=== PATIENT | female | born 1955 | race Caucasian/White ===

== ENCOUNTER 2016-05-06 11:29 | Emergency (ER) | payer OTHER ==
[~2016-05-06] VITALS: Ht 162.6 cm; Wt 65.8 kg
[~2016-05-06 11:29] MED LIST: ACET325T96 PO; FURO-85 PO; NASASPR; OFLO0.3D4 OTR; PRT40 PO; SALI0.658 NAE
[2016-05-06 11:32] VITALS: TEMP 36.5; Ht 162.6 cm; Wt 65.8 kg
[2016-05-06] MEDS ORDERED: DICL75TA2 PO (12:00)
[2016-05-06 12:08] VITALS: BP 125/79; PULSE 81; O2SAT 97
--- NOTE | 2016-05-06 15:09 | EMERGENCY ROOM VISIT NOTE ---
History First contact with patient: 11:45 Chief Complaint: FACIAL PAIN/INJURY Stated Complaint: RIGHT JAW History of Present Illness The patient is a 61 year old female who presents to the Emergency Room with complaints of right-sided facial pain for the past 12 hours. The patient states that she was chewing gum last evening when she felt discomfort in her upper right jaw. The patient remove the gum, and went to bed. When she awoke this morning she still had persistent pain. She did take 2 Tylenol with minimal improvement of symptoms. The patient has not had facial or dental pain. No fever or chills. Her symptoms worsened when she opens and closes her jaw. Review of Systems More than 10 systems were reviewed and otherwise negative with the exception of history of present illness. Past Medical/Surgical History Medical Problems: (1) Atrial fibrillation (2) COPD (chronic obstructive pulmonary disease) (3) Pacemaker (4) RBBB (5) Rheumatic heart disease Surgical Problems: (1) H/O aortic valve replacement (2) History of mitral valve replacement (3) S/P AAA repair (4) S/P tonsillectomy and adenoidectomy Family History FH: CAD (coronary artery disease) FATHER FH: breast cancer MOTHER Social History Smoking Status: Never Smoker Current/Historical Medications Scheduled Diclofenac Sodium (Voltaren), 75 MG PO BID Diphenhydramine Hcl (Allergy Relief), 25 MG PO DAILY Furosemide (Lasix), 20 MG PO DAILY Ofloxacin (Otic) (Floxin Otic), 5 DROPS OTR BID Pantoprazole (Pantoprazole Sodium), 40 MG PO QAM Saline ([place] Nasal Drops), 2 DROPS DAI TID Warfarin Sod (Jantoven), 4 MG PO [id number] Warfarin Sod (Jantoven), 6 MG PO WK Scheduled PRN Acetaminophen Tab (Tylenol), 650 MG PO Q4H PRN for Pain Nasal Moisturizer Combination ([place] Ultra Saline Nasal), 2 SPRAY NA TID PRN for nasal dryness Allergies Coded Allergies: Adhesives (Verified Allergy, Unknown, UNKOWN., 05/06/16) ALL ALLERGY INFO PROVIDED BY THE OFFICE OF DR. STEVEN YI Gabapentin (Verified Allergy, Unknown, UNK, 05/06/16) Latex1 -Allergic Contact Dermititis (Verified Allergy, Unknown, unk, ) Sertraline (Verified Allergy, Unknown, UNK., 05/06/16) Sulfa Antibiotics (Verified Allergy, Unknown, unk, 05/06/16) Tramadol (Verified Allergy, Unknown, UNK, 05/06/16) Physical Exam Vital Signs Date Time Temp Pulse Resp B/P Pulse Ox O2 Delivery O2 Flow Rate FiO2 05/06/16 12:08 81 125/79 97 05/06/16 11:32 36.5 80 18 115/80 97 Room Air Pain Rating (0-10): 8.0 Physical Exam VITALS: Vitals are noted on the nurse's note and reviewed by myself. Vital signs stable. GENERAL: Well-developed, well-nourished, white female, who is in no acute distress and resting comfortably. Patient is cooperative with the examination. HEAD: Normocephalic atraumatic. EARS: External ear normal. External auditory canals clear, tympanic membranes pearly meza without erythema or effusion bilaterally. EYES: Pupils equal round and reactive to light and accommodation. Conjunctivae without injection, sclerae without icterus. Extraocular movements intact. NOSE: Patent, turbinates without inflammation or discharge. MOUTH: Mucous membranes moist. Tonsils are not enlarged. Pharynx without erythema, blood, or exudate. Uvula midline. Airway patent. Tenderness is appreciated over the right TMJ. Tenderness is reportedly worse with opening and closing the jaw. No trismus. No Ludwigs. NECK: Supple without nuchal rigidity. No lymphadenopathy. No thyromegaly. Cervical spine is nontender. HEART: Regular rate and rhythm without murmurs gallops or rubs. LUNGS: Clear to auscultation bilaterally without wheezes, rales or rhonchi. No retractions or accessory muscle use. Medical Decision & Procedures ED Course Physical exam and history were performed. Nursing notes and EMR were reviewed. Patient appears to have pain directly over her right TMJ. This appears to be exacerbated after chewing gum about 12 hours ago. The discomfort is worsened with opening and closing the jaw. The patient has never had symptoms like this in the past. She certainly is without signs of dental infection or abscess. There is no facial cellulitis. She will be given a short course of Voltaren to assist with pain and inflammation. I recommended a soft food and liquid diet for the next several days. The patient may wish to consider a dental splint or follow up with her PCP/dentist if symptoms persist. She was otherwise invited back to the ER with any new, worsening, or concerning symptoms. The chart was completed utilizing [employer] Speech Voice Recognition Software. Grammatical errors, random word insertions, pronoun errors, and incomplete sentences are an occasional consequence of this system due to software limitations, ambient noise, and hardware issues. Any formal questions or concerns about the content, text, or information contained within the body of this dictation should be directly addressed to the provider for clarification. . Medical Decision Differential diagnosis includes, but is not limited to: TMJ pain, ental infection, sinusitis, cellulitis, and others Impression Primary Impression: Temporomandibular joint (TMJ) pain Departure Information Dispostion Home / Self-Care Condition GOOD Prescriptions Diclofenac Sodium (VOLTAREN) 75 Mg Tab 75 MG PO BID for 7 Days, #14 TAB Prov: Haja Casas PA-C 05/06/16 Forms HOME CARE DOCUMENTATION FORM, IMPORTANT VISIT INFORMATION Patient Instructions My [facility] Additional Instructions You were seen and evaluated today on an emergency basis only. This is not a substitute for, or an effort to provide, complete comprehensive medical care. It is not possible to recognize and treat all injuries or illnesses in a single emergency department visit. For this reason it is recommended that you followup with your primary care physician next week with any ongoing or persistent symptoms. Take diclofenac 75 mg twice daily with food for the next week. We recommend a soft food and liquid diet for the next several days until her symptoms improve. You are welcome to return to the emergency department anytime with new, worsening, or concerning symptoms.
[2016-10-02] MEDS ORDERED: WARF2TAB8 PO ×2 (11:28→17:55)
[2016-10-02] MEDS ORDERED: DIPH25TA2 PO (11:30)
[2016-11-05] MEDS ORDERED: PRT40 PO (16:41)
[2016-11-05] MEDS ORDERED: WARF2TAB8 PO (16:41)
[2016-11-05] MEDS ORDERED: NTRSLP4 SL (16:41)
[2016-11-05] MEDS ORDERED: ASPEC81 PO (16:41)
[2016-11-05] MEDS ORDERED: LVNIS80 SQ (16:41)
== END 2016-05-06 12:09 | disposition home or self-care (01) ==
LOC: C.EDB 11:33 → C.EDD 12:09
DX: M26.621 Arthralgia of right temporomandibular joint (principal); I48.91 Unspecified atrial fibrillation; J44.9 Chronic obstructive pulmonary disease, unspecified; Z95.0 Presence of cardiac pacemaker; I45.10 Unspecified right bundle-branch block; I09.9 Rheumatic heart disease, unspecified; Z95.2 Presence of prosthetic heart valve; Z82.49 Family history of ischemic heart disease and other diseases of the circulatory system; Z80.3 Family history of malignant neoplasm of breast; Z79.899 Other long term (current) drug therapy; Z79.01 Long term (current) use of anticoagulants

== ENCOUNTER 2016-10-02 14:31 | Emergency (ER) | payer OTHER ==
[~2016-10-02] VITALS: Ht 162.6 cm; Wt 63.1 kg
[~2016-10-02 14:31] MED LIST changes: +DIPH25TA2 PO; -SALI0.658 NAE; +WARF2TAB8 PO
[2016-10-02 14:35] VITALS: TEMP 36.8; Ht 162.6 cm; Wt 63.1 kg
[2016-10-02] MEDS ORDERED: POTA1TAB PO (15:28)
[2016-10-02] MEDS ORDERED: ACET500T57 PO (15:28)
[2016-10-02] MEDS ORDERED: SIME1CHW17 PO (15:28)
[2016-10-02] MEDS ORDERED: ONDANSETRON 4MG OD TAB PO STA (15:55)
[2016-10-02] MEDS ORDERED: ACETAMINOPHEN 500 MG TAB PO STA (15:55)
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
[2016-10-02 17:46] VITALS: BP 138/97; PULSE 80; O2SAT 98
[2016-10-02] MEDS ORDERED: WARF2TAB8 PO (17:55)
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
[2016-11-05] MEDS ORDERED: WARF2TAB8 PO (16:41)
[2016-11-05] MEDS ORDERED: LVNIS80 SQ (16:41)
[2016-11-05] MEDS ORDERED: PRT40 PO (16:41)
[2016-11-05] MEDS ORDERED: ASPEC81 PO (16:41)
[2016-11-05] MEDS ORDERED: NTRSLP4 SL (16:41)
== END 2016-10-02 17:40 | disposition home or self-care (01) ==
LOC: C.EDB 14:32 → C.EDD 17:40
DX: S09.90XA Unspecified injury of head, initial encounter (principal); M54.2 Cervicalgia; V89.2XXA Person injured in unspecified motor-vehicle accident, traffic, initial encounter; I51.9 Heart disease, unspecified

== ENCOUNTER → 2016-10-06 | Outpatient (CLI) | payer OTHER ==
[~2016-10-06] MED LIST changes: -ACET325T96 PO; +ACET500T57 PO; +ASPEC81 PO; +CLR10 PO; -FURO-85 PO; +LVNIS80 SQ; -NASASPR; +NTRSLP4 SL; -OFLO0.3D4 OTR; +POTA1TAB PO; +SIME1CHW17 PO; +WARF4TAB8 PO
[2016-10-06 17:56] LABS: BASO % 0.2 %; BASO ABS # 0.01 K/uL (0-0.2); COMPLETE YES; EOS % 2.8 %; HEMATOCRIT 42.2 % (37-47); IG% 0.3 %; LYMPH % 19.2 %; LYMPH ABS # 1.23 K/uL (1.2-3.4); MEAN CELL VOLUME 93.6 fL (80-100); MEAN CORPUSCULAR HEMOGLOBIN 31.7 pg (25-34); MEAN CORPUSCULAR HGB CONC 33.9 g/dl (32-36); MEAN PLATELET VOLUME 10.7 fL (7.4-10.4); MONO % 9.2 %; NEUT % 68.3 %; PLATELET COUNT 195 K/uL (130-400); RED BLOOD COUNT 4.51 M/uL (4.2-5.4); WHITE BLOOD COUNT 6.42 K/uL (4.8-10.8)
[2016-10-06 18:14] LABS: ALT/SGPT 17 U/L (12-78); AST/SGOT 30 U/L (15-37); BLOOD UREA NITROGEN 13 mg/dl (7-18); BUN/CREATININE RATIO 14.8 (10-20); CALCIUM 8.9 mg/dl (8.5-10.1); CARBON DIOXIDE 27 mmol/L (21-32); CHLORIDE 107 mmol/L (98-107); CHOLESTEROL 195 mg/dl (0-200); CREATININE 0.86 mg/dl (0.60-1.20); GLUCOSE 86 mg/dl (70-99); POTASSIUM 3.8 mmol/L (3.5-5.1); SODIUM 140 mmol/L (136-145); TRIGLYCERIDES 120 mg/dl (0-150); VERY LOW DENSITY LIPOPROT CALC 24 mg/dl
[2016-10-06 18:17] LABS: INR 1.9 (0.9-1.1); PROTHROMBIN TIME (PATIENT) 20.9 SECONDS (9.0-12.0)
[2016-10-06 18:24] LABS: ALB/GLOB RATIO 1.1 (0.9-2); ALKALINE PHOSPHATASE 76 U/L (45-117); CHOLESTEROL/HDL RATIO 3.9; HDL CHOLESTEROL 50 mg/dl; LDL CHOLESTEROL CALCULATED 121 mg/dl
== END | disposition home or self-care (01) ==
LOC: C.LABPBG 12:27
PROVIDERS: ATTEND Family Medicine
DX: I48.91 Unspecified atrial fibrillation (principal); Z95.2 Presence of prosthetic heart valve

== ENCOUNTER → 2016-10-07 | Outpatient (CLI) | payer OTHER ==
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
== END | disposition home or self-care (01) ==
LOC: C.RAD 15:13
PROVIDERS: ATTEND Physician Assistant
DX: R07.81 Pleurodynia (principal); R91.8 Other nonspecific abnormal finding of lung field; V89.2XXA Person injured in unspecified motor-vehicle accident, traffic, initial encounter

== ENCOUNTER → 2016-10-17 | Outpatient (CLI) | payer OTHER ==
[~2016-10-17] MED LIST changes: +OPTIRAY 320 IV PRN
--- NOTE | 2016-10-17 14:54 | DIAGNOSTIC IMAGING REPORT ---
CT OF THE CHEST WITH IV CONTRAST CLINICAL HISTORY: R91.1 Lung nodule, [id number] COMPARISON STUDY: Chest x-ray dated 10/07/2016 TECHNIQUE: Following the IV administration of 94 mL of Optiray-320, CT of the thorax was performed from the thoracic inlet to the lung bases. Images are reviewed in the axial, sagittal, and coronal planes. IV contrast was administered without complication. A dose lowering technique was utilized adhering to the principles of ALARA. CT DOSE: 156.52 mGycm FINDINGS: Thyroid: Imaged portions of the thyroid gland are normal in appearance. Thoracic aorta: There is dilatation of the ascending thoracic aorta which measures 37 mm in diameter Pulmonary vasculature: The pulmonary trunk is normal in caliber. There are no central filling defects identified to suggest pulmonary embolus. Note that this examination was not protocoled for the evaluation of pulmonary emboli. HEART: There is an aortic and mitral valve replacement. There is left atrial enlargement. There is a left subclavian pacemaker present. Lungs and pleural spaces: There is severe pulmonary emphysema. There is no focal pulmonary consolidation. There are no suspicious pulmonary masses. The right apical opacity described on the recent chest x-ray, likely represented a summation. There is a 2 mm right upper lobe pulmonary nodule. This is of doubtful significance. There is also a 4 mm right middle lobe pulmonary nodule as visualized in image #[id number] there is a 2 mm calcified left lower lobe granuloma. Mediastinum: There are borderline enlarged right paratracheal and prevascular lymph nodes Tamera: Hilar lymph nodes are the upper limits of normal in size Axilla: There is no evidence of pathologic axillary lymphadenopathy. There is a 12 mm lobulated left breast nodule versus area of glandular summation Upper abdomen: There is equivocal mild splenomegaly Skeletal structures: There are no lytic or blastic osseous lesions. IMPRESSION: 1. CT scanning fails to confirm the presence of a 17 mm right apical pulmonary mass 2. Severe pulmonary emphysema 3. 12 mm left breast nodule versus glandular summation 4. 4 mm solid right middle lobe pulmonary nodule. A 12 month follow-up is optional. Please refer to below summary of Fleischner criteria recommendations for follow-up of incidental CT nodules (Vlad Nunez, Guidelines for management of small pulmonary nodules detected on CT scans: A statement from the Fleischner Society, Radiology 237: [phone].) SOLID NODULES Solitary nodule size: <6 mm * low risk patients: no follow-up needed * high risk patients: optional CT at 12 months Solitary nodule size: 6-8 mm * low risk patients: follow-up at 6-12 months, then consider further follow-up at 18-24 months * high risk patients: initial follow-up CT at 6-12 months and then at 18-24 months if no change Solitary nodule size: >8 mm * either low or high risk patients - consider follow-up CT at 3 months, and/or CT-PET, and/or biopsy Multiple nodules size: <6 mm * low risk patients: no routine follow-up * high risk patients: optional CT at 12 months Multiple nodules size: 6-8 mm * low risk patients: follow-up at 3-6 months, then consider further follow-up at 18-24 months * high risk patients: follow-up at 3-6 months, then at 18-24 months if no change Multiple nodules size: >8 mm * low risk patients: follow-up at 3-6 months, then consider further follow-up at 18-24 months * high risk patients: follow-up at 3-6 months, then at 18-24 months if no change Note: newly detected indeterminate nodule in persons 35 years of age or older. * low risk patients: minimal or absent history of smoking and/or other known risk factors * high risk patients: history of smoking or of other known risk factors (e.g. first degree relative with lung cancer, or exposure to asbestos, radon, uranium) * if a nodule up to 8 mm is partly solid or is ground glass further follow-up is required after 24 months to exclude possible slow growing adenocarcinoma ([place]ICA) SUBSOLID NODULES Solitary pure ground-glass nodule * nodule size <6 mm - no CT follow-up required * nodule size >=6 mm - follow-up CT at 6-12 months, then every 2 years until 5 years Solitary part-solid nodule * nodule size <6 mm - no CT follow-up required * nodule size >=6 mm - follow-up CT at 3-6 months. If unchanged, and solid component remains <6 mm, then annual follow-up for 5 years Multiple subsolid nodules * nodule size <6 mm - follow-up CT at 3-6 months, consider further follow-up at 2 and 4 years if stable * nodule size >=6 mm - follow-up CT at 3-6 months, subsequent management based on the most suspicious nodule(s) Electronically signed by: Ever Nunez M.D. 10/17/2016 2:53 PM Dictated Date/Time: 10/17/2016 2:42 PM
== END | disposition home or self-care (01) ==
LOC: C.CTS 13:26
PROVIDERS: ATTEND Physician Assistant
DX: R91.1 Solitary pulmonary nodule (principal); J43.9 Emphysema, unspecified

== ENCOUNTER 2016-11-03 21:36 | Observation (INO) | payer OTHER ==
[~2016-11-03] VITALS: Ht 162.6 cm; Wt 64.1 kg
[~2016-11-03 21:36] MED LIST changes: -ASPEC81 PO; -CLR10 PO; -LVNIS80 SQ; -NTRSLP4 SL; -OPTIRAY 320 IV PRN; -PRT40 PO; -WARF4TAB8 PO
[2016-11-03 21:59] LABS: BASO % 0.1 %; BASO ABS # 0.01 K/uL (0-0.2); COMPLETE YES; EOS % 2.4 %; HEMATOCRIT 37.8 % (37-47); IG% 0.3 %; LYMPH % 13.2 %; LYMPH ABS # 1.01 K/uL (1.2-3.4); MEAN CELL VOLUME 91.7 fL (80-100); MEAN CORPUSCULAR HEMOGLOBIN 31.6 pg (25-34); MEAN CORPUSCULAR HGB CONC 34.4 g/dl (32-36); MEAN PLATELET VOLUME 10.2 fL (7.4-10.4); MONO % 8.8 %; NEUT % 75.2 %; PLATELET COUNT 150 K/uL (130-400); RED BLOOD COUNT 4.12 M/uL (4.2-5.4); WHITE BLOOD COUNT 7.64 K/uL (4.8-10.8)
[2016-11-03 22:06] LABS: INR 1.3 (0.9-1.1); PARTIAL THROMBOPLASTIN RATIO 1.1; PROTHROMBIN TIME (PATIENT) 13.7 SECONDS (9.0-12.0)
--- NOTE | 2016-11-03 22:14 | DIAGNOSTIC IMAGING REPORT ---
CHEST ONE VIEW PORTABLE CLINICAL HISTORY: Atypical chest pain COMPARISON STUDY: 10/07/2016 FINDINGS: The cardiac and mediastinal contours remain stable. The patient is status post a midline sternotomy and bivalvular replacement.[ There is no acute parenchymal consolidation. There are no pleural effusions. There is radiographic evidence of emphysema with mild chronic interstitial thickening. IMPRESSION: AP portable study. No acute findings. Electronically signed by: Ever Nunez M.D. 11/03/2016 10:12 PM Dictated Date/Time: 11/03/2016 10:11 PM
[2016-11-03 22:15] LABS: ALT/SGPT 18 U/L (12-78); BLOOD UREA NITROGEN 20 mg/dl (7-18); CALCIUM 8.4 mg/dl (8.5-10.1); CARBON DIOXIDE 23 mmol/L (21-32); CHLORIDE 110 mmol/L (98-107); CREATININE 0.96 mg/dl (0.60-1.20); GLUCOSE 120 mg/dl (70-99); POTASSIUM 3.6 mmol/L (3.5-5.1); SODIUM 142 mmol/L (136-145)
[2016-11-03 22:19] LABS: ALKALINE PHOSPHATASE 86 U/L (45-117); AST/SGOT 47 U/L (15-37); PHOSPHORUS 3.6 mg/dl (2.5-4.9)
--- NOTE | 2016-11-03 22:44 | EMERGENCY ROOM VISIT NOTE ---
History Report prepared by Luiza: Yung Huerta Under the Supervision of: Dr. Ahsan Vargas M.D. First contact with patient: 21:40 Chief Complaint: CHEST PAIN Stated Complaint: CHEST PAIN Nursing Triage Summary: pt arrived als from home reported chest pain starting at [id number] in the center of chest moved to the under the left brest. pt has a cardiac hx, pacer in place , [employer] [facility] pt c.o sob states she has emphazema, denies radiating of pain pain 07/19 History of Present Illness The patient is a 61 year old white female with a past medical history of hyperlipidemia, tricuspid angioplasty, and mitral valve replacement who presents to the ED by EMS with a cc of an episode of centralized chest pain occurring two hours ago. Pain began suddenly. Not exerting herself when her symptoms began. Describes her pain as feeling "like a gas bubble", or like "pressure". Walking worsened her pain. Pain resolved en route after aspirin and nitroglycerin. Does not believe she actually ingested the aspirin. Positive SOB and dizziness. Patient has a pacemaker in place. No recent prolonged travel. No history of blood clots. Patient is on Coumadin. Negative leg swelling, cough, fevers, chills. Source of History: patient Onset: Two hours ago Position: chest (centralized) Timing: other (episode) Modifying Factors (Worsening): other (walking) Modifying Factors (Relieving): other (Nitroglycerin) Associated Symptoms: + SOB, No fevers, No chills, No cough Note: Positive: dizziness. Negative: leg swelling. Review of Systems See HPI for pertinent positives and negatives. A total of ten systems were reviewed and were otherwise negative. Past Medical & Surgical Medical Problems: (1) Atrial fibrillation (2) COPD (chronic obstructive pulmonary disease) (3) Pacemaker (4) RBBB (5) Rheumatic heart disease Surgical Problems: (1) H/O aortic valve replacement (2) History of mitral valve replacement (3) S/P AAA repair (4) S/P tonsillectomy and adenoidectomy Family History FH: CAD (coronary artery disease) FATHER FH: breast cancer MOTHER Social History Smoking Status: Former Smoker Current/Historical Medications Scheduled Warfarin Sod (Jantoven), 4 MG PO DAILY Allergies Coded Allergies: Adhesives (Verified Allergy, Unknown, UNKOWN., 11/03/16) ALL ALLERGY INFO PROVIDED BY THE OFFICE OF DR. STEVEN YI Gabapentin (Verified Allergy, Unknown, UNK, 11/03/16) Latex1 -Allergic Contact Dermititis (Verified Allergy, Unknown, unk, ) Sertraline (Verified Allergy, Unknown, UNK., 11/03/16) Sulfa Antibiotics (Verified Allergy, Unknown, unk, 11/03/16) Tramadol (Verified Allergy, Unknown, UNK, 11/03/16) Physical Exam Vital Signs Date Time Temp Pulse Resp B/P (MAP) Pulse Ox O2 Delivery O2 Flow Rate FiO2 11/04/16 00:24 80 21 122/80 99 11/04/16 00:01 80 21 122/80 99 Nasal Cannula 2.0 11/03/16 23:31 80 19 132/86 98 Nasal Cannula 2.0 11/03/16 23:01 80 20 124/83 99 Nasal Cannula 2.0 11/03/16 22:42 115/77 11/03/16 22:36 80 18 98 11/03/16 22:06 81 19 98 11/03/16 21:58 89 Room Air 11/03/16 21:58 93 Nasal Cannula 2.0 11/03/16 21:43 80 11/03/16 21:40 93 Room Air 11/03/16 21:37 36.4 81 18 121/76 93 Room Air Physical Exam GENERAL: Awake, alert, well-appearing, NAD HENT: Normocephalic, atraumatic. EYES: Normal conjunctiva. Sclera non-icteric. NECK: Supple. No nuchal rigidity. FROM. RESPIRATORY: Bibasilar crackles noted to auscultation. CARDIAC: RRR, no MRG ABDOMEN: Soft, NTND, BS+ MSK: No chest wall TTP, no LE edema NEURO: GCS 15, CN 2-12 intact, moves all 4s on command SKIN: No rash or jaundice noted. Medical Decision & Procedures ER Provider Diagnostic Interpretation: X-ray: Per my interpretation, radiologist review. CHEST ONE VIEW PORTABLE FINDINGS: The cardiac and mediastinal contours remain stable. The patient is status post a midline sternotomy and bivalvular replacement.[ There is no acute parenchymal consolidation. There are no pleural effusions. There is radiographic evidence of emphysema with mild chronic interstitial thickening. IMPRESSION: AP portable study. No acute findings. Electronically signed by: Ever Nunez M.D. Laboratory Results 11/03/16 21:47 Red Blood Count 4.12, Mean Corpuscular Volume 91.7, Mean Corpuscular Hemoglobin 31.6, Mean Corpuscular Hemoglobin Concent 34.4, Mean Platelet Volume 10.2, Neutrophils (%) (Auto) 75.2, Lymphocytes (%) (Auto) 13.2, Monocytes (%) (Auto) 8.8, Eosinophils (%) (Auto) 2.4, Basophils (%) (Auto) 0.1, Neutrophils # (Auto) 5.75, Lymphocytes # (Auto) 1.01, Monocytes # (Auto) 0.67, Eosinophils # (Auto) 0.18, Basophils # (Auto) 0.01 11/03/16 21:47 Test 11/03/16 21:47 11/04/16 01:00 White Blood Count 7.64 K/uL (4.8-10.8) Red Blood Count 4.12 M/uL (4.2-5.4) Hemoglobin 13.0 g/dL (12.0-16.0) Hematocrit 37.8 % (37-47) Mean Corpuscular Volume 91.7 fL (80-100) Mean Corpuscular Hemoglobin 31.6 pg (25-34) Mean Corpuscular Hemoglobin Concent 34.4 g/dl (32-36) Platelet Count 150 K/uL (130-400) Mean Platelet Volume 10.2 fL (7.4-10.4) Neutrophils (%) (Auto) 75.2 % Lymphocytes (%) (Auto) 13.2 % Monocytes (%) (Auto) 8.8 % Eosinophils (%) (Auto) 2.4 % Basophils (%) (Auto) 0.1 % Neutrophils # (Auto) 5.75 K/uL (1.4-6.5) Lymphocytes # (Auto) 1.01 K/uL (1.2-3.4) Monocytes # (Auto) 0.67 K/uL (0.11-0.59) Eosinophils # (Auto) 0.18 K/uL (0-0.5) Basophils # (Auto) 0.01 K/uL (0-0.2) RDW Standard Deviation 47.2 fL (36.4-46.3) RDW Coefficient of Variation 14.0 % (11.5-14.5) Immature Granulocyte % (Auto) 0.3 % Immature Granulocyte # (Auto) 0.02 K/uL (0.00-0.02) Prothrombin Time 13.7 SECONDS (9.0-12.0) Prothromb Time International Ratio 1.3 (0.9-1.1) Activated Partial Thromboplast Time 28.5 SECONDS (21.0-31.0) Partial Thromboplastin Ratio 1.1 Anion Gap 9.0 mmol/L (3-11) Est Creatinine Clear Calc Drug Dose 52.5 ml/min Estimated GFR () 73.5 Estimated GFR (Non- 63.4 BUN/Creatinine Ratio 21.0 (10-20) Calcium Level 8.4 mg/dl (8.5-10.1) Phosphorus Level 3.6 mg/dl (2.5-4.9) Magnesium Level 2.0 mg/dl (1.8-2.4) Total Bilirubin 0.8 mg/dl (0.2-1) Direct Bilirubin 0.3 mg/dl (0-0.2) Aspartate Amino Transf (AST/SGOT) 47 U/L (15-37) Alanine Aminotransferase (ALT/SGPT) 18 U/L (12-78) Alkaline Phosphatase 86 U/L (45-117) Total Protein 6.5 gm/dl (6.4-8.2) Albumin 3.4 gm/dl (3.4-5.0) Lipase 154 U/L (73-393) Laboratory results reviewed by me Medications Administered Medications (Trade) Dose Ordered Sig/Aidee Route Start Time Stop Time Status Last Admin Dose Admin Aspirin (Aspirin Chew) 324 mg NOW STAT PO 11/03/16 22:53 11/03/16 22:54 DC 11/03/16 23:01 324 MG Ondansetron HCl (Zofran Inj) 4 mg Q6H PRN IV 11/03/16 23:15 12/03/16 23:14 11/04/16 00:20 4 MG Warfarin Sodium (Coumadin Tab) 5 mg NOW STAT PO 11/04/16 00:02 11/04/16 00:03 DC 11/04/16 00:20 5 MG ECG Indication: chest pain Rate (beats per minute): 81 Rhythm: other (ventricularly paced) Findings: LBBB, T-wave inversion (inferior, V5 and V6. ), no acute ischemic change, other (Wide QRS. No Sgarbossa criteria. ) Comparison ECG Date: January 16, 2016 Change: no significant change ED Course 2151: The patient was evaluated in room B11B. A complete history and physical exam was performed. 2239: Upon reexamination, the patient was resting comfortably. I discussed the test results and treatment plan with her. The patient will be evaluated for further management. Medical Decision The patient is a 61 year old white female with a past medical history of hyperlipidemia, tricuspid angioplasty, and mitral valve replacement who presents to the ED by EMS with a cc of an episode of centralized chest pain occurring two hours ago. Differential diagnosis: Etiologies such as cardiac ischemia, aortic dissection, pulmonary embolism, pneumonia, pneumothorax, musculoskeletal, infections, pericarditis, myocarditis , esophageal rupture, gastrointestinal, as well as others were entertained. I initially took the phone call by EMS in the and evaluated the patient. Patient's story was concerning as it was left-sided, with diaphoresis, nausea. Patient did complain of some exertional chest pain. Patient was complaining mild shortness of breath. Patient prior history of DVT or PE. Patient had a previous history of a tricuspid annuloplasty and a pacemaker that was placed. Patient also has history of hypertension and hyperlipidemia. Patient has no prior history of [place]. Patient does smoke. Patient was given nitroglycerin in route and she stated that her pain had improved greatly. Decision was given aspirin but believes she had vomited it up. Per review of her EKG she did have a left bundle branch block but no acute concerning sgarbossa criteria met. Patient had a negative troponin and chest x-ray. Patient's other laboratory was fairly unremarkable. Given the history of the chest pain I spoke with the medicine service who agreed patient would benefit from his recent observation. Per serial EKGs and cardiac enzymes. Patient admitted to the medicine service. Medication Reconcilliation Current Medication List: was personally reviewed by me Blood Pressure Screening Patient's blood pressure: Normal blood pressure Blood pressure disposition: Did not require urgent referral Consults Time Called: [phone] Consulting Physician: Dr. Jarrod ZHOU Returned Call: [phone] Discussed the patient's case. The patient will be evaluated for further treatment and disposition. Impression Primary Impression: Atypical chest pain Additional Impression: Encounter for smoking cessation counseling Scribe Attestation The scribe's documentation has been prepared under my direction and personally reviewed by me in its entirety. I confirm that the note above accurately reflects all work, treatment, procedures, and medical decision making performed by me. Departure Information Dispostion Being Evaluated By Hospitalist Referrals Shellie Bush DO (PCP) Patient Instructions [facility] Problem Qualifiers
[2016-11-03] MEDS ORDERED: ASPIRIN 324 MG CHEW PO STA (22:53)
[2016-11-03] MEDS ORDERED: POLYETHYLENE (MIRALAX) 17 GM PACK PO PRN (23:15)
[2016-11-03] MEDS ORDERED: ALUMINUM/MAGNESIUM/SIMETH (MAALOX MAX) 30 ML UDC PO PRN (23:15)
[2016-11-03] MEDS ORDERED: ACETAMINOPHEN 325 MG TAB PO PRN (23:15)
[2016-11-03] MEDS ORDERED: MoRPHine SULFATE 2 MG/ML CARP IV PRN (23:15)
[2016-11-03] MEDS ORDERED: ONDANSETRON INJ 2 MG/ML 2 ML VIAL IV PRN (23:15)
[2016-11-03] MEDS ORDERED: MAGNESIUM HYDROXIDE SUSP 30 ML UDC PO PRN (23:15)
[2016-11-03] MEDS ORDERED: NITROGLYCERIN 0.4 MG SL PER TAB CHARGE SL PRN (23:15)
[2016-11-03] MEDS ORDERED: ZOLPIDEM TARTRATE 5 MG TAB PO PRN (23:15)
--- NOTE | 2016-11-03 23:52 | History and Physical ---
History & Physical Date & Time of Service: Nov 03, 2016 at 23:29 Chief Complaint: Chest Pain Primary Care Physician: Shellie Bush DO History of Present Illness Source: patient 61 y/o F Hx COPD, mechanical mitral and aortic valve owing to rheumatic heart disease. Pt developed central CP lasting 1-2 hours. Accompanied by SOB - nonradiating, denies N/V, diaphoresis. Has not had previous chest pain episodes. Past Medical/Surgical History Medical Problems: (1) Atrial fibrillation Status: Chronic (2) COPD (chronic obstructive pulmonary disease) Status: Chronic (3) Pacemaker Status: Chronic (4) RBBB Status: Chronic (5) Rheumatic heart disease Status: Chronic Surgical Problems: (1) H/O aortic valve replacement - mechanical valve Permanent Comment: 1992 (2) History of mitral valve replacement (mechanical valve) in addition to tricuspid valve repair Permanent Comment: 05/2014; mechanical Status: Chronic (3) S/P AAA repair Status: Chronic (4) S/P tonsillectomy and adenoidectomy Status: Chronic Family History FH: CAD (coronary artery disease) FATHER FH: breast cancer MOTHER Social History Smoking Status: Former Smoker Immunizations History of Tetanus Vaccine?: Yes Tetanus Immunization Date: Jul 22, 2012 History of Pneumococcal: Yes Pneumococcal Date: Apr 23, 2014 Allergies Coded Allergies: Adhesives (Verified Allergy, Unknown, UNKOWN., 11/03/16) ALL ALLERGY INFO PROVIDED BY THE OFFICE OF DR. STEVEN YI Gabapentin (Verified Allergy, Unknown, UNK, 11/03/16) Latex1 -Allergic Contact Dermititis (Verified Allergy, Unknown, unk, ) Sertraline (Verified Allergy, Unknown, UNK., 11/03/16) Sulfa Antibiotics (Verified Allergy, Unknown, unk, 11/03/16) Tramadol (Verified Allergy, Unknown, UNK, 11/03/16) Home Medications Scheduled Warfarin Sod (Jantoven), 4 MG PO DAILY Review of Systems Constitutional: No fever, No chills, No sweats Eyes: No worsening of vision ENT: No hearing loss Respiratory: + shortness of breath, No cough, No sputum, No wheezing Cardiovascular: + chest pain, No orthopnea, No PND Abdomen: No pain, No nausea, No vomiting Musculoskeletal: No joint pain Genitourinary - Female: No dysuria Neurologic: No memory loss, No paralysis, No weakness Psychiatric: No depression symptoms Endocrine: No fatigue Hematologic / Lymphatic: No abnormal bleeding/bruising Integumentary: No rash Allergic / Immunologic: No environmental allergies Physical Exam Vital Signs Date Time Temp Pulse Resp B/P (MAP) Pulse Ox O2 Delivery O2 Flow Rate FiO2 11/03/16 22:42 115/77 11/03/16 22:36 80 18 98 11/03/16 22:06 81 19 98 11/03/16 21:58 89 Room Air 11/03/16 21:58 93 Nasal Cannula 2.0 11/03/16 21:43 80 11/03/16 21:40 93 Room Air 11/03/16 21:37 36.4 81 18 121/76 93 Room Air General Appearance: WD/WN, no apparent distress Head: normocephalic Eyes: normal inspection ENT: normal ENT inspection, pharynx normal Neck: supple, no JVD Respiratory/Chest: lungs clear Cardiovascular: regular rate, rhythm, no edema, no JVD, + pertinent finding ( Audible click ) Abdomen/GI: normal bowel sounds, non tender, soft Back: normal inspection, no CVA tenderness, no muscle spasm, normal range of motion Extremities/Musculoskelatal: normal inspection, no calf tenderness, normal capillary refill, no pedal edema, normal range of motion 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, no motor/sensory deficits, alert, normal mood/affect, normal reflexes, oriented x 3 Skin: normal color, warm/dry, no rash Lymphatic: no adenopathy Diagnostics Laboratory Results Results Past 24 Hours Test 11/03/16 21:47 Range/Units White Blood Count 7.64 4.8-10.8 K/uL Red Blood Count 4.12 4.2-5.4 M/uL Hemoglobin 13.0 12.0-16.0 g/dL Hematocrit 37.8 37-47 % Mean Corpuscular Volume 91.7 80-100 fL Mean Corpuscular Hemoglobin 31.6 25-34 pg Mean Corpuscular Hemoglobin Concent 34.4 32-36 g/dl Platelet Count 150 130-400 K/uL Mean Platelet Volume 10.2 7.4-10.4 fL Neutrophils (%) (Auto) 75.2 % Lymphocytes (%) (Auto) 13.2 % Monocytes (%) (Auto) 8.8 % Eosinophils (%) (Auto) 2.4 % Basophils (%) (Auto) 0.1 % Neutrophils # (Auto) 5.75 1.4-6.5 K/uL Lymphocytes # (Auto) 1.01 1.2-3.4 K/uL Monocytes # (Auto) 0.67 0.11-0.59 K/uL Eosinophils # (Auto) 0.18 0-0.5 K/uL Basophils # (Auto) 0.01 0-0.2 K/uL RDW Standard Deviation 47.2 36.4-46.3 fL RDW Coefficient of Variation 14.0 11.5-14.5 % Immature Granulocyte % (Auto) 0.3 % Immature Granulocyte # (Auto) 0.02 0.00-0.02 K/uL Prothrombin Time 13.7 9.0-12.0 SECONDS Prothromb Time International Ratio 1.3 0.9-1.1 Activated Partial Thromboplast Time 28.5 21.0-31.0 SECONDS Partial Thromboplastin Ratio 1.1 Sodium Level 142 136-145 mmol/L Potassium Level 3.6 3.5-5.1 mmol/L Chloride Level 110 98-107 mmol/L Carbon Dioxide Level 23 21-32 mmol/L Anion Gap 9.0 3-11 mmol/L Blood Urea Nitrogen 20 7-18 mg/dl Creatinine 0.96 0.60-1.20 mg/dl Est Creatinine Clear Calc Drug Dose 52.5 ml/min Estimated GFR () 73.5 Estimated GFR (Non- 63.4 BUN/Creatinine Ratio 21.0 10-20 Random Glucose 120 70-99 mg/dl Calcium Level 8.4 8.5-10.1 mg/dl Phosphorus Level 3.6 2.5-4.9 mg/dl Magnesium Level 2.0 1.8-2.4 mg/dl Total Bilirubin 0.8 0.2-1 mg/dl Direct Bilirubin 0.3 0-0.2 mg/dl Aspartate Amino Transf (AST/SGOT) 47 15-37 U/L Alanine Aminotransferase (ALT/SGPT) 18 12-78 U/L Alkaline Phosphatase 86 45-117 U/L Troponin I < 0.015 0-0.045 ng/ml Total Protein 6.5 6.4-8.2 gm/dl Albumin 3.4 3.4-5.0 gm/dl Lipase 154 73-393 U/L EKG Ventricular pacing - does not meet Sgarbossa's criteria Impression Assessment and Plan 61 y/o F Hx COPD, mechanical mitral and aortic valve owing to rheumatic heart disease. Pt developed central CP lasting 1-2 hours. Accompanied by SOB - nonradiating, denies N/V, diaphoresis. Has not had previous chest pain episodes. 1) CP - Pt will be monitored on telemetry with serial enzymes - ASA provided - she is normally on Coumadin although her INR is subtherapeutic. Location and duration of pain may be more consistent with upper GI etiology so that we will also provide an antacid. 2) Mechanical heart valves - Pts INR is 1.3 - she will likely need an adjustment in her Coumadin - we have provided 2 doses of SQ Lovenox and increased her AM dose. 3) COPD - does not require treatment at present Full code - full dose Lovenox Total time for this admit including review f labs, meds, imaging - discussion with pt and ER attending - 33 min Level of Care Telemetry Resuscitation Status FULL RESUSCITATION VTE Prophylaxis VTE Risk Assessment Done? Y/N: Yes Risk Level: Moderate Given or contraindicated: Enoxaparin (Lovenox)SQ
[2016-11-04] MEDS ORDERED: WARFARIN SOD 5 MG TAB PO STA (00:02)
[2016-11-04] MEDS ORDERED: IV FLUIDS COMPLETED PRN (00:45)
[2016-11-04 01:14] VITALS: BP 130/86; PULSE 80; TEMP 36.5; O2SAT 96; Ht 162.6 cm; Wt 64.1 kg
[2016-11-04] MEDS: ENOXAPARIN 60 MG/0.6 ML SYR SQ SCH ×2 (02:26→14:18)
[2016-11-04 04:05] VITALS: O2SAT 96
[2016-11-04 04:15] VITALS: BP 97/65; PULSE 80; TEMP 36.6; O2SAT 97
[2016-11-04 07:12] LABS: INR 1.2 (0.9-1.1); PROTHROMBIN TIME (PATIENT) 13.1 SECONDS (9.0-12.0)
[2016-11-04 07:58] VITALS: BP 98/66; PULSE 84; TEMP 36.6; O2SAT 96
[2016-11-04] MEDS: ASPIRIN 81 MG ECTAB PO SCH (08:09)
[2016-11-04 11:36] VITALS: BP 93/64; PULSE 75; TEMP 36.5; O2SAT 92
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
[2016-11-04] MEDS ORDERED: WARFARIN SOD 4 MG TAB PO SCH (16:00)
--- NOTE | 2016-11-04 17:30 | ECHOCARDIOGRAM REPORT ---
*NOTICE TO RECEIVING REPUBLICAN AGENCY This information is strictly Confidential and protected under [place] law. [place] law prohibits you from making any further disclosure of this information unless further disclosure is expressly permitted by the written consent of the person to whom it pertains or is authorized by law. A general authorization for the release of medical or other information is not sufficient for this purpose. Hospital accepts no responsibility if the information is made available to any other person, INCLUDING THE PATIENT. Interpretation Summary * Name: HOLLIE EASON Study Date: 11/04/2016 03:43 PM BP: 93/64 mmHg * Patient Location: [facility]\S\N284\S\1 HR: 75 * : 1955 (M/d/yyyy) Gender: Female Height: 64 in * Age: 61 yrs Ethnicity: CA Weight: 148 lb * Ordering Physician: Wil Neal * Referring Physician: Self, Referred * Performed By: Kizzy Willson RDCS * * Reason For Study: CHEST PAIN * BSA: 1.7 m2 * -- Conclusions -- * There is borderline concentric left ventricular hypertrophy. * Left ventricular systolic function is mild to moderately reduced. * There are regional wall motion abnormalities as specified. * The right ventricular systolic function is mildly reduced. * The left atrium is severely dilated. * There is a bi-leaflet (St. Reji) aortic mechanical prosthesis. * There is a mechanical mitral valve. Procedure Details * A complete two-dimensional transthoracic echocardiogram was performed (2D, M-mode, Doppler and color flow Doppler). Left Ventricle * The left ventricle is normal in size. * There is borderline concentric left ventricular hypertrophy. * Ejection Fraction = 35-40%. * Left ventricular systolic function is mild to moderately reduced. * There are regional wall motion abnormalities as specified. * Basal inferior wall is severely hypokinetic with moderately hypokinetic inferior apex. Septum is akinetic Right Ventricle * The right ventricle is normal size. * There is a pacemaker lead in the right ventricle. * The right ventricular systolic function is mildly reduced. Atria * The left atrium is severely dilated. * Right atrial size is normal. Mitral Valve * There is a mechanical mitral valve. * Normal prosthetic mitral valve gradients. Tricuspid Valve * The tricuspid valve is not well visualized, but is grossly normal. * Significant tricuspid regurgitation is absent. Aortic Valve * There is a bi-leaflet (St. Reji) aortic mechanical prosthesis. * The gradient is normal for this prosthetic aortic valve. Great Vessels * The aortic root is normal size. Pericardium/Pleural * There is no pericardial effusion. MMode 2D Measurements and Calculations IVSd 1.1 cm IVSs 1.2 cm LVIDd 4.7 cm LVIDs 4.0 cm LVPWd 1.4 cm LVPWs 1.7 cm IVS/LVPW 0.82 FS 15.6 % EDV(Teich) 102.4 ml ESV(Teich) 68.6 ml EF(Teich) 33.0 % EDV(cubed) 103.9 ml ESV(cubed) 62.4 ml EF(cubed) 39.9 % % IVS thick 7.2 % % LVPW thick 21.0 % LV mass(C)d 223.8 grams LV mass(C)dI 130.0 grams/m\S\2 LV mass(C)s 213.4 grams LV mass(C)sI 124.0 grams/m\S\2 SV(Teich) 33.8 ml SI(Teich) 19.6 ml/m\S\2 SV(cubed) 41.5 ml SI(cubed) 24.1 ml/m\S\2 Ao root diam 3.7 cm Ao root area 10.6 cm\S\2 LVAd ap4 26.7 cm\S\2 LVLd ap4 6.3 cm EDV(MOD-sp4) 92.7 ml EDV(sp4-el) 95.9 ml LVAs ap4 20.2 cm\S\2 LVLs ap4 6.1 cm ESV(MOD-sp4) 55.0 ml ESV(sp4-el) 57.2 ml EF(MOD-sp4) 40.7 % EF(sp4-el) 40.4 % LVAd ap2 27.1 cm\S\2 LVLd ap2 7.1 cm EDV(MOD-sp2) 82.0 ml EDV(sp2-el) 87.0 ml LVAs ap2 20.9 cm\S\2 LVLs ap2 6.6 cm ESV(MOD-sp2) 55.6 ml ESV(sp2-el) 55.8 ml EF(MOD-sp2) 32.2 % EF(sp2-el) 35.9 % LVLd %diff 11.4 % EDV(MOD-bp) 94.3 ml LVLs %diff 8.9 % ESV(MOD-bp) 57.0 ml EF(MOD-bp) 39.5 % SV(MOD-sp4) 37.8 ml SI(MOD-sp4) 21.9 ml/m\S\2 SV(MOD-sp2) 26.4 ml SI(MOD-sp2) 15.3 ml/m\S\2 SV(MOD-bp) 37.2 ml SI(MOD-bp) 21.6 ml/m\S\2 SV(sp4-el) 38.7 ml SI(sp4-el) 22.5 ml/m\S\2 SV(sp2-el) 31.2 ml SI(sp2-el) 18.1 ml/m\S\2 Doppler Measurements and Calculations MV E max hanh 152.4 cm/sec MV dec time 0.17 sec Ao V2 max 209.0 cm/sec Ao max PG 17.5 mmHg Ao max PG (full) 14.1 mmHg LV V1 max PG 3.4 mmHg LV V1 max 91.8 cm/sec
[2016-11-04] MEDS: WARFARIN SOD 6 MG TAB PO SCH (18:01)
[2016-11-04 19:48] VITALS: BP 94/63; PULSE 82; TEMP 36.9; O2SAT 97
[2016-11-05] VITALS (7 sets, daily range): BP systolic 87–128; BP diastolic 58–77; PULSE 54–81; TEMP 36.4–37; O2SAT 93–98
--- NOTE | 2016-11-05 00:44 | Hospitalist Progress Note ---
Hospitalist Progress Note Date of Service Nov 04, 2016. Subjective Pt evaluation today including: conversation w/ patient, conversation w/ outbound sales consultant ([employer]) Pt denies any further CP since admission. Trop neg x 3. Discussed case with [employer]. Pt seen in later afternoon and ECHO not reported until late evening which showed poor LV systolic function of unclear chronicity. Pt kept overnight for further observation and management of possibly new CHF. She denies SOB, no other concerns. She had a cardiac cath prior to her AVR in 2014 and reports it was normal All Other Systems: Reviewed and Negative Objective Vital Signs Date Time Temp Pulse Resp B/P (MAP) Pulse Ox O2 Delivery O2 Flow Rate FiO2 11/05/16 00:25 36.9 81 16 111/74 (86) 94 11/04/16 20:05 Room Air 11/04/16 19:48 36.9 82 20 94/63 (73) 97 Room Air 11/04/16 16:10 Room Air 11/04/16 12:15 Room Air 11/04/16 11:36 36.5 75 16 93/64 (74) 92 2.0 11/04/16 08:10 Room Air 11/04/16 07:58 36.6 84 18 98/66 (77) 96 2.0 11/04/16 04:15 36.6 80 16 97/65 (76) 97 Room Air 11/04/16 04:05 96 Room Air 2.0 11/04/16 01:14 36.5 80 18 130/86 96 Room Air Physical Exam General Appearance: WD/WN, no apparent distress Eyes: normal inspection ENT: hearing grossly normal Neck: supple, trachea midline Respiratory/Chest: lungs clear, normal breath sounds, no respiratory distress, no accessory muscle use Cardiovascular: regular rate, rhythm, no edema, no gallop, no murmur, + pertinent finding (click of S1 and S2) Abdomen: normal bowel sounds, non tender, soft, no organomegaly, no pulsatile mass Extremities: non-tender, normal inspection, no pedal edema, no calf tenderness Neurologic/Psychiatric: alert, normal mood/affect, oriented x 3 Skin: normal color, warm/dry, no rash Laboratory Results Last 24 Hours Test 11/04/16 01:34 11/04/16 06:51 11/04/16 06:52 Troponin I < 0.015 ng/ml < 0.015 ng/ml Prothrombin Time 13.1 SECONDS Prothromb Time International Ratio 1.2 Hepatitis C Antibody Screen NEG Assessment and Plan 61 y/o F Hx COPD, mechanical mitral and aortic valve owing to rheumatic heart disease, 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 Pt developed central CP lasting 1 hour while at rest, with associated N/V/diaphoresis/SOB, nonradiating,. Has not had previous chest pain episodes. Cardiac cath normal in 2014 preop for AVR/MVR as per pt. Relieved with NTG in ambulance on way to hospital 1) CP, Pacer, Chronic A-fib, prison anticoagulation, Systolic CHF of unknown chronicity - serial troponins all negative x 3 despite persistent pain x 30-60 min points away from ACS. ECHO with EF 35-40% and +WMAs of unknown chronicity. - ASA provided - she is normally on Coumadin although her INR is subtherapeutic-see below -Location and duration of pain more consistent with upper GI etiology so that we will also provide an antacid. -Appreciate Cardiology consultation -will need to request old Cardiology records for review -needs ACEI, beta jude, no diuretic at this time -pacer interrogated and adjusted by Cardiology 2) Mechanical heart valves both aortic and mitral valve - Pts INR is 1.3-->1.2 -increased Coumadin dosing -bridge with full dose Lovenox until INR between 2.5-3.5 3) COPD - severe on chest CT from 2 weeks ago, states she has pending referral to Pulm for initial consultation -no inhalers now but consider nebs if has wheezing Full code - full dose Lovenox, coumadin for DVT proph Dispo- to home likely tomorrow
[2016-11-05] MEDS: ENOXAPARIN 80 MG/0.8 ML SYR SQ SCH ×2 (00:56→14:36)
[2016-11-05] MEDS ORDERED: ENOXAPARIN 1 MG/KG SQ SCH (02:00)
[2016-11-05 06:29] LABS: INR 1.6 (0.9-1.1)
[2016-11-05 06:46] LABS: BUN/CREATININE RATIO 16.7 (10-20); CALCIUM 8.7 mg/dl (8.5-10.1); CREATININE 0.84 mg/dl (0.60-1.20); MAGNESIUM 2.3 mg/dl (1.8-2.4); POTASSIUM 4.1 mmol/L (3.5-5.1)
[2016-11-05] MEDS: ASPIRIN 81 MG ECTAB PO SCH (08:43)
[2016-11-05] MEDS ORDERED: PANTOprazole SOD 40 MG TAB PO SCH (09:00)
--- NOTE | 2016-11-05 09:57 | CARDIOLOGY PROGRESS NOTE ---
DATE: 11/05/2016 SUBJECTIVE: Ms. Garg is resting comfortably in bed without complaints of chest pain, dyspnea, or palpitations. Results of her echocardiogram discussed in detail. OBJECTIVE: VITAL SIGNS: Blood pressure is 90/60 with an irregular pulse of 60. Respiratory rate is 18 and the patient is afebrile at 37.0 degrees Celsius. Saturation is 98% on room air. NECK: Supple with full carotid upstrokes. No obvious bruits. Jugular venous pressure is flat at 90 degrees. There is no thyromegaly. CARDIOVASCULAR: Reveals an irregular rhythm with crisp mechanical valve sounds. No obvious murmurs. No S3. LUNGS: Clear without rales, rhonchi, or wheezes. CHEST: Reveals a well-healed midline scar. A palpable pacemaker in the left subclavicular region. ABDOMEN: Soft without bruits. EXTREMITIES: Reveal intact radial artery pulses bilaterally. There is no edema. LABORATORY DATA: Electrolytes note a sodium of 142, potassium 4.1, chloride 110, bicarbonate 25, BUN 14, creatinine 0.8, and glucose 78. Three troponin I levels are undetectable at less than 0.015. INR is 1.6. Echocardiogram notes moderate left ventricular dysfunction with an ejection fraction of 35%-40% with an inferior wall motion abnormality. Both the mitral and aortic prostheses have normal gradients. IMPRESSION AND PLAN: 1. Chest pain syndrome -- troponin I levels are undetectable suggesting this was not coronary in origin. 2. Moderate left ventricular dysfunction -- ejection fraction of 35%-40%. We will attempt to obtain most recent echocardiogram performed through the [facility] system. 3. Status post mechanical aortic valve -- 1992. 4. Status post mechanical mitral valve -- 2014. 5. Tricuspid annuloplasty ring -- 2014. 6. Permanent atrial fibrillation -- may have had an atrioventricular node ablation. 7. St. Reji's pacemaker -- 2015. The patient's interrogation yesterday by Dr. Neal was normal. Changed to VVI pacing. 8. Status post endovascular repair of abdominal aortic aneurysm line. 9. Chronic renal insufficiency. 10. Gastroesophageal reflux disease.
[2016-11-05] MEDS: WARFARIN SOD 6 MG TAB PO SCH (15:44)
[2016-11-05] MEDS ORDERED: NTRSLP4 SL (16:41)
[2016-11-05] MEDS ORDERED: WARF2TAB8 PO (16:41)
[2016-11-05] MEDS ORDERED: LVNIS80 SQ (16:41)
[2016-11-05] MEDS ORDERED: PRT40 PO (16:41)
[2016-11-05] MEDS ORDERED: ASPEC81 PO (16:41)
--- NOTE | 2016-11-05 16:49 | Discharge Instructions ---
Discharge Instructions Date of Service Nov 05, 2016. Admission Reason for Admission: Atypical Chest Pain Discharge Discharge Diagnosis / Problem: Chest pain, Congestive heart failure Discharge Goals Goal(s): Improve disease control, Diagnostic testing, Therapeutic intervention Activity Recommendations Activity Limitations: resume your previous activity Exercise/Sports Limitations: as tolerated Shower/Bathe: no limitations Driving or Machine Use: no limitations . Instructions / Follow-Up Instructions / Follow-Up Yo were admitted for chest pain which was found to not be from your heart. This could have been related to a gastrointestinal issue and you were started on Protonix for acid reflux. However, an Echocardiogram of your heart showed congestive heart failure which is a change from last year. You will need to be closely followed by Dr. Oakley and he will see you in about 2 weeks-his office will call you to set up the appointment. Your INR was 1.6 on the day of discharge. You need to take LOVENOX injections twice a day until your INR is back to within the goal range of 2.5-3.5. Please continue taking coumadin 6mg daily and have your INR checked on Thursday11/07/16. Your PCP can tell you when to stop using the Lovenox shots and how to adjust your coumadin. Call your Primary Care doctor if any of the following symptoms or problems start or get worse: * Shortness of breath or difficulty breathing * Wake up at night short of breath * Chest pain * Cough * Swelling of your hands, feet, or legs * More fatigued or tired with your normal activity * Palpitations - sudden fast heart beats WEIGHT * Weigh yourself every morning after using the bathroom. * Use the same scale. * Wear the same amount of clothing. * Write your weight down on a chart. * Call your Primary Care doctor if you gain more than 2-3 pounds in 1-2 days. MEDICATIONS * Use this discharge instruction sheet for medication instructions. * Take your medications at the time your doctor ordered. * Do not skip a dose of your medicines. * If you miss a dose of medicine, take it as soon as possible, but DO NOT DOUBLE A DOSE. * Read your medicine information when you get home. * Know all of the side effects of your medicine. If in doubt, ask your pharmacist * Call your Primary Care doctor's office if you have any side effects. * Be sure all of your doctors know what medicine and herbs you take (including cold, flu, and herbal medicine). Take the following with you to your follow-up doctor appointments: * Weight Chart * Medication List * List of questions Do not drink excessive alcohol, beer or wine. Current Hospital Diet Patient's current hospital diet: AHA Diet (Heart Healthy) Discharge Diet Recommended Diet: AHA Diet (Heart Healthy) Procedures Procedures Performed: Echocardiogram Pending Studies Studies pending at discharge: no Laboratory Results Lipid Panel Test 10/06/16 12:33 Range/Units Triglycerides Level 120 0-150 mg/dl Cholesterol Level 195 0-200 mg/dl HDL Cholesterol 50 mg/dl Cholesterol/HDL Ratio 3.9 LDL Cholesterol, Calculated 121 mg/dl Medical Emergencies . Who to Call and When: Call 911 or go to the Emergency Room if: * If at any time you feel your situation is an emergency * You have tightness or pain in your chest that does not go away with rest or Nitroglycerin * You are very short of breath even with rest . Non-Emergent Contact Non-Emergency issues call your: Primary Care Provider, Video Tape Transferrer Call Non-Emergent contact if: your pain is not controlled, your pain is worsening, your pain is unusual for you, your pain is concerning you, you have any medication questions . . "Provider Documentation" section prepared by Fay Chavira. . VTE Core Measure Inpt VTE Proph given/why not?: Enoxaparin (Lovenox)SQ, Warfarin (Coumadin)
--- NOTE | 2016-11-14 00:07 | Discharge Summary ---
Discharge Summary Date of Service Nov 05, 2016. Discharge Summary Admission Date: Nov 03, 2016 at 23:24 Discharge Date: Nov 05, 2016 Discharge Disposition: Home Principal Diagnosis: Atypical chest pain, New onset systolic CHF Problems/Secondary Diagnoses: COPD Mechanical mitral and aortic valve replacements secondary to rheumatic heart disease half-way anticoagulation Pacemaker in situ Chronic Atrial fibrillation Abnormal ECHO with wall motion abnormalities Immunizations: History of Tetanus Vaccine?: Yes Tetanus Immunization Date: Jul 22, 2012 History of Pneumococcal: Yes Pneumococcal Date: Apr 23, 2014 Procedures: Echocardiogram: * There is borderline concentric left ventricular hypertrophy. * Left ventricular systolic function is mild to moderately reduced at 35-40% * There are regional wall motion abnormalities as specified. * The right ventricular systolic function is mildly reduced. * The left atrium is severely dilated. * There is a bi-leaflet ([employer]) aortic mechanical prosthesis. * There is a mechanical mitral valve. CHEST ONE VIEW PORTABLE CLINICAL HISTORY: Atypical chest pain COMPARISON STUDY: 10/07/2016 FINDINGS: The cardiac and mediastinal contours remain stable. The patient is status post a midline sternotomy and bivalvular replacement.[ There is no acute parenchymal consolidation. There are no pleural effusions. There is radiographic evidence of emphysema with mild chronic interstitial thickening. IMPRESSION: AP portable study. No acute findings. Consultations: Cardiology Medication Reconciliation New Medications: Aspirin (Aspirin EC Low Dose) 81 Mg Ectab 81 MG PO QAM for 30 Days Enoxaparin (Lovenox) 80 Mg/0.8 Ml Inj 70 MG SQ Q12H for 3 Days, #6 SYR 1 Refill continue taking this until INR back in range as per your doctor's instructions Nitroglycerin (Nitrostat) 0.4 Mg/1 Tab Subl 0.4 MG SL UD PRN for Chest Pain, #15 TAB 1 tab q5 min x 3 doses and call 911 Pantoprazole (Pantoprazole Sodium) 40 Mg Tab 40 MG PO QAM for 30 Days, #30 TAB Changed Medications: Warfarin Sod (Jantoven) 2 Mg Tab 6 MG PO DAILY for 30 Days (Changed from: 4 MG) and have INR checked on 11/07/16. 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 Physician Referral - Within 1-2 Weeks with Shellie Bush, DO Discharge Exam Pt feeling fine. No CP, no worsening SOB, has chronic BYRNE. No cough. Had a run of asymptomatic VT 18 beats on tele. Discussed with Cardiology and no changes made. EF reduced on ECHO compared to normal EF one year ago. Unclear etiology. Discussed case with Cardiology and feel chest pain is non cardiac. No evidence of acute CHF. BYRNE from combo of COPD and possibly from CHF. Physical Exam General Appearance: WD/WN, no apparent distress Eyes: normal inspection ENT: hearing grossly normal Neck: supple, trachea midline Respiratory/Chest: lungs clear, normal breath sounds, no respiratory distress, no accessory muscle use Cardiovascular: regular rate, rhythm, no edema, no gallop, no murmur, + pertinent finding (click of S1 and S2) Abdomen: normal bowel sounds, non tender, soft, no organomegaly, no pulsatile mass Extremities: non-tender, normal inspection, no pedal edema, no calf tenderness Neurologic/Psychiatric: alert, normal mood/affect, oriented x 3 Skin: normal color, warm/dry, no rash Review of Systems: Constitutional: No problem reported Eyes: No problem reported ENT: No problem reported Respiratory: + dyspnea on exertion Cardiovascular: No problem reported Abdomen: No problem reported Musculoskeletal: No problem reported Genitourinary - Female: No problem reported Neurologic: No problem reported Psychiatric: No problem reported Hematologic / Lymphatic: No problem reported Integumentary: No problem reported Hospital Course 61 y/o F Hx COPD, mechanical mitral and aortic valve owing to rheumatic heart disease, terminal gauger anticoagulation. Pt developed central CP lasting 1 hour while at rest, with associated N/V/diaphoresis/SOB, nonradiating,. Has not had previous chest pain episodes. Cardiac cath normal in 2014 preop for AVR/MVR as per pt. Relieved with NTG in ambulance on way to hospital 1) CP, Pacer, Chronic A-fib, terminal gauger anticoagulation, Systolic CHF of unknown chronicity - serial troponins all negative x 3 despite persistent pain x 30-60 min points away from ACS. ECHO with EF 35-40% and +WMAs of unknown chronicity. - ASA provided - she is normally on Coumadin although her INR is subtherapeutic-see below -Location and duration of pain more consistent with upper GI etiology so that we will also provide an antacid. -Appreciate Cardiology consultation -will need to request old Cardiology records for review-old ECHO reviewed by Cardiology and had normal EF from 1 year ago -needs ACEI, beta jude, no diuretic at this time---> was on meds previously but she doesn't recall the names, says they were stopped as she moved to the area and were never renewed -pacer interrogated and adjusted by Cardiology -ECHO with new WMA and new systolic CHF--> no meds added this admission due to low BPs, not acutely decompensated--> Cardio to plan further eval for CHF as outpt and possibly add meds on then--> stable for discharge 2) Mechanical heart valves both aortic and mitral valve - Pts INR is 1.3-->1.2-- > 1.6 on day of discharge -increased Coumadin dosing -bridge with full dose Lovenox until INR between 2.5-3.5 and f/u as outpt with INR in 1 day 3) COPD - severe on chest CT from 2 weeks ago, states she has pending referral to Pulm for initial consultation -no inhalers now but consider nebs if has wheezing Total Time Spent: Greater than 30 minutes This includes examination of the patient, discharge planning, medication reconciliation, and communication with other providers. Discharge Instructions Please refer to the electronic Patient Visit Report (Discharge Instructions) for additional information. Follow-Up PCP in 1-2 weeks Cardiology in 1-2 weeks Additional Copies To Kris Oakley M.D.; Shellie Bush,
== END 2016-11-05 17:14 | disposition home or self-care (01) ==
LOC: EDBD 21:36 → C.EDB 21:37 → C.MED 23:24 → ENRESERV 23:44 → CANRESERV 23:44 → ENRESERV 11-04 00:08
PROVIDERS: ADMIT Internal Medicine; ATTEND Family Medicine
DX: R07.89 Other chest pain (principal); I48.2 Chronic atrial fibrillation; K21.9 Gastro-esophageal reflux disease without esophagitis; N18.9 Chronic kidney disease, unspecified; J44.9 Chronic obstructive pulmonary disease, unspecified; I09.9 Rheumatic heart disease, unspecified; Z95.2 Presence of prosthetic heart valve; Z95.0 Presence of cardiac pacemaker; Z79.01 Long term (current) use of anticoagulants; Z87.891 Personal history of nicotine dependence; Z82.49 Family history of ischemic heart disease and other diseases of the circulatory system; Z80.3 Family history of malignant neoplasm of breast

== ENCOUNTER 2016-11-21 17:27 | Inpatient (IN) | payer OTHER ==
[~2016-11-21] VITALS: Ht 162.6 cm; Wt 61.8 kg
[~2016-11-21 17:27] MED LIST changes: -CLR10 PO; -WARF4TAB8 PO
[2016-11-21] MEDS ORDERED: ONDANSETRON INJ 2 MG/ML 2 ML VIAL IV STA ×2 (17:40→18:52)
[2016-11-21] MEDS ORDERED: NITROGLYCERIN 0.4 MG SL PER TAB CHARGE SL PRN ×2 (17:45→22:30)
[2016-11-21 17:56] LABS: HEMATOCRIT 41.5 % (37-47); MEAN CELL VOLUME 91.2 fL (80-100); MEAN CORPUSCULAR HEMOGLOBIN 31.9 pg (25-34); MEAN CORPUSCULAR HGB CONC 34.9 g/dl (32-36); MEAN PLATELET VOLUME 9.8 fL (7.4-10.4); PLATELET COUNT 176 K/uL (130-400); RED BLOOD COUNT 4.55 M/uL (4.2-5.4); WHITE BLOOD COUNT 9.17 K/uL (4.8-10.8)
--- NOTE | 2016-11-21 17:56 | EMERGENCY ROOM VISIT NOTE ---
History Report prepared by Luiza: Joy Wright Under the Supervision of: Dr. Daniel Lau M.D. 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 She describes her pain as feeling "crushing" in nature and rates it as a 10/10 in severity. She also became diaphoretic. She denies the pain radiating into her shoulders or jaw, but notes it does radiate into her back. She states she has experienced similar pain in the past. She admits to a history of atrial fibrillation, rheumatic heart disease, CHF, COPD, and has undergone previous heart surgeries and has a pacemaker in place. The patient is nauseous and vomiting on exam. She denies any recent difficulty breathing or exertional chest pain/dyspnea. 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 A total of 10 systems reviewed and were otherwise negative. Past Medical & Surgical Medical Problems: (1) Atrial fibrillation (2) COPD (chronic obstructive pulmonary disease) (3) Pacemaker (4) RBBB (5) Rheumatic heart disease (6) Systolic CHF Surgical Problems: (1) H/O aortic valve replacement (2) History of mitral valve replacement (3) S/P AAA repair (4) S/P tonsillectomy and adenoidectomy Family History FH: CAD (coronary artery disease) FATHER FH: breast cancer MOTHER Social History Smoking Status: Never Smoker Alcohol Use: occasionally Drug Use: none Marital Status: Housing Status: lives alone Occupation Status: retired Current/Historical Medications Scheduled Aspirin (Aspirin EC Low Dose), 81 MG PO QAM Loratadine (Claritin), 10 MG PO DAILY Pantoprazole (Pantoprazole Sodium), 40 MG PO QAM Warfarin Sod (Jantoven), 2 MG PO 2XWK Warfarin Sod (Jantoven), 4 MG PO 5XWK Scheduled PRN Nitroglycerin (Nitrostat), 0.4 MG SL UD PRN for Chest Pain Allergies Coded Allergies: Adhesives (Verified Allergy, Unknown, UNKOWN., 11/21/16) ALL ALLERGY INFO PROVIDED BY THE OFFICE OF DR. STEVEN YI Gabapentin (Verified Allergy, Unknown, UNK, 11/21/16) Latex1 -Allergic Contact Dermititis (Verified Allergy, Unknown, unk, 11/21) Sertraline (Verified Allergy, Unknown, UNK., 11/21/16) Sulfa Antibiotics (Verified Allergy, Unknown, unk, 11/21/16) Tramadol (Verified Allergy, Unknown, UNK, 11/21/16) Physical Exam Vital Signs Date Time Temp Pulse Resp B/P (MAP) Pulse Ox O2 Delivery O2 Flow Rate FiO2 11/21/16 21:59 96 11/21/16 21:56 81 20 145/79 94 Room Air 11/21/16 20:31 80 20 151/71 98 Nasal Cannula 2.0 11/21/16 18:53 83 20 134/81 100 Nasal Cannula 2.0 11/21/16 17:58 83 18 118/74 98 Room Air 11/21/16 17:56 90 11/21/16 17:52 88 20 152/76 11/21/16 17:31 36.4 84 18 142/80 97 Room Air Physical Exam GENERAL: Patient is vomiting, in mild distress secondary to pain and vomiting. HEENT: No acute trauma, normocephalic atraumatic, mucous membranes moist, no nasal congestion, no scleral icterus. NECK: No stridor, no adenopathy, no meningismus, trachea is midline. LUNGS: Clear to auscultation bilaterally, no wheeze, no rhonchi, breath sounds equal. HEART: Metallic clicks heard, subtle systolic murmur, irregular rhythm, normal rate ABDOMEN: Tender in the epigastrium and RUQ. EXTREMITIES: No cyanosis or edema, full range of motion of all the joints without pain or difficulty, no signs for acute trauma. NEUROLOGIC: Oriented x 3, no acute motor or sensory deficits, no focal weakness. SKIN: No rash, no jaundice, no diaphoresis. Medical Decision & Procedures ER Provider Diagnostic Interpretation: Radiology results as stated below per my review and radiologist interpretation: ULTRASOUND RIGHT UPPER QUADRANT ABDOMEN CLINICAL HISTORY: Generalized abdominal pain. Vomiting. COMPARISON STUDY: Abdominal CT dated 01/15/2016. TECHNIQUE: Real-time, grayscale, and color flow sonography of the right upper quadrant of the abdomen was performed. Images are reviewed in the transverse and longitudinal planes. FINDINGS: Liver: The liver is normal in size and heterogeneous in echotexture. There is no intrahepatic biliary ductal dilatation. The main portal vein is patent. Gallbladder: The gallbladder is distended. Shadowing gallstones are identified. There is no gallbladder wall thickening or pericholecystic fluid. A sonographic Fuentes's sign is equivocal as the patient received analgesia. Small foci of adenomyomatosis are suggested in the gallbladder wall. The common bile duct measures up to 0.8 cm in diameter. Pancreas: Visualized portions of the pancreatic head and body are normal in appearance. The splenic vein is patent. Right kidney: Survey images of the right kidney demonstrate cortical atrophy. There is no hydronephrosis. Ascites: None. IMPRESSION: 1. The gallbladder is distended and there are shadowing calcified gallstones. Findings are equivocal for acute cholecystitis which is not excluded. If there is strong clinical concern for acute cholecystitis consider nuclear hepatobiliary scan for further assessment. 2. There is nonspecific distention of the common bile duct which measures up to 8 mm. No intrahepatic ductal dilatation is seen. Electronically signed by: Daniel Patel M.D. 11/21/2016 8:30 PM SINGLE VIEW CHEST CLINICAL HISTORY: Atypical chest pain. FINDINGS: An AP, portable, upright chest radiograph is compared to study dated 11/03/2016. Correlation is made with chest CT dated 10/17/2016. The examination is degraded by portable technique and patient rotation. A 2-lead cardiac pacemaker is unchanged in position and partially obscures the left upper chest. The patient is status post midline sternotomy and cardiac valve surgery. The heart is enlarged and there is atherosclerotic calcification of the thoracic aorta. The pulmonary vasculature is noncongested. Advanced emphysema and chronic interstitial thickening are unchanged. No airspace consolidation, large pleural effusion, or pneumothorax is seen. The skeletal structures are osteopenic. The bony thorax is grossly intact. A stent graft is partially visualized in the abdominal aorta. IMPRESSION: 1. Cardiomegaly and cardiac pacemaker. There is no radiographic evidence of congestive failure. 2. Advanced emphysema. 3. No airspace consolidation or large pleural effusion is identified. Electronically signed by: Daniel Patel M.D. 11/21/2016 6:14 PM Laboratory Results 11/21/16 17:48 11/21/16 17:48 Test 11/21/16 17:48 11/21/16 18:04 Red Blood Count 4.55 M/uL (4.2-5.4) Mean Corpuscular Volume 91.2 fL (80-100) Mean Corpuscular Hemoglobin 31.9 pg (25-34) Mean Corpuscular Hemoglobin Concent 34.9 g/dl (32-36) RDW Standard Deviation 47.7 fL (36.4-46.3) RDW Coefficient of Variation 14.3 % (11.5-14.5) Mean Platelet Volume 9.8 fL (7.4-10.4) Prothrombin Time 23.0 SECONDS (9.0-12.0) Prothromb Time International Ratio 2.1 (0.9-1.1) Activated Partial Thromboplast Time 48.3 SECONDS (21.0-31.0) Partial Thromboplastin Ratio 1.9 Anion Gap 8.0 mmol/L (3-11) Est Creatinine Clear Calc Drug Dose 42.0 ml/min Estimated GFR () 56.1 Estimated GFR (Non- 48.4 BUN/Creatinine Ratio 14.1 (10-20) Calcium Level 9.1 mg/dl (8.5-10.1) Total Bilirubin 1.7 mg/dl (0.2-1) Aspartate Amino Transf (AST/SGOT) 74 U/L (15-37) Alanine Aminotransferase (ALT/SGPT) 30 U/L (12-78) Alkaline Phosphatase 122 U/L (45-117) Total Creatine Kinase 102 U/L (26-192) Creatine Kinase MB 1.0 ng/ml (0.5-3.6) Creatine Kinase MB Ratio 1.0 (0-3.0) Total Protein 7.4 gm/dl (6.4-8.2) Albumin 3.9 gm/dl (3.4-5.0) Globulin 3.5 gm/dl (2.5-4.0) Albumin/Globulin Ratio 1.1 (0.9-2) Lipase 184 U/L (73-393) Bedside Troponin I < 0.030 ng/ml (0-0.045) Laboratory results reviewed by me. Medications Administered Medications (Trade) Dose Ordered Sig/Aidee Route Start Time Stop Time Status Last Admin Dose Admin Ondansetron HCl (Zofran Inj) 4 mg NOW STAT IV 11/21/16 17:40 11/21/16 17:44 DC 11/21/16 17:40 4 MG Nitroglycerin (Nitrostat Tab) 0.4 mg Q5M PRN SL 11/21/16 17:45 12/21/16 17:44 11/21/16 17:52 0.4 MG Morphine Sulfate (MoRPHine SULFATE INJ) 4 mg Q15M PRN IV 11/21/16 18:00 12/05/16 17:59 11/21/16 18:44 4 MG Diphenhydramine HCl (Benadryl Inj) 25 mg NOW STAT IV 11/21/16 18:43 11/21/16 18:44 DC 11/21/16 18:47 25 MG Promethazine HCl 6.25 mg/Sodium Chloride 50.25 ml @ 204 mls/hr NOW STAT IV 11/21/16 18:52 11/21/16 19:06 DC 11/21/16 19:09 204 MLS/HR Ondansetron HCl (Zofran Inj) 4 mg NOW STAT IV 11/21/16 18:52 11/21/16 18:54 DC 11/21/16 19:03 4 MG Piperacillin Sod/ Tazobactam Sod (Zosyn Iv) 4.5 gm NOW STAT IV 11/21/16 20:57 11/21/16 20:58 DC 11/21/16 21:25 4.5 GM ECG Indication: chest pain Rate (beats per minute): 84 Rhythm: atrial fibrillation (with ventricular pacemaker) Findings: RBBB, no acute ischemic change Comparison ECG Date: Compared to previous, things are similar but she has [place] beats present today ED Course 1737: The patient was evaluated in room C6. A complete history and physical exam was performed. 1740: Zofran 4 mg IV. 1745: Nitroglycerin 0.4 mg SL. 1800: Morphine Sulfate 4 mg IV. 1832: I reevaluated the patient. She is feeling somewhat better after medication. 1843: Benadryl 25 mg IV. 1852: Zofran 4 mg IV, Promethazine HCl 6.25 mg/NSS 50.25 ml @ 204 mls/hr IV. 2051: I reevaluated the patient. I updated her on her results so far. I discussed my recommendation she remain in the hospital for further evaluation and management and she verbalized complete understanding and agreement. 2048: I discussed the patients case with ART Al General Surgery. He recommends the patient be evaluated by the hospital medicine team to make sure she does not have a stone in her common duct. He also recommends antibiotics. 2056: Zosyn 4.5 gm IV. 2101: I discussed the patients case with Dr. Garay, [facility] Hospitalist. The patient will be further evaluated. Medical Decision The differential diagnoses considered include FL, aortic dissection, PE, pneumothorax, pneumonia, reflux, pancreatitis, esophagitis and musculoskeletal pain. There is no leukocytosis or concerning anemia. No significant electrolyte abnormality or kidney failure. There were some liver enzyme elevations. No evidence for pancreatitis. INR was elevated consistent with her Coumadin use. Chest film does not show mediastinal widening, pneumonia or pneumothorax. EKG shows A. fib with pacer spikes. No evidence for acute ischemia, the EKG was similar to previous EKGs. Cardiac enzyme testing times one is not consistent with acute cardiac injury. Gallbladder ultrasound does show evidence for possible early acute cholecystitis. Gallstones were seen. The patient received sublingual nitroglycerin with no relief of symptoms. She received IV Zofran for nausea. She eventually received IV morphine for pain control. IV Phenergan for additional nausea control. Patient became itchy from the morphine and received IV Benadryl. She is now feeling improved. The patient appears to have early acute cholecystitis. Her gallbladder is the issue, this does not appear to be a cardiac problem. The patient was reassured. I did speak with the on-call surgeon. A medical hospital stay was felt warranted. The patient did receive IV Zosyn for antibiotic coverage. I spoke to case management. The on-call hospitalist was consulted. Medication Reconcilliation Current Medication List: was personally reviewed by me Blood Pressure Screening Patient's blood pressure: Elevated blood pressure Blood pressure disposition: Elevated BP felt to be situational Consults Time Called: 2044 Consulting Physician: ART Al General Surgery Returned Call: 2048 I discussed the patients case with ART Al General Surgery. He recommends the patient be evaluated by the hospital medicine team to make sure she does not have a stone in her common duct. He also recommends antibiotics. Additional Consults: Time Called: 2099 Consulted Physician: Dr. Garay [facility] Hospitalist Returned Call: 2101 Additional Comments: I discussed the patients case with Dr. Garay [facility] Hospitalist. The patient will be further evaluated. Impression Primary Impression: Acute cholecystitis Additional Impression: Substernal precordial chest pain Scribe Attestation The scribe's documentation has been prepared under my direction and personally reviewed by me in its entirety. I confirm that the note above accurately reflects all work, treatment, procedures, and medical decision making performed by me. Departure Information Dispostion Being Evaluated By Hospitalist Referrals No Doctor, Assigned (PCP) Patient Instructions My [facility] Problem Qualifiers
[2016-11-21] MEDS: MoRPHine SULFATE 4 MG/ML 1 ML CARP\\VIAL IV PRN ×2 (18:12→18:44)
[2016-11-21 18:13] LABS: INR 2.1 (0.9-1.1); PARTIAL THROMBOPLASTIN RATIO 1.9
[2016-11-21 18:14] LABS: BUN/CREATININE RATIO 14.1 (10-20); CALCIUM 9.1 mg/dl (8.5-10.1); CREATININE 1.2 mg/dl (0.60-1.20)
--- NOTE | 2016-11-21 18:15 | DIAGNOSTIC IMAGING REPORT ---
SINGLE VIEW CHEST CLINICAL HISTORY: Atypical chest pain. FINDINGS: An AP, portable, upright chest radiograph is compared to study dated 11/03/2016. Correlation is made with chest CT dated 10/17/2016. The examination is degraded by portable technique and patient rotation. A 2-lead cardiac pacemaker is unchanged in position and partially obscures the left upper chest. The patient is status post midline sternotomy and cardiac valve surgery. The heart is enlarged and there is atherosclerotic calcification of the thoracic aorta. The pulmonary vasculature is noncongested. Advanced emphysema and chronic interstitial thickening are unchanged. No airspace consolidation, large pleural effusion, or pneumothorax is seen. The skeletal structures are osteopenic. The bony thorax is grossly intact. A stent graft is partially visualized in the abdominal aorta. IMPRESSION: 1. Cardiomegaly and cardiac pacemaker. There is no radiographic evidence of congestive failure. 2. Advanced emphysema. 3. No airspace consolidation or large pleural effusion is identified. Electronically signed by: Daniel Patel M.D. 11/21/2016 6:14 PM Dictated Date/Time: 11/21/2016 6:12 PM
[2016-11-21 18:19] LABS: ALB/GLOB RATIO 1.1 (0.9-2)
[2016-11-21] MEDS ORDERED: CLR10 PO (18:20)
[2016-11-21] MEDS ORDERED: WARF4TAB8 PO (18:20)
[2016-11-21] MEDS ORDERED: WARF2TAB8 PO (18:20)
[2016-11-21] MEDS ORDERED: DiphenhydrAMINE HCL 50 MG/ML VIAL IV STA (18:43)
[2016-11-21] MEDS ORDERED: PROMETHAZINE HCL INJ 6.25 MG in SODIUM CHLORIDE 0.9% 50ML 50 ML IV STA (18:52)
--- NOTE | 2016-11-21 20:32 | DIAGNOSTIC IMAGING REPORT ---
ULTRASOUND RIGHT UPPER QUADRANT ABDOMEN CLINICAL HISTORY: Generalized abdominal pain. Vomiting. COMPARISON STUDY: Abdominal CT dated 01/15/2016. TECHNIQUE: Real-time, grayscale, and color flow sonography of the right upper quadrant of the abdomen was performed. Images are reviewed in the transverse and longitudinal planes. FINDINGS: Liver: The liver is normal in size and heterogeneous in echotexture. There is no intrahepatic biliary ductal dilatation. The main portal vein is patent. Gallbladder: The gallbladder is distended. Shadowing gallstones are identified. There is no gallbladder wall thickening or pericholecystic fluid. A sonographic Fuentes's sign is equivocal as the patient received analgesia. Small foci of adenomyomatosis are suggested in the gallbladder wall. The common bile duct measures up to 0.8 cm in diameter. Pancreas: Visualized portions of the pancreatic head and body are normal in appearance. The splenic vein is patent. Right kidney: Survey images of the right kidney demonstrate cortical atrophy. There is no hydronephrosis. Ascites: None. IMPRESSION: 1. The gallbladder is distended and there are shadowing calcified gallstones. Findings are equivocal for acute cholecystitis which is not excluded. If there is strong clinical concern for acute cholecystitis consider nuclear hepatobiliary scan for further assessment. 2. There is nonspecific distention of the common bile duct which measures up to 8 mm. No intrahepatic ductal dilatation is seen. Electronically signed by: Daniel Patel M.D. 11/21/2016 8:30 PM Dictated Date/Time: 11/21/2016 8:27 PM
[2016-11-21] MEDS ORDERED: PIPERACILLIN/TAZOBACTAM 4.5 GM/100ML D5W IV STA (20:57)
[2016-11-21] MEDS ORDERED: ALUMINUM/MAGNESIUM/SIMETH (MAALOX MAX) 30 ML UDC PO PRN (22:30)
[2016-11-21] MEDS ORDERED: ONDANSETRON INJ 2 MG/ML 2 ML VIAL IV PRN (22:30)
[2016-11-21] MEDS ORDERED: MAGNESIUM HYDROXIDE SUSP 30 ML UDC PO PRN (22:30)
--- NOTE | 2016-11-21 22:51 | History and Physical ---
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 The pain was associated with diaphoresis and radiated to her mid back. never had pain like this before. Also had nausea/vomiting. Upon arrival to ED, her pain was controlled. EKG was revealing of AFib, ventricularly paced. Troponin was negative. USG found to question early cholecystitis. The patient currently has mid sternal chest pain. Nausea/vomiting controlled. Past Medical/Surgical History Medical Problems: (1) Atrial fibrillation Status: Chronic (2) COPD (chronic obstructive pulmonary disease) Status: Chronic (3) Pacemaker Status: Chronic (4) RBBB Status: Chronic (5) Rheumatic heart disease Status: Chronic Surgical Problems: (1) H/O aortic valve replacement Permanent Comment: 1992; mechanical Status: Chronic (2) History of mitral valve replacement Permanent Comment: 05/2015; mechanical Status: Chronic (3) S/P AAA repair Status: Chronic (4) S/P tonsillectomy and adenoidectomy Status: Chronic Family History FH: CAD (coronary artery disease) FATHER FH: breast cancer MOTHER Social History Smoking Status: Former Smoker Alcohol Use: none Drug Use: none Marital Status: Housing status: lives alone Occupational Status: retired Immunizations History of Tetanus Vaccine?: Yes Tetanus Immunization Date: Jul 22, 2012 History of Pneumococcal: Yes Pneumococcal Date: Apr 23, 2014 Allergies Coded Allergies: Adhesives (Verified Allergy, Unknown, UNKOWN., 11/21/16) ALL ALLERGY INFO PROVIDED BY THE OFFICE OF DR. STEVEN YI Gabapentin (Verified Allergy, Unknown, UNK, 11/21/16) Latex1 -Allergic Contact Dermititis (Verified Allergy, Unknown, unk, 11/21) Sertraline (Verified Allergy, Unknown, UNK., 11/21/16) Sulfa Antibiotics (Verified Allergy, Unknown, unk, 11/21/16) Tramadol (Verified Allergy, Unknown, UNK, 11/21/16) Home Medications Scheduled Aspirin (Aspirin EC Low Dose), 81 MG PO QAM Loratadine (Claritin), 10 MG PO DAILY Pantoprazole (Pantoprazole Sodium), 40 MG PO QAM Warfarin Sod (Jantoven), 2 MG PO 2XWK Warfarin Sod (Jantoven), 4 MG PO 5XWK Scheduled PRN Nitroglycerin (Nitrostat), 0.4 MG SL UD PRN for Chest Pain Review of Systems Constitutional: + chills, + sweats Respiratory: No cough, No sputum, No wheezing, No shortness of breath, No dyspnea on exertion, No dyspnea at rest Cardiovascular: + chest pain, No edema, No claudication Abdomen: + pain, + nausea, + vomiting, No diarrhea, No constipation Musculoskeletal: No joint pain, No muscle pain Genitourinary - Female: No dysuria, No urinary frequency, No urinary urgency Hematologic / Lymphatic: + abnormal bleeding/bruising Physical Exam Vital Signs Date Time Temp Pulse Resp B/P (MAP) Pulse Ox O2 Delivery O2 Flow Rate FiO2 11/21/16 21:59 96 11/21/16 21:56 81 20 145/79 94 Room Air 11/21/16 20:31 80 20 151/71 98 Nasal Cannula 2.0 11/21/16 18:53 83 20 134/81 100 Nasal Cannula 2.0 11/21/16 17:58 83 18 118/74 98 Room Air 11/21/16 17:56 90 11/21/16 17:52 88 20 152/76 11/21/16 17:31 36.4 84 18 142/80 97 Room Air General Appearance: no apparent distress Eyes: PERRL, EOMI ENT: hearing grossly normal Respiratory/Chest: lungs clear, normal breath sounds, no respiratory distress, no accessory muscle use Cardiovascular: no edema, + systolic murmur, + irregularly irregular, + pertinent finding (mechanical valve sounds) Abdomen/GI: normal bowel sounds, soft, + tenderness (RUQ/epigastric ) Extremities/Musculoskelatal: no pedal edema, + pertinent finding (large bruise with lump noted on posterior thigh) 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, no motor/sensory deficits, alert, normal mood/affect Diagnostics Laboratory Results Results Past 24 Hours Test 11/21/16 17:48 11/21/16 18:04 Range/Units White Blood Count 9.17 4.8-10.8 K/uL Red Blood Count 4.55 4.2-5.4 M/uL Hemoglobin 14.5 12.0-16.0 g/dL Hematocrit 41.5 37-47 % Mean Corpuscular Volume 91.2 80-100 fL Mean Corpuscular Hemoglobin 31.9 25-34 pg Mean Corpuscular Hemoglobin Concent 34.9 32-36 g/dl RDW Standard Deviation 47.7 36.4-46.3 fL RDW Coefficient of Variation 14.3 11.5-14.5 % Platelet Count 176 130-400 K/uL Mean Platelet Volume 9.8 7.4-10.4 fL Prothrombin Time 23.0 9.0-12.0 SECONDS Prothromb Time International Ratio 2.1 0.9-1.1 Activated Partial Thromboplast Time 48.3 21.0-31.0 SECONDS Partial Thromboplastin Ratio 1.9 Sodium Level 140 136-145 mmol/L Potassium Level 4.0 3.5-5.1 mmol/L Chloride Level 109 98-107 mmol/L Carbon Dioxide Level 23 21-32 mmol/L Anion Gap 8.0 3-11 mmol/L Blood Urea Nitrogen 17 7-18 mg/dl Creatinine 1.20 0.60-1.20 mg/dl Est Creatinine Clear Calc Drug Dose 42.0 ml/min Estimated GFR () 56.1 Estimated GFR (Non- 48.4 BUN/Creatinine Ratio 14.1 10-20 Random Glucose 123 70-99 mg/dl Calcium Level 9.1 8.5-10.1 mg/dl Total Bilirubin 1.7 0.2-1 mg/dl Aspartate Amino Transf (AST/SGOT) 74 15-37 U/L Alanine Aminotransferase (ALT/SGPT) 30 12-78 U/L Alkaline Phosphatase 122 45-117 U/L Total Creatine Kinase 102 26-192 U/L Creatine Kinase MB 1.0 0.5-3.6 ng/ml Creatine Kinase MB Ratio 1.0 0-3.0 Total Protein 7.4 6.4-8.2 gm/dl Albumin 3.9 3.4-5.0 gm/dl Globulin 3.5 2.5-4.0 gm/dl Albumin/Globulin Ratio 1.1 0.9-2 Lipase 184 73-393 U/L Bedside Troponin I < 0.030 0-0.045 ng/ml Impression Assessment and Plan This is a 61 y/o F who presents with chest pain, nausea/vomiting initially concerning for ACS, however, other etiologies currently being considered include acute johnny, obstruction of CBD etc. Chest pain rule out: Initial troponin neg trend troponin EKG without st changes Hold on Echo for now. ?Acute johnny (early) Afebrile, no WBC count USG concerning for early johnny + CBD dilation Zosyn Fluids- NSS NPO Pain control with morphine 2 mg q4h consider HIDA? Surgery consult GI consult- Discussed over phone with Dr. Alejandro about potential need for ERCP while on Coumadin- will be assessed by GI in the AM RHD s/p atrial and mitral replacements + Afib continue Coumadin until further eval by GI inr not therapeutic at 2.1 given mech. valves H/o of AAA repair Emphysema Not on any inhalers. albuterol PRN ?PFTS? Pulmonary nodule: 4 mm- f/u in 12 months. Code: DNR Resident Physician Supervision Note: I was present with Dr. Britton during the history and exam. I discussed the case with the resident and agree with the findings and plan as documented in the note. Any exceptions or clarifications are listed here: 61 y/o F Mitral and Aortic valve replacement, AF, pacer, COPD - presenting with R and central CP and upper abdominal pain, N/V - Initial workup including RUQ US and LFTs may be consistent with acute cholecystitis and less likely cardiac- related OE AAO x 3 S1,2 R CTAB + upper quadrant tenderness No CCE P: May have early cholecystitis - will consult GI as biliary duct is additionally dilated and labs are consistent with possible early obstruction. Considering her Hx we will r/o ACS with serial troponins She reports both mitral and aortic mechanical valves - if this is the case her INR should be considered subtherapeutic and Coumadin should be increased Documented By: Gurpreet Garay VTE Prophylaxis VTE Risk Assessment Done? Y/N: Yes Risk Level: Moderate Given or contraindicated: Warfarin (Coumadin)
[2016-11-21] MEDS ORDERED: ALBUTEROL 0.5% NEB SOLN 2.5 MG/0.5 ML VIAL INH PRN (23:00)
[2016-11-21] MEDS: SODIUM CHLORIDE 0.9% 1000ML 1,000 ML IV SCH (23:19)
[2016-11-21 23:24] VITALS: BP 124/77; PULSE 80; TEMP 36.6; O2SAT 93; Ht 162.6 cm; Wt 61.8 kg
[2016-11-21] MEDS: MoRPHine SULFATE 2 MG/ML CARP IV PRN (23:25)
--- NOTE | 2016-11-21 23:29 | Medical Consult ---
Consultation Date of Consultation: Nov 21, 2016. Attending Physician: Reason for Consultation: cholecystitis History of Present Illness pt adm through ER with chest, upper abd pain- u/s shows gb wall thickening, CBD 0.8 cm h/o afib, on coumadin, INR 2.1 Past Medical/Surgical History Medical Problems: (1) Acute cholecystitis Status: Acute (2) Anterior chest wall pain Status: Acute (3) Atypical chest pain Status: Acute (4) Closed head injury Status: Acute (5) Contusion of foot Status: Acute (6) Influenza A Status: Acute (7) Substernal precordial chest pain Status: Acute (8) Temporomandibular joint (TMJ) pain Status: Acute Family History FH: CAD (coronary artery disease) FATHER FH: breast cancer MOTHER Social History Smoking Status: Former Smoker Alcohol Use: none Drug Use: none Marital Status: Housing Status: lives alone Occupation Status: retired Allergies Coded Allergies: Adhesives (Verified Allergy, Unknown, UNKOWN., 11/21/16) ALL ALLERGY INFO PROVIDED BY THE OFFICE OF DR. STEVEN YI Gabapentin (Verified Allergy, Unknown, UNK, 11/21/16) Latex1 -Allergic Contact Dermititis (Verified Allergy, Unknown, unk, 11/21) Sertraline (Verified Allergy, Unknown, UNK., 11/21/16) Sulfa Antibiotics (Verified Allergy, Unknown, unk, 11/21/16) Tramadol (Verified Allergy, Unknown, UNK, 11/21/16) Current Inpatient Medications Current Inpatient Medications Medications (Trade) Dose Ordered Sig/Aidee Route Start Time Stop Time Status Last Admin Dose Admin Sodium Chloride 1,000 ml @ 80 mls/hr [id number] IV 11/21/16 22:18 12/21/16 22:17 11/21/16 23:19 80 MLS/HR Acetaminophen (Tylenol Tab) 650 mg Q4H PRN PO 11/21/16 22:30 12/21/16 22:29 Al Hydrox/Mg Hydrox/Simethicone (Maalox Max Susp) 15 ml Q4H PRN PO 11/21/16 22:30 12/21/16 22:29 Magnesium Hydroxide (Milk Of Magnesia Susp) 30 ml Q12H PRN PO 11/21/16 22:30 12/21/16 22:29 Ondansetron HCl (Zofran Inj) 4 mg Q6H PRN IV 11/21/16 22:30 12/21/16 22:29 Aspirin (Ecotrin Tab) 81 mg QAM PO 11/22/16 09:00 12/22/16 08:59 Loratadine (Claritin Tab) 10 mg DAILY PO 11/22/16 09:00 12/22/16 08:59 UNV Nitroglycerin (Nitrostat Tab) 0.4 mg UD PRN SL 11/21/16 22:30 12/21/16 22:29 Pantoprazole Sodium (Protonix Tab) 40 mg QAM PO 11/22/16 09:00 12/22/16 08:59 Warfarin Sodium (Coumadin Tab) 2 mg SuSa@1600 PO 11/22/16 16:00 12/22/16 15:59 Warfarin Sodium (Coumadin Tab) 4 mg MoTuWeThFr@1600 PO 11/24/16 16:00 12/24/16 15:59 Piperacillin Sod/ Tazobactam Sod 3.375 gm/Dextrose 115 ml @ 200 mls/hr Q6 IV 11/22/16 00:00 12/02/16 00:00 UNV Morphine Sulfate (MoRPHine SULFATE INJ) 2 mg Q4 PRN IV 11/21/16 22:30 12/05/16 22:29 Albuterol Sulfate (Ventolin 0.5% 2.5MG/0.5ML Neb) 2.5 mg Q6R PRN INH 11/21/16 23:00 12/21/16 22:59 Review of Systems Constitutional: No fever, No chills Respiratory: No cough, No shortness of breath Cardiovascular: + chest pain Abdomen: + pain, + nausea Genitourinary - Female: No dysuria Endocrine: + fatigue Integumentary: No rash Physical Exam Date Time Temp Pulse Resp B/P (MAP) Pulse Ox O2 Delivery O2 Flow Rate FiO2 11/21/16 22:49 82 20 121/76 94 Room Air 11/21/16 21:59 96 11/21/16 21:56 81 20 145/79 94 Room Air 11/21/16 20:31 80 20 151/71 98 Nasal Cannula 2.0 11/21/16 18:53 83 20 134/81 100 Nasal Cannula 2.0 11/21/16 17:58 83 18 118/74 98 Room Air 11/21/16 17:56 90 11/21/16 17:52 88 20 152/76 11/21/16 17:31 36.4 84 18 142/80 97 Room Air General Appearance: no apparent distress Head: atraumatic Eyes: sclerae normal Neck: supple Respiratory/Chest: no respiratory distress Cardiovascular: + irregularly irregular Abdomen/GI: soft, + pertinent finding (mild upper abd tenderness) Neurologic/Psych: alert Skin: no rash Laboratory Results Last 24 Hours Test 11/21/16 17:48 11/21/16 18:04 White Blood Count 9.17 K/uL Red Blood Count 4.55 M/uL Hemoglobin 14.5 g/dL Hematocrit 41.5 % Mean Corpuscular Volume 91.2 fL Mean Corpuscular Hemoglobin 31.9 pg Mean Corpuscular Hemoglobin Concent 34.9 g/dl RDW Standard Deviation 47.7 fL RDW Coefficient of Variation 14.3 % Platelet Count 176 K/uL Mean Platelet Volume 9.8 fL Prothrombin Time 23.0 SECONDS Prothromb Time International Ratio 2.1 Activated Partial Thromboplast Time 48.3 SECONDS Partial Thromboplastin Ratio 1.9 Sodium Level 140 mmol/L Potassium Level 4.0 mmol/L Chloride Level 109 mmol/L Carbon Dioxide Level 23 mmol/L Anion Gap 8.0 mmol/L Blood Urea Nitrogen 17 mg/dl Creatinine 1.20 mg/dl Est Creatinine Clear Calc Drug Dose 42.0 ml/min Estimated GFR () 56.1 Estimated GFR (Non- 48.4 BUN/Creatinine Ratio 14.1 Random Glucose 123 mg/dl Calcium Level 9.1 mg/dl Total Bilirubin 1.7 mg/dl Aspartate Amino Transf (AST/SGOT) 74 U/L Alanine Aminotransferase (ALT/SGPT) 30 U/L Alkaline Phosphatase 122 U/L Total Creatine Kinase 102 U/L Creatine Kinase MB 1.0 ng/ml Creatine Kinase MB Ratio 1.0 Total Protein 7.4 gm/dl Albumin 3.9 gm/dl Globulin 3.5 gm/dl Albumin/Globulin Ratio 1.1 Lipase 184 U/L Bedside Troponin I < 0.030 ng/ml Assessment & Plan 11/21/16- suspect acute cholecystitis- recheck lab in am- GI asked to see hold coumadin- possible Hida scan. probable lap johnny/cholangiogram 1-2 days.
[2016-11-22] VITALS (7 sets, daily range): BP systolic 89–164; BP diastolic 49–78; PULSE 77–104; TEMP 36.6–37.1; O2SAT 91–96
[2016-11-22] MEDS ORDERED: PIPERACILL/TAZOBAC CONSULT ACTIVE PRN (01:30)
[2016-11-22] MEDS: PIPERACILL/TAZOBAC IV 3.375 GM in DEXTROSE 5% 100ML 100 ML IV SCH ×3 (03:03→17:22)
--- NOTE | 2016-11-22 06:31 | Surgery Progress Note ---
Surgery Progress Note Date of Service Nov 22, 2016. Subjective much less pain awake, alert Objective Vital Signs: Date Time Temp Pulse Resp B/P (MAP) Pulse Ox O2 Delivery O2 Flow Rate FiO2 11/22/16 04:00 Room Air 11/22/16 03:29 36.7 81 19 93/60 (71) 93 Room Air 11/21/16 23:59 Room Air 11/21/16 23:24 36.6 80 20 124/77 93 Room Air 11/21/16 22:49 82 20 121/76 94 Room Air 11/21/16 21:59 96 11/21/16 21:56 81 20 145/79 94 Room Air 11/21/16 20:31 80 20 151/71 98 Nasal Cannula 2.0 11/21/16 18:53 83 20 134/81 100 Nasal Cannula 2.0 11/21/16 17:58 83 18 118/74 98 Room Air 11/21/16 17:56 90 11/21/16 17:52 88 20 152/76 11/21/16 17:31 36.4 84 18 142/80 97 Room Air General Appearance: no apparent distress Respiratory/Chest: no respiratory distress Abdomen: soft Laboratory Results: Results Past 24 Hours Test 11/21/16 17:48 11/21/16 18:04 11/22/16 00:25 Range/Units White Blood Count 9.17 4.8-10.8 K/uL Red Blood Count 4.55 4.2-5.4 M/uL Hemoglobin 14.5 12.0-16.0 g/dL Hematocrit 41.5 37-47 % Mean Corpuscular Volume 91.2 80-100 fL Mean Corpuscular Hemoglobin 31.9 25-34 pg Mean Corpuscular Hemoglobin Concent 34.9 32-36 g/dl RDW Standard Deviation 47.7 36.4-46.3 fL RDW Coefficient of Variation 14.3 11.5-14.5 % Platelet Count 176 130-400 K/uL Mean Platelet Volume 9.8 7.4-10.4 fL Prothrombin Time 23.0 9.0-12.0 SECONDS Prothromb Time International Ratio 2.1 0.9-1.1 Activated Partial Thromboplast Time 48.3 21.0-31.0 SECONDS Partial Thromboplastin Ratio 1.9 Sodium Level 140 136-145 mmol/L Potassium Level 4.0 3.5-5.1 mmol/L Chloride Level 109 98-107 mmol/L Carbon Dioxide Level 23 21-32 mmol/L Anion Gap 8.0 3-11 mmol/L Blood Urea Nitrogen 17 7-18 mg/dl Creatinine 1.20 0.60-1.20 mg/dl Est Creatinine Clear Calc Drug Dose 42.0 ml/min Estimated GFR () 56.1 Estimated GFR (Non- 48.4 BUN/Creatinine Ratio 14.1 10-20 Random Glucose 123 70-99 mg/dl Calcium Level 9.1 8.5-10.1 mg/dl Total Bilirubin 1.7 0.2-1 mg/dl Aspartate Amino Transf (AST/SGOT) 74 15-37 U/L Alanine Aminotransferase (ALT/SGPT) 30 12-78 U/L Alkaline Phosphatase 122 45-117 U/L Total Creatine Kinase 102 26-192 U/L Creatine Kinase MB 1.0 0.5-3.6 ng/ml Creatine Kinase MB Ratio 1.0 0-3.0 Total Protein 7.4 6.4-8.2 gm/dl Albumin 3.9 3.4-5.0 gm/dl Globulin 3.5 2.5-4.0 gm/dl Albumin/Globulin Ratio 1.1 0.9-2 Lipase 184 73-393 U/L Bedside Troponin I < 0.030 0-0.045 ng/ml Troponin I < 0.015 0-0.045 ng/ml Assessment & Plan 11/22/16- suspect biliary colic, mild acute cholecystitis- hida ordered probable lap johnny today or tomorrow- check PT/INR- Dr Alejandro to see- ? lap johnny w/ cholangiogram tomorrow ? try to avoid vit K I am cancelling Hida scan- I do not think it will change my decision to proceed with cholecystectomy- I feel it needs to be done this admission
[2016-11-22 07:10] LABS: BASO % 0.2 %; BASO ABS # 0.01 K/uL (0-0.2); COMPLETE YES; EOS % 2.8 %; HEMATOCRIT 36.5 % (37-47); IG% 0.2 %; LYMPH % 17.7 %; LYMPH ABS # 0.89 K/uL (1.2-3.4); MEAN CELL VOLUME 91.7 fL (80-100); MEAN CORPUSCULAR HEMOGLOBIN 31.7 pg (25-34); MEAN CORPUSCULAR HGB CONC 34.5 g/dl (32-36); MONO % 9.2 %; NEUT % 69.9 %; PLATELET COUNT 142 K/uL (130-400); RED BLOOD COUNT 3.98 M/uL (4.2-5.4); WHITE BLOOD COUNT 5.02 K/uL (4.8-10.8)
[2016-11-22 07:17] LABS: INR 1.8 (0.9-1.1); PROTHROMBIN TIME (PATIENT) 19.4 SECONDS (9.0-12.0)
[2016-11-22] MEDS: PANTOprazole SOD 40 MG TAB PO SCH (07:35)
[2016-11-22] MEDS: ASPIRIN 81 MG ECTAB PO SCH (07:35)
[2016-11-22 07:45] LABS: ALT/SGPT 102 U/L (12-78); BLOOD UREA NITROGEN 13 mg/dl (7-18); BUN/CREATININE RATIO 12.2 (10-20); CALCIUM 8.5 mg/dl (8.5-10.1); CARBON DIOXIDE 26 mmol/L (21-32); CHLORIDE 109 mmol/L (98-107); GLUCOSE 85 mg/dl (70-99); POTASSIUM 3.8 mmol/L (3.5-5.1); SODIUM 140 mmol/L (136-145)
[2016-11-22 07:52] LABS: ALB/GLOB RATIO 1.1 (0.9-2); ALKALINE PHOSPHATASE 124 U/L (45-117); AST/SGOT 181 U/L (15-37)
[2016-11-22] MEDS: LORATADINE 10 MG TAB PO SCH (08:17)
--- NOTE | 2016-11-22 08:36 | Family Medicine Progress Note ---
Progress Note Date of Service Nov 22, 2016. 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 By the time she went to walk out to her car after the appointment, she did not feel like she could drive her car because she was in so much pain, so patient's friend drove her to the ED. Pt specifically describes the pain as epigastric and substernal (lower ribs) bilaterally, as well as pain in the back at mid-back level. The pain was constant, exacerbated by deep breathing. Also has h/o intermittent post pradial pain associated with meals intermittently for several weeks. In ED: Troponins times 3 normal, EKG with no ST changes. She had n/v after getting pain meds. Most recent echo performed 11/04 did show EF 35-40% as well as WMA. On discharge from that admission, pt was to see cardiology outpatient, however because of trip to attend father's this last week, was unable to make an appointment. Abnl echo not yet able to be addressed. Acute cholecystitis colicky pain and evidence of gallstones c/w inflammation of the gall bladder Zosyn IV IVF -- changed to D5 + 1/2 NSS 75 ml/hr Morphine 2mg q4 PRN Elevated LFTs Appreciate GI recs: elev LFTs can be from cholecystitis and from stones in CBD. Cannot do MRCP because of mechanical valve and pacemaker. Pros and cons of ERCP before surgery versus surgery with IOC and then determine need for ERCP discussed with DR Kee. Dr Kee at this point planning lap johnny with IOC tomorrow. Discussed with patient and son/daughter in law ERCP proc and risks in case that needs done at some point. Risks discussed include but not limited to medication reaction, bleeding, perforation, aspiration, infection, and pancreatitis (which can occurr in up to 10% of patient and can be severe and life threatening). Repeat labs in am. Abnormal ECHO on last admission concerning for pre-op assessment Decision made by hospitalist team to consult cardiology in the event that pt may not be stable for operation from cardiovascular point of view - Cardio will see 11/23/16. Lap choly will follow. h/o Rheumatic heart disease/ s/p aortic and mitral valve repair - mechanical Normally on coumadin 2mg x2, 4mg x5. Also nitrostat SL, ASA 81 came in sub-therapeutic at 2.1, now 1.9. Started on heparin drip DC coumadin h/o AAA repair ASA 81 COPD does not appear to use inhalers Albuterol ordered PRN Recommend follow up PFT's on outpatient. Incidentaloma pulmonary nodule 4mm seen on imaging recommend f/u CXR in 1 year for comparison VTE: heparin drip CODE: DNR. Confirmed with patient today. Dispo: Tele, pre-op. Resident Tracking Resident Involvement: Resident Care Provided Care Provided: [facility] Medicine Reviewed: Pt Seen/Exam by Me History Resident Physician Supervision Note: I was present with Dr. Lisa during the history and exam. I discussed the case with the resident and agree with the findings and plan as documented in the note. Any exceptions or clarifications are listed here: Patient still having some right upper quadrant pain which is relieved with morphine. She did have some pain that radiated up into the left jaw with her most recent right upper quadrant pain which was also relieved morphine. Since her hospitalization 2-3 weeks ago, she has not yet seen cardiology or her PCP for her new onset systolic CHF with wall motion abnormalities on echocardiogram. Other than her right upper quadrant pain, however she has been symptom free from a cardiac standpoint. Her INR remains subtherapeutic and she is started on a heparin drip for bridging today. Vitals and telemetry reviewed-paste at times, some conduction changes, seems to be underlying atrial fibrillation. No acute distress, alert awake oriented 3 Regular rate and rhythm, clinic on S1 and S2, no murmur Lungs clear to auscultation with some diminished breath sounds throughout, no wheezes or crackles Abdomen positive bowel sounds, soft, very minimal tenderness in the right upper quadrant without guarding or rebound Extremities no edema, 2 posterior cells pedis pulses bilaterally Skin no rashes 61-year-old female with history of COPD, chronic new-onset systolic CHF of unknown etiology with new wall motion abnormalities on recent echo, aortic and mitral valve mechanical replacements, pacemaker placement, paroxysmal atrial fibrillation, history of AAA repair, pulmonary nodule, here with acute calculus cholecystitis. LFTs are trending upward, afebrile, no signs of sepsis. -Continue Zosyn -Planning for laparoscopic cholecystectomy with IOP and GI is aware given CBD dilatation in case of obstructing stone -Awaiting cardiac preoperative evaluation giving complex cardiac history With all of her complex cardiac history and new diagnosis of systolic biventricular CHF and mechanical valves with new wall motion abnormalities, probably needs some sort of ischemic evaluation prior to surgery. We'll discuss with cardiology after they evaluate her tomorrow, perhaps will need a cardiac catheterization. -Continue to hold Coumadin and bridge with heparin drip to be held prior to surgery -Continue telemetry monitoring -Is not yet on any medications for her CHF and is not in acute decompensation COPD-stable this time, has chronic dyspnea -We will ensure bronchodilators are ordered when necessary Documented By: Fay Chavira
[2016-11-22] MEDS: SODIUM CHLORIDE 0.9% 1000ML 1,000 ML IV SCH (12:12)
--- NOTE | 2016-11-22 12:16 | Gastrointestinal Consultation ---
Gastrointestinal Consultation Date of Consultation: Nov 22, 2016 Attending Physician: Dr Shellie Bush Consulting Physician: DR Zurdo Alejandro Reason for Consultation: Acute cholecystiis History of Present Illness Patient is a 61 year old female with chief complain of chest pain. HPI Son Severo and daughter in law with patient for history and discussion. Pt with some attack of chest pain 10/2016 and also some epigastric pain with eating. She came into ER with 11/18 with associated diaphoresis. Troponins times 3 normal. She had n/v after getting pain meds in ER. Has hx of GERD and uses Tums for that. No dysphagia, no significant wt loss, no change in bowels, no bloody nor black stools, no hx of liver disease. States she had colonoscopy distant. She is on ASA and coumadin and has mechanical AV and mitral valve and pacemaker. WBC is normal. LFTS on admit elevated with TB 1.7 and worsening TB 1.9 and other LFTS today. lipase normal. INR 2.1 on admit now 1.8. CXR COPD, RUQ u/s distended GB, stones, equivocal mishra sign, CBD 8 mm. Past Medical/Surgical History Medical Problems: (1) Acute cholecystitis Status: Acute (2) Anterior chest wall pain Status: Acute (3) Atypical chest pain Status: Acute (4) Closed head injury Status: Acute (5) Contusion of foot Status: Acute (6) Influenza A Status: Acute (7) Substernal precordial chest pain Status: Acute (8) Temporomandibular joint (TMJ) pain Status: Acute Family History FH: CAD (coronary artery disease) FATHER FH: breast cancer MOTHER Social History Smoking Status: Former Smoker Alcohol Use: occasionally Drug Use: none Marital Status: Housing Status: lives alone Occupation Status: retired Allergies Coded Allergies: Adhesives (Verified Allergy, Unknown, UNKOWN., 11/21/16) ALL ALLERGY INFO PROVIDED BY THE OFFICE OF DR. STEVEN YI Gabapentin (Verified Allergy, Unknown, UNK, 11/21/16) Latex1 -Allergic Contact Dermititis (Verified Allergy, Unknown, unk, 11/21) Sertraline (Verified Allergy, Unknown, UNK., 11/21/16) Sulfa Antibiotics (Verified Allergy, Unknown, unk, 11/21/16) Tramadol (Verified Allergy, Unknown, UNK, 11/21/16) Current Medications Home Meds and Scripts Medications Dose Route/Sig Max Daily Dose Days Date Category Dose Instructions Claritin (Loratadine) 10 Mg Tab 10 Mg PO DAILY 11/21/16 Reported Jantoven (Warfarin Sodium) 4 Mg Tab 4 Mg PO 5XWK 11/21/16 Reported TAKE 4MG EVERYDAY EXCEPT THURSDAY AND THURSDAY Jantoven (Warfarin Sodium) 2 Mg Tab 2 Mg PO 2XWK 11/21/16 Reported TAKE 2MG EVERY THURSDAY AND THURSDAY Pantoprazole Sodium (Pantoprazole) 40 Mg Tab 40 Mg PO QAM 30 11/05/16 Rx Aspirin EC Low Dose (Aspirin) 81 Mg Ectab 81 Mg PO QAM 30 11/05/16 Rx Nitrostat (Nitroglycerin) 0.4 Mg/1 Tab Subl 0.4 Mg SL UD PRN 11/05/16 Rx 1 tab q5 min x 3 doses and call 911 Review of Systems 10 ROS negative except as in HPI. Physical Exam Date Time Temp Pulse Resp B/P (MAP) Pulse Ox O2 Delivery O2 Flow Rate FiO2 11/22/16 11:49 37.0 79 18 89/57 (68) 96 Room Air 11/22/16 08:06 36.6 79 16 91/60 (70) 93 11/22/16 08:00 Room Air 11/22/16 04:00 Room Air 11/22/16 03:29 36.7 81 19 93/60 (71) 93 Room Air 11/21/16 23:59 Room Air 11/21/16 23:24 36.6 80 20 124/77 93 Room Air 11/21/16 22:49 82 20 121/76 94 Room Air 11/21/16 21:59 96 11/21/16 21:56 81 20 145/79 94 Room Air 11/21/16 20:31 80 20 151/71 98 Nasal Cannula 2.0 11/21/16 18:53 83 20 134/81 100 Nasal Cannula 2.0 11/21/16 17:58 83 18 118/74 98 Room Air 11/21/16 17:56 90 11/21/16 17:52 88 20 152/76 11/21/16 17:31 36.4 84 18 142/80 97 Room Air General Appearance: WD/WN, no apparent distress Eyes: normal inspection, PERRL ENT: hearing grossly normal, pharynx normal Neck: supple, no adenopathy Respiratory/Chest: lungs clear, no respiratory distress Cardiovascular: regular rate, rhythm, no edema Abdomen: normal bowel sounds, non tender, soft, no organomegaly Extremities: normal range of motion 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/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, normal mood/affect, oriented x 3 Skin: normal color, no jaundice Laboratory Results Last 24 Hours Test 11/21/16 17:48 11/21/16 18:04 11/22/16 00:25 11/22/16 06:41 White Blood Count 9.17 K/uL 5.02 K/uL Red Blood Count 4.55 M/uL 3.98 M/uL Hemoglobin 14.5 g/dL 12.6 g/dL Hematocrit 41.5 % 36.5 % Mean Corpuscular Volume 91.2 fL 91.7 fL Mean Corpuscular Hemoglobin 31.9 pg 31.7 pg Mean Corpuscular Hemoglobin Concent 34.9 g/dl 34.5 g/dl RDW Standard Deviation 47.7 fL 48.2 fL RDW Coefficient of Variation 14.3 % 14.1 % Platelet Count 176 K/uL 142 K/uL Mean Platelet Volume 9.8 fL 10.0 fL Prothrombin Time 23.0 SECONDS 19.4 SECONDS Prothromb Time International Ratio 2.1 1.8 Activated Partial Thromboplast Time 48.3 SECONDS Partial Thromboplastin Ratio 1.9 Sodium Level 140 mmol/L 140 mmol/L Potassium Level 4.0 mmol/L 3.8 mmol/L Chloride Level 109 mmol/L 109 mmol/L Carbon Dioxide Level 23 mmol/L 26 mmol/L Anion Gap 8.0 mmol/L 6.0 mmol/L Blood Urea Nitrogen 17 mg/dl 13 mg/dl Creatinine 1.20 mg/dl 1.10 mg/dl Est Creatinine Clear Calc Drug Dose 42.0 ml/min 45.8 ml/min Estimated GFR () 56.1 62.3 Estimated GFR (Non- 48.4 53.8 BUN/Creatinine Ratio 14.1 12.2 Random Glucose 123 mg/dl 85 mg/dl Calcium Level 9.1 mg/dl 8.5 mg/dl Total Bilirubin 1.7 mg/dl 1.9 mg/dl Aspartate Amino Transf (AST/SGOT) 74 U/L 181 U/L Alanine Aminotransferase (ALT/SGPT) 30 U/L 102 U/L Alkaline Phosphatase 122 U/L 124 U/L Total Creatine Kinase 102 U/L Creatine Kinase MB 1.0 ng/ml Creatine Kinase MB Ratio 1.0 Total Protein 7.4 gm/dl 6.2 gm/dl Albumin 3.9 gm/dl 3.2 gm/dl Globulin 3.5 gm/dl 3.0 gm/dl Albumin/Globulin Ratio 1.1 1.1 Lipase 184 U/L Bedside Troponin I < 0.030 ng/ml Troponin I < 0.015 ng/ml < 0.015 ng/ml Neutrophils (%) (Auto) 69.9 % Lymphocytes (%) (Auto) 17.7 % Monocytes (%) (Auto) 9.2 % Eosinophils (%) (Auto) 2.8 % Basophils (%) (Auto) 0.2 % Neutrophils # (Auto) 3.51 K/uL Lymphocytes # (Auto) 0.89 K/uL Monocytes # (Auto) 0.46 K/uL Eosinophils # (Auto) 0.14 K/uL Basophils # (Auto) 0.01 K/uL Immature Granulocyte % (Auto) 0.2 % Immature Granulocyte # (Auto) 0.01 K/uL Impression A/P chest pain--improved today per patient--secondary to gallstones Gallstones--with distension of GB and pain probably has an element of cholecystitis and so agree with abx and plan for cholecystectomy elevated LFTS---this can be from cholecystitis and from stones in CBD. Cannot do MRCP because of mechanical valve and pacemaker. Pros and cons of ERCP before surgery versus surgery with IOC and then determine need for ERCP discussed with DR Kee. Dr Kee at this point planning lap johnny with IOC tomorrow. Discussed with patient and son/daughter in law ERCP proc and risks in case that needs done at some point. Risks discussed include but not limited to medication reaction, bleeding, perforation, aspiration, infection, and pancreatitis (which can occurr in up to 10% of patient and can be severe and life threatening). Repeat labs in am. anticoagulation for valves--hold coumadin for surgery or if needs ERCP at some point, bridging anticoagulation per hospitalist but recommend short acting agent like heparin drip.
[2016-11-22] MEDS ORDERED: WARFARIN SOD 2 MG TAB PO SCH (16:00)
[2016-11-22] MEDS: MoRPHine SULFATE 2 MG/ML CARP IV PRN (16:15)
[2016-11-22 16:49] LABS: HEMATOCRIT 35.9 % (37-47); MEAN CELL VOLUME 92.8 fL (80-100); MEAN CORPUSCULAR HEMOGLOBIN 30.2 pg (25-34); MEAN PLATELET VOLUME 9.8 fL (7.4-10.4); PLATELET COUNT 133 K/uL (130-400); RED BLOOD COUNT 3.87 M/uL (4.2-5.4)
[2016-11-22 16:57] LABS: INR 1.9 (0.9-1.1); PARTIAL THROMBOPLASTIN RATIO 1.7; PROTHROMBIN TIME (PATIENT) 20.6 SECONDS (9.0-12.0)
[2016-11-22] MEDS ORDERED: HEPARIN IV BOLUS 5,000 UNIT in SYRINGE 0 ML IV ONE (17:15)
[2016-11-22 17:17] LABS: MEAN CORPUSCULAR HGB CONC 32.6 g/dl (32-36)
[2016-11-22] MEDS: HEPARIN 25,000 UNIT/500ML D5W 500 ML IV PRN (17:27)
[2016-11-22] MEDS: D5W AND 1/2NSS 1,000 ML IV SCH (18:14)
[2016-11-23] VITALS (7 sets, daily range): BP systolic 93–118; BP diastolic 44–64; PULSE 75–80; TEMP 36.7–37.1; O2SAT 92–95
[2016-11-23 00:25] LABS: PARTIAL THROMBOPLASTIN RATIO > 11.0
[2016-11-23 01:55] LABS: PARTIAL THROMBOPLASTIN RATIO 5.6
[2016-11-23] MEDS: PIPERACILL/TAZOBAC IV 3.375 GM in DEXTROSE 5% 100ML 100 ML IV SCH ×3 (02:04→17:55)
[2016-11-23 02:55] LABS: PARTIAL THROMBOPLASTIN RATIO 2.8
[2016-11-23] MEDS: HEPARIN 25,000 UNIT/500ML D5W 500 ML IV PRN ×2 (03:03→10:03)
[2016-11-23 05:04] LABS: COMPLETE YES; EOS % 3.5 %; HEMATOCRIT 34.3 % (37-47); IG% 0.3 %; LYMPH % 24.3 %; MEAN CELL VOLUME 92.5 fL (80-100); MEAN CORPUSCULAR HEMOGLOBIN 31.3 pg (25-34); MEAN CORPUSCULAR HGB CONC 33.8 g/dl (32-36); MEAN PLATELET VOLUME 9.7 fL (7.4-10.4); MONO % 9.7 %; NEUT % 62.2 %; PLATELET COUNT 119 K/uL (130-400); RED BLOOD COUNT 3.71 M/uL (4.2-5.4)
[2016-11-23 05:22] LABS: BUN/CREATININE RATIO 7.9 (10-20); CALCIUM 8.1 mg/dl (8.5-10.1); CREATININE 1.1 mg/dl (0.60-1.20); POTASSIUM 3.7 mmol/L (3.5-5.1)
[2016-11-23 05:23] LABS: INR 1.8 (0.9-1.1); PROTHROMBIN TIME (PATIENT) 20.1 SECONDS (9.0-12.0)
--- NOTE | 2016-11-23 07:00 | Surgery Progress Note ---
Surgery Progress Note Date of Service Nov 23, 2016. Subjective no acute chgs- now on IV Heparin Objective Vital Signs: Date Time Temp Pulse Resp B/P (MAP) Pulse Ox O2 Delivery O2 Flow Rate FiO2 11/23/16 04:00 95 Room Air 11/23/16 03:10 37.1 80 19 93/58 (70) 95 Room Air 11/23/16 00:01 95 Room Air 11/22/16 23:09 36.8 77 19 96/62 (73) 95 Room Air 11/22/16 20:00 Room Air 11/22/16 19:42 36.8 80 18 90/49 (63) 91 Room Air 11/22/16 16:00 Room Air 11/22/16 15:23 37.1 79 16 92/58 (69) 93 Room Air 11/22/16 12:00 Room Air 11/22/16 11:49 37.0 79 18 89/57 (68) 96 Room Air 11/22/16 08:06 36.6 79 16 91/60 (70) 93 11/22/16 08:00 Room Air Laboratory Results: Results Past 24 Hours Test 11/22/16 12:46 11/22/16 16:36 11/22/16 23:16 11/23/16 01:16 Range/Units Troponin I < 0.015 0-0.045 ng/ml White Blood Count 4.20 4.8-10.8 K/uL Red Blood Count 3.87 4.2-5.4 M/uL Hemoglobin 11.7 12.0-16.0 g/dL Hematocrit 35.9 37-47 % Mean Corpuscular Volume 92.8 80-100 fL Mean Corpuscular Hemoglobin 30.2 25-34 pg Mean Corpuscular Hemoglobin Concent 32.6 32-36 g/dl RDW Standard Deviation 48.2 36.4-46.3 fL RDW Coefficient of Variation 14.3 11.5-14.5 % Platelet Count 133 130-400 K/uL Mean Platelet Volume 9.8 7.4-10.4 fL Prothrombin Time 20.6 9.0-12.0 SECONDS Prothromb Time International Ratio 1.9 0.9-1.1 Activated Partial Thromboplast Time 43.2 > 300.0 145.9 21.0-31.0 SECONDS Partial Thromboplastin Ratio 1.7 > 11.0 5.6 Test 11/23/16 02:11 11/23/16 04:51 Range/Units Activated Partial Thromboplast Time 72.0 77.0 21.0-31.0 SECONDS Partial Thromboplastin Ratio 2.8 3.0 White Blood Count 3.70 4.8-10.8 K/uL Red Blood Count 3.71 4.2-5.4 M/uL Hemoglobin 11.6 12.0-16.0 g/dL Hematocrit 34.3 37-47 % Mean Corpuscular Volume 92.5 80-100 fL Mean Corpuscular Hemoglobin 31.3 25-34 pg Mean Corpuscular Hemoglobin Concent 33.8 32-36 g/dl Platelet Count 119 130-400 K/uL Mean Platelet Volume 9.7 7.4-10.4 fL Neutrophils (%) (Auto) 62.2 % Lymphocytes (%) (Auto) 24.3 % Monocytes (%) (Auto) 9.7 % Eosinophils (%) (Auto) 3.5 % Basophils (%) (Auto) 0.0 % Neutrophils # (Auto) 2.30 1.4-6.5 K/uL Lymphocytes # (Auto) 0.90 1.2-3.4 K/uL Monocytes # (Auto) 0.36 0.11-0.59 K/uL Eosinophils # (Auto) 0.13 0-0.5 K/uL Basophils # (Auto) 0.00 0-0.2 K/uL RDW Standard Deviation 48.7 36.4-46.3 fL RDW Coefficient of Variation 14.3 11.5-14.5 % Immature Granulocyte % (Auto) 0.3 % Immature Granulocyte # (Auto) 0.01 0.00-0.02 K/uL Prothrombin Time 20.1 9.0-12.0 SECONDS Prothromb Time International Ratio 1.8 0.9-1.1 Sodium Level 143 136-145 mmol/L Potassium Level 3.7 3.5-5.1 mmol/L Chloride Level 110 98-107 mmol/L Carbon Dioxide Level 26 21-32 mmol/L Anion Gap 7.0 3-11 mmol/L Blood Urea Nitrogen 9 7-18 mg/dl Creatinine 1.10 0.60-1.20 mg/dl Est Creatinine Clear Calc Drug Dose 45.8 ml/min Estimated GFR () 62.3 Estimated GFR (Non- 53.8 BUN/Creatinine Ratio 7.9 10-20 Random Glucose 103 70-99 mg/dl Calcium Level 8.1 8.5-10.1 mg/dl Total Bilirubin 1.1 0.2-1 mg/dl Aspartate Amino Transf (AST/SGOT) 78 15-37 U/L Alanine Aminotransferase (ALT/SGPT) 78 12-78 U/L Alkaline Phosphatase 113 45-117 U/L Total Protein 5.7 6.4-8.2 gm/dl Albumin 2.9 3.4-5.0 gm/dl Globulin 2.8 2.5-4.0 gm/dl Albumin/Globulin Ratio 1.0 0.9-2 Lipase 178 73-393 U/L Assessment & Plan 11/23/16- surgery on hold- cardiology consulted, now on IV Heparin- will need to stop at 2 hrs prior to surgery. 11/22/16- suspect biliary colic, mild acute cholecystitis- hida ordered probable lap johnny today or tomorrow- check PT/INR- Dr Alejandro to see- ? lap johnny w/ cholangiogram tomorrow ? try to avoid vit K I am cancelling Hida scan- I do not think it will change my decision to proceed with cholecystectomy- I feel it needs to be done this admission 11/22/16- suspect biliary colic, mild acute cholecystitis- hida ordered probable lap johnny today or tomorrow- check PT/INR- Dr Alejandro to see- ? lap johnny w/ cholangiogram tomorrow ? try to avoid vit K I am cancelling Hida scan- I do not think it will change my decision to proceed with cholecystectomy- I feel it needs to be done this admission
[2016-11-23] MEDS: LORATADINE 10 MG TAB PO SCH (08:21)
[2016-11-23] MEDS: ASPIRIN 81 MG ECTAB PO SCH (08:21)
[2016-11-23] MEDS: PANTOprazole SOD 40 MG TAB PO SCH (08:21)
[2016-11-23] MEDS: D5W AND 1/2NSS 1,000 ML IV SCH ×2 (08:21→21:48)
[2016-11-23 09:22] LABS: PARTIAL THROMBOPLASTIN RATIO 3.1
--- NOTE | 2016-11-23 12:02 | CARDIOLOGY CONSULTATION ---
DATE OF CONSULTATION: 11/23/2016 REQUESTING PHYSICIAN: Dr. Chavira. MANAGER OFFICE: Erick Rollins DO, [facility] Cardiology for Dr. Kris Oakley, who is the patient's primary ventilating expert. REASON FOR CONSULTATION: Preoperative evaluation of acute cholecystitis. Dear Dr. Chavira, Thank you for requesting cardiology consultation on Jovanna with regards to her complex cardiac history and need for cholecystectomy with acute cholecystitis. She was admitted 2 weeks ago with chest discomfort and associated diaphoresis, which radiated from the lower chest and upper epigastric area bilaterally around to her back. There was no radiation to her shoulder blades or down her arms. She notes she had eaten fried fish and macaroni and cheese just prior to this episode and in retrospect 2 weeks ago, she also thinks that she had rather fatty meal prior to that episode. Two weeks ago, troponins were negative for an acute coronary syndrome and she was subsequently discharged home. At this time in the Emergency Room, an ultrasound was found to be consistent with early cholecystitis. She also had LFT abnormalities and a dilated common bile duct. She saw Dr. Oakley 2 weeks ago as a new patient. Unfortunately, she was supposed to see him in the office and she had to go to a fly to a and had to miss her appointment. I did obtain her [facility] records and she saw Dr. Hardy and Arleen Head last in January 2016. She currently denies any chest pain or chest pressure. She denies any lightheadedness, dizziness, PND, or orthopnea. She sleeps on 1-2 pillows chronically with the head of the bed slightly elevated. She can walk in her house. She can walk in a grocery store and push the cart. The mailbox is just on her porch. An outside of carrying the groceries in and walking in the grocery store, she really does not do a lot of activity. She describes that her functional capacity is relatively stable over the last 6 months or so. She denies any lower extremity edema or symptoms of claudication. She does bruise easily on anticoagulation and has a very large bruise on her right thigh, but she is not completely sure of how it occurred. She denies any dark stools or black stools. Her appetite has been stable. Her weight has been stable. When I discussed with her whether she has had heart failure, she denied it, but if looking at the [facility] records, she appears to have had heart failure in the past related to fluid retention. The rest of review of systems otherwise negative. PAST MEDICAL HISTORY: 1. 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 2. Status post mechanical aortic valve replacement on 04/03/1992 in [place], [place]. 3. Status post mechanical mitral valve replacement in May 2014 secondary to mitral regurgitation, mitral stenosis and pulmonary hypertension. 4. 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 pacemaker on 05/30/2014. 5. Chronic systolic heart failure. 6. Echocardiogram in January 2016 with an EF in the range of 55%-60% with abnormal septal wall motion, normal RV size and function and type 3 diastolic dysfunction. 7. Status post tricuspid valve repair at the time of her mitral valve surgery in May 2014. 8. Chronic atrial fibrillation. 9. Abdominal aortic aneurysm status post repair. 10. History of a right bundle branch block with a left anterior fascicular block. 11. Peripheral arterial disease. 12. COPD, which is described as severe. ALLERGIES: LATEX, SULFA, TAPE AND TRAMADOL. OUTPATIENT MEDICATIONS: Reviewed in detail as well as her inpatient medications. FAMILY HISTORY: Father had coronary artery disease. Mother had breast cancer. SOCIAL HISTORY: She is a former smoker. She is . She lives alone. She is retired. PHYSICAL EXAMINATION: GENERAL: She is awake, alert, and oriented x3. She is in no acute distress. She looks older than her stated age. VITAL SIGNS: Her heart rate 78, blood pressure 93/56, and sats 92% on room air. HEENNT: Her carotid upstrokes were mildly reduced. There were no carotid bruits. Her sclerae is anicteric. Her hearing is normal. Her jugular venous pressure appears mildly elevated. LUNGS: Globally decreased breath sounds. No rales, rhonchi or wheezing. HEART: Regular rate and rhythm (paced). There is a crisp click of both her mitral and aortic prostheses. There were no appreciable systolic or diastolic murmurs. ABDOMEN: Soft, nontender, and nondistended. Positive bowel sounds. EXTREMITIES: No clubbing, cyanosis or edema. PSYCHIATRIC: Affect appeared appropriate. NEUROLOGIC: She is awake, alert and oriented x3. Diagnostic studies discussed above. In addition, I personally reviewed her echocardiogram from 2 weeks ago. I do believe, her EF is more likely in the range of 45%. There is a septal wall motion abnormality consistent with her prior open heart surgery and I do agree that the basilar mid inferior wall does appear hypokinetic, especially when compared to the anterior wall. She does have type 3 diastolic dysfunction as well. LABORATORY DATA: Hemoglobin 11.6 and platelet count of 119. Sodium 143, BUN 9, and creatinine 1.1. Her AST and ALT upon admission were 181 and 102. Her troponins are negative. Her alkaline phosphatase was elevated. Her lipase was normal. Chest x-ray, cardiomegaly, pacemaker, advanced emphysema. No pleural effusions or airspace consolidation. IMPRESSION: 1. Preoperative evaluation prior to planned cholecystectomy. 2. Complex past cardiac history including, a. Mechanical aortic valve in March 1992 secondary to rheumatic heart disease. b. Mechanical mitral valve and tricuspid valve repair in May 2014. 3. Status post pacemaker for bradycardia. 4. Chronic atrial fibrillation. 5. Chronic anticoagulation with a goal INR of 2.5-3.5 with 81 mg of aspirin for her double mechanical valves. 6. Echocardiogram in January 2016. Compared with her echocardiogram 2 weeks ago with a slight reduction in her ejection fraction and hypokinesis of the basal to mid inferior wall compared to the anterior wall. 7. Advanced emphysema. As discussed with the primary service as well as the opinion of interventional cardiology, we were both in agreement that she needs to have the surgery. Although, the inferior wall is slightly hypokinetic and even in light of wall motion abnormality, there is nothing to suggest she has had a heart attack in either 2 weeks ago with her troponins being negative then or now as her troponins are also negative. I would recommend trying to obtain her catheterization report from [place] from 2014 before her mitral valve surgery. Even without that information, I believe she can proceed with surgery. Her risk of cardiac complications is at least 5% and may be higher and includes heart failure, dying from cardiac causes, arrhythmias and heart attack. Even if she does have coronary artery disease, it would be single vessel disease based on the RCA territory and the inferolateral wall moves just fine. There is no room to add beta blockers given her relatively low blood pressure. I think she can proceed with the above stated risk. I would be judicious with her IV fluids in order to avoid volume overload, especially in light of her severely dilated left atrium and type [address] Oakley will return tomorrow to continue her care. Thank you for allowing us to participate in her care. TYLOR
--- NOTE | 2016-11-23 15:01 | Gastroenterology Progress Note ---
Progress Note Date of Service: Nov 23, 2016 Subjective Pt evaluation today including: conversation w/ patient, physical exam, chart review, lab review, review of studies, review of inpatient medication list CC f/u abd pain HPI Pt denies CP and abd pain. She is tolerating clear liquid diet. Review of Systems Respiratory: No shortness of breath Cardiac: No chest pain Medications Current Inpatient Medications Medications (Trade) Dose Ordered Sig/Aidee Route Start Time Stop Time Status Last Admin Dose Admin Acetaminophen (Tylenol Tab) 650 mg Q4H PRN PO 11/21/16 22:30 12/21/16 22:29 Al Hydrox/Mg Hydrox/Simethicone (Maalox Max Susp) 15 ml Q4H PRN PO 11/21/16 22:30 12/21/16 22:29 11/23/16 12:08 15 ML Magnesium Hydroxide (Milk Of Magnesia Susp) 30 ml Q12H PRN PO 11/21/16 22:30 12/21/16 22:29 Ondansetron HCl (Zofran Inj) 4 mg Q6H PRN IV 11/21/16 22:30 12/21/16 22:29 Aspirin (Ecotrin Tab) 81 mg QAM PO 11/22/16 09:00 12/22/16 08:59 11/23/16 08:21 81 MG Loratadine (Claritin Tab) 10 mg DAILY PO 11/22/16 09:00 12/22/16 08:59 11/23/16 08:21 10 MG Nitroglycerin (Nitrostat Tab) 0.4 mg UD PRN SL 11/21/16 22:30 12/21/16 22:29 Pantoprazole Sodium (Protonix Tab) 40 mg QAM PO 11/22/16 09:00 12/22/16 08:59 11/23/16 08:21 40 MG Piperacillin Sod/ Tazobactam Sod 3.375 gm/Dextrose 115 ml @ 28.75 mls/ hr Q8H IV 11/22/16 02:00 12/02/16 01:59 11/23/16 09:59 28.75 MLS/HR Morphine Sulfate (MoRPHine SULFATE INJ) 2 mg Q4 PRN IV 11/21/16 22:30 12/05/16 22:29 11/22/16 16:15 2 MG Albuterol Sulfate (Ventolin 0.5% 2.5MG/0.5ML Neb) 2.5 mg Q6R PRN INH 11/21/16 23:00 12/21/16 22:59 Piperacillin Sod/ Tazobactam Sod (Consult) 1 ea UD PRN N/A 11/22/16 01:30 12/22/16 01:29 Heparin Sodium/ Dextrose 500 ml @ 14 mls/hr Q24H PRN IV 11/22/16 17:00 12/22/16 16:59 11/23/16 10:03 14 MLS/HR Dextrose/Sodium Chloride 1,000 ml @ 75 mls/hr [id number] IV 11/22/16 18:00 12/22/16 17:59 11/23/16 08:21 75 MLS/HR Objective Vital Signs Date Time Temp Pulse Resp B/P (MAP) Pulse Ox O2 Delivery O2 Flow Rate FiO2 11/23/16 12:07 36.9 80 16 108/64 (79) 95 Room Air 11/23/16 12:00 Room Air 11/23/16 08:00 Room Air 11/23/16 07:38 36.7 78 16 93/56 (68) 92 Room Air 11/23/16 04:00 95 Room Air 11/23/16 03:10 37.1 80 19 93/58 (70) 95 Room Air 11/23/16 00:01 95 Room Air 11/22/16 23:09 36.8 77 19 96/62 (73) 95 Room Air 11/22/16 20:00 Room Air 11/22/16 19:42 36.8 80 18 90/49 (63) 91 Room Air 11/22/16 16:00 Room Air 11/22/16 15:23 37.1 79 16 92/58 (69) 93 Room Air Physical Exam General Appearance: WD/WN, no apparent distress Respiratory/Chest: lungs clear, no respiratory distress Cardiovascular: regular rate, rhythm, no edema Abdomen: normal bowel sounds, non tender, soft, no organomegaly Neurologic/Psych: normal mood/affect, oriented x 3 Skin: normal color, no jaundice Laboratory Results Last 24 Hours Test 11/22/16 16:36 11/22/16 23:16 11/23/16 01:16 11/23/16 02:11 White Blood Count 4.20 K/uL Red Blood Count 3.87 M/uL Hemoglobin 11.7 g/dL Hematocrit 35.9 % Mean Corpuscular Volume 92.8 fL Mean Corpuscular Hemoglobin 30.2 pg Mean Corpuscular Hemoglobin Concent 32.6 g/dl RDW Standard Deviation 48.2 fL RDW Coefficient of Variation 14.3 % Platelet Count 133 K/uL Mean Platelet Volume 9.8 fL Prothrombin Time 20.6 SECONDS Prothromb Time International Ratio 1.9 Activated Partial Thromboplast Time 43.2 SECONDS > 300.0 SECONDS 145.9 SECONDS 72.0 SECONDS Partial Thromboplastin Ratio 1.7 > 11.0 5.6 2.8 Test 11/23/16 04:51 11/23/16 08:39 White Blood Count 3.70 K/uL Red Blood Count 3.71 M/uL Hemoglobin 11.6 g/dL Hematocrit 34.3 % Mean Corpuscular Volume 92.5 fL Mean Corpuscular Hemoglobin 31.3 pg Mean Corpuscular Hemoglobin Concent 33.8 g/dl Platelet Count 119 K/uL Mean Platelet Volume 9.7 fL Neutrophils (%) (Auto) 62.2 % Lymphocytes (%) (Auto) 24.3 % Monocytes (%) (Auto) 9.7 % Eosinophils (%) (Auto) 3.5 % Basophils (%) (Auto) 0.0 % Neutrophils # (Auto) 2.30 K/uL Lymphocytes # (Auto) 0.90 K/uL Monocytes # (Auto) 0.36 K/uL Eosinophils # (Auto) 0.13 K/uL Basophils # (Auto) 0.00 K/uL RDW Standard Deviation 48.7 fL RDW Coefficient of Variation 14.3 % Immature Granulocyte % (Auto) 0.3 % Immature Granulocyte # (Auto) 0.01 K/uL Prothrombin Time 20.1 SECONDS Prothromb Time International Ratio 1.8 Activated Partial Thromboplast Time 77.0 SECONDS 81.2 SECONDS Partial Thromboplastin Ratio 3.0 3.1 Sodium Level 143 mmol/L Potassium Level 3.7 mmol/L Chloride Level 110 mmol/L Carbon Dioxide Level 26 mmol/L Anion Gap 7.0 mmol/L Blood Urea Nitrogen 9 mg/dl Creatinine 1.10 mg/dl Est Creatinine Clear Calc Drug Dose 45.8 ml/min Estimated GFR () 62.3 Estimated GFR (Non- 53.8 BUN/Creatinine Ratio 7.9 Random Glucose 103 mg/dl Calcium Level 8.1 mg/dl Total Bilirubin 1.1 mg/dl Aspartate Amino Transf (AST/SGOT) 78 U/L Alanine Aminotransferase (ALT/SGPT) 78 U/L Alkaline Phosphatase 113 U/L Total Protein 5.7 gm/dl Albumin 2.9 gm/dl Globulin 2.8 gm/dl Albumin/Globulin Ratio 1.0 Lipase 178 U/L Assessment and Plan chest pain--resolved-secondary to gallstones Gallstones--with distension of GB and pain probably has an element of cholecystitis and so agree with abx and plan for cholecystectomy elevated LFTS---improved today. Unlikely to need ERCP at this point. Would proceed with lap johnny wiht IOC anticoagulation for valves--hold coumadin for surgery or if needs ERCP at some point, bridging IV heparin is ongoing CBD dilatation--see above discussion for elev LFTs I am going off service tomorrow 11/24/[address] Hess/DR Hart assuming GI care then.
[2016-11-23 16:25] LABS: PARTIAL THROMBOPLASTIN RATIO 2.6
--- NOTE | 2016-11-23 17:39 | Family Medicine Progress Note ---
Progress Note Date of Service Nov 23, 2016. Subjective Pt evaluation today including: conversation w/ patient, physical exam, chart review, lab review, review of studies Pain: denies PO Intake: NPO Voiding: no voiding problems Pt is asleep, reports no events overnight. Absence of pain, hungry - has been NPO since admission. Doesn't sleep well in the environment, but otherwise no complaints. No SOB, no chest pain, no dizziness no changes in vision, no radiating chest pain. Pt states that she has not had a bowel movement yet since admission, however states that she usually has a BM 1x week, if that. Constitutional: No fever, No chills, No sweats Respiratory: No cough, No sputum, No shortness of breath Cardiovascular: No chest pain, No orthopnea, No edema Abdomen: No pain, No nausea, No vomiting Female : No dysuria, No urinary frequency Objective Physical Exam General Appearance: WD/WN, no apparent distress Eyes: normal inspection, EOMI ENT: hearing grossly normal Respiratory/Chest: chest non-tender, lungs clear, normal breath sounds, no respiratory distress, no accessory muscle use Cardiovascular: regular rate, rhythm, no edema, no gallop, no JVD Abdomen: non tender, soft Neurologic/Psychiatric: alert, normal mood/affect, oriented x 3 Assessment and Plan 61F here for substernal pain radiating to her back bilaterally that started 2 hours after lunch, insidiously growing in intensity while she sat in the market president's office lobby. By the time she went to walk out to her car after the appointment, she did not feel like she could drive her car because she was in so much pain, so patient's friend drove her to the ED. Pt specifically describes the pain as epigastric and substernal (lower ribs) bilaterally, as well as pain in the back at mid-back level. The pain was constant, exacerbated by deep breathing. Also has h/o intermittent post pradial pain associated with meals intermittently for several weeks. In ED: Troponins times 3 normal, EKG with no ST changes. She had n/v after getting pain meds. Most recent echo performed 11/04 did show EF 35-40% as well as WMA. On discharge from that admission, pt was to see cardiology outpatient, however because of trip to attend father's this last week, was unable to make an appointment. Abnl echo not yet able to be addressed. Acute cholecystitis On admission, colicky pain and evidence of gallstones c/w inflammation of the gall bladder Zosyn IV IVF -- changed to D5 + 1/2 NSS 75 ml/hr Morphine 2mg q4 PRN No MRCP because of mechanical valve and pacemaker - planning lap johnny with IOC tomorrow now that cardio cleared for pre op. Elevated LFTs Likely 2/2 cholecystitis. Abnormal ECHO on last admission concerning for pre-op assessment Pre-op clearance by Cardio shows pt able to undergo surgery. Appreciate Dr. oRllins's recs, pt EF not as low as previously thought, more like 45%. Ordering cardio records from [facility]. Will need regular follow up with cardiology on discharge. h/o Rheumatic heart disease/ s/p aortic and mitral valve repair - mechanical Normally on coumadin 2mg x2, 4mg x5. Also nitrostat SL, ASA 81 came in sub-therapeutic at 2.1, now 1.9. Started on heparin drip DC coumadin h/o AAA repair ASA 81 COPD does not appear to use inhalers Albuterol ordered PRN Recommend follow up PFT's on outpatient. Incidentaloma pulmonary nodule 4mm seen on imaging recommend f/u CXR in 1 year for comparison VTE: heparin drip CODE: DNR. Confirmed with patient today. Dispo: Tele, pre-op. Continued [facility] stay due to: multiple IV medications needed Discharge planning: home Resident Tracking Resident Involvement: Resident Care Provided Care Provided: Adult Hospital Medicine Reviewed: Pt Seen/Exam by Me History Resident Physician Supervision Note: I interviewed and examined the patient. Discussed with Dr. Lisa and agree with findings and plan as documented in the note. Any exceptions or clarifications are listed here: Pt denies any pain, is ron clear liquid diet for dinner. Discussed case with Cardiology today. Requested right and left heart cath reports from 04/2014 in [facility] and reviewed results--> severe PHTN with pressure 70, clean left heart cath. LFTs trended downward today Vitals reviewed No acute distress, alert awake oriented 3 Regular rate and rhythm, clinic on S1 and S2, no murmur Lungs clear to auscultation with some diminished breath sounds throughout, no wheezes or crackles Abdomen positive bowel sounds, soft, no tenderness Extremities no edema, 2 posterior cells pedis pulses bilaterally Skin no rashes 61-year-old female with history of COPD, chronic ?new-onset systolic CHF of unknown etiology with new wall motion abnormalities on recent echo with EF initially reported as 35-40%, Dr. Rollins's review is 45%, Severe PHTN as per Right heart cath, aortic and mitral valve mechanical replacements, pacemaker placement, paroxysmal atrial fibrillation, history of AAA repair, pulmonary nodule, here with acute calculus cholecystitis. LFTs are trending downward, afebrile, no signs of sepsis. -Continue Zosyn -Planning for laparoscopic cholecystectomy with IOP for tomorrow -Pt is at least at moderate risk/5% risk of perioperative CV complications but is willing to proceed with surgery-appreciate Cardiology consultation -no need for cardiac cath prior to surgery, Cardiology htinks at worst could have single vessel disease RCA -Appreciate Gen Surgery management -Continue to hold Coumadin and bridge with heparin drip to be held 2 hrs prior to surgery and restarted as per Surgery's wishes post-operatively but as soon as possible -Continue telemetry monitoring -Is not yet on any medications for her CHF and is not in acute decompensation-- > consider adding on ACEI, beta jude, if BP permits but may not Also consider supplemental nocturnal O2 for severe Pulm HTN, f/u with Pulmonology as outpt COPD-stable this time, has chronic dyspnea -We will ensure bronchodilators are ordered when necessary -O2 as above Proph-heparin gtt Documented By: Fay Chavira
[2016-11-24] VITALS (10 sets, daily range): BP systolic 102–146; BP diastolic 64–87; PULSE 72–87; TEMP 36.4–36.8; O2SAT 91–98
[2016-11-24] MEDS: ACETAMINOPHEN 325 MG TAB PO PRN (01:25)
[2016-11-24] MEDS: PIPERACILL/TAZOBAC IV 3.375 GM in DEXTROSE 5% 100ML 100 ML IV SCH ×3 (01:34→16:02)
[2016-11-24 04:41] LABS: COMPLETE YES; EOS % 5.5 %; HEMATOCRIT 34.3 % (37-47); LYMPH % 27.9 %; LYMPH ABS # 0.92 K/uL (1.2-3.4); MEAN CELL VOLUME 91.2 fL (80-100); MEAN CORPUSCULAR HEMOGLOBIN 30.6 pg (25-34); MEAN CORPUSCULAR HGB CONC 33.5 g/dl (32-36); MEAN PLATELET VOLUME 10.1 fL (7.4-10.4); MONO % 13.3 %; NEUT % 53.3 %; PLATELET COUNT 121 K/uL (130-400); RED BLOOD COUNT 3.76 M/uL (4.2-5.4)
[2016-11-24 05:01] LABS: BUN/CREATININE RATIO 6.8 (10-20); CALCIUM 8.1 mg/dl (8.5-10.1); CREATININE 0.94 mg/dl (0.60-1.20); POTASSIUM 3.4 mmol/L (3.5-5.1)
[2016-11-24 05:04] LABS: INR 1.5 (0.9-1.1); PARTIAL THROMBOPLASTIN RATIO 2.4; PROTHROMBIN TIME (PATIENT) 16.7 SECONDS (9.0-12.0)
[2016-11-24] MEDS: HEPARIN 25,000 UNIT/500ML D5W 500 ML IV PRN (06:50)
[2016-11-24] MEDS: LORATADINE 10 MG TAB PO SCH (08:14)
[2016-11-24] MEDS: PANTOprazole SOD 40 MG TAB PO SCH (08:14)
[2016-11-24] MEDS ORDERED: POTASSIUM CHLR 10 MEQ / WTR 10 MEQ in PREMIXED WATER 100 ML IV SCH (09:00)
--- NOTE | 2016-11-24 09:25 | CARDIOLOGY PROGRESS NOTE ---
DATE: 11/24/2016 SUBJECTIVE: Mrs. Garg is resting comfortably in bed without complaints of chest pain, dyspnea, or palpitations. OBJECTIVE: VITAL SIGNS: Blood pressure is 120/75 with a regular pulse of 80. Respiratory rate is 18. The patient is afebrile at 36.5 degrees Celsius. Saturation is 95% on room air. HEENT: Negative. NECK: Supple with full carotid upstrokes. There are no carotid bruits. Jugular venous pressure is difficult to assess. LUNGS: Clear without rales, rhonchi, or wheezes. CARDIOVASCULAR: Reveals a regular rhythm with crisp mechanical valve sounds. A 1/6 basal systolic ejection murmur is noted. ABDOMEN: Soft and nontender. Normal bowel sounds. EXTREMITIES: Reveal intact radial artery pulses bilaterally. There is no peripheral edema. LABORATORY DATA: CBC notes a hemoglobin of 11.5, hematocrit 34.3, white count 3.3, and platelet count 121,000. Electrolytes note a sodium of 145, potassium 3.4, chloride 112, bicarbonate 26, BUN 6, creatinine 0.9, and glucose 106. Three troponin I levels are undetectable at less than 0.015. Liver transaminases are improving with an AST of 39 and an ALT of 56. Notes atrial fibrillation with appropriate ventricular pacing. IMPRESSION AND PLAN: 1. Acute cholecystitis - the patient is scheduled for a laparoscopic cholecystectomy later today. She has an acceptable cardiac risk as the patient has an excellent functional status without exertional angina or limiting dyspnea. Tolerating heparin without difficulty. 2. Mild left ventricular dysfunction -- ejection fraction likely 45% with an inferior wall motion abnormality. Systolic function may be slightly reduced when compared with a study done in January 2016; however, we are unable to put these studies side by side. We will further investigate as an outpatient. 3. Mechanical aortic valve replacement - March 1992. 4. Mechanical mitral valve replacement -- May 2014. 5. Tricuspid annuloplasty ring -- May 2014. 6. Permanent atrial fibrillation -- status post AV node ablation and placement of a dual chamber pacemaker in May 2014. This is a [employer] device. 7. Permanent atrial fibrillation. 8. Right bundle branch block. 9. Status post endovascular repair of an abdominal aortic aneurysm - January 2005. 10. Chronic obstructive pulmonary disease. MTDD
[2016-11-24] MEDS ORDERED: POTASSIUM CHLORIDE 10 MEQ TABCR PO SCH ×2 (10:00)
[2016-11-24] MEDS: D5W AND 1/2NSS 1,000 ML IV SCH ×2 (11:10→16:02)
--- NOTE | 2016-11-24 12:09 | Hospitalist Progress Note ---
Hospitalist Progress Note Date of Service Nov 24, 2016. Subjective Pt evaluation today including: conversation w/ patient Voiding: no voiding problems Pt NPO awaiting cholecystectomy today. Denies CP, no abd pain, her SOB with exertion is at baseline, no other concerns. All Other Systems: Reviewed and Negative Objective Vital Signs Date Time Temp Pulse Resp B/P (MAP) Pulse Ox O2 Delivery O2 Flow Rate FiO2 11/24/16 11:15 36.5 80 18 131/80 (97) 96 Room Air 11/24/16 08:00 Room Air 11/24/16 07:38 36.5 80 18 119/76 (90) 95 Room Air 11/24/16 04:05 36.8 79 17 119/76 (90) 95 Room Air 11/24/16 04:00 Room Air 11/24/16 00:17 36.6 77 16 124/81 (95) 95 Room Air 11/24/16 00:00 Room Air 11/23/16 20:00 Room Air 11/23/16 19:45 36.9 80 18 113/44 (67) 93 Room Air 11/23/16 16:00 Room Air 11/23/16 15:47 36.7 75 18 118/53 (74) 95 Room Air 11/23/16 12:07 36.9 80 16 108/64 (79) 95 Room Air 11/23/16 12:00 Room Air Physical Exam General Appearance: WD/WN, no apparent distress Eyes: normal inspection, sclerae normal ENT: hearing grossly normal Neck: trachea midline Respiratory/Chest: no respiratory distress, no accessory muscle use, + decreased breath sounds (throughout, no wheezing) Cardiovascular: regular rate, rhythm, no murmur (but with click on S1 and S2), + pertinent finding (trace pitting edema legs bilat to knees) Abdomen: normal bowel sounds, non tender, soft, no organomegaly Extremities: non-tender, no calf tenderness Neurologic/Psychiatric: alert, normal mood/affect, oriented x 3 Skin: normal color, warm/dry, no rash Laboratory Results Last 24 Hours Test 11/23/16 15:51 11/24/16 04:33 Activated Partial Thromboplast Time 66.5 SECONDS 62.9 SECONDS Partial Thromboplastin Ratio 2.6 2.4 White Blood Count 3.30 K/uL Red Blood Count 3.76 M/uL Hemoglobin 11.5 g/dL Hematocrit 34.3 % Mean Corpuscular Volume 91.2 fL Mean Corpuscular Hemoglobin 30.6 pg Mean Corpuscular Hemoglobin Concent 33.5 g/dl Platelet Count 121 K/uL Mean Platelet Volume 10.1 fL Neutrophils (%) (Auto) 53.3 % Lymphocytes (%) (Auto) 27.9 % Monocytes (%) (Auto) 13.3 % Eosinophils (%) (Auto) 5.5 % Basophils (%) (Auto) 0.0 % Neutrophils # (Auto) 1.76 K/uL Lymphocytes # (Auto) 0.92 K/uL Monocytes # (Auto) 0.44 K/uL Eosinophils # (Auto) 0.18 K/uL Basophils # (Auto) 0.00 K/uL RDW Standard Deviation 46.1 fL RDW Coefficient of Variation 13.8 % Immature Granulocyte % (Auto) 0.0 % Immature Granulocyte # (Auto) 0.00 K/uL Prothrombin Time 16.7 SECONDS Prothromb Time International Ratio 1.5 Sodium Level 145 mmol/L Potassium Level 3.4 mmol/L Chloride Level 112 mmol/L Carbon Dioxide Level 26 mmol/L Anion Gap 7.0 mmol/L Blood Urea Nitrogen 6 mg/dl Creatinine 0.94 mg/dl Est Creatinine Clear Calc Drug Dose 53.6 ml/min Estimated GFR () 75.4 Estimated GFR (Non- 65.0 BUN/Creatinine Ratio 6.8 Random Glucose 106 mg/dl Calcium Level 8.1 mg/dl Total Bilirubin 0.9 mg/dl Aspartate Amino Transf (AST/SGOT) 39 U/L Alanine Aminotransferase (ALT/SGPT) 56 U/L Alkaline Phosphatase 102 U/L Total Protein 5.8 gm/dl Albumin 2.9 gm/dl Globulin 2.9 gm/dl Albumin/Globulin Ratio 1.0 Assessment and Plan Pt is 61-year-old female with history of COPD, chronic ?new-onset systolic CHF of unknown etiology with new wall motion abnormalities on recent echo with EF initially reported as 35-40%, Dr. 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 Acute calculus cholecystitis-stable, awaiting lap johnny with IOC LFTs are trending downward, afebrile, no signs of sepsis. MRCP not done due to mechanical valves -Continue Zosyn - laparoscopic cholecystectomy with IOP today, stop heparin gtt 2 hrs prior -Pt is at least at moderate risk/5% risk of perioperative CV complications but is willing to proceed with surgery-appreciate Cardiology consultation -no need for cardiac cath prior to surgery, Cardiology thinks at worst could have single vessel disease RCA -Appreciate Gen Surgery management -heparin to be restarted as per Surgery's wishes post-operatively but as soon as possible Chronic/new-onset systolic CHF of unknown etiology with new WMAs on recent echo with EF initially reported as 35-40%, Dr. Rollins's review is 45%/Severe PHTN as per Right heart cath 2014/Severe left sided grade 3 diastolic CHF/Rheumatic valvular disease s/p aortic and mitral valve mechanical replacements on chronic coumadin therapy/PPM for sinus node dysfunction/chronic atrial fibrillation/h/o AAA repair: RHC and LHC 2014 with clean coronaries, severe PHTN no signs of acute decompensation -watch for fluid overload perioperatively -Continue telemetry monitoring -Is not yet on any medications for her CHF and is not in acute decompensation-- > consider adding on ACEI, beta jude, if BP permits but may not Also consider supplemental nocturnal O2 for severe Pulm HTN, f/u with Pulmonology as outpt -heparin and coumadin as above -continue ASA 81 but on hold for surgery -continue f/u with Cardio as outpt, may need repeat LHC in future COPD-severe emphysema on chest imaging previously, stable this time, has chronic dyspnea, on no meds at home and has never had PFTs, with Severe PHTN as per RHC 2014 -We will ensure bronchodilators are ordered when necessary -O2 as above -had to reschedule outpt Pulm appt to 12/04 with JACK Best Pulm nodules: 2 mm right upper lobe pulmonary nodule, 4 mm right middle lobe pulmonary nodule with borderline enlarged mediastinal EMRE on CHest CT 10/2016 -needs f/u with Pulm as outpt Breast mass-12 mm lobulated left breast nodule versus area of glandular summation seen on chest CT 10/2016 -needs outpt follow up Proph-heparin gtt Dispo-to home in 2-3 days, will likely need Lovenox bridge
[2016-11-24] MEDS ORDERED: MIDAZOLAM HCL 1 MG/ML 2ML VIAL ONE (12:12)
[2016-11-24] MEDS ORDERED: PROPOFOL IV EMULSION 10 MG/ML 20 ML VIAL IV ONE (12:12)
[2016-11-24] MEDS ORDERED: EpHEDrine SULFATE INJ 50 MG/ML AMP ONE (12:12)
[2016-11-24] MEDS ORDERED: SUCCINYLCHOLINE CHLORIDE 20 MG/ML 10 ML VIAL IV ONE (12:12)
[2016-11-24] MEDS ORDERED: ONDANSETRON INJ 2 MG/ML 2 ML VIAL ONE (12:12)
[2016-11-24] MEDS ORDERED: NEOSTIGMINE METHYLSULFATE 5 MG/5 ML SYR ONE (12:12)
[2016-11-24] MEDS ORDERED: FENTANYL CITRATE INJ 50 MCG/1 ML 2 ML VIAL ONE ×2 (12:12→14:40)
[2016-11-24] MEDS ORDERED: PHENYLEPHRINE HCL INJ 10 MG/ML VIAL ONE (12:12)
[2016-11-24] MEDS ORDERED: DEXAMETHASONE SOD INJ 4 MG/ML VIAL ONE (12:12)
[2016-11-24] MEDS ORDERED: LIDOCAINE HCL 2% 2 ML VIAL (20MG/ML) ONE (12:12)
[2016-11-24] MEDS ORDERED: GLYCOPYRROLATE INJ 0.2 MG/ML VIAL ONE (12:12)
[2016-11-24] MEDS ORDERED: FENTANYL CITRATE INJ 50 MCG/1 ML 2 ML VIAL IV PRN (12:30)
[2016-11-24] MEDS ORDERED: ONDANSETRON INJ 2 MG/ML 2 ML VIAL IV PRN (12:30)
[2016-11-24] MEDS ORDERED: PHENYLEPHRINE 100MCG/ML 5ML SYR IV PRN (12:30)
[2016-11-24] MEDS ORDERED: ATROPINE SULFATE 0.1 MG/ML 5ML SYR IV PRN (12:30)
[2016-11-24] MEDS ORDERED: EpHEDrine SULFATE INJ 50 MG/ML AMP IV PRN (12:30)
[2016-11-24] MEDS ORDERED: PROMETHAZINE HCL INJ 12.5 MG in SODIUM CHLORIDE 0.9% 50ML 50 ML IV PRN (12:30)
[2016-11-24] MEDS ORDERED: HYDROmorphone INJ 1 MG/ML SYR IV PRN ×2 (12:30→14:45)
[2016-11-24] MEDS ORDERED: BUPIVACAINE 0.5 % 5 MG/1 ML MPF 30ML VIAL ONE (12:36)
[2016-11-24] MEDS ORDERED: CONRAY 60% 50 ML VIAL ONE ×2 (12:53→14:07)
--- NOTE | 2016-11-24 13:08 | History & Physical Bridge Note ---
H&P Re-Evaluation Bridge Note: I have examined the patient, reviewed the History & Physical and in the interval since the performance of the History & Physical I have noted the following changes of clinical significance: No changes noted
--- NOTE | 2016-11-24 14:32 | [facility] Operative Report ---
Operative Report Operative Date Nov 24, 2016. Pre-Operative Diagnosis Biliary Colic, Acute Cholecystitis Post-Operative Diagnosis same as pre-operative Procedure(s) Performed Laparoscopic Cholecystectomy With Cholangiogram Surgeon Dr. Rj Kee Reserve Operator Surgeon(s) Hua Roberto PA-C Estimated Blood Loss 5ml Findings distended, edematous gb, sludge in cystic duct cholangiogram- good flow into duodenum- no defect in CBD- CHD not seen secondary to balloon Specimens Specimen A: Gallbladder and Contents Anesthesia gen Complication(s) None Disposition Recovery Room / PACU I attest to the content of the Intraoperative Record and any orders documented therein. Any exceptions are noted below.
--- NOTE | 2016-11-24 14:34 | DIAGNOSTIC IMAGING REPORT ---
INTRAOPERATIVE CHOLANGIOGRAM HISTORY: Post cholecystectomy. FLUOROSCOPY TIME: 13 seconds. 3 intraoperative fluoroscopic spot images.. FINDINGS: Fluoroscopy was provided for an intraoperative cholangiogram status post cholecystectomy. Contrast was injected through the cystic duct remnant. The common bile duct is mildly distended. There are no filling defects seen within the common bile duct to suggest a retained stone. Contrast extends into the small bowel. An aortobiiliac stent graft is identified. IMPRESSION: Fluoroscopy provided for an intraoperative cholangiogram status post cholecystectomy. No filling defects within the common bile duct. Electronically signed by: Santiago Duron M.D. 11/24/2016 2:33 PM Dictated Date/Time: 11/24/2016 2:31 PM
[2016-11-24] MEDS ORDERED: HYDROCODONE/ACETAMOPHEN 5/325MG TAB PO PRN (14:45)
--- NOTE | 2016-11-24 15:17 | Anesthesiology Progress Note ---
Anesthesia Post Op Note Date & Time Nov 24, 2016 at 15:17 Vital Signs Pain Intensity: 0 Vital Signs Past 12 Hours Date Time Temp Pulse Resp B/P (MAP) Pulse Ox O2 Delivery O2 Flow Rate FiO2 11/24/16 15:05 80 16 134/82 94 Oxymask 10 11/24/16 14:55 80 16 153/96 91 Oxymask 10 11/24/16 14:47 36.9 80 16 137/84 96 Oxymask 10 11/24/16 12:00 Room Air 11/24/16 11:15 36.5 80 18 131/80 (97) 96 Room Air 11/24/16 08:00 Room Air 11/24/16 07:38 36.5 80 18 119/76 (90) 95 Room Air 11/24/16 04:05 36.8 79 17 119/76 (90) 95 Room Air 11/24/16 04:00 Room Air Notes Mental Status: alert / awake / arousable, participated in evaluation Pt Amnestic to Procedure: Yes Nausea / Vomiting: adequately controlled Pain: adequately controlled Airway Patency, RR, SpO2: stable & adequate BP & HR: stable & adequate Hydration State: stable & adequate Anesthetic Complications: no major complications apparent
--- NOTE | 2016-11-24 15:21 | OPERATIVE REPORT ---
DATE OF OPERATION: 11/24/2016 NAME OF OPERATION: Laparoscopic cholecystectomy with intraoperative cholangiogram. PREOPERATIVE DIAGNOSIS: Acute cholecystitis. POSTOPERATIVE DIAGNOSIS: Same. STAFF SURGEON: Dr. Kee. ATHLETE MARKETING AGENT: Fernando Roberto PA-C. ANESTHESIA: General. PROCEDURE: The patient was brought in the operating room and placed on the operating table in supine position. Her abdomen was prepped and draped in usual fashion. Orogastric tube and pneumatic stockings were placed. 0.5% plain Marcaine was used to anesthetize the skin above the umbilicus and other incisions. Incision was made above the umbilicus, carrying dissection down to the fascia, placing a Veress needle producing pneumoperitoneum. An 11 mm port was placed at this level. Under visualization, three 5 mm ports were placed, 1 cephalad and 2 laterally. I did have to take down some adhesions to the anterior abdominal wall which were obscuring a very dilated gallbladder. The gallbladder was aspirated of bile. It did appear to be sludge-like. Dissection was carried out at the barbara hepatis, identifying the cystic artery which was clipped and transected. Cystic duct was very long. It was clipped next to the gallbladder and then partially opened. There was actually sludge within the cystic duct. There was also a small stone which was milked into the gallbladder. Cholangiography was performed, but I was unable to put the balloon in the common duct. It was in the cystic duct. Contrast went into the common bile duct and into the duodenum relatively well with no defects. I could not see the common hepatic duct because of the balloon. At this point, the cystic duct was clipped and transected. The gallbladder then dissected away from the liver bed after appropriate hemostasis. The gallbladder was placed in an Endobag and removed through the umbilical site. All ports were removed. The umbilical fascia closed using 0 Vicryl suture. Skin reapproximated using 4-0 nylon suture. Dressings applied and patient transferred to recovery room in stable condition. I attest to the content of the Intraoperative Record and any orders documented therein. Any exception s are noted below.
[2016-11-24] MEDS ORDERED: WARFARIN SOD 4 MG TAB PO SCH (16:00)
[2016-11-24] MEDS ORDERED: NURSING VERBAL MED ORDER ONE (16:30)
--- NOTE | 2016-11-24 20:21 | GASTROENTEROLOGY PROGRESS NOTE ---
DATE: 11/24/2016 This is my first day seeing the patient on our service. The patient underwent laparoscopic cholecystectomy with IOC earlier today and returned back to the room approximately at 3:00 p.m. She did have some nausea and is still somewhat sleepy. There are no reports of vomiting. The operative note draft reports acute cholecystitis. There were adhesions present. The patient had a long cystic duct and sludge in the cystic duct. A small stone was milked backward into the gallbladder. Cholangiography did not reveal any filling defects in the biliary system. This morning laboratory studies had shown a white count of 3.3, hemoglobin 11.5, platelets 121,000. Serum chemistries with a slightly low potassium of 3.4, transaminase near normal with AST down to 39, ALT normal at 56, alkaline phosphatase normal 102, and total bilirubin 0.9. Yesterday, lipase was normal. MEDICATIONS: Reviewed and include narcotics for pain control and subQ heparin. PHYSICAL EXAMINATION: VITAL SIGNS: This afternoon afebrile at 36.5, blood pressure 140/85, 95% on 2 liters, respirations 14, heart rate 72. GENERAL: The patient lethargic but easily arousable; is oriented to person, place and time. HEART: Normal S1, S2. LUNGS: Clear to auscultation. ABDOMEN: Soft, mildly tender in the epigastrium and right upper quadrant, although there is no rebound or guarding. There are diminished bowel sounds. EXTREMITIES: Without edema. RECTAL: Deferred. IMPRESSION AND PLAN: The patient is status post cholecystectomy and intraoperative cholangiogram due to acute cholecystitis. There were stones in the cystic duct advanced back to the gallbladder, but intraoperative cholangiogram was otherwise normal. Liver function tests are nearly resolved to baseline. At this point, we will sign off. If we can be of further assistance, please do not hesitate to contact our service. TYLOR
[2016-11-24] MEDS: HYDROCODONE/ACETAMOPHEN 5/325MG TAB PO PRN (22:51)
[2016-11-25] MEDS: PIPERACILL/TAZOBAC IV 3.375 GM in DEXTROSE 5% 100ML 100 ML IV SCH ×3 (02:46→17:00)
[2016-11-25] MEDS: HYDROCODONE/ACETAMOPHEN 5/325MG TAB PO PRN (02:46)
[2016-11-25] MEDS ORDERED: HEPARIN 25,000 UNIT/500ML D5W 500 ML IV PRN (03:00)
[2016-11-25 03:40] VITALS: BP 109/71; PULSE 80; TEMP 36.5; O2SAT 90
[2016-11-25 05:02] LABS: COMPLETE YES; HEMATOCRIT 33.1 % (37-47); IG% 0.2 %; LYMPH % 8.4 %; LYMPH ABS # 0.51 K/uL (1.2-3.4); MEAN CELL VOLUME 91.4 fL (80-100); MEAN CORPUSCULAR HEMOGLOBIN 30.4 pg (25-34); MEAN CORPUSCULAR HGB CONC 33.2 g/dl (32-36); MONO % 7.6 %; NEUT % 83.8 %; PLATELET COUNT 135 K/uL (130-400); RED BLOOD COUNT 3.62 M/uL (4.2-5.4); WHITE BLOOD COUNT 6.09 K/uL (4.8-10.8)
[2016-11-25 05:09] LABS: PARTIAL THROMBOPLASTIN RATIO 1.5
[2016-11-25 05:52] LABS: ALB/GLOB RATIO 0.9 (0.9-2); BUN/CREATININE RATIO 7.3 (10-20); CALCIUM 8.4 mg/dl (8.5-10.1); CREATININE 1.03 mg/dl (0.60-1.20); PHOSPHORUS 2.6 mg/dl (2.5-4.9); POTASSIUM 4.1 mmol/L (3.5-5.1)
--- NOTE | 2016-11-25 06:06 | Surgery Progress Note ---
Surgery Progress Note Date of Service Nov 25, 2016. Subjective c/o Rt shoulder pain- likely from CO2- used for laparoscopy otherwise doing well Objective Vital Signs: Date Time Temp Pulse Resp B/P (MAP) Pulse Ox O2 Delivery O2 Flow Rate FiO2 11/25/16 04:00 Nasal Cannula 3.0 11/25/16 03:40 36.5 80 18 109/71 (84) 90 Room Air 11/24/16 23:59 Nasal Cannula 3.0 11/24/16 23:57 36.5 80 18 102/64 (77) 92 11/24/16 20:00 Nasal Cannula 3.0 11/24/16 19:32 36.6 87 18 116/76 (89) 91 Nasal Cannula 2.0 11/24/16 17:05 36.5 72 14 140/85 (103) 95 Nasal Cannula 2.0 11/24/16 16:36 36.6 80 16 146/83 (104) 98 Nasal Cannula 2.0 11/24/16 16:06 36.7 80 16 140/85 (103) 98 Nasal Cannula 2.0 11/24/16 16:00 36.4 80 16 137/87 (104) 95 Nasal Cannula 3.0 11/24/16 16:00 Nasal Cannula 3.0 11/24/16 15:25 36.4 80 16 140/75 94 Oxymask 10 11/24/16 15:15 80 16 142/77 98 Nasal Cannula 2 11/24/16 15:05 80 16 134/82 94 Oxymask 10 11/24/16 14:55 80 16 153/96 91 Oxymask 10 11/24/16 14:47 36.9 80 16 137/84 96 Oxymask 10 11/24/16 12:00 Room Air 11/24/16 11:15 36.5 80 18 131/80 (97) 96 Room Air 11/24/16 08:00 Room Air 11/24/16 07:38 36.5 80 18 119/76 (90) 95 Room Air General Appearance: no apparent distress Respiratory/Chest: no respiratory distress Abdomen: soft Incision(s): intact Laboratory Results: Results Past 24 Hours Test 11/25/16 04:50 Range/Units White Blood Count 6.09 4.8-10.8 K/uL Red Blood Count 3.62 4.2-5.4 M/uL Hemoglobin 11.0 12.0-16.0 g/dL Hematocrit 33.1 37-47 % Mean Corpuscular Volume 91.4 80-100 fL Mean Corpuscular Hemoglobin 30.4 25-34 pg Mean Corpuscular Hemoglobin Concent 33.2 32-36 g/dl Platelet Count 135 130-400 K/uL Mean Platelet Volume 10.0 7.4-10.4 fL Neutrophils (%) (Auto) 83.8 % Lymphocytes (%) (Auto) 8.4 % Monocytes (%) (Auto) 7.6 % Eosinophils (%) (Auto) 0.0 % Basophils (%) (Auto) 0.0 % Neutrophils # (Auto) 5.11 1.4-6.5 K/uL Lymphocytes # (Auto) 0.51 1.2-3.4 K/uL Monocytes # (Auto) 0.46 0.11-0.59 K/uL Eosinophils # (Auto) 0.00 0-0.5 K/uL Basophils # (Auto) 0.00 0-0.2 K/uL RDW Standard Deviation 46.2 36.4-46.3 fL RDW Coefficient of Variation 13.7 11.5-14.5 % Immature Granulocyte % (Auto) 0.2 % Immature Granulocyte # (Auto) 0.01 0.00-0.02 K/uL Activated Partial Thromboplast Time 39.4 21.0-31.0 SECONDS Partial Thromboplastin Ratio 1.5 Sodium Level 143 136-145 mmol/L Potassium Level 4.1 3.5-5.1 mmol/L Chloride Level 111 98-107 mmol/L Carbon Dioxide Level 25 21-32 mmol/L Anion Gap 7.0 3-11 mmol/L Blood Urea Nitrogen 8 7-18 mg/dl Creatinine 1.03 0.60-1.20 mg/dl Est Creatinine Clear Calc Drug Dose 48.9 ml/min Estimated GFR () 67.5 Estimated GFR (Non- 58.2 BUN/Creatinine Ratio 7.3 10-20 Random Glucose 173 70-99 mg/dl Calcium Level 8.4 8.5-10.1 mg/dl Phosphorus Level 2.6 2.5-4.9 mg/dl Magnesium Level 2.0 1.8-2.4 mg/dl Total Bilirubin 0.6 0.2-1 mg/dl Direct Bilirubin 0.2 0-0.2 mg/dl Aspartate Amino Transf (AST/SGOT) 49 15-37 U/L Alanine Aminotransferase (ALT/SGPT) 60 12-78 U/L Alkaline Phosphatase 106 45-117 U/L Total Protein 6.2 6.4-8.2 gm/dl Albumin 3.0 3.4-5.0 gm/dl Globulin 3.2 2.5-4.0 gm/dl Albumin/Globulin Ratio 0.9 0.9-2 Assessment & Plan 11/25/16- s/p lap johnny- Rt shoulder pain should resolve in 1-2 days increase Heparin to 600u/hr- No Bolus and start Coumadin d/c when medically stable 11/23/16- surgery on hold- cardiology consulted, now on IV Heparin- will need to stop at 2 hrs prior to surgery. 11/22/16- suspect biliary colic, mild acute cholecystitis- hida ordered probable lap johnny today or tomorrow- check PT/INR- Dr Alejandro to see- ? lap johnny w/ cholangiogram tomorrow ? try to avoid vit K I am cancelling Hida scan- I do not think it will change my decision to proceed with cholecystectomy- I feel it needs to be done this admission 11/23/16- surgery on hold- cardiology consulted, now on IV Heparin- will need to stop at 2 hrs prior to surgery. 11/22/16- suspect biliary colic, mild acute cholecystitis- hida ordered probable lap johnny today or tomorrow- check PT/INR- Dr Alejandro to see- ? lap johnny w/ cholangiogram tomorrow ? try to avoid vit K I am cancelling Hida scan- I do not think it will change my decision to proceed with cholecystectomy- I feel it needs to be done this admission
[2016-11-25] MEDS ORDERED: NURSING VERBAL MED ORDER ONE (06:15)
[2016-11-25 07:32] VITALS: BP 107/66; PULSE 80; TEMP 36.8; O2SAT 94
[2016-11-25] MEDS: LORATADINE 10 MG TAB PO SCH (07:37)
[2016-11-25] MEDS: PANTOprazole SOD 40 MG TAB PO SCH (07:37)
--- NOTE | 2016-11-25 09:50 | Anesthesiology Progress Note ---
Anesthesia Post Op Note Date & Time Nov 25, 2016 at 09:50 Vital Signs Vital Signs Past 12 Hours Date Time Temp Pulse Resp B/P (MAP) Pulse Ox O2 Delivery O2 Flow Rate FiO2 11/25/16 08:00 Room Air 11/25/16 07:32 36.8 80 18 107/66 (80) 94 Room Air 11/25/16 04:00 Nasal Cannula 3.0 11/25/16 03:40 36.5 80 18 109/71 (84) 90 Room Air 11/24/16 23:59 Nasal Cannula 3.0 11/24/16 23:57 36.5 80 18 102/64 (77) 92 Notes Mental Status: alert / awake / arousable, participated in evaluation Pt Amnestic to Procedure: Yes Nausea / Vomiting: adequately controlled Pain: adequately controlled Airway Patency, RR, SpO2: stable & adequate BP & HR: stable & adequate Hydration State: stable & adequate Anesthetic Complications: no major complications apparent
[2016-11-25] MEDS: ACETAMINOPHEN 325 MG TAB PO PRN (10:01)
[2016-11-25 10:46] VITALS: BP 93/59; PULSE 80; TEMP 36.6; O2SAT 94
--- NOTE | 2016-11-25 11:27 | CARDIOLOGY PROGRESS NOTE ---
DATE: 11/25/2016 SUBJECTIVE: Ms. Garg is resting comfortably in bed without complaints of chest pain or dyspnea. She does note some right shoulder discomfort. Postoperative pain is well controlled. OBJECTIVE: VITAL SIGNS: Blood pressure is 100/70 with a regular pulse of 80. Respiratory rate is 18 and the patient is afebrile at 36.6 degrees Celsius. Saturation is 94% on 3 liters nasal cannula. NECK: Supple with full carotid upstrokes. There are no carotid bruits. Jugular venous pressure is flat at 90 degrees. There is no thyromegaly. CARDIOVASCULAR: Reveals a regular rhythm with crisp mechanical valve sounds. A 1/6 basal systolic ejection murmur is noted. LUNGS: Clear without rales, rhonchi, or wheezes. ABDOMEN: Soft with several dressings in place. EXTREMITIES: Reveal intact radial artery pulses bilaterally. There is no peripheral edema. LABORATORY DATA: CBC notes hemoglobin of 11.0, hematocrit 33.1, white count 6.0, and platelet count 135,000. Electrolytes note a sodium of 143, potassium 4.1, chloride 111, bicarbonate 25, BUN 8, creatinine 1.0, and glucose 173. PTT is 39.4. INR yesterday was 1.5. lidar technician notes baseline atrial fibrillation and appropriate ventricular pacing. IMPRESSION AND PLAN: 1. Status post laparoscopic cholecystectomy -- per Dr. Kee. 2. Mild left ventricular dysfunction -- ejection fraction of 45% with an inferior wall motion abnormality. Systolic function may be slightly reduced when compared to a study done in January 2016. We will investigate further with a followup study as an outpatient. 3. Mechanical aortic valve replacement - March 1992. Coumadin has been restarted. She remains on a heparin drip. 4. Mechanical mitral valve replacement -- May 2014. Heparin and Coumadin as above. 5. Tricuspid annuloplasty ring -- May 2014. 6. Permanent atrial fibrillation -- status post AV node ablation and placement of dual chamber pacemaker in May 2014. This is a [employer] device. 7. Permanent atrial fibrillation. 8. Right bundle branch block. 9. Status post endovascular repair of abdominal aortic aneurysm - January 2005. 10. Chronic obstructive pulmonary disease.
--- NOTE | 2016-11-25 12:41 | Hospitalist Progress Note ---
Hospitalist Progress Note Date of Service Nov 25, 2016. Subjective Pt evaluation today including: conversation w/ patient doing great, has some rt shoulder pain, no CP, is ambulating the halls with some of her usual BYRNE states the Lovenox shots were too expensive for her last time after dc so she did not take them All Other Systems: Reviewed and Negative Objective Vital Signs Date Time Temp Pulse Resp B/P (MAP) Pulse Ox O2 Delivery O2 Flow Rate FiO2 11/25/16 12:00 Room Air 11/25/16 10:46 36.6 80 18 93/59 (70) 94 Room Air 11/25/16 08:00 Room Air 11/25/16 07:32 36.8 80 18 107/66 (80) 94 Room Air 11/25/16 04:00 Nasal Cannula 3.0 11/25/16 03:40 36.5 80 18 109/71 (84) 90 Room Air 11/24/16 23:59 Nasal Cannula 3.0 11/24/16 23:57 36.5 80 18 102/64 (77) 92 11/24/16 20:00 Nasal Cannula 3.0 11/24/16 19:32 36.6 87 18 116/76 (89) 91 Nasal Cannula 2.0 11/24/16 17:05 36.5 72 14 140/85 (103) 95 Nasal Cannula 2.0 11/24/16 16:36 36.6 80 16 146/83 (104) 98 Nasal Cannula 2.0 11/24/16 16:06 36.7 80 16 140/85 (103) 98 Nasal Cannula 2.0 11/24/16 16:00 36.4 80 16 137/87 (104) 95 Nasal Cannula 3.0 11/24/16 16:00 Nasal Cannula 3.0 11/24/16 15:25 36.4 80 16 140/75 94 Oxymask 10 11/24/16 15:15 80 16 142/77 98 Nasal Cannula 2 11/24/16 15:05 80 16 134/82 94 Oxymask 10 11/24/16 14:55 80 16 153/96 91 Oxymask 10 11/24/16 14:47 36.9 80 16 137/84 96 Oxymask 10 Physical Exam General Appearance: WD/WN, no apparent distress Eyes: normal inspection, sclerae normal ENT: hearing grossly normal Neck: trachea midline Respiratory/Chest: no respiratory distress, no accessory muscle use, + decreased breath sounds (throughout) Cardiovascular: no edema, no gallop, no murmur, + irregularly irregular (with normal rate, loud S1 and S2 vlicks) Abdomen: normal bowel sounds, soft, + tenderness (mild over incision sites, no guarding) Extremities: non-tender, normal inspection, no pedal edema, no calf tenderness Neurologic/Psychiatric: alert, normal mood/affect, oriented x 3 Skin: normal color, warm/dry, no rash Laboratory Results Last 24 Hours Test 11/25/16 04:50 White Blood Count 6.09 K/uL Red Blood Count 3.62 M/uL Hemoglobin 11.0 g/dL Hematocrit 33.1 % Mean Corpuscular Volume 91.4 fL Mean Corpuscular Hemoglobin 30.4 pg Mean Corpuscular Hemoglobin Concent 33.2 g/dl Platelet Count 135 K/uL Mean Platelet Volume 10.0 fL Neutrophils (%) (Auto) 83.8 % Lymphocytes (%) (Auto) 8.4 % Monocytes (%) (Auto) 7.6 % Eosinophils (%) (Auto) 0.0 % Basophils (%) (Auto) 0.0 % Neutrophils # (Auto) 5.11 K/uL Lymphocytes # (Auto) 0.51 K/uL Monocytes # (Auto) 0.46 K/uL Eosinophils # (Auto) 0.00 K/uL Basophils # (Auto) 0.00 K/uL RDW Standard Deviation 46.2 fL RDW Coefficient of Variation 13.7 % Immature Granulocyte % (Auto) 0.2 % Immature Granulocyte # (Auto) 0.01 K/uL Activated Partial Thromboplast Time 39.4 SECONDS Partial Thromboplastin Ratio 1.5 Sodium Level 143 mmol/L Potassium Level 4.1 mmol/L Chloride Level 111 mmol/L Carbon Dioxide Level 25 mmol/L Anion Gap 7.0 mmol/L Blood Urea Nitrogen 8 mg/dl Creatinine 1.03 mg/dl Est Creatinine Clear Calc Drug Dose 48.9 ml/min Estimated GFR () 67.5 Estimated GFR (Non- 58.2 BUN/Creatinine Ratio 7.3 Random Glucose 173 mg/dl Calcium Level 8.4 mg/dl Phosphorus Level 2.6 mg/dl Magnesium Level 2.0 mg/dl Total Bilirubin 0.6 mg/dl Direct Bilirubin 0.2 mg/dl Aspartate Amino Transf (AST/SGOT) 49 U/L Alanine Aminotransferase (ALT/SGPT) 60 U/L Alkaline Phosphatase 106 U/L Total Protein 6.2 gm/dl Albumin 3.0 gm/dl Globulin 3.2 gm/dl Albumin/Globulin Ratio 0.9 Assessment and Plan Pt is 61-year-old female with history of COPD, chronic ?new-onset systolic CHF of unknown etiology with new wall motion abnormalities on recent echo with EF initially reported as 35-40%, Dr. 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 Acute calculus cholecystitis-stable, POD#1 s/p lap johnny with IOC (clear) LFTs are trending downward, afebrile, no signs of sepsis. MRCP not done due to mechanical valves -Continue Zosyn x 1 more day - bridging with heparin gtt and Surgery restarted coumadin today -no need for cardiac cath prior to surgery, Cardiology thinks at worst could have single vessel disease RCA -Appreciate Gen Surgery management Chronic/new-onset systolic CHF of unknown etiology with new WMAs on recent echo with EF initially reported as 35-40%, Dr. Rollins's review is 45%/Severe PHTN as per Right heart cath 2014/Severe left sided grade 3 diastolic CHF/Rheumatic valvular disease s/p aortic and mitral valve mechanical replacements on chronic coumadin therapy/PPM for sinus node dysfunction/chronic atrial fibrillation/h/o AAA repair: RHC and LHC 2014 with clean coronaries, severe PHTN no signs of acute decompensation Likely single vessel disease as per Cardio-plan for ischemic evaluation as outpt -watch for fluid overload post-op -Continue telemetry monitoring -Is not yet on any medications for her CHF and is not in acute decompensation-- > consider adding on ACEI, beta jude, if BP permits but may not Also consider supplemental nocturnal O2 for severe Pulm HTN, f/u with Pulmonology as outpt -heparin and coumadin as above, will polanco out Lovenox fo rher so she could leave on that tomorrow perhaps -continue ASA 81 but on hold for surgery-restart tomorrow -continue f/u with Cardio as outpt COPD-severe emphysema on chest imaging previously, stable this time, has chronic dyspnea, on no meds at home and has never had PFTs, with Severe PHTN as per [facility] 2014 -We will ensure bronchodilators are ordered when necessary -O2 as above -had to reschedule outpt Pulm appt to 12/04 with JACK Best Pulm nodules: 2 mm right upper lobe pulmonary nodule, 4 mm right middle lobe pulmonary nodule with borderline enlarged mediastinal EMRE on CHest CT 10/2016 -needs f/u with Pulm as outpt Breast mass-12 mm lobulated left breast nodule versus area of glandular summation seen on chest CT 10/2016 -needs outpt follow up Proph-heparin gtt, coumadin Dispo-to home in 1 day if can afford Lovenox bridge, otherwise here for 2-3 days until INR therapeutic
[2016-11-25 15:52] VITALS: BP 101/66; PULSE 80; TEMP 36.5; O2SAT 93
[2016-11-25] MEDS ORDERED: WARFARIN SOD 7.5 MG TAB PO SCH (16:00)
[2016-11-25 19:48] VITALS: BP 121/78; PULSE 77; TEMP 37; O2SAT 93
[2016-11-25 23:21] VITALS: BP 133/79; PULSE 78; TEMP 36.3; O2SAT 91
[2016-11-26] MEDS: PIPERACILL/TAZOBAC IV 3.375 GM in DEXTROSE 5% 100ML 100 ML IV SCH ×2 (01:55→09:29)
[2016-11-26 03:41] VITALS: BP 96/60; PULSE 79; TEMP 37.1; O2SAT 92
[2016-11-26 04:33] LABS: HEMATOCRIT 30.9 % (37-47); MEAN CELL VOLUME 93.6 fL (80-100); MEAN CORPUSCULAR HEMOGLOBIN 31.8 pg (25-34); MEAN PLATELET VOLUME 9.8 fL (7.4-10.4); PLATELET COUNT 119 K/uL (130-400); WHITE BLOOD COUNT 5.21 K/uL (4.8-10.8)
[2016-11-26 04:55] LABS: BUN/CREATININE RATIO 9.2 (10-20); CALCIUM 7.9 mg/dl (8.5-10.1); CREATININE 1.06 mg/dl (0.60-1.20); POTASSIUM 3.8 mmol/L (3.5-5.1)
[2016-11-26 05:11] LABS: PARTIAL THROMBOPLASTIN RATIO 1.9; PROTHROMBIN TIME (PATIENT) 22.2 SECONDS (9.0-12.0)
[2016-11-26] MEDS: LORATADINE 10 MG TAB PO SCH (07:47)
[2016-11-26] MEDS: PANTOprazole SOD 40 MG TAB PO SCH (07:47)
[2016-11-26 07:49] VITALS: BP 114/74; PULSE 80; TEMP 37.4; O2SAT 92
--- NOTE | 2016-11-26 09:13 | Surgery Progress Note ---
Surgery Progress Note Date of Service Nov 26, 2016. Subjective Post OP Day: 2 + feeling well, + ambulating, + pain controlled, No complaints, No bowel movement, No nausea, No vomiting Objective Vital Signs: Date Time Temp Pulse Resp B/P (MAP) Pulse Ox O2 Delivery O2 Flow Rate FiO2 11/26/16 08:00 Room Air 11/26/16 07:49 37.4 80 18 114/74 (87) 92 Room Air 11/26/16 04:00 Room Air 11/26/16 03:41 37.1 79 18 96/60 (72) 92 Room Air 11/25/16 23:59 Room Air 11/25/16 23:21 36.3 78 19 133/79 (97) 91 Room Air 11/25/16 20:00 Room Air 11/25/16 19:48 37.0 77 20 121/78 (92) 93 Room Air 11/25/16 16:00 Room Air 11/25/16 15:52 36.5 80 18 101/66 (78) 93 Room Air 11/25/16 12:00 Room Air 11/25/16 10:46 36.6 80 18 93/59 (70) 94 Room Air General Appearance: WD/WN, no apparent distress Abdomen: normal bowel sounds, non tender, soft Incision(s): clean, dry, intact Laboratory Results: Results Past 24 Hours Test 11/26/16 04:19 Range/Units White Blood Count 5.21 4.8-10.8 K/uL Red Blood Count 3.30 4.2-5.4 M/uL Hemoglobin 10.5 12.0-16.0 g/dL Hematocrit 30.9 37-47 % Mean Corpuscular Volume 93.6 80-100 fL Mean Corpuscular Hemoglobin 31.8 25-34 pg Mean Corpuscular Hemoglobin Concent 34.0 32-36 g/dl RDW Standard Deviation 49.6 36.4-46.3 fL RDW Coefficient of Variation 14.5 11.5-14.5 % Platelet Count 119 130-400 K/uL Mean Platelet Volume 9.8 7.4-10.4 fL Prothrombin Time 22.2 9.0-12.0 SECONDS Prothromb Time International Ratio 2.0 0.9-1.1 Activated Partial Thromboplast Time 49.2 21.0-31.0 SECONDS Partial Thromboplastin Ratio 1.9 Sodium Level 145 136-145 mmol/L Potassium Level 3.8 3.5-5.1 mmol/L Chloride Level 112 98-107 mmol/L Carbon Dioxide Level 27 21-32 mmol/L Anion Gap 6.0 3-11 mmol/L Blood Urea Nitrogen 10 7-18 mg/dl Creatinine 1.06 0.60-1.20 mg/dl Est Creatinine Clear Calc Drug Dose 47.5 ml/min Estimated GFR () 65.2 Estimated GFR (Non- 56.2 BUN/Creatinine Ratio 9.2 10-20 Random Glucose 89 70-99 mg/dl Calcium Level 7.9 8.5-10.1 mg/dl Magnesium Level 2.0 1.8-2.4 mg/dl Total Bilirubin 0.6 0.2-1 mg/dl Direct Bilirubin 0.2 0-0.2 mg/dl Aspartate Amino Transf (AST/SGOT) 27 15-37 U/L Alanine Aminotransferase (ALT/SGPT) 44 12-78 U/L Alkaline Phosphatase 83 45-117 U/L Total Protein 5.6 6.4-8.2 gm/dl Albumin 2.8 3.4-5.0 gm/dl Assessment & Plan 11/26/2016 s/p Laparoscopic Cholecystectomy Right shoulder pain has resolved. Patient doing well Coumadin management per hospital team. Ok to D/C when medically stable. Patient instructed to follow-up with general surgery after discharge. 11/25/16- s/p lap johnny- Rt shoulder pain should resolve in 1-2 days increase Heparin to 600u/hr- No Bolus and start Coumadin d/c when medically stable
[2016-11-26] MEDS: ASPIRIN 81 MG ECTAB PO SCH (09:28)
[2016-11-26] MEDS ORDERED: HYDR-5688 PO (09:46)
--- NOTE | 2016-11-26 10:47 | CARDIOLOGY PROGRESS NOTE ---
DATE: 11/26/2016 SUBJECTIVE: Mrs. Garg is resting comfortably in bed without complaints of chest pain, dyspnea, or palpitations. Her postoperative pain is well controlled. She is anxious for hospital discharge. OBJECTIVE: VITAL SIGNS: Blood pressure 114/74 with a regular pulse of 80. Respiratory rate is 18. The patient is afebrile at 37.4 degrees Celsius. Saturations 92% on room air. NECK: Supple with full carotid upstrokes. No obvious bruits. Jugular venous pressure is flat at 90 degrees. There is no thyromegaly. CARDIOVASCULAR: Reveals a regular rhythm with crisp mechanical valve sounds. A 1/6 basal systolic ejection murmur is noted. LUNGS: Clear without rales, rhonchi, or wheezes. ABDOMEN: Soft with dry dressings in place. EXTREMITIES: Reveal intact radial artery pulses bilaterally. There is no peripheral edema. DATA: CBC notes a hemoglobin of 10.5, hematocrit 30.9, white count 5.2, platelet count 119,000. Electrolytes note a sodium of 145, potassium 3.8, chloride 112, bicarbonate 27, BUN 10, creatinine 1.06, glucose 89. INR is 2.0. locksmith apprentice notes atrial fibrillation with appropriate ventricular pacing. IMPRESSION AND PLAN: 1. Status post laparoscopic cholecystectomy -- per Dr. Kee. 2. Mild left ventricular dysfunction -- ejection fraction 45% with an inferior wall motion abnormality. Systolic function in January 2016 was 50-65%. We will investigate further with a follow up echo as an outpatient. 3. Mechanical mitral valve replacement - March 1992. Coumadin has been restarted. 4. Mechanical mitral valve -- May 2014. Coumadin has been restarted. 5. Annuloplasty ring -- tricuspid valve - May,. 6. Permanent atrial fibrillation, status post AV node ablation and placement of a [employer] dual chamber pacer in May 2014. 7. Right bundle branch block. 8. Status post endovascular repair of abdominal aortic aneurysm -- January 2005. 9. Chronic obstructive pulmonary disease.
[2016-11-26 11:07] VITALS: BP 96/60; PULSE 83; TEMP 37.3; O2SAT 96
[2016-11-26] MEDS ORDERED: ENOXAPARIN 1.5 MG/KG SQ ONE (14:31)
[2016-11-26] MEDS ORDERED: LVNIS100 SQ (14:43)
[2016-11-26] MEDS ORDERED: ENOXAPARIN 100 MG/1ML SYR SQ SCH (15:00)
--- NOTE | 2016-11-26 15:03 | Discharge Instructions ---
Discharge Instructions Date of Service Nov 26, 2016. Admission Reason for Admission: Acute Cholecystitis, Substernal Precordial Chest Discharge Discharge Diagnosis / Problem: Acute cholecystitis Discharge Goals Goal(s): Improve disease control, Diagnostic testing, Therapeutic intervention Activity Recommendations Activity Limitations: as noted below Lifting Limitations: no more than 10 pounds, until after follow-up appointment Shower/Bathe: tomorrow . Instructions / Follow-Up Instructions / Follow-Up You were admitted and found to have a gallbladder infection and had your gallbladder removed. You are back on your coumadin after the surgery, but will need to have your INR checked first thing tomorrow morning at the lab. If your INR is still LESS THAN 2.5, then please call your primary care doctor for further advice. Dr. Kee, your Surgeon, did NOT want you to take Lovenox injections in addition to your coumadin for concern of risk of bleeding. If you feel lightheaded, worsening abdominal pain, have a fever, or have drainage or redness around your incision sites, please call your doctor right away. Please follow up with Dr. Kee within 1-2 weeks. Please follow up with Dr. Bush within 1-2 weeks. Please follow up with Dr. Oakley within 1-2 weeks. Current Hospital Diet Patient's current hospital diet: AHA Diet (Heart Healthy) Discharge Diet Recommended Diet: AHA Diet (Heart Healthy) Procedures Procedures Performed: Laparoscopic Cholecystectomy With Cholangiogram Gallbladder ultrasound Chest xray Pending Studies Studies pending at discharge: no Laboratory Results Last 24 Hours Test 11/26/16 04:19 White Blood Count 5.21 K/uL Red Blood Count 3.30 M/uL Hemoglobin 10.5 g/dL Hematocrit 30.9 % Mean Corpuscular Volume 93.6 fL Mean Corpuscular Hemoglobin 31.8 pg Mean Corpuscular Hemoglobin Concent 34.0 g/dl RDW Standard Deviation 49.6 fL RDW Coefficient of Variation 14.5 % Platelet Count 119 K/uL Mean Platelet Volume 9.8 fL Prothrombin Time 22.2 SECONDS Prothromb Time International Ratio 2.0 Activated Partial Thromboplast Time 49.2 SECONDS Partial Thromboplastin Ratio 1.9 Sodium Level 145 mmol/L Potassium Level 3.8 mmol/L Chloride Level 112 mmol/L Carbon Dioxide Level 27 mmol/L Anion Gap 6.0 mmol/L Blood Urea Nitrogen 10 mg/dl Creatinine 1.06 mg/dl Est Creatinine Clear Calc Drug Dose 47.5 ml/min Estimated GFR () 65.2 Estimated GFR (Non- 56.2 BUN/Creatinine Ratio 9.2 Random Glucose 89 mg/dl Calcium Level 7.9 mg/dl Magnesium Level 2.0 mg/dl Total Bilirubin 0.6 mg/dl Direct Bilirubin 0.2 mg/dl Aspartate Amino Transf (AST/SGOT) 27 U/L Alanine Aminotransferase (ALT/SGPT) 44 U/L Alkaline Phosphatase 83 U/L Total Protein 5.6 gm/dl Albumin 2.8 gm/dl Hemoglobin A1c Test 11/21/16 11:55 Range/Units Estimated Average Glucose 91 mg/dl Hemoglobin A1c 4.8 4.5-5.6 % Lipid Panel Test 10/06/16 12:33 Range/Units Triglycerides Level 120 0-150 mg/dl Cholesterol Level 195 0-200 mg/dl HDL Cholesterol 50 mg/dl Cholesterol/HDL Ratio 3.9 LDL Cholesterol, Calculated 121 mg/dl Medical Emergencies . Who to Call and When: Medical Emergencies: If at any time you feel your situation is an emergency, please call 911 immediately. . Non-Emergent Contact Non-Emergency issues call your: Primary Care Provider, Surgeon . . "Provider Documentation" section prepared by Fay Chavira. . VTE Core Measure Inpt VTE Proph given/why not?: Warfarin (Coumadin)
[2016-11-26 15:10] VITALS: BP 96/60; PULSE 83; TEMP 37.3; O2SAT 96
[2016-11-26] MEDS ORDERED: WARFARIN SOD 5 MG TAB PO SCH (16:00)
[2016-11-26] MEDS ORDERED: WARFARIN SOD 4 MG TAB PO SCH (16:00)
--- NOTE | 2016-11-26 17:08 | Discharge Summary ---
Discharge Summary Date of Service Nov 26, 2016. Discharge Summary Admission Date: Nov 21, 2016 at 22:28 Discharge Date: Nov 26, 2016 Discharge Disposition: Home Principal Diagnosis: acute calculus cholecystitis Problems/Secondary Diagnoses: COPD Chronic/new-onset systolic CHF of unknown etiology Severe PHTN Chronic grade 3 diastolic CHF Rheumatic valvular disease s/p aortic and mitral valve mechanical replacements on chronic coumadin therapy Pacemaker placement for sinus node dysfunction Chronic atrial fibrillation History of AAA repair Pulmonary nodule Elevated transaminases Breast mass-12 mm lobulated left breast nodule versus area of glandular summation seen on chest CT 10/2016 Immunizations: History of Tetanus Vaccine?: Yes Tetanus Immunization Date: Jul 22, 2012 History of Pneumococcal: Yes Pneumococcal Date: Apr 23, 2014 Procedures: Laparoscopic cholecystectomy Gallbladder ultrasound Chest x-ray Intraoperative cholangiogram Consultations: General surgery Cardiology Medication Reconciliation New Medications: Hydrocodone/Acetaminophen 5MG/325MG ([place] 5MG/325MG) Tab 1-2 TABLET PO Q6 PRN for Pain for 3 Days, #12 TAB PRN PAIN Continued Medications: Aspirin (Aspirin EC Low Dose) 81 Mg Ectab 81 MG PO QAM for 30 Days Loratadine (Claritin) 10 Mg Tab 10 MG PO DAILY, TAB Nitroglycerin (Nitrostat) 0.4 Mg/1 Tab Subl 0.4 MG SL UD PRN for Chest Pain, #15 TAB 1 tab q5 min x 3 doses and call 911 Pantoprazole (Pantoprazole Sodium) 40 Mg Tab 40 MG PO QAM for 30 Days, #30 TAB Warfarin Sod (Jantoven) 2 Mg Tab 2 MG PO 2XWK, TAB TAKE 2MG EVERY THURSDAY AND THURSDAY Warfarin Sod (Jantoven) 4 Mg Tab 4 MG PO 5XWK, TAB TAKE 4MG EVERYDAY EXCEPT THURSDAY AND THURSDAY Discharge Exam Patient doing very well on the day of discharge. She is not taking any pain medication at all. Telemetry review shows some paced rhythm and atrial fibrillation in the 80s. Her INR is already up to 2.0 after 1 dose of Coumadin. Her heparin drip was stopped this morning by general surgery. I discussed the case with general surgery today who is concerned about her risk of bleeding and does not want bridging with Lovenox. Physical Exam Vital signs reviewed General Appearance: WD/WN, no apparent distress Eyes: normal inspection, sclerae normal ENT: hearing grossly normal Neck: trachea midline Respiratory/Chest: no respiratory distress, no accessory muscle use, + decreased breath sounds (throughout) Cardiovascular: no edema, no gallop, no murmur, + irregularly irregular (with normal rate, loud S1 and S2 clicks) Abdomen: normal bowel sounds, soft, no tenderness to palpation, dressings are clean dry and intact Extremities: non-tender, normal inspection, no pedal edema, no calf tenderness Neurologic/Psychiatric: alert, normal mood/affect, oriented x 3 Skin: normal color, warm/dry, no rash Review of Systems: Constitutional: No fever, No chills Eyes: No problem reported ENT: No problem reported Respiratory: + dyspnea on exertion (chronic) Cardiovascular: No chest pain Abdomen: No pain, No nausea, No vomiting Musculoskeletal: No problem reported Genitourinary - Female: No problem reported Neurologic: No problem reported Psychiatric: No problem reported Endocrine: No problem reported Hematologic / Lymphatic: No problem reported Integumentary: No problem reported Hospital Course Pt is 61-year-old female with history of COPD, chronic ?new-onset systolic CHF of unknown etiology with new wall motion abnormalities on recent echo with EF initially reported as 35-40% (Dr. Rollins's review is 45%), Severe PHTN as per Right heart cath, severe left sided grade 3 diastolic CHF, Rheumatic valvular disease s/p aortic and mitral valve mechanical replacements on chronic coumadin therapy, pacemaker placement for sinus node dysfunction, chronic atrial fibrillation, history of AAA repair, pulmonary nodule, here with acute calculus cholecystitis. Acute calculus cholecystitis- resolved, POD#2 s/p lap johnny with IOC (clear) LFTs continued to trend downward, afebrile, no signs of sepsis. -Received Zosyn during admission - Was on bridging with heparin gtt and restarted coumadin on 11/25 with 7.5 mg-- > her INR is already up to 2.0 on the day of discharge and I strongly suspect it will be up to a therapeutic range (2.5-3.5) by tomorrow morning, and due to concern for risk of bleeding with recent surgery and being on Coumadin, she will not be bridged with Lovenox at this time. She will get her PT/INR checked first thing in the morning and the results will be sent stat to her PCP. If the INR is fairly close to 2.5, there is no need to bridge her. She was given another 5 mg dose today prior to discharge and then she will return to her usual home dose of 4 mg on all days except 2 mg on Thursday and Thursday. Risk of stroke is quite low at this point given that INR has increased, and risk of bleeding is higher at this point with bridging -Appreciate Gen Surgery management Chronic/new-onset systolic CHF of unknown etiology with new WMAs on recent echo with EF initially reported as 35-40%, Dr. Rollins's review is 45%/Severe PHTN as per Right heart cath 2014/Severe left sided grade 3 diastolic CHF/Rheumatic valvular disease s/p aortic and mitral valve mechanical replacements on chronic coumadin therapy/PPM for sinus node dysfunction/chronic atrial fibrillation/h/o AAA repair: RHC and C 2014 with clean coronaries, severe PHTN no signs of acute decompensation during this admission If has coronary artery disease as the cause of her cardiomyopathy, cardiology thinks it is likely single vessel disease-plan for ischemic evaluation as outpt- follow up with Dr. Oakley within 1-2 weeks -Is not yet on any medications for her CHF and is not in acute decompensation-- > consider adding on ACEI, beta jude, if BP permits but BP has been low which is usual for her Also consider supplemental nocturnal O2 for severe Pulm HTN, f/u with Pulmonology as outpt -coumadin for anticoagulation as above -continue ASA 81 milligrams daily COPD-severe emphysema on chest imaging previously, stable this time, has chronic dyspnea, on no meds at home and has never had PFTs, with Severe PHTN as per [facility] 2014 -Continue albuterol as needed -Consider nocturnal O2 as above for pulmonary hypertension -Has upcoming outpt Pulm appt with 12/04 with JACK Best for further evaluation and treatment Pulm nodules: 2 mm right upper lobe pulmonary nodule, 4 mm right middle lobe pulmonary nodule with borderline enlarged mediastinal EMRE on Chest CT 10/2016 -needs f/u with Pulm as outpt Breast mass-12 mm lobulated left breast nodule versus area of glandular summation seen on chest CT 10/2016 -needs outpt follow up with primary care physician -Recommend diagnostic mammogram and breast ultrasound Patient was stable and in good condition for discharge to home today Total Time Spent: Greater than 30 minutes This includes examination of the patient, discharge planning, medication reconciliation, and communication with other providers. Discharge Instructions Please refer to the electronic Patient Visit Report (Discharge Instructions) for additional information. Follow-Up With general surgery in 1-2 weeks With PCP in 1-2 weeks Check PT/INR tomorrow Additional Copies To Rj Kee M.D.; Shellie Bush, DO
[2016-11-27] MEDS ORDERED: ENOXAPARIN 1.5 MG/KG SQ SCH (09:00)
== END 2016-11-26 15:23 | disposition home or self-care (01) | DRG 419 ==
LOC: C.EDB 17:28 → C.2T 22:28 → ENRESERV 22:37 → C.2T 11-24 17:53
PROVIDERS: ADMIT Internal Medicine; ATTEND Family Medicine
PROC: 0FT44ZZ Resection of Gallbladder, Percutaneous Endoscopic Approach (ICD-10-PCS; principal; 2016-11-24 12:20)
PROC: BF13YZZ Fluoroscopy of Gallbladder and Bile Ducts using Other Contrast (ICD-10-PCS; principal; 2016-11-24 12:20)
DX: K80.42 Calculus of bile duct with acute cholecystitis without obstruction (principal); I48.91 Unspecified atrial fibrillation; Z66 Do not resuscitate; J44.9 Chronic obstructive pulmonary disease, unspecified; Z95.0 Presence of cardiac pacemaker; I45.10 Unspecified right bundle-branch block; Z95.2 Presence of prosthetic heart valve; Z87.891 Personal history of nicotine dependence; R07.9 Chest pain, unspecified; Z79.01 Long term (current) use of anticoagulants; Z79.82 Long term (current) use of aspirin; Z82.49 Family history of ischemic heart disease and other diseases of the circulatory system; Z80.3 Family history of malignant neoplasm of breast

== ENCOUNTER → 2016-11-21 | Outpatient (CLI) | payer OTHER ==
[~2016-11-21] MED LIST changes: -ACET500T57 PO; +ASPEC81 PO; +CLR10 PO; -DIPH25TA2 PO; +LVNIS80 SQ; +NTRSLP4 SL; -POTA1TAB PO; +PRT40 PO; -SIME1CHW17 PO; +WARF4TAB8 PO
[2016-11-22 07:35] LABS: ESTIMATED AVERAGE GLUCOSE 91 mg/dl; HA1C FLAG Normal (Normal)
== END | disposition home or self-care (01) ==
LOC: C.LABPBG 11:51
PROVIDERS: ATTEND Physician Assistant
DX: R63.1 Polydipsia (principal)

== ENCOUNTER → 2017-04-01 | Outpatient (CLI) | payer OTHER ==
[~2017-04-01] MED LIST changes: +CLR10 PO; -LVNIS80 SQ; +WARF4TAB8 PO
[2017-04-01 13:45] LABS: BLOOD UREA NITROGEN 20 mg/dl (7-18); CALCIUM 8.8 mg/dl (8.5-10.1); CARBON DIOXIDE 23 mmol/L (21-32); CREATININE 1.06 mg/dl (0.60-1.20); GLUCOSE,FASTING 105 mg/dl (70-99); POTASSIUM 4.1 mmol/L (3.5-5.1); SODIUM 138 mmol/L (136-145)
[2017-04-01 13:49] LABS: CHOLESTEROL 212 mg/dl (0-200); LDL CHOLESTEROL CALCULATED 132 mg/dl
== END | disposition home or self-care (01) ==
LOC: C.LABPBG 09:35
PROVIDERS: ATTEND Physician Assistant
DX: Z00.00 Encounter for general adult medical examination without abnormal findings (principal)

== ENCOUNTER 2019-11-30 17:20 | Inpatient (IN) ==
[2019-11-30] MEDS ORDERED: ONDANSETRON INJ 2 MG/ML 2 ML VIAL IV STA (19:43)
[2019-11-30] MEDS ORDERED: MoRPHine SULFATE 4 MG/ML 1 ML CARP\\VIAL IV STA ×2 (19:43→21:27)
[2019-11-30] MEDS ORDERED: SODIUM CHLORIDE 0.9% 1000ML 1,000 ML IV SCH (19:45)
--- NOTE | 2019-11-30 19:58 | Emergency Department Note ---
Impression & Plan Acute dehydration, Vomiting, Post-op bleeding, Coagulopathy ED Provider Note NAME: HOLLIE EASON AGE: 64 SEX: F : 1955 ARRIVES VIA: Ambulance INFORMANT: [Patient][ems] ED PROVIDER(S): [Daniel Lau MD] CHIEF COMPLAINT: Shoulder pain HISTORY OF PRESENT ILLNESS: The patient is a 64-year-old female who had a right rotator cuff surgery yesterday. This was in and out surgery. After returning home, she began vomiting. She has been vomiting today as well. Around 6 hours ago she awoke from sleep and noticed that her right shoulder bandage was drenched in blood. Patient denies any shortness of breath. The shoulder pain is severe especially with palpation or movement. Patient states that she feels a little bit lightheaded. The patient is on Lovenox and Coumadin presently. She is on these medications because she has a mechanical aortic valve. Basically, she is bridging with Lovenox for now until her Coumadin level becomes therapeutic. Patient denies any diarrhea. There is no abdominal pain except for the small areas where she has to give the Lovenox injections. The patient is concerned about the bleeding because of her blood thinner use. Initially after the surgery, there was no bleeding. The bleeding started today. REVIEW OF SYSTEMS: See HPI for pertinent positives and negatives. A total of ten systems were reviewed and were otherwise negative. PMHx/PSHx: See Below SOCIAL HISTORY: See Below. PHYSICAL EXAM: GENERAL: Patient is in no acute distress. HEENT: No acute trauma, normocephalic atraumatic, mucous membranes moist, no nasal congestion, no scleral icterus. NECK: No stridor, no adenopathy, no meningismus, trachea is midline. LUNGS: Clear to auscultation bilaterally, no wheeze, no rhonchi, breath sounds equal. HEART: Metallic click heard, 2/6 systolic murmur, regular rhythm ABDOMEN: Soft, nontender, bowel sounds positive, no hernias, no peritonitis. There are some soft tissue contusions consistent with Lovenox injections. EXTREMITIES: No cyanosis or edema. Her right shoulder bandage is soaked with blood and there is oozing of blood around the bandage and down her chest wall. When the bandage was removed, she appeared to be bleeding from an area along the anterior proximal shoulder where a stitch is present. There is no surrounding erythema. The right shoulder is painful with any movement or palpation. NEUROLOGIC: Oriented x 3, no acute motor or sensory deficits, no focal weakness. SKIN: No rash, no jaundice, no diaphoresis. DIFFERENTIAL DIAGNOSIS: Coagulopathy, anemia, postop bleeding, cellulitis, postop infection, pneumothorax, pneumonia, CHF, aortic dissection, PE, AR, dehydration, electrolyte imbalance, anesthesia reaction. EMERGENCY DEPARTMENT COURSE/PROCEDURES: ECG: Indication was weakness and shoulder pain. The ECG shows a ventricular pacemaker. The rate is 80. The QTc is 516. There is no worrisome ST e levation, there are no PVCs or PACs. Continuous Cardiac Monitoring: An order was placed for continuous cardiac monitoring. The monitor shows a rate of 80 with a ventricular pacemaker. MEDICAL DECISION MAKING: There is no leukocytosis or concerning anemia. There is a normal platelet count. INR is slightly elevated at 1.2, she is on Coumadin. There is no significant electrolyte abnormality or kidney failure. No worrisome liver enzyme elevation. No evidence for pancreatitis. ECG shows a ventricular pacemaker, no acute ischemia. Cardiac enzyme testing x1 is not consistent with acute cardiac injury. Chest film does not show pneumonia or CHF. The patient was bleeding from her right shoulder wound. Her bandage was soaked and there was some leakage of blood across her chest wall. The bandage was removed and the wound was cleaned. A pressure dressing was applied over the area of bleeding and the bleeding did stop. The patient received IV saline for hydration. She was given IV morphine for pain, IV Zofran for nausea, IV Phenergan for nausea. I do think the patient deserves a hospital stay. I think the vomiting is from her anesthesia. The vomiting has led to a lot of movement and has caused her surgical wound to bleed. She is on Lovenox and Coumadin. I do not think the patient will do well going home. She needs pain control, hydration and nausea control. Her wound needs observed for recurrent bleeding. I spoke to the patient and supportive employment case manager. The on-call hospitalist was consulted. Past Med/Surg History Medical History Acid reflux Well controlled and stable Allergic rhinitis Chronic rhinitis - improved with allergy medication Aortic aneurysm, abdominal Status post placement of bifurcated aorta iliac stent graft since 2006. Most recent abdomen/pelvis CT 02/03/19= "abdominal aortic aneurysm status post aortobiiliac stent grafting. The aneurysmal diameter is 33 mm, unchanged from the preceding study. The aorta iliac stent grafts appear patent." Atrial fibrillation on warfarin; follows Dr. Hardy Cardiomegaly Chronic kidney disease, stage III (moderate) COPD (chronic obstructive pulmonary disease) Chronic BYRNE- stable. Coronary artery disease No hx of CABG or stents Lung nodule, solitary CT scan 12/2017: 4 mm right middle lobe nodule (no change in size since CT scan 10/17/16) Osteopenia Peripheral vascular disease Pulmonary hypertension No oxygen needed Rheumatic heart disease S/p AVR (1992) and MV (2014)- both mechanical valves- on Coumadin. Triscupid valve annuloplasty 05/10/2014 Systolic CHF TMJ click No locking Surgical History (Updated 11/29/19 @ 06:04 by Lucy Loza RN) H/O aortic valve replacement "1992; mechanical" History of cardiac cath "years ago" - no stents - [facility] History of carpal tunnel release bilateral History of cholecystectomy History of colonoscopy History of endometrial ablation History of esophagogastroduodenoscopy (EGD) History of mitral valve replacement "05/2014; mechanical" Mechanical heart valve present Pacemaker placed 2014 - A.fib/bradycardia - [facility] - last check 10/2019 S/P AAA repair 2006 S/P tonsillectomy and adenoidectomy Family History Father Myocardial infarction Mother Cancer Denies family history of Ovarian cancer Prostate cancer Breast cancer Colorectal cancer Social History Smoking Status: Former smoker Cigarettes Per Day: 20; Second Hand Exposure: Yes (son smokes); Hx Alcohol Use: No Hx Substance Use: No Preferred Language: Qatari Communication Ability: Effective Visual Impairment: Limited Hearing Ability: Normal Beliefs That Will Affect Care: None marital status: / marital status details: Lives with 19 year old grandson. Current Living Situation: Alone current occupational status: unemployed Feels Safe at Home: Yes Childhood Exposure to Second-Hand Smoke: No caffeine: Yes (Soda x 4 cups per day.) during the past year weight has: remained stable Dental Care, Regularly: No Physical Activity Frequency: Daily Seatbelt Use: always Sunscreen Use: Yes Assistive Devices: Glasses Allergies Allergies Allergy/AdvReac Type Severity Reaction Status Date / Time adhesive Allergy Mild Skin Verified 11/30/19 20:16 irritation gabapentin Allergy Unknown Unsure of Verified 11/30/19 20:16 reaction latex Allergy Unknown Reaction Verified 11/30/19 20:16 sure of reaction sertraline Allergy Unknown Unknown Verified 11/30/19 20:16 Sulfa (Sulfonamide Allergy Unknown Unknown Verified 11/30/19 20:16 Antibiotics) tramadol Allergy Unknown Unknown Verified 11/30/19 20:16 Home Meds Home Medications Medication Instructions Recorded Confirmed cetirizine [Zyrtec] 10 mg PO QAM 11/29/17 11/30/19 calcium carbonate [Tums Ultra] 400 mg PO UD PRN 06/24/19 11/30/19 enoxaparin [Lovenox] See Rx Instructions .ROUTE .COMPLEX 11/29/19 11/30/19 warfarin See Rx Instructions .ROUTE .COMPLEX 11/30/19 11/30/19 Previous Rx's Medication Instructions Recorded oxycodone-acetaminophen [Percocet] 1 - 2 tab PO Q6H PRN #18 tab 11/29/19 Results & Data (ED) Vital Signs Vital Signs - 24 hr 11/30/19 17:26 11/30/19 19:19 11/30/19 19:45 Temperature 36.7 C Temperature Source Oral Pulse Rate 76 Pulse Rate [Finger] 83 Pulse Rhythm [Finger] Pulse Strength [Finger] Respiratory Rate 16 18 Respiratory Effort / Characteristics Respiratory Depth Blood Pressure 131/71 Blood Pressure [Left Arm] 128/65 Blood Pressure Mean 91 Blood Pressure Mean [Left Arm] 86 Blood Pressure Position [Left Arm] Pulse Oximetry 94 97 98 Oxygen Delivery Method Room Air Room Air Room Air Oxygen Flow Rate Sepsis Recent Fever Within 48 Hours No Sepsis New/Unexplained Change in Mental Status No Sepsis Action Taken by Nursing No Action Required 11/30/19 21:08 11/30/19 22:10 Temperature Temperature Source Pulse Rate Pulse Rate [Finger] 80 80 Pulse Rhythm [Finger] Regular Regular Pulse Strength [Finger] Normal Normal Respiratory Rate 16 16 Respiratory Effort / Characteristics Non-Labored Spontaneous Non-Labored Spontaneous Respiratory Depth Normal Normal Blood Pressure Blood Pressure [Left Arm] 138/78 146/89 H Blood Pressure Mean Blood Pressure Mean [Left Arm] 98 108 Blood Pressure Position [Left Arm] Lying Pulse Oximetry 100 100 Oxygen Delivery Method Nasal Cannula Nasal Cannula Oxygen Flow Rate 2 2 Sepsis Recent Fever Within 48 Hours Sepsis New/Unexplained Change in Mental Status Sepsis Action Taken by [facility] Medications Current Medication List: was personally reviewed by me Laboratory Data Attestation: I reviewed the patient's lab results. Result diagrams: 11/30/19 19:49 11/30/19 19:49 Lab Results 11/30/19 11/30/19 11/30/19 Range/Units 19:49 19:49 19:49 WBC 7.29 (4.8-10.8) K/uL RBC 3.98 L (4.2-5.4) M/uL Hgb 12.6 (12.0-16.0) g/dL Hct 37.4 (37-47) % MCV 94.0 (80-100) fL MCH 31.7 (25-34) pg MCHC 33.7 (32-36) g/dL RDW Std Deviation 46.7 H (36.4-46.3) fL RDW Coeff of Zoë 13.5 (11.5-14.5) % Plt Count 183 (130-400) K/uL MPV 10.0 (7.4-10.4) fL Immature Gran % (Auto) 0.3 % Neut % (Auto) 84.9 % Lymph % (Auto) 9.5 % Vance % (Auto) 5.1 % Eos % (Auto) 0.1 % Baso % (Auto) 0.1 % Neut # (Auto) 6.19 (1.4-6.5) K/uL Lymph # (Auto) 0.69 L (1.2-3.4) K/uL Vance # (Auto) 0.37 (0.11-0.59) K/uL Eos # (Auto) 0.01 (0-0.5) K/uL Baso # (Auto) 0.01 (0-0.2) K/uL Immature Gran # (Auto) 0.02 (0.00-0.02) K/uL PT 13.0 H (9.0-12.0) Seconds INR 1.2 H (0.9-1.1) APTT 35.0 H (21.0-31.0) Seconds PTT Ratio 1.3 Sodium 140 (136-145) mmol/L Potassium 3.9 (3.5-5.1) mmol/L Chloride 107 (98-107) mmol/L Carbon Dioxide 29 (21-32) mmol/L Anion Gap 4.0 (3-11) BUN 11 (7-18) mg/dl Creatinine 0.85 (0.6-1.2) mg/dl Est Cr Clr Drug Dosing 59.4 ml/min Est GFR ( Amer) 83.3 Est GFR (Non-Af Amer) 71.9 BUN/Creatinine Ratio 12.9 (10-20) Glucose 106 H (70-99) mg/dl Calcium 9.2 (8.5-10.1) mg/dl Total Bilirubin 0.6 (0.2-1) mg/dl AST 25 (15-37) U/L ALT 25 (12-78) U/L Alkaline Phosphatase 71 (45-117) U/L Troponin I < 0.015 (0-0.045) ng/ml Total Protein 7.0 (6.4-8.2) gm/dl Albumin 3.4 (3.4-5.0) gm/dl Globulin 3.6 (2.5-4.0) gm/dl Albumin/Globulin Ratio 0.9 (0.9-2) Lipase 65 L (73-393) U/L Administered Medications Discontinued Medications Sodium Chloride (Nss 1000ml) 1,000 mls @ 999 mls/hr IV .Q1H1M SEDA Stop: 11/30/19 20:45 Last Infusion: 11/30/19 20:59 Dose: 0 mls/hr Documented by: [id number] Admin: 11/30/19 19:53 Dose: 999 mls/hr Documented by: [id number] Promethazine HCl (Phenergan) 6.25 mg in 50.25 mls @ 201 mls/hr IV NOW STA Stop: 11/30/19 21:41 Last Infusion: 11/30/19 22:26 Dose: 0 mls/hr Documented by: [id number] Admin: 11/30/19 22:07 Dose: 201 mls/hr Documented by: [id number] Morphine Sulfate (Morphine Sulfate 4 Mg/Ml 1 Ml Carp\\Vial) 4 mg IV NOW STA Stop: 11/30/19 19:44 Last Admin: 11/30/19 19:52 Dose: 4 mg Documented by: [id number] Morphine Sulfate (Morphine Sulfate 4 Mg/Ml 1 Ml Carp\\Vial) 4 mg IV NOW STA Stop: 11/30/19 21:28 Last Admin: 11/30/19 22:06 Dose: 4 mg Documented by: [id number] Ondansetron HCl (Ondansetron Inj 2 Mg/Ml 2 Ml Vial) 4 mg IV NOW STA Stop: 11/30/19 19:44 Last Admin: 11/30/19 19:53 Dose: 4 mg Documented by: [id number] Imaging Data Radiologist's Impression: SINGLE VIEW CHEST CLINICAL HISTORY: Atypical chest pain. FINDINGS: An AP, portable, upright chest radiograph is compared to study dated 12/09/2019 and correlated with chest CT dated 12/11/2017. The patient is status post midline sternotomy and cardiac valve surgery. A 2-lead cardiac pacemaker is unchanged in position and partially obscures the left mid chest. The heart is enlarged noting atherosclerotic calcification of the thoracic aorta. The pulmonary vasculature is noncongested. Advanced emphysema and chronic additional thickening is similar to previous. There is bibasilar scarring/atelectasis. No airspace consolidation or large pleural effusion is identified. No pneumothorax is seen. The skeletal structures are osteopenic. The bony thorax is grossly intact. IMPRESSION: 1. Cardiomegaly and cardiac pacemaker. There is no radiographic evidence of congestive failure. 2. Advanced emphysema. 3. No airspace consolidation or large pleural effusion is identified. Discharge Plan Visit Data Chief Complaint: Shoulder Pain Stated Complaint: BLEEDING FROM SURGERY SITE & R SHOULDER PAIN ED Provider: Daniel Lau Discharge Problem: Acute dehydration, Vomiting, Post-op bleeding, Coagulopathy Patient Disposition: Admitted As Inpatient Condition: Fair Discharge Instructions Interventions: ED Discharge Assessment Last Done: 11/30/19 23:15 Discharge Problem: Vomiting Qualifiers: Vomiting type: unspecified Vomiting Intractability: non-intractable Nausea presence: with nausea Qualified Code(s): R11.2 - Nausea with vomiting, unspecified Post-op bleeding Qualifiers: Surgical complication system/body Area: musculoskeletal system Procedure type: musculoskeletal Qualified Code(s): M96.830 - Postprocedural hemorrhage of a musculoskeletal structure following a musculoskeletal system procedure
[2019-11-30 20:08] LABS: Basophils # (auto) 0.01 K/uL (0-0.2); Basophils % (auto) 0.1 %; Eosinophils # (auto) 0.01 K/uL (0-0.5); Eosinophils % (auto) 0.1 %; Hematocrit (blood only) 37.4 % (37-47); Hemoglobin 12.6 g/dL (12.0-16.0); Immature Granulocytes # (auto) 0.02 K/uL (0.00-0.02); Immature Granulocytes % (auto) 0.3 %; Lymphocytes # (auto) 0.69 K/uL (1.2-3.4); Lymphocytes % (auto) 9.5 %; Mean Corpuscular Hemoglobin 31.7 pg (25-34); Mean Corpuscular Hgb Conc 33.7 g/dL (32-36); Monocytes # (auto) 0.37 K/uL (0.11-0.59); Monocytes % (auto) 5.1 %; Neutrophils # (auto) 6.19 K/uL (1.4-6.5); Neutrophils % (auto) 84.9 %; Platelet Count 183 K/uL (130-400); RDW Coefficient of Variation 13.5 % (11.5-14.5); RDW Standard Deviation 46.7 fL (36.4-46.3); Red Blood Count 3.98 M/uL (4.2-5.4); White Blood Count 7.29 K/uL (4.8-10.8)
[2019-11-30 20:19] LABS: INR 1.2 (0.9-1.1); Partial Thromboplastin Ratio 1.3
[2019-11-30 20:27] LABS: Alanine Aminotransferase 25 U/L (12-78); Albumin Level 3.4 gm/dl (3.4-5.0); Aspartate Aminotransferase 25 U/L (15-37); BUN Creatinine Ratio 12.9 (10-20); Blood Urea Nitrogen 11 mg/dl (7-18); Calcium 9.2 mg/dl (8.5-10.1); Carbon Dioxide 29 mmol/L (21-32); Chloride 107 mmol/L (98-107); Creatinine Clr Calc Pharmacy 59.4 ml/min; Est GFR (African American) 83.3; Est GFR (Non-African American) 71.9; Glucose 106 mg/dl (70-99); Lipase 65 U/L (73-393); Potassium 3.9 mmol/L (3.5-5.1); Sodium 140 mmol/L (136-145)
[2019-11-30 20:32] LABS: Albumin Globulin Ratio 0.9 (0.9-2); Alkaline Phosphatase 71 U/L (45-117); Bilirubin,Total 0.6 mg/dl (0.2-1); Globulin 3.6 gm/dl (2.5-4.0); Troponin I < 0.015 ng/ml (0-0.045)
--- NOTE | 2019-11-30 21:05 | XRay Report ---
SINGLE VIEW CHEST CLINICAL HISTORY: Atypical chest pain. FINDINGS: An AP, portable, upright chest radiograph is compared to study dated 12/09/2019 and correla cayla with chest CT dated 12/11/2017. The patient is status post midline sternotomy and cardiac valve tucker rgery. A 2-lead cardiac pacemaker is unchanged in position and partially obscures the left mid chest. The heart is enlarged noting atherosclerotic calcification of the thoracic aorta. The pulmonary vasc ulature is noncongested. Advanced emphysema and chronic additional thickening is similar to previous. There is bibasilar scarring/atelectasis. No airspace consolidation or large pleural effusion is iden tified. No pneumothorax is seen. The skeletal structures are osteopenic. The bony thorax is grossly i ntact. IMPRESSION: 1. Cardiomegaly and cardiac pacemaker. There is no radiographic evidence of congestive failure. 2. Advanced emphysema. 3. No airspace consolidation or large pleural effusion is identified. ACT 112: Negative or not required by law. Electronically signed by: Daniel Patel M.D. 11/30/2019 9:04 PM
[2019-11-30] MEDS ORDERED: PROMETHAZINE 6.25 MG/50.25 ML BAG IV STA (21:27)
--- NOTE | 2019-11-30 22:45 | History & Physical Report ---
Date of Service November 30, 2019 Assessment & Plan (1) Post-op bleeding: Patient s/p right shoulder surgery performed on 11/28 presenting with acute bleeding after nausea and vomiting. Bleeding has been controlled, pressure dressing in place. Patient hemodynamically stable, stable H/H. -Maintain pressure dressing in place -Ortho consultation appreciated Present on Admission?: Yes (2) Vomiting: Patient with significant nausea and vomiting post-operatively, now resolved. Suspect reaction to anesthetics. -Zofran PRN -Fluids and electrolytes as needed Present on Admission?: Yes (3) Mechanical heart valve present: Patient with mechanical heart valve on Coumadin anticoagulation. She has been bridging Lovenox since her surgery - last Lovenox dose on 11/29 at 08:00, last Coumadin dose on 11/28 at 20:00. Bleeding controlled as above. Patient at risk for clotting given mechanical valve -Heparin gtt, low dose, no bolus for now -Ortho consultation as above -Will resume Coumadin pending guidance from Orthopedics Present on Admission?: Yes (4) Coronary artery disease: Chronic. Stable -Currently only on ASA 81mg po daily Present on Admission?: Yes (5) Chronic kidney disease, stage III (moderate): Chronic. Stable. BUN and Cr near baseline -Avoid nephrotoxic agents -Renal dosing where needed -Monitor BUN, Cr and electrolytes Present on Admission?: Yes (6) Acid reflux: Chronic. Stable -Continue to monitor Present on Admission?: Yes (7) Rheumatic heart disease: With history of valvular replacement - mitral and aortic -Heparin gtt as above for mechanical valve Present on Admission?: Yes (8) Atrial fibrillation: Pacemaker in place -Anticoagulation with heparin to coumadin Present on Admission?: Yes (9) COPD (chronic obstructive pulmonary disease): Chronic. Stable. No O2 required -Continue to monitor -Patient currently not on any medications. May benefit from Spiriva/Albuterol on DC Present on Admission?: Yes (10) Systolic CHF: Patient appears euvolemic with no evidence of failure at present -Continue to monitor volume status F/E/N - Heplock. Electrolytes WNL. Heart healthy diet as tolerated Ppx - Heparin gtt as above Code - Full Dispo - Observation to medical floor History of Present Illness Chief Complaint: bleeding at surgical site Primary Care Provider: Shellie Bush DO Jovanna Garg is a 64yo female with multiple medical problems to include AF, CKD, COPD, CAD, mechanical aortic valve on Coumadin anticoagulation. Patient with history of progressive right shoulder pain not amenable to conservative efforts. She had a right shoulder arthroscopic subacromial decompression, acromioplasty, distal clavicle excision, rotator cuff repair and debridement of the anterior labrum performed by Dr. Blackman on 11/29/19. The procedure was performed under General regional anesthesia, no complications identified, blood loss minimal. She was discharged home same day in stable condition. She reports developing nausea at home with multiple episodes of non-bloody/non-bilious emesis. She had significant bleeding from the anterior incision noted with soaked dressings therefore she came to the ER. Patient is complaining of left shoulder pain otherwise no complaints. Nausea has resolved as has dizziness/lightheadedness. ER Course: Morphine 4mg IV x 2, Zofran, Phenergan, NSS Allergies Allergy/AdvReac Type Severity Reaction Status Date / Time adhesive Allergy Mild Skin Verified 11/30/19 20:16 irritation gabapentin Allergy Unknown Unsure of Verified 11/30/19 20:16 reaction latex Allergy Unknown Reaction Verified 11/30/19 20:16 sure of reaction sertraline Allergy Unknown Unknown Verified 11/30/19 20:16 Sulfa (Sulfonamide Allergy Unknown Unknown Verified 11/30/19 20:16 Antibiotics) tramadol Allergy Unknown Unknown Verified 11/30/19 20:16 Home Medications Home Medications Medication Instructions Recorded Confirmed Type cetirizine [Zyrtec] 10 mg PO QAM 11/29/17 11/30/19 History calcium carbonate [Tums Ultra] 400 mg PO UD PRN 06/24/19 11/30/19 History enoxaparin [Lovenox] See Rx Instructions .ROUTE .COMPLEX 11/29/19 11/30/19 History oxycodone-acetaminophen [Percocet] 1 - 2 tab PO Q6H PRN #18 tab 11/29/19 11/30/19 Rx warfarin See Rx Instructions .ROUTE .COMPLEX 11/30/19 11/30/19 History Past Med/Surg History Medical History Acid reflux Well controlled and stable Allergic rhinitis Chronic rhinitis - improved with allergy medication Aortic aneurysm, abdominal Status post placement of bifurcated aorta iliac stent graft since 2006. Most recent abdomen/pelvis CT 02/03/19= "abdominal aortic aneurysm status post aortobiiliac stent grafting. The aneurysmal diameter is 33 mm, unchanged from the preceding study. The aorta iliac stent grafts appear patent." Atrial fibrillation on warfarin; follows Dr. Hardy Cardiomegaly Chronic kidney disease, stage III (moderate) COPD (chronic obstructive pulmonary disease) Chronic BYRNE- stable. Coronary artery disease No hx of CABG or stents Lung nodule, solitary CT scan 12/2017: 4 mm right middle lobe nodule (no change in size since CT scan 10/17/16) Osteopenia Peripheral vascular disease Pulmonary hypertension No oxygen needed Rheumatic heart disease S/p AVR (1992) and MV (2014)- both mechanical valves- on Coumadin. Triscupid valve annuloplasty 05/10/2014 Systolic CHF TMJ click No locking Surgical History (Updated 11/29/19 @ 06:04 by Lucy Loza RN) H/O aortic valve replacement "1992; mechanical" History of cardiac cath "years ago" - no stents - [facility] History of carpal tunnel release bilateral History of cholecystectomy History of colonoscopy History of endometrial ablation History of esophagogastroduodenoscopy (EGD) History of mitral valve replacement "05/2014; mechanical" Mechanical heart valve present Pacemaker placed 2014 - A.fib/bradycardia - [facility] - last check 10/2019 S/P AAA repair 2006 S/P tonsillectomy and adenoidectomy Family History Father Myocardial infarction Mother Cancer Denies family history of Ovarian cancer Prostate cancer Breast cancer Colorectal cancer Social History Smoking Status: Former smoker Cigarettes Per Day: 20; Smoking End Date: 10 years ago; Second Hand Exposure: No; Do You Dip or Chew Tobacco: No; Tobacco Cessation Education Requested by Patient: No Hx Alcohol Use: No Hx Substance Use: No Preferred Language: Upper Sorbian Communication Ability: Effective Visual Impairment: Limited Hearing Ability: Normal Financial Risk Manager Required: No Beliefs That Will Affect Care: None marital status: / marital status details: Lives with 19 year old grandson. Current Living Situation: Alone current occupational status: unemployed Other Information That Helps Us Care for You: No Feels Safe at Home: Yes Safety Concerns: Feels Safe At This Time Childhood Exposure to Second-Hand Smoke: No caffeine: Yes (Soda x 4 cups per day.) during the past year weight has: remained stable Dental Care, Regularly: No Physical Activity Frequency: Daily Seatbelt Use: always Sunscreen Use: Yes Assistive Devices: Glasses Review of Systems Review of Systems: All systems reviewed & are unremarkable except as noted in HPI & below Physical Exam Physical Exam: General: patient resting comfortably, NAD, non-toxic in appearance, AA&O x 4 Skin: warm, dry, surgical site with dressing in place, pressure dressing on anterior site with no bleeding HEENT: NC/AT, PERRL, EOMI, anicteric sclera, conjunctiva without injection, external ear normal to inspection and nontender, nares patent, moist mucus membranes, dentition intact, no oropharyngeal lesions, neck supple, trachea midline, no LAD, no thyromegaly, no JVD Heart: +S1/S2, regular, +mid-systolic click, no m/r/g Lungs: equal air entry bilaterally, no rales/rhonchi/wheezes Abd: +BS, soft, NT/ND, no masses/organomegaly/ascites Ext: warm, 2+ pulses in UE/LE bilaterally, no clubbing/cyanosis or edema, RUE in sling Neuro: nonfocal, patient AA&O x 4, speech intact, no facial droop, moving all extremities on command with equal strength 5/5 Results & Data Results & Data ([facility]) Vital Signs (Past 12 Hours) Vital Signs Temp Pulse Pulse Resp BP BP Pulse Ox 11/30/19 22:10 80 16 146/89 H 100 11/30/19 21:08 80 16 138/78 100 11/30/19 19:45 98 11/30/19 19:19 83 18 128/65 97 11/30/19 17:26 36.7 C 76 16 131/71 94 Laboratory Results Lab Results 11/30/19 11/30/19 11/30/19 Range/Units 19:49 19:49 19:49 WBC 7.29 (4.8-10.8) K/uL RBC 3.98 L (4.2-5.4) M/uL Hgb 12.6 (12.0-16.0) g/dL Hct 37.4 (37-47) % MCV 94.0 (80-100) fL MCH 31.7 (25-34) pg MCHC 33.7 (32-36) g/dL RDW Std Deviation 46.7 H (36.4-46.3) fL RDW Coeff of Zoë 13.5 (11.5-14.5) % Plt Count 183 (130-400) K/uL MPV 10.0 (7.4-10.4) fL Immature Gran % (Auto) 0.3 % Neut % (Auto) 84.9 % Lymph % (Auto) 9.5 % [place] % (Auto) 5.1 % Eos % (Auto) 0.1 % Baso % (Auto) 0.1 % Neut # (Auto) 6.19 (1.4-6.5) K/uL Lymph # (Auto) 0.69 L (1.2-3.4) K/uL [place] # (Auto) 0.37 (0.11-0.59) K/uL Eos # (Auto) 0.01 (0-0.5) K/uL Baso # (Auto) 0.01 (0-0.2) K/uL Immature Gran # (Auto) 0.02 (0.00-0.02) K/uL PT 13.0 H (9.0-12.0) Seconds INR 1.2 H (0.9-1.1) APTT 35.0 H (21.0-31.0) Seconds PTT Ratio 1.3 Sodium 140 (136-145) mmol/L Potassium 3.9 (3.5-5.1) mmol/L Chloride 107 (98-107) mmol/L Carbon Dioxide 29 (21-32) mmol/L Anion Gap 4.0 (3-11) BUN 11 (7-18) mg/dl Creatinine 0.85 (0.6-1.2) mg/dl Est Cr Clr Drug Dosing 59.4 ml/min Est GFR ( Amer) 83.3 Est GFR (Non-Af Amer) 71.9 BUN/Creatinine Ratio 12.9 (10-20) Glucose 106 H (70-99) mg/dl Calcium 9.2 (8.5-10.1) mg/dl Total Bilirubin 0.6 (0.2-1) mg/dl AST 25 (15-37) U/L ALT 25 (12-78) U/L Alkaline Phosphatase 71 (45-117) U/L Troponin I < 0.015 (0-0.045) ng/ml Total Protein 7.0 (6.4-8.2) gm/dl Albumin 3.4 (3.4-5.0) gm/dl Globulin 3.6 (2.5-4.0) gm/dl Albumin/Globulin Ratio 0.9 (0.9-2) Lipase 65 L (73-393) U/L Diagnostic Findings SINGLE VIEW CHEST CLINICAL HISTORY: Atypical chest pain. FINDINGS: An AP, portable, upright chest radiograph is compared to study dated 12/09/2019 and correlated with chest CT dated 12/11/2017. The patient is status post midline sternotomy and cardiac valve surgery. A 2-lead cardiac pacemaker is unchanged in position and partially obscures the left mid chest. The heart is enlarged noting atherosclerotic calcification of the thoracic aorta. The pulmonary vasculature is noncongested. Advanced emphysema and chronic additional thickening is similar to previous. There is bibasilar scarring/atelectasis. No airspace consolidation or large pleural effusion is identified. No pneumothorax is seen. The skeletal structures are osteopenic. The bony thorax is grossly intact. IMPRESSION: 1. Cardiomegaly and cardiac pacemaker. There is no radiographic evidence of congestive failure. 2. Advanced emphysema. 3. No airspace consolidation or large pleural effusion is identified. ACT 112: Negative or not required by law. Electronically signed by: Daniel Patel M.D. 11/30/2019 9:04 PM Dictated: 11/30/192101 Transcribed: 11/30/192101 Code Status & VTE Plan Code Status Full PG Care Time/CCT Total # of Minutes Spent Total Time Spent with Patient: Total time spent is greater than 50% in coordination of care (as documented) at patient's floor/unit and/or counseling patient: Coding Level of Care Code 62240 OBS Care - Level 3 Diagnoses Post-op bleeding M96.830 Procedure type: musculoskeletal Surgical complication system/body Area: musculoskeletal system Vomiting R11.2 Nausea presence: with nausea Vomiting Intractability: non-intractable Vomiting type: unspecified Mechanical heart valve present Z95.2 Coronary artery disease I25.10 Coronary Disease-Associated Artery/Lesion type: [place] artery [place] vs. transplanted heart: [place] heart Associated angina: without angina Chronic kidney disease, stage III (moderate) N18.3 Acid reflux K21.9 Esophagitis presence: esophagitis presence not specified Rheumatic heart disease I09.9 Atrial fibrillation I48.91 Atrial fibrillation type: unspecified COPD (chronic obstructive pulmonary disease) J44.9 COPD type: unspecified COPD Systolic CHF I50.22 Heart failure chronicity: chronic (1) Post-op bleeding Procedure type: musculoskeletal Surgical complication system/body Area: musculoskeletal system Qualified Code(s): M96.830 - Postprocedural hemorrhage of a musculoskeletal structure following a musculoskeletal system procedure (2) Vomiting Nausea presence: with nausea Vomiting Intractability: non-intractable Vomiting type: unspecified Qualified Code(s): R11.2 - Nausea with vomiting, unspecified (3) Coronary artery disease Coronary Disease-Associated Artery/Lesion type: [place] artery [place] vs. transplanted heart: [place] heart Associated angina: without angina Qualified Code(s): I25.10 - Atherosclerotic heart disease of [place] coronary artery without angina pectoris (4) Acid reflux Esophagitis presence: esophagitis presence not specified Qualified Code(s): K21.9 - Gastro-esophageal reflux disease without esophagitis (5) Atrial fibrillation Atrial fibrillation type: unspecified Qualified Code(s): I48.91 - Unspecified atrial fibrillation (6) COPD (chronic obstructive pulmonary disease) COPD type: unspecified COPD Qualified Code(s): J44.9 - Chronic obstructive pulmonary disease, unspecified (7) Systolic CHF Heart failure chronicity: chronic Qualified Code(s): I50.22 - Chronic systolic (congestive) heart failure
[2019-11-30] MEDS ORDERED: ONDANSETRON INJ 2 MG/ML 2 ML VIAL IV PRN (23:43)
[2019-11-30] MEDS ORDERED: Heparin IV Low Dose *NO* Bolus IV ONE (23:43)
[2019-11-30] MEDS ORDERED: ACETAMINOPHEN 325 MG TAB PO PRN (23:43)
[2019-11-30] MEDS ORDERED: DOCUSATE SODIUM 100 MG CAP PO PRN (23:43)
[2019-11-30] MEDS ORDERED: MoRPHine SULFATE 2 MG/ML CARP IV PRN (23:43)
[2019-12-01] MEDS: HEPARIN SODIUM/DEXTROSE 25,000 UNITS/500 ML BAG IV SCH ×2 (01:30→23:44)
[2019-12-01 01:44] LABS: Eosinophils # (auto) 0.02 K/uL (0-0.5); Eosinophils % (auto) 0.4 %; Hemoglobin 10.9 g/dL (12.0-16.0); Immature Granulocytes # (auto) 0.01 K/uL (0.00-0.02); Immature Granulocytes % (auto) 0.2 %; Mean Corpuscular Hemoglobin 30.4 pg (25-34); Mean Corpuscular Volume 94.7 fL (80-100); Mean Platelet Volume 9.9 fL (7.4-10.4); Monocytes # (auto) 0.38 K/uL (0.11-0.59); Monocytes % (auto) 7.6 %; Neutrophils # (auto) 3.88 K/uL (1.4-6.5); Neutrophils % (auto) 77.8 %; Platelet Count 171 K/uL (130-400); RDW Coefficient of Variation 13.6 % (11.5-14.5); Red Blood Count 3.59 M/uL (4.2-5.4); White Blood Count 4.99 K/uL (4.8-10.8)
[2019-12-01 01:58] LABS: INR 1.4 (0.9-1.1); Partial Thromboplastin Ratio 1.3; Partial Thromboplastin Time 36.8 Seconds (21.0-31.0); Prothrombin Time 14.6 Seconds (9.0-12.0)
[2019-12-01 02:02] LABS: Mean Corpuscular Hgb Conc 32.1 g/dL (32-36)
[2019-12-01] MEDS: oxyCODONE/ACETAMINOPHEN 5mg/325mg TAB PO PRN (05:36)
[2019-12-01] MEDS ORDERED: PNEUMOCOCCAL POLYSACCHARIDES 25 MCG/0.5 ML VIAL/SYR IM ONE (08:00)
[2019-12-01] MEDS ORDERED: PNEUMOCOCCAL ADMINISTRATION CHARGE ONE (08:00)
[2019-12-01] MEDS: CETIRIZINE HCL 10 MG TABLET PO SCH (08:18)
[2019-12-01 08:20] LABS: Partial Thromboplastin Time 55.7 Seconds (21.0-31.0)
[2019-12-01 08:32] LABS: BUN Creatinine Ratio 11.3 (10-20); Calcium 8.6 mg/dl (8.5-10.1); Creatinine Clr Calc Pharmacy 72.1 ml/min; Est GFR (African American) 105.4; Est GFR (Non-African American) 90.9; Potassium 3.4 mmol/L (3.5-5.1)
[2019-12-01] MEDS ORDERED: POTASSIUM CHLORIDE CRTAB 20 MEQ TABCR PO STA (08:49)
--- NOTE | 2019-12-01 09:55 | Hospitalist Progress Note ---
Date of Service December 01, 2019 Assessment & Plan (1) Post-op bleeding: * Discharged on 11/28 s/p right shoulder rotator cuff surgery with Dr. Blackman presented with acute bleeding/nausea/vomiting post-operatively * Pre-op h/h 13.5/40 * Hgb on admission 12.6 and dropped to 10.6 on AM labs * Acute blood loss anemia * Pressure dressings and sand bag to control bleeding * Repeat h/h this afternoon 11.5/35.3. Dressing c/d/i * Orthopedics consulted -- appreciate assistance. Continue heparin gtt for now in case need for intervention * CBC in AM or sooner if bleeding increased (2) Vomiting: * Patient with significant nausea and vomiting post-operatively, now resolved. Suspect reaction to anesthetics. * Zofran prn. * None reported since ride to hospital (3) Mechanical heart valve present: * Patient with mechanical heart valve (aortic and mitral) and tricuspid valve repar. Hx Rheumatic fever * She has been bridging Lovenox since her surgery - last Lovenox dose on 11/29 at 08:00, last Coumadin dose on 11/28 at 20:00. Bleeding controlled as above. Patient at risk for clotting given mechanical valve * Heparin gtt, low dose-- continue for now. PTT 55.7 * Resume Coumadin pending instruction by orthopedics * Follows locally with Dr. 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 Interrogated this summer. Continues Afib but ventricular paced (4) Coronary artery disease: * Chronic. Stable * Currently only on ASA 81mg po daily -- held given above * Not on BB due to low BPs, no TAMIKO/ARB given CKD. Follows with Dr. Hardy. Of note, was lost to follow-up from [id number]. (5) Chronic kidney disease, stage III (moderate): * Chronic. Stable. BUN and Cr near baseline * Avoid nephrotoxic agents * Renal dosing where needed * Monitor BUN, Cr and electrolytes (6) Acid reflux: * Chronic. Stable. Not on any medications * Continue to monitor (7) Rheumatic heart disease: * With history of valvular replacement - mitral and aortic * Heparin gtt as above for mechanical valve (8) Atrial fibrillation: * Pacemaker in place * Anticoagulation with heparin to coumadin (9) COPD (chronic obstructive pulmonary disease): * Chronic. Stable. No O2 required * Continue to monitor * Patient currently not on any medications. May benefit from Spiriva/Albuterol on DC * 92% on RA but did drop 84% overnight and required supplemental o2. Denies hx JOSE RAMON (10) Diastolic heart failure due to valvular disease: * Follows locally with Dr. Hardy. Lost to follow up [id number]. * Did have ECHO November 2019 which showed EF 55% and diastolic grade III as well as valvular findings c/w repair and replacements as above * Patient appears euvolemic with no evidence of failure at present (11) DVT prophylaxis: * Heparin as above Admission and Anticipated Discharge Date Admission Date: November 30, 2019 Supervising Physician Co-Signing Physician Notes PA Supervision Note: I did not personally see or examine the patient today, but I verified all browne points of JACK Hercules's assessment and plan with the following exceptions/additions: None Subjective Patient evaluated this afternoon. Pressure dressing changed approx 4-5 times since arrived to the floor. Feeling better than on admission. No further nausea or diarrhea, fever or chills. She does endorse fatigue but no shortness of breath or chest pain. Pain controlled currently but worse with movement. Believes sand bag also contributing to some of the pain due to weight on chest/arm region. Was evaluated by orthopedics this morning. Will continue heparin gtt for now. She states she was worried about blood clots now off her lovenox/coumadin given significant cardiac history and was never told the heparin would cover her for that. She feels much relieved knowing that this is a blood thinner as her father in his 80s following a shoulder operation and that was giving her a lot of anxiety and worry about having issues with her valves. Discussed repeat cbc with improvement of her blood counts. Hopeful for stable h/h and slowed bleeding by am with possible discharge home. Review of Systems Review of Systems: All systems reviewed & are unremarkable except as noted in HPI & below Physical Exam Constitutional: WD/WN, vitals as above cooperative; no acute distress Eyes: + anicteric sclerae and PERRL ENMT: dry mm Neck: normal visual inspection Respiratory: normal respiratory effort, lungs clear to auscultation Cardiovascular: Rate/Rhythm: regular rate and regular rhythm Heart Sounds: + murmur (and mid-systolic click) Chest (Breasts): Additional Comments: pacemaker present prior stenotomy scar Gastrointestinal (Abdomen): normal bowel sounds, soft, nontender, no hepatosplenomegaly Musculoskeletal: right shoulder with sling pressure dressing c/d/i without evidence of bleeding through, sandbag on top NVI good mechanical intern strength, palpable pulses painful with any movement Skin: general pallor Neurologic: moves all extremities and awake Psychiatric: Orientation: alert and oriented x 3 Lymphatic: no cervical or axillary lymphadenopathy Results & Data Results & Data ([facility]) Vital Signs (Past 12 Hours) Vital Signs Temp Pulse Resp BP Pulse Ox 12/01/19 08:47 36.6 C 83 16 96/60 L 96 12/01/19 05:41 80 97 11/30/19 23:40 36.8 C 97 H 18 108/65 84 L 11/30/19 22:10 80 16 146/89 H 100 Laboratory Results 12/01/19 12/01/19 12/01/19 Range/Units 07:46 07:46 01:12 WBC (4.8-10.8) K/uL RBC (4.2-5.4) M/uL Hgb (12.0-16.0) g/dL Hct (37-47) % MCV (80-100) fL MCH (25-34) pg MCHC (32-36) g/dL RDW Std Deviation (36.4-46.3) fL RDW Coeff of Zoë (11.5-14.5) % Plt Count (130-400) K/uL MPV (7.4-10.4) fL Immature Gran % (Auto) % Neut % (Auto) % Lymph % (Auto) % [place] % (Auto) % Eos % (Auto) % Baso % (Auto) % Neut # (Auto) (1.4-6.5) K/uL Lymph # (Auto) (1.2-3.4) K/uL [place] # (Auto) (0.11-0.59) K/uL Eos # (Auto) (0-0.5) K/uL Baso # (Auto) (0-0.2) K/uL Immature Gran # (Auto) (0.00-0.02) K/uL PT 14.6 H (9.0-12.0) Seconds INR 1.4 H (0.9-1.1) APTT 55.7 H* 36.8 H (21.0-31.0) Seconds PTT Ratio 2.0 1.3 Sodium 140 (136-145) mmol/L Potassium 3.4 L (3.5-5.1) mmol/L Chloride 107 (98-107) mmol/L Carbon Dioxide 29 (21-32) mmol/L Anion Gap 4.0 (3-11) BUN 8 (7-18) mg/dl Creatinine 0.70 (0.6-1.2) mg/dl Est Cr Clr Drug Dosing 72.1 ml/min Est GFR ( Amer) 105.4 Est GFR (Non-Af Amer) 90.9 BUN/Creatinine Ratio 11.3 (10-20) Glucose 90 (70-99) mg/dl Calcium 8.6 (8.5-10.1) mg/dl Total Bilirubin (0.2-1) mg/dl AST (15-37) U/L ALT (12-78) U/L Alkaline Phosphatase (45-117) U/L Troponin I (0-0.045) ng/ml Total Protein (6.4-8.2) gm/dl Albumin (3.4-5.0) gm/dl Globulin (2.5-4.0) gm/dl Albumin/Globulin Ratio (0.9-2) Lipase (73-393) U/L 12/01/19 11/30/19 11/30/19 Range/Units 01:12 19:49 19:49 WBC 4.99 (4.8-10.8) K/uL RBC 3.59 L (4.2-5.4) M/uL Hgb 10.9 L (12.0-16.0) g/dL Hct 34.0 L (37-47) % MCV 94.7 (80-100) fL MCH 30.4 (25-34) pg MCHC 32.1 (32-36) g/dL RDW Std Deviation 47.0 H (36.4-46.3) fL RDW Coeff of Zoë 13.6 (11.5-14.5) % Plt Count 171 (130-400) K/uL MPV 9.9 (7.4-10.4) fL Immature Gran % (Auto) 0.2 % Neut % (Auto) 77.8 % Lymph % (Auto) 14.0 % [place] % (Auto) 7.6 % Eos % (Auto) 0.4 % Baso % (Auto) 0.0 % Neut # (Auto) 3.88 (1.4-6.5) K/uL Lymph # (Auto) 0.70 L (1.2-3.4) K/uL [place] # (Auto) 0.38 (0.11-0.59) K/uL Eos # (Auto) 0.02 (0-0.5) K/uL Baso # (Auto) 0.00 (0-0.2) K/uL Immature Gran # (Auto) 0.01 (0.00-0.02) K/uL PT 13.0 H (9.0-12.0) Seconds INR 1.2 H (0.9-1.1) APTT 35.0 H (21.0-31.0) Seconds PTT Ratio 1.3 Sodium 140 (136-145) mmol/L Potassium 3.9 (3.5-5.1) mmol/L Chloride 107 (98-107) mmol/L Carbon Dioxide 29 (21-32) mmol/L Anion Gap 4.0 (3-11) BUN 11 (7-18) mg/dl Creatinine 0.85 (0.6-1.2) mg/dl Est Cr Clr Drug Dosing 59.4 ml/min Est GFR ( Amer) 83.3 Est GFR (Non-Af Amer) 71.9 BUN/Creatinine Ratio 12.9 (10-20) Glucose 106 H (70-99) mg/dl Calcium 9.2 (8.5-10.1) mg/dl Total Bilirubin 0.6 (0.2-1) mg/dl AST 25 (15-37) U/L ALT 25 (12-78) U/L Alkaline Phosphatase 71 (45-117) U/L Troponin I < 0.015 (0-0.045) ng/ml Total Protein 7.0 (6.4-8.2) gm/dl Albumin 3.4 (3.4-5.0) gm/dl Globulin 3.6 (2.5-4.0) gm/dl Albumin/Globulin Ratio 0.9 (0.9-2) Lipase 65 L (73-393) U/L 11/30/19 Range/Units 19:49 WBC 7.29 (4.8-10.8) K/uL RBC 3.98 L (4.2-5.4) M/uL Hgb 12.6 (12.0-16.0) g/dL Hct 37.4 (37-47) % MCV 94.0 (80-100) fL MCH 31.7 (25-34) pg MCHC 33.7 (32-36) g/dL RDW Std Deviation 46.7 H (36.4-46.3) fL RDW Coeff of Zoë 13.5 (11.5-14.5) % Plt Count 183 (130-400) K/uL MPV 10.0 (7.4-10.4) fL Immature Gran % (Auto) 0.3 % Neut % (Auto) 84.9 % Lymph % (Auto) 9.5 % [place] % (Auto) 5.1 % Eos % (Auto) 0.1 % Baso % (Auto) 0.1 % Neut # (Auto) 6.19 (1.4-6.5) K/uL Lymph # (Auto) 0.69 L (1.2-3.4) K/uL [place] # (Auto) 0.37 (0.11-0.59) K/uL Eos # (Auto) 0.01 (0-0.5) K/uL Baso # (Auto) 0.01 (0-0.2) K/uL Immature Gran # (Auto) 0.02 (0.00-0.02) K/uL PT (9.0-12.0) Seconds INR (0.9-1.1) APTT (21.0-31.0) Seconds PTT Ratio Sodium (136-145) mmol/L Potassium (3.5-5.1) mmol/L Chloride (98-107) mmol/L Carbon Dioxide (21-32) mmol/L Anion Gap (3-11) BUN (7-18) mg/dl Creatinine (0.6-1.2) mg/dl Est Cr Clr Drug Dosing ml/min Est GFR ( Amer) Est GFR (Non-Af Amer) BUN/Creatinine Ratio (10-20) Glucose (70-99) mg/dl Calcium (8.5-10.1) mg/dl Total Bilirubin (0.2-1) mg/dl AST (15-37) U/L ALT (12-78) U/L Alkaline Phosphatase (45-117) U/L Troponin I (0-0.045) ng/ml Total Protein (6.4-8.2) gm/dl Albumin (3.4-5.0) gm/dl Globulin (2.5-4.0) gm/dl Albumin/Globulin Ratio (0.9-2) Lipase (73-393) U/L PG Care Time/CCT Total # of Minutes Spent Total Time Spent with Patient: Total time spent is greater than 50% in coordination of care (as documented) at patient's floor/unit and/or counseling patient: Coding Level of Care Code 95726 Subseq Obs Care Lvl 2 Diagnoses Post-op bleeding M96.830 Procedure type: musculoskeletal Surgical complication system/body Area: musculoskeletal system Vomiting R11.2 Nausea presence: with nausea Vomiting Intractability: non-intractable Vomiting type: unspecified Mechanical heart valve present Z95.2 Coronary artery disease I25.10 Associated angina: without angina Coronary Disease-Associated Artery/Lesion type: craig artery [place] vs. transplanted heart: craig heart Chronic kidney disease, stage III (moderate) N18.3 Acid reflux K21.9 Esophagitis presence: esophagitis presence not specified Rheumatic heart disease I09.9 Atrial fibrillation I48.91 Atrial fibrillation type: unspecified COPD (chronic obstructive pulmonary disease) J44.9 COPD type: unspecified COPD Diastolic heart failure due to valvular disease I50.30; I38 DVT prophylaxis Z29.9 (1) Coronary artery disease Associated angina: without angina Coronary Disease-Associated Artery/Lesion type: craig artery [place] vs. transplanted heart: craig heart Qualified Code(s): I25.10 - Atherosclerotic heart disease of craig coronary artery without angina pectoris (2) Atrial fibrillation Atrial fibrillation type: unspecified Qualified Code(s): I48.91 - Unspecified atrial fibrillation (3) Post-op bleeding Procedure type: musculoskeletal Surgical complication system/body Area: musculoskeletal system Qualified Code(s): M96.830 - Postprocedural hemorrhage of a musculoskeletal structure following a musculoskeletal system procedure (4) COPD (chronic obstructive pulmonary disease) COPD type: unspecified COPD Qualified Code(s): J44.9 - Chronic obstructive pulmonary disease, unspecified (5) Acid reflux Esophagitis presence: esophagitis presence not specified Qualified Code(s): K21.9 - Gastro-esophageal reflux disease without esophagitis (6) Vomiting Nausea presence: with nausea Vomiting Intractability: non-intractable Vomiting type: unspecified Qualified Code(s): R11.2 - Nausea with vomiting, unspecified
--- NOTE | 2019-12-01 11:56 | Electrocardiogram Report ---
Test Reason : Blood Pressure : / mmHG Vent. Rate : 080 BPM Atrial Rate : 084 BPM P-R Int : 000 ms QRS Dur : 168 ms QT Int : 448 ms P-R-T Axes : 000 069 -49 degrees QTc Int : 516 ms Ventricular-paced rhythm Undelying atrial fibrillation Abnormal ECG When compared with ECG of 22-NOV-2019 10:59, No significant change was found Confirmed by Nima Nguyễn ([id number]) on 12/01/2019 11:56:31 AM Referred By: Casey Blackman Confirmed By:Nima Nguyễn
--- NOTE | 2019-12-01 12:13 | Orthopedic Consultation ---
Date of Consultation December 01, 2019 Assessment & Plan (1) Post-op bleeding: Postop bleeding status post right rotator cuff repair done on 11/30/2019. Preoperative H&H was 13.5 and today's is down to 10.9. Continue compressive gauze bandage with sandbag on top for additional compression. Currently on IV heparin secondary to her mechanical heart valves. Continue to follow H&H dressing changes as needed with continued compression. History of Present Illness Reason for Consultation: Excessive wound bleeding status post right rotator cuff repair Attending Physician: Fay Chavira MD History of Present Illness Patient is a 64-year old white female who underwent right rotator cuff repair yesterday by Dr. Blackman. The patient states that she went home after the surgery without any problems however she began noticing that she was having drainage that was saturating her dressings. She began having bloody drainage run out from under the dressings in the front and back of her dressing. Did not appear to be slowing down and she was becoming somewhat nervous about the situation. It was causing her to not feel well and she came to the emergency room. It was found that she was having some bleeding from the portals from the surgery. Patient has a history of being on chronic Coumadin for heart valve replacement and was on Lovenox bridging. He was admitted by the medicine service secondary to some of her comorbidities and we are asked to take care of her right shoulder. Currently she was sleeping on her left side upon arriving in the room but was easily awoken. Was able to sit up in her bed. She states that at rest, she has some mild pain in the right shoulder but attempting to move it causes moderate pain. No other complaints at this time. Allergies Allergy/AdvReac Type Severity Reaction Status Date / Time adhesive Allergy Mild Skin Verified 11/30/19 20:16 irritation gabapentin Allergy Unknown Unsure of Verified 11/30/19 20:16 reaction latex Allergy Unknown Reaction Verified 11/30/19 20:16 sure of reaction sertraline Allergy Unknown Unknown Verified 11/30/19 20:16 Sulfa (Sulfonamide Allergy Unknown Unknown Verified 11/30/19 20:16 Antibiotics) tramadol Allergy Unknown Unknown Verified 11/30/19 20:16 Home Medications Home Medications Medication Instructions Recorded Confirmed Type cetirizine [Zyrtec] 10 mg PO QAM 11/29/17 11/30/19 History calcium carbonate [Tums Ultra] 400 mg PO UD PRN 06/24/19 11/30/19 History enoxaparin [Lovenox] See Rx Instructions .ROUTE .COMPLEX 11/29/19 11/30/19 History oxycodone-acetaminophen [Percocet] 1 - 2 tab PO Q6H PRN #18 tab 11/29/19 11/30/19 Rx warfarin See Rx Instructions .ROUTE .COMPLEX 11/30/19 11/30/19 History Patient History Medical History Acid reflux Well controlled and stable Allergic rhinitis Chronic rhinitis - improved with allergy medication Aortic aneurysm, abdominal Status post placement of bifurcated aorta iliac stent graft since 2006. Most recent abdomen/pelvis CT 02/03/19= "abdominal aortic aneurysm status post aortobiiliac stent grafting. The aneurysmal diameter is 33 mm, unchanged from the preceding study. The aorta iliac stent grafts appear patent." Atrial fibrillation on warfarin; follows Dr. Hardy Cardiomegaly Chronic kidney disease, stage III (moderate) COPD (chronic obstructive pulmonary disease) Chronic BYRNE- stable. Coronary artery disease No hx of CABG or stents Lung nodule, solitary CT scan 12/2017: 4 mm right middle lobe nodule (no change in size since CT scan 10/17/16) Osteopenia Peripheral vascular disease Pulmonary hypertension No oxygen needed Rheumatic heart disease S/p AVR (1992) and MV (2014)- both mechanical valves- on Coumadin. Triscupid valve annuloplasty 05/10/2014 Systolic CHF TMJ click No locking Surgical History H/O aortic valve replacement "1992; mechanical" History of cardiac cath "years ago" - no stents - [facility] History of carpal tunnel release bilateral History of cholecystectomy History of colonoscopy History of endometrial ablation History of esophagogastroduodenoscopy (EGD) History of mitral valve replacement "05/2014; mechanical" Mechanical heart valve present Pacemaker placed 2014 - A.fib/bradycardia - [facility] - last check 10/2019 S/P AAA repair 2007 S/P tonsillectomy and adenoidectomy Family History Father Myocardial infarction Mother Cancer Denies family history of Ovarian cancer Prostate cancer Breast cancer Colorectal cancer Social History Smoking Status: Former smoker Cigarettes Per Day: 20; Smoking End Date: 10 years ago; Second Hand Exposure: No; Do You Dip or Chew Tobacco: No; Tobacco Cessation Education Requested by Patient: No Hx Alcohol Use: No Hx Substance Use: No Preferred Language: Romansh Communication Ability: Effective Visual Impairment: Limited Hearing Ability: Normal Instrument Designer Required: No Beliefs That Will Affect Care: None marital status: / marital status details: Lives with 19 year old grandson. Current Living Situation: Alone current occupational status: unemployed Other Information That Helps Us Care for You: No Feels Safe at Home: Yes Safety Concerns: Feels Safe At This Time Childhood Exposure to Second-Hand Smoke: No caffeine: Yes (Soda x 4 cups per day.) during the past year weight has: remained stable Dental Care, Regularly: No Physical Activity Frequency: Daily Seatbelt Use: always Sunscreen Use: Yes Assistive Devices: Brace/Splint/Immobilizer Review of Systems Review of Systems: All systems reviewed & are unremarkable except as noted in HPI & below Physical Exam Physical Exam: Examination of her right shoulder, she has a bulky dressing with Microfoam tape securing it. This is peeled back to reveal an ABD with 4 x 4's underneath. The 4 x 4's are mildly saturated with bloody drainage. This is fully removed to reveal her portal sites that have stitches in all of them. The anterior portal site still continues to trickle a small amount of what appears to be venous blood. This is not pulsatile. Shoulder does have mild to moderate swelling but is not tense. New bulky dressing was applied with Adaptic, 4 x 4's, ABD, 4 inch tape. A sandbag was then placed on top of the anterior portal site of the dressing to add compression. Sling is currently in place. She has good sensation in her right hand and fingers. She has good strength and range of motion of her fingers at this time. Motion of the wrist and elbow are within normal limits. She has no overt swelling going down the arm at this time. Cap refill is less than 2 seconds. Pulses are equal bilaterally. Results & Data ([facility]) Vital Signs (Past 12 Hours) Vital Signs Temp Pulse Resp BP Pulse Ox 12/01/19 08:47 36.6 C 83 16 96/60 L 96 12/01/19 05:41 80 97 Laboratory Results Laboratory Results WBC 4.99 K/uL (4.8-10.8) 12/01/19 01:12 RBC 3.59 M/uL (4.2-5.4) L 12/01/19 01:12 Hgb 10.9 g/dL (12.0-16.0) L 12/01/19 01:12 Hct 34.0 % (37-47) L 12/01/19 01:12 MCV 94.7 fL (80-100) 12/01/19 01:12 MCH 30.4 pg (25-34) 12/01/19 01:12 MCHC 32.1 g/dL (32-36) 12/01/19 01:12 RDW Std Deviation 47.0 fL (36.4-46.3) H 12/01/19 01:12 RDW Coeff of Zoë 13.6 % (11.5-14.5) 12/01/19 01:12 Plt Count 171 K/uL (130-400) 12/01/19 01:12 MPV 9.9 fL (7.4-10.4) 12/01/19 01:12 Immature Gran % (Auto) 0.2 % 12/01/19 01:12 Neut % (Auto) 77.8 % 12/01/19 01:12 Lymph % (Auto) 14.0 % 12/01/19 01:12 Young % (Auto) 7.6 % 12/01/19 01:12 Eos % (Auto) 0.4 % 12/01/19 01:12 Baso % (Auto) 0.0 % 12/01/19 01:12 Neut # (Auto) 3.88 K/uL (1.4-6.5) 12/01/19 01:12 Lymph # (Auto) 0.70 K/uL (1.2-3.4) L 12/01/19 01:12 Young # (Auto) 0.38 K/uL (0.11-0.59) 12/01/19 01:12 Eos # (Auto) 0.02 K/uL (0-0.5) 12/01/19 01:12 Baso # (Auto) 0.00 K/uL (0-0.2) 12/01/19 01:12 Immature Gran # (Auto) 0.01 K/uL (0.00-0.02) 12/01/19 01:12 PT 14.6 Seconds (9.0-12.0) H 12/01/19 01:12 INR 1.4 (0.9-1.1) H 12/01/19 01:12 APTT 55.7 Seconds (21.0-31.0) H* 12/01/19 07:46 PTT Ratio 2.0 12/01/19 07:46 Sodium 140 mmol/L (136-145) 12/01/19 07:46 Potassium 3.4 mmol/L (3.5-5.1) L 12/01/19 07:46 Chloride 107 mmol/L (98-107) 12/01/19 07:46 Carbon Dioxide 29 mmol/L (21-32) 12/01/19 07:46 Anion Gap 4.0 (3-11) 12/01/19 07:46 BUN 8 mg/dl (7-18) 12/01/19 07:46 Creatinine 0.70 mg/dl (0.6-1.2) 12/01/19 07:46 Est Cr Clr Drug Dosing 72.1 ml/min 12/01/19 07:46 Est GFR ( Amer) 105.4 12/01/19 07:46 Est GFR (Non-Af Amer) 90.9 12/01/19 07:46 BUN/Creatinine Ratio 11.3 (10-20) 12/01/19 07:46 Glucose 90 mg/dl (70-99) 12/01/19 07:46 Calcium 8.6 mg/dl (8.5-10.1) 12/01/19 07:46 Total Bilirubin 0.6 mg/dl (0.2-1) 11/30/19 19:49 AST 25 U/L (15-37) 11/30/19 19:49 ALT 25 U/L (12-78) 11/30/19 19:49 Alkaline Phosphatase 71 U/L (45-117) 11/30/19 19:49 Troponin I < 0.015 ng/ml (0-0.045) 11/30/19 19:49 Total Protein 7.0 gm/dl (6.4-8.2) 11/30/19 19:49 Albumin 3.4 gm/dl (3.4-5.0) 11/30/19 19:49 Globulin 3.6 gm/dl (2.5-4.0) 11/30/19 19:49 Albumin/Globulin Ratio 0.9 (0.9-2) 11/30/19 19:49 Lipase 65 U/L (73-393) L 11/30/19 19:49 (1) Post-op bleeding Procedure type: musculoskeletal Surgical complication system/body Area: musculoskeletal system Qualified Code(s): M96.830 - Postprocedural hemorrhage of a musculoskeletal structure following a musculoskeletal system procedure
[2019-12-01 13:37] LABS: Hematocrit (blood only) 35.4 % (37-47); Hemoglobin 11.5 g/dL (12.0-16.0); Mean Corpuscular Hemoglobin 30.7 pg (25-34); Mean Corpuscular Hgb Conc 32.5 g/dL (32-36); Mean Corpuscular Volume 94.7 fL (80-100); Mean Platelet Volume 10.2 fL (7.4-10.4); Platelet Count 190 K/uL (130-400); RDW Coefficient of Variation 13.6 % (11.5-14.5); RDW Standard Deviation 46.8 fL (36.4-46.3); Red Blood Count 3.74 M/uL (4.2-5.4)
[2019-12-02] MEDS: oxyCODONE/ACETAMINOPHEN 5mg/325mg TAB PO PRN ×2 (00:41→13:32)
[2019-12-02 06:45] LABS: Partial Thromboplastin Ratio 2.1
[2019-12-02 06:55] LABS: Partial Thromboplastin Time 57.5 Seconds (21.0-31.0)
[2019-12-02 06:57] LABS: BUN Creatinine Ratio 16.6 (10-20); Calcium 8.8 mg/dl (8.5-10.1); Creatinine Clr Calc Pharmacy 53.7 ml/min; Est GFR (African American) 73.8; Est GFR (Non-African American) 63.7; Potassium 3.9 mmol/L (3.5-5.1)
[2019-12-02] MEDS: CETIRIZINE HCL 10 MG TABLET PO SCH (08:04)
--- NOTE | 2019-12-02 09:19 | Orthopedic Progress Note ---
Date of Service December 02, 2019 Assessment & Plan (1) Post-op bleeding: Bleeding appears under control. I discussed with the patient that it would be beneficial to continue to use the sandbag as needed she is here just as a precaution, but does not have to be on continuously. Patient states that she does have increased pain with the sandbag on but she knows that it was necessary to use. Last hemoglobin checked appears to be stable. No surgery needed at this time. Okay to restart the patient's Coumadin. Patient will need home health services for physical therapy for her right shoulder. I will discuss with case management. Admission and Anticipated Discharge Date Admission Date: November 30, 2019 Subjective Patient sitting up in bed awake and alert. Just finishing eating her breakfast. No complaints today. States that she has the original dressing on this morning that I had placed on her yesterday. She feels that the bleeding has stopped. She feels well overall. Pain is controlled at rest. Physical Exam Physical Exam: Current dressing she has on has some noted drainage that I can see through the tape but not near what it was yesterday. The dressing has not needed reinforced in any way or changed. This dressing is removed. 4 x 4's are saturated to an extent and the ABD has some mild drainage on it. The dressing is gently removed. All of the portal sites are benign. Mild bruising noted around the shoulder. There is no active bleeding noted out of any of the portals. A new dressing was reapplied. Results & Data ([facility]) Vital Signs (Past 12 Hours) Vital Signs Temp Pulse Pulse Resp BP Pulse Ox Pulse Ox 12/02/19 08:02 36.7 C 84 16 95/55 L 92 12/02/19 05:35 86 91 12/02/19 04:09 87 88 L 12/02/19 01:11 82 89 L 12/01/19 23:12 85 89 L 12/01/19 23:10 37.7 C H 94 H 18 101/64 93 12/01/19 21:21 72 95 (1) Post-op bleeding Procedure type: musculoskeletal Surgical complication system/body Area: musculoskeletal system Qualified Code(s): M96.830 - Postprocedural hemorrhage of a musculoskeletal structure following a musculoskeletal system procedure
--- NOTE | 2019-12-02 10:20 | Hospitalist Progress Note ---
Date of Service December 02, 2019 Assessment & Plan (1) Post-op bleeding: * Discharged on 11/28 s/p right shoulder rotator cuff surgery with Dr. Blackman presented with acute bleeding/nausea/vomiting post-operatively * Pre-op h/h 13.5/40 -- dropped to low of 10.6 on 11/30 * Consistent with acute blood loss anemia * Pressure dressings and sand bag to control bleeding -- no further need for sandbag if uncomfortable as bleeding controlled and patient with increased pain with use. * Orthopedics consulted -- appreciate assistance. Ok for d/c from orthopedic standpoint to resume coumadin * CBC with improvement of h/h 11.5/35.4 * CBC in AM Continue heparin gtt given valves Given INR 1.4 -- will given 6mg PO coumadin tonight (on 2mg M/, 4mg other days) and plan for bridging with coumadin in AM (2) Vomiting: * Patient with significant nausea and vomiting post-operatively, now resolved. Suspect reaction to anesthetics. * Zofran prn. * None reported (3) Mechanical heart valve present: * Patient with mechanical heart valve (aortic and mitral) and tricuspid valve repar. Hx Rheumatic fever * Follows locally with Dr. 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 Interrogated this summer. Continues Afib but ventricular paced * She has been bridging Lovenox since her surgery - last Lovenox dose on 11/29 at 08:00, last Coumadin dose on 11/28 at 20:00. Bleeding controlled as above. Patient at risk for clotting given mechanical valve * Heparin gtt, low dose-- continue for now. PTT 57.5. INR 1.4 * Resume Coumadin this evening at 6mg dose -- will need bridging as above. Follows with [facility] coag clinic and checks INR at home and they adjust as needed * Coags in AM (4) Coronary artery disease: * Chronic. Stable * Currently only on ASA 81mg po daily -- held given above * Not on BB due to low BPs, no TAMIKO/ARB given CKD. Follows with Dr. Hardy. Of note, was lost to follow-up from [id number]. (5) Chronic kidney disease, stage III (moderate): * Chronic. Stable. BUN and Cr near baseline * Avoid nephrotoxic agents * Renal dosing where needed * Monitor BUN, Cr and electrolytes (6) Acid reflux: * Chronic. Stable. Not on any medications * Continue to monitor (7) Rheumatic heart disease: * With history of valvular replacement - mitral and aortic * Heparin gtt as above for mechanical valve (8) Atrial fibrillation: * Pacemaker in place * Anticoagulation with heparin to coumadin (9) COPD (chronic obstructive pulmonary disease): * Chronic. Stable. No O2 required * Continue to monitor * Patient currently not on any medications. * May benefit from Spiriva/Albuterol on DC --> will order spiriva while inpatient and see if improved * 92% on RA but did drop 84% overnight and required supplemental o2. Denies hx JOSE RAMON * Overnight pulse ox ordered and patient dropped O2 sat to 71% and qualified for O2 HS -- will order while inpatient and have CM arrange at d/c. She will decide after further discussion with PCP if she would like ref to sleep study as she would not like us to arrange that at this time * 92% onRA (10) Diastolic heart failure due to valvular disease: * Follows locally with Dr. Hardy. Lost to follow up [id number]. * Did have ECHO November 2019 which showed EF 55% and diastolic grade III as well as valvular findings c/w repair and replacements as above * Patient appears euvolemic with no evidence of failure at present (11) DVT prophylaxis: * Heparin as above. Coumadin 6mg tonight, coags in AM Dispo: likely d/c in AM Admission and Anticipated Discharge Date Admission Date: November 30, 2019 Supervising Physician Co-Signing Physician Notes PA Supervision Note: I did not personally see or examine the patient today, but I verified all browne points of JACK Hercules's assessment and plan with the following exceptions/additions: None Subjective Patient evaluated this morning. No further dressing changes needed since yesterday and was replaced by ortho this morning. No further need for sandbag as bleeding seems to be controlled. Discussed improvement of blood counts. She did endorse bit of warmth last evening as she felt the bathroom was "like a sauna". No urinary symptoms and denies knowing if she had a huang during her shoulder operation or not. Will obtain UA on next void. Denies cough or sputum production. Discussed restarting coumadin this evening. Patient feeling more comfortable to monitor overnight for further signs of bleeding and hopeful for bridging and discharge in AM. Pain controlled with ordered medications. Patient states her BP is always on the lower side. Asymptomatic at this time. Discussed overnight pulse ox. Patient agreeable to overnight O2 but would like to hold off on followup for sleep study at this time. To discuss further with her PCP. Denies shortness of breath, cp, abd pain, n/v at this time. Review of Systems Review of Systems: All systems reviewed & are unremarkable except as noted in HPI & below Physical Exam Constitutional: WD/WN, vitals as above cooperative; no acute distress Eyes: + anicteric sclerae and PERRL Neck: normal visual inspection Respiratory: normal respiratory effort, lungs clear to auscultation Ausc ultation: + crackles (bibasilar crackles) Cardiovascular: Rate/Rhythm: regular rate and regular rhythm Heart Sounds: + murmur (and mid-systolic click) Gastrointestinal (Abdomen): normal bowel sounds, soft, nontender, no hepatosplenomegaly Musculoskeletal: sling R shoulder dressing c/d/i NVI Neurologic: moves all extremities and awake Psychiatric: Orientation: alert and oriented x 3 Lymphatic: no cervical or axillary lymphadenopathy Results & Data Results & Data ([facility]) Vital Signs (Past 12 Hours) Vital Signs Temp Pulse Pulse Resp BP Pulse Ox Pulse Ox 12/02/19 08:02 36.7 C 84 16 95/55 L 92 12/02/19 05:35 86 91 12/02/19 04:09 87 88 L 12/02/19 01:11 82 89 L 12/01/19 23:12 85 89 L 12/01/19 23:10 37.7 C H 94 H 18 101/64 93 Laboratory Results 12/02/19 12/02/19 12/01/19 Range/Units 06:06 06:06 13:28 WBC 6.10 (4.8-10.8) K/uL RBC 3.74 L (4.2-5.4) M/uL Hgb 11.5 L (12.0-16.0) g/dL Hct 35.4 L (37-47) % MCV 94.7 (80-100) fL MCH 30.7 (25-34) pg MCHC 32.5 (32-36) g/dL RDW Std Deviation 46.8 H (36.4-46.3) fL RDW Coeff of Zoë 13.6 (11.5-14.5) % Plt Count 190 (130-400) K/uL MPV 10.2 (7.4-10.4) fL APTT 57.5 H* (21.0-31.0) Seconds PTT Ratio 2.1 Sodium 142 (136-145) mmol/L Potassium 3.9 (3.5-5.1) mmol/L Chloride 108 H (98-107) mmol/L Carbon Dioxide 29 (21-32) mmol/L Anion Gap 4.0 (3-11) BUN 16 D (7-18) mg/dl Creatinine 0.94 (0.6-1.2) mg/dl Est Cr Clr Drug Dosing 53.7 ml/min Est GFR ( Amer) 73.8 Est GFR (Non-Af Amer) 63.7 BUN/Creatinine Ratio 16.6 (10-20) Glucose 88 (70-99) mg/dl Calcium 8.8 (8.5-10.1) mg/dl PG Care Time/CCT Total # of Minutes Spent Total Time Spent with Patient: Total time spent is greater than 50% in coordination of care (as documented) at patient's floor/unit and/or counseling patient: Coding Level of Care Code 55825 Subseq Hosp Care Lvl 2 Diagnoses Post-op bleeding M96.830 Procedure type: musculoskeletal Surgical complication system/body Area: musculoskeletal system Vomiting R11.2 Nausea presence: with nausea Vomiting Intractability: non-intractable Vomiting type: unspecified Mechanical heart valve present Z95.2 Coronary artery disease I25.10 Associated angina: without angina Coronary Disease-Associated Artery/Lesion type: [place] artery [place] vs. transplanted heart: [place] heart Chronic kidney disease, stage III (moderate) N18.3 Acid reflux K21.9 Esophagitis presence: esophagitis presence not specified Rheumatic heart disease I09.9 Atrial fibrillation I48.91 Atrial fibrillation type: unspecified COPD (chronic obstructive pulmonary disease) J44.9 COPD type: unspecified COPD Diastolic heart failure due to valvular disease I50.30; I38 DVT prophylaxis Z29.9 (1) Coronary artery disease Associated angina: without angina Coronary Disease-Associated Artery/Lesion type: [place] artery [place] vs. transplanted heart: [place] heart Qualified Code(s): I25.10 - Atherosclerotic heart disease of [place] coronary artery without angina pectoris (2) Atrial fibrillation Atrial fibrillation type: unspecified Qualified Code(s): I48.91 - Unspecified atrial fibrillation (3) Post-op bleeding Procedure type: musculoskeletal Surgical complication system/body Area: musculoskeletal system Qualified Code(s): M96.830 - Postprocedural hemorrhage of a musculoskeletal structure following a musculoskeletal system procedure (4) COPD (chronic obstructive pulmonary disease) COPD type: unspecified COPD Qualified Code(s): J44.9 - Chronic obstructive pulmonary disease, unspecified (5) Acid reflux Esophagitis presence: esophagitis presence not specified Qualified Code(s): K21.9 - Gastro-esophageal reflux disease without esophagitis (6) Vomiting Nausea presence: with nausea Vomiting Intractability: non-intractable Vomiting type: unspecified Qualified Code(s): R11.2 - Nausea with vomiting, unspecified
[2019-12-02 11:43] LABS: INR 1.4 (0.9-1.1); Prothrombin Time 14.3 Seconds (9.0-12.0)
[2019-12-02 15:40] LABS: Appearance Urine Clear (Clear); Bilirubin Urine Negative (Negative); Blood Urine Negative (Negative); Color Urine Yellow; Glucose Urine UA Negative (Negative); Ketones Urine Negative (Negative); Leukocyte Esterase Urine Negative (Negative); Nitrite Urine Negative (Negative); Protein Urine Negative (Negative); Specific Gravity Urine 1.008 (1.000-1.030); Urobilinogen Urine Negative (Negative); pH Urine 6.5 (4.5-7.5)
[2019-12-02] MEDS ORDERED: WARFARIN SOD 6 MG TAB PO SCH (16:00)
[2019-12-02] MEDS: UMECLIDINIUM BROMIDE 62.5MCG/BLISTER 7 PUFFS/INHALER INH SCH ×2 (17:41→17:44)
[2019-12-03] MEDS: oxyCODONE/ACETAMINOPHEN 5mg/325mg TAB PO PRN ×2 (02:51→14:12)
[2019-12-03 07:50] LABS: Basophils # (auto) 0.01 K/uL (0-0.2); Basophils % (auto) 0.2 %; Eosinophils # (auto) 0.13 K/uL (0-0.5); Eosinophils % (auto) 2.9 %; Hematocrit (blood only) 32.7 % (37-47); Hemoglobin 10.8 g/dL (12.0-16.0); Immature Granulocytes # (auto) 0.01 K/uL (0.00-0.02); Immature Granulocytes % (auto) 0.2 %; Lymphocytes # (auto) 1.02 K/uL (1.2-3.4); Lymphocytes % (auto) 22.7 %; Mean Corpuscular Hemoglobin 30.9 pg (25-34); Mean Corpuscular Volume 93.4 fL (80-100); Mean Platelet Volume 10.1 fL (7.4-10.4); Monocytes # (auto) 0.59 K/uL (0.11-0.59); Monocytes % (auto) 13.1 %; Neutrophils # (auto) 2.73 K/uL (1.4-6.5); Neutrophils % (auto) 60.9 %; Platelet Count 167 K/uL (130-400); RDW Coefficient of Variation 13.9 % (11.5-14.5); RDW Standard Deviation 46.6 fL (36.4-46.3); White Blood Count 4.49 K/uL (4.8-10.8)
[2019-12-03 08:15] LABS: INR 1.4 (0.9-1.1); Partial Thromboplastin Ratio 1.8; Prothrombin Time 14.3 Seconds (9.0-12.0)
[2019-12-03] MEDS: CETIRIZINE HCL 10 MG TABLET PO SCH (09:06)
--- NOTE | 2019-12-03 09:31 | Discharge Summary ---
Date of Service December 03, 2019 Admission HPI Per Admitting Provider Jovanna Garg is a 64yo female with multiple medical problems to include AF, CKD, COPD, CAD, mechanical aortic valve on Coumadin anticoagulation. Patient with history of progressive right shoulder pain not amenable to conservative efforts. She had a right shoulder arthroscopic subacromial decompression, acromioplasty, distal clavicle excision, rotator cuff repair and debridement of the anterior labrum performed by Dr. Blackman on 11/29/19. The procedure was performed under General regional anesthesia, no complications identified, blood loss minimal. She was discharged home same day in stable condition. She reports developing nausea at home with multiple episodes of non-bloody/non-bilious emesis. She had significant bleeding from the anterior incision noted with soaked dressings therefore she came to the ER. Patient is complaining of left shoulder pain otherwise no complaints. Nausea has resolved as has dizziness/lightheadedness. ER Course: Morphine 4mg IV x 2, Zofran, Phenergan, NSS Admission Exam Per Admitting Provider General: patient resting comfortably, NAD, non-toxic in appearance, AA&O x 4 Skin: warm, dry, surgical site with dressing in place, pressure dressing on anterior site with no bleeding HEENT: NC/AT, PERRL, EOMI, anicteric sclera, conjunctiva without injection, external ear normal to inspection and nontender, nares patent, moist mucus membranes, dentition intact, no oropharyngeal lesions, neck supple, trachea midline, no LAD, no thyromegaly, no JVD Heart: +S1/S2, regular, +mid-systolic click, no m/r/g Lungs: equal air entry bilaterally, no rales/rhonchi/wheezes Abd: +BS, soft, NT/ND, no masses/organomegaly/ascites Ext: warm, 2+ pulses in UE/LE bilaterally, no clubbing/cyanosis or edema, RUE in sling Neuro: nonfocal, patient AA&O x 4, speech intact, no facial droop, moving all extremities on command with equal strength 5/5 Principal Diagnosis Post-Op Bleeding s/p R Rotator Cuff Surgery Discharge Exam Constitutional WD/WN, vitals as above cooperative; no acute distress Eyes + anicteric sclerae and PERRL ENMT Ears: no hearing impairment Nose: no external nose abnormality Neck normal visual inspection Respiratory normal respiratory effort, lungs clear to auscultation (prolonged expiratory phase) Cardiovascular Rate/Rhythm: regular rate and regular rhythm Heart Sounds: + murmur (and mid-systolic click) Chest (Breasts) Additional Comments: pacemaker present sternotomy scar noted Gastrointestinal (Abdomen) normal bowel sounds, soft, nontender, no hepatosplenomegaly Musculoskeletal sling to R arm dressing c/d/i NVI pulses palpable log turner strength equal Skin warm, dry Neurologic moves all extremities and awake Psychiatric Orientation: alert and oriented x 3 Lymphatic no cervical or axillary lymphadenopathy Discharge Data Allergies Allergy/AdvReac Type Severity Reaction Status Date / Time adhesive Allergy Mild Skin Verified 11/30/19 20:16 irritation gabapentin Allergy Unknown Unsure of Verified 11/30/19 20:16 reaction latex Allergy Unknown Reaction Verified 11/30/19 20:16 sure of reaction sertraline Allergy Unknown Unknown Verified 11/30/19 20:16 Sulfa (Sulfonamide Allergy Unknown Unknown Verified 11/30/19 20:16 Antibiotics) tramadol Allergy Unknown Unknown Verified 11/30/19 20:16 Consultations 11/30/19 21:28 ED Decision to Admit Stat 12/01/19 00:14 Consult Orthopedic Surgery Routine Hospital Course (1) Post-op bleeding: * Discharged on 11/28 s/p right shoulder rotator cuff surgery with Dr. Blackman presented with acute bleeding/nausea/vomiting post-operatively * Pre-op h/h 13.5/40 -- dropped to low of 10.6 on 11/30. Stable 10.8/32.7 * Ortho consulted * Pressure dressings and sandbag used to control bleeding -- to continue now with daily dressing changes. Ok to d/c from surgical standpoint * No further pressure dressings needed since AM 11/30 * Placed on heparin gtt while inpatient given history of cardiac valves and transitioned to coumadin/lovenox bridge at discharge --> got 6mg evening 12/01 and to take additional 4mg tonight in addition to Lovenox 60mg SQ BID for 12/02 and 12/03 and continue once daily thereafter with her usual coumadin dosing and have INR checked 12/04 with further direction per [facility] clinic that she follows with. (2) Vomiting: * Patient with significant nausea and vomiting post-operatively, now resolved. Suspect reaction to anesthetics. * Zofran prn. * None reported (3) Mechanical heart valve present: * Patient with mechanical heart valve (aortic and mitral) and tricuspid valve repar. Hx Rheumatic fever * Follows locally with Dr. 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 Interrogated this summer. Continues Afib but ventricular paced * She has been bridging Lovenox since her surgery - last Lovenox dose on 11/29 at 08:00, last Coumadin dose on 11/28 at 20:00. Bleeding controlled as above. Patient at risk for clotting given mechanical valve * INR 1.4 --> Follows with [facility] coag clinic and checks INR at home and they adjust as needed. Next check 12/04 * Heparin gtt while inpatient with transition to Lovenox/Coumadin bridge as abov douglas (4) Coronary artery disease: * Chronic. Stable. Runs low at baseline and is asymptomatic * Currently only on ASA 81mg po daily -- held given above and resumed at discharge * Not on BB due to low BPs, no TAMIKO/ARB given CKD. Follows with Dr. Hardy. Of note, was lost to follow-up from [id number]. (5) Chronic kidney disease, stage III (moderate): * Chronic. Stable. BUN and Cr near baseline * Avoid nephrotoxic agents * Renal dosing when needed (6) Acid reflux: * Chronic. Stable. Not on any medications (7) Rheumatic heart disease: * With history of valvular replacement - mitral and aortic * Anticoagulation as above (8) Atrial fibrillation: * Pacemaker in place * Anticoagulation with heparin to lovenox/coumadin (9) COPD (chronic obstructive pulmonary disease): * Chronic. Stable. No O2 required * Continue to monitor * Patient currently not on any medications. * Reported multiple PFT in past with hx emphysema. * Overnight pulse ox ordered and patient dropped O2 sat to 71% and qualified for O2 HS * --> Further discussion evening 12/01 at patient request as she had been thinking more about wearing O2 at night. She denied shortness of breath, but as I discussed with her at length, a completely separate issue. Patient adamant that if not having symptoms awake that she doesn't need a CPAP or oxygen at night and she had an overnight pulse ox in the past that was fine. * She would NOT like to have O2 HS and follow up for sleep study outpatient. Declined again morning of discharge. * Consider repeating overnight pulse ox at home in the future if patient agreeable after discussing with her PCP * 91% on RA (10) Diastolic heart failure due to valvular disease: * Follows locally with Dr. Hardy. Lost to follow up [id number]. * Did have ECHO November 2019 which showed EF 55% and diastolic grade III as well as valvular findings c/w repair and replacements as above * Patient appears euvolemic with no evidence of failure at present (11) DVT prophylaxis: * Heparin gtt while inpatient and was started back on coumadin/lovenox (last dose coumadin 6mg 12/01 and Lovenox 60mg 12pm 12/02) * To have follow up INR on 12/04 and follow up with coag clinic Discharged home with son. (12) Acute blood loss anemia: Total Time Total Time Spent Total Time Spent (In Minutes): 60 Discharge Plan Discharge Items Patient Disposition: Home - Home Health Services Reason For Visit: POST-OPERATIVE BLEEDING Discharge Diagnosis: Post-operative bleeding Condition on Discharge: Fair Goals: You have been hospitalized for an acute medical problem. During your stay at [facility], we have made an effort to correct the problem that brought you to the hospital while keeping you as comfortable as possible. Medications were used to bring your condition under control and your discharge instructions will include directions for any medications you should take after leaving the hospital. Please make sure you see your Primary Care Provider as part of your follow up plan. Activity: Resume your previous activity Activity Comment: no physical therapy until arranged by orthopedics at follow up Non-emergency contact: Primary Care Provider and Surgeon Call non-emergency contact if: you have any medication questions, your symptoms worsen and your pain is concerning for you Follow-up/Referrals: Shellie Bush DO [Primary Care Provider] - 12/12/19 9:20 am Casey Blackman DO [Surgeon] - (as previously arranged) Diet: Heart Healthy Addtl Attending Provider Instructions: You have been hospitalized for post-operative bleeding from your surgical site due to anticoagulation use. Pressure dressings were used along with sandbag and you were evaluated by orthopedics team. Your bleeding has been controlled and your blood counts remain stable. You are to resume your daily lovenox injections and coumadin 4mg tonight and resume prior schedule until your INR is back in therapeutic range and then you will be able to discontinue the lovenox. You will need to take an additional dose of lovenox this evening and then TWICE DAILY for tomorrow (12/03). Then, continue with once daily as instructed by the coagulation clinic once you have your INR checked on 12/04. Your INR on AM labs was 1.4, although we expect this to rise by tomorrow's labs as they typically lag behind and you were given 6mg tablet evening of 12/01. You should follow up with coagulation clinic with your INR checks at home and they may decide to make further adjustments based on your repeat values. While inpatient, you were evaluated for sleep apnea, as it was noticed your pulse oximetry dropped at night and an official overnight study was performed. As discussed at length, there are long term care phlebotomist consequences for untreated sleep apnea and it is highly recommended that you utilize oxygen at night until a formal sleep study could be arranged. You have decided not to utilize oxygen at this time and should follow up with your primary care provider about further discussion and if you decide to change your mind, you should have this set up. Please follow up in the next week to monitor your progress post-operatively with your PCP. You have also opted not to use any type of inhaler. As discussed, you previously had PFT testing in the past which showed emphysema, but should really have these repeated and followed up with pulmonary as needed. You should follow up with the orthopedics team as previous scheduled, or sooner for any issues. You should follow up with Dr. Hardy for routine follow-up given your significant cardiac history/valve replacements. Please return to the emergency department if you have any worsening bleeding, shortness of breath, chest pain, or for any other symptoms that are concerning for you. Pending Studies at Discharge: No Stand-Alone Forms: My [facility] Medications and DC Order Prescriptions: New enoxaparin 60 mg/0.6 mL syringe See Rx Instructions .ROUTE .COMPLEX Qty: 6 RF: 0 Continued cetirizine [Zyrtec] 10 mg Tablet 10 mg PO QAM RF: 0 calcium carbonate [Tums Ultra] 400 mg calcium (1,000 mg) tablet,chewable 400 mg PO UD PRN (Reason: Heartburn) RF: 0 oxycodone-acetaminophen [Percocet] 5-325 mg Tablet 1 - 2 tab PO Q6H PRN (Reason: pain) Qty: 18 RF: 0 warfarin 2 mg Tablet See Rx Instructions .ROUTE .COMPLEX RF: 0 Discontinued enoxaparin [Lovenox] 60 mg/0.6 mL Syringe See Rx Instructions .ROUTE .COMPLEX RF: 0 Discharge Orders: Discharge Order (Routine); Ordered 12/03/19 Ordered By: Jodee Peña/Other Patient Handouts: Enoxaparin injection Admission Data Admit Date/Time: 11/30/19 22:45 Attending Provider: Fay Chavira Admit Provider: Kizzy Castle Primary Care Provider: Shellie Bush Other Providers: Kizzy Castle ; Casey Blackman Other Interventions: Discharge Summary Assessment (RN) Last Done: 12/03/19 13:04 Supervising Physician Co-Signing Physician Notes PA Supervision Note: I personally saw and examined the patient. I verified all browne points and agree with JACK Hercules with the following exceptions and/or additions: Pt feeling well, bleeding from shoulder has stopped and hgb stable. Overnight hypoxemia as above-pt declines O2 qhs. Stable for dc to homew on Lovenox and coumadin, f/u with Anticoag clinic VSS NAD, AAOx3 RRR +click of S2, 2/6 JACK RUSB CTAB no wcr Ext RUE in sling, no LE edema ABd +BS soft NT ND Dc to home Coding Level of Care Code D/C Day Management >30 mins Diagnoses Post-op bleeding M96.830 Procedure type: musculoskeletal Surgical complication system/body Area: musculoskeletal system Vomiting R11.2 Nausea presence: with nausea Vomiting Intractability: non-intractable Vomiting type: unspecified Mechanical heart valve present Z95.2 Coronary artery disease I25.10 Associated angina: without angina Coronary Disease-Associated Artery/Lesion type: [place] artery [place] vs. transplanted heart: [place] heart Chronic kidney disease, stage III (moderate) N18.3 Acid reflux K21.9 Esophagitis presence: esophagitis presence not specified Rheumatic heart disease I09.9 Atrial fibrillation I48.91 Atrial fibrillation type: unspecified COPD (chronic obstructive pulmonary disease) J44.9 COPD type: unspecified COPD Diastolic heart failure due to valvular disease I50.30; I38 DVT prophylaxis Z29.9 Acute blood loss anemia D62
[2019-12-03] MEDS: HEPARIN SODIUM/DEXTROSE 25,000 UNITS/500 ML BAG IV SCH (10:44)
[2019-12-03] MEDS ORDERED: ENOXAPARIN INJ 60 MG/0.6 ML SYR SQ ONE (11:00)
== END 2019-12-03 14:41 | disposition home health service (06) | DRG 813 ==
LOC: ED 17:20 → 3W 22:45 → SUATTDRO 22:45

== ENCOUNTER 2024-07-26 18:58 | Inpatient (IN) ==
[2024-07-26] MEDS: ACETAMINOPHEN 1,000 MG/100 ML VIAL IV STA (19:19)
[2024-07-26] MEDS: SODIUM CHLORIDE 0.9% 500 ML IV ONE ×2 (19:20→21:22)
[2024-07-26 19:25] LABS: Basophils # (auto) 0.01 K/uL (0.00-0.20); Basophils % (auto) 0.1 %; Eosinophils # (auto) 0.05 K/uL (0.00-0.50); Eosinophils % (auto) 0.7 %; Hematocrit (blood only) 33.5 % (37.0-47.0); Hemoglobin 10.9 g/dl (12.0-16.0); Immature Granulocytes # (auto) 0.04 K/uL (0.01-0.20); Immature Granulocytes % (auto) 0.6 %; Lymphocytes # (auto) 1.02 K/uL (1.20-3.40); Lymphocytes % (auto) 14.1 %; Mean Corpuscular Hemoglobin 30.6 pg (25.0-34.0); Mean Corpuscular Hgb Conc 32.5 g/dL (32.0-36.0); Mean Corpuscular Volume 94.1 fL (80.0-100.0); Mean Platelet Volume 9.8 fL (9.4-12.4); Monocytes # (auto) 0.25 K/uL (0.11-0.59); Monocytes % (auto) 3.5 %; Neutrophils # (auto) 5.85 K/uL (1.40-6.50); Platelet Count 151 K/uL (130-400); RDW Coefficient of Variation 15.6 % (11.5-14.5); RDW Standard Deviation 53.6 fL (36.4-46.3); Red Blood Count 3.56 M/uL (4.20-5.40); White Blood Count 7.22 K/ul (4.8-10.8)
[2024-07-26 19:44] LABS: Albumin Level 3.1 gm/dl (3.4-5.0); BUN Creatinine Ratio 12.1 (10-20); Bilirubin Direct 0.4 mg/dl (0-0.2); Bilirubin,Total 1.9 mg/dl (0.2-1.0); Creatinine Clr Calc Pharmacy 40.6 ml/min; Magnesium 1.5 mg/dl (1.7-2.4); Potassium 3.8 mmol/L (3.5-5.1); Total Protein 5.8 gm/dl (6.0-8.3)
[2024-07-26 19:46] LABS: Base Excess VBG 0.3 mEq/L; HCO3 VBG 23 mmol/L; Oxygen Saturation VBG < 60.0 %; PCO2 VBG 32 mmHg (38-50); PO2 VBG 30 mmHg; pH VBG 7.47 (7.36-7.41)
[2024-07-26 19:50] LABS: Troponin I High Sensitivity 15.1 pg/ml (0-14)
[2024-07-26] MEDS: cefTRIAXone SODIUM 2,000 MG/50 ML BAG IV STA (19:55)
[2024-07-26] MEDS: AZITHROMYCIN 250 MG TAB PO ONE (19:55)
[2024-07-26 19:56] LABS: INR 3.9 (0.9-1.1); Partial Thromboplastin Ratio 1.7; Partial Thromboplastin Time 46 Seconds (21-31); Prothrombin Time 37.1 Seconds (9.0-12.0)
[2024-07-26] MEDS: SODIUM CHLORIDE 0.9% 500 ML IV SCH (20:00)
[2024-07-26 20:22] LABS: Adenovirus PCR Not Detected (NotDetected); Bordetella parapertussis PCR Not Detected (NotDetected); Bordetella pertussis PCR Not Detected (NotDetected); Chlamydia pneumoniae PCR Not Detected (NotDetected); Coronavirus 229E PCR Not Detected (NotDetected); Coronavirus CoV-2 (COVID19)PCR Not Detected (NotDetected); Coronavirus HKU1 PCR Not Detected (NotDetected); Coronavirus NL63 PCR Not Detected (NotDetected); Coronavirus OC43PCR Not Detected (NotDetected); Human Metapneumovirus PCR Not Detected (NotDetected); Influenza A PCR Not Detected (NotDetected); Influenza B PCR Not Detected (NotDetected); Mycoplasma pneumoniae PCR Not Detected (NotDetected); Parainfluenza Virus 1 PCR Not Detected (NotDetected); Parainfluenza Virus 2 PCR Not Detected (NotDetected); Parainfluenza Virus 3 PCR Not Detected (NotDetected); Parainfluenza Virus 4 PCR Not Detected (NotDetected); Respiratory Syncytial VirusPCR Not Detected (NotDetected); Rhinovirus/Enterovirus PCR Not Detected (NotDetected)
--- NOTE | 2024-07-26 21:08 | XRay Report ---
EXAM: XR chest 1V portable CLINICAL HISTORY: Sepsis. TECHNIQUE: An X-ray image of the chest is obtained in AP projection. COMPARISON: prior chest X-ray dated 07/26/2024. FINDINGS: Pulmonary Parenchyma: No evidence of consolidation, collapse, or focal opacities. No pulmonary nodules are identified. Increased lung markings with bilateral basal reticular infiltrates, likely denoting vascular/interstitial congestion (slightly increased since prior). No evidence of pleural effusion or pleural thickening. Heart and Mediastinum: Stable cardiomegaly. No mediastinal widening or masses. No hilar or mediastinal lymphadenopathy. Applied external cardiac pacemaker and sternotomy wire sutures are again noted. Bony Thorax: Bony thorax appears intact without fractures or deformities. Soft Tissues: Soft tissues overlying the chest wall are unremarkable. IMPRESSION: 1. Increased lung markings with bilateral basal reticular infiltrates, likely denoting vascular/interstitial congestion (slightly increased since prior). 2. Stable cardiomegaly. Electronically signed by Nelson Mckeon 07-26-2024 9:07 PM
--- NOTE | 2024-07-26 21:13 | XRay Report ---
EXAM: XR pelvis 1-2V routine CLINICAL HISTORY: Fall. TECHNIQUE: X-ray images of the pelvis were obtained in anteroposterior (AP) projection. COMPARISON: Previous x-ray dated 01/29/2019 of right hip. FINDINGS: Bone Structure: Pelvic bones, including the iliac wings, ischium, pubis, and sacrum, are normal and intact. No evidence of fractures or dislocations. Radiolucent mach band along right femoral neck. Hip Joints: Osteophytes seen around right hip joint with joint space reduction. Cortical buttressing seen along femoral neck. Large lucent area (10 mm) seen along sub-articular surface of right femoral head. Left hip joint is unremarkable. No hip dislocation. Acetabulum: No signs of acetabular fracture or dysplasia. Symphysis Pubis: Symphysis pubis is normal and intact. No evidence of separation or widening. Sacroiliac Joints: Sacroiliac joints appear normal and unremarkable. No evidence of sacroiliitis or significant degenerative changes. Soft Tissues: Surgical clips over right inguinal region. Aorto-iliac stent redemonstrated. IMPRESSION: 1. Progression of right hip joint osteoarthritis, which is now moderate in severity (chronic changes). 2. Lucent area seen along sub-articular surface of right femoral head, likely geode. 3. The remaining x-ray of pelvis is unremarkable. No acute fracture or hip dislocation. Disclaimer: A subtle bone abnormality or fracture may not be readily apparent on X-rays, thus clinical correlation and further imaging including follow-up CT, MRI, or follow-up X-rays are advised as needed. Electronically signed by Nelson Mckeon 07-26-2024 9:09 PM
--- NOTE | 2024-07-26 21:27 | History & Physical Report ---
Date of Service July 26, 2024 Assessment & Plan (1) Sepsis: (2) Acute UTI: (3) Hypoxia: (4) Hypomagnesemia: Plan Patient is a 69-year-old female with history of aortic and mitral mechanical replacements, A-fib with a pacer, CHF (most recent EF 45 to 50%), rheumatic heart disease, stage III CKD, CAD, PVD, COPD. Patient presented via EMS due to 1 day of chills, fatigue, lower abdominal pain/pressure. Patient is being admitted for sepsis secondary to UTI. #Sepsis/UTI - UA 2+ protein, positive for nitrates, 3+ LE, greater than 50 WBC, 4+ bacteria. Symptomatic. History of pansensitive E. coli. Renal function stable. + SIRS: tachypneic (RR 31), tachycardic (HR 131), febrile 38.4C - lactate 1.6, procal 2.50 - no leukocytosis - trend CBC - Sepsis fluid bolus for ideal body weight = 1704.30mL; given 1.5L NSS in ED - Complete sepsis fluid bolus with additional 1L LR bolus given tachycardic and hypotensive on admission; continue IVF resuscitation with LR @ 150 ml/hr x2l - ABX coverage with Rocephin - discontinue azithromycin - originally thought to be PNA however CXR negative and patient without respiratory symptoms - follow blood and urine cultures - Tylenol prn for fever - trop 15.1 - likely 2/2 demand with sepsis, pt denies CP. Repeat with AM labs. #[id number] on room air in ED. CXR showed interstitial congestion. Bio fire negative. Repleted magnesium as below Incentive spirometry Wean oxygen as tolerated #hypomagnesemia2/2. P.o. intake. Magnesium 1.5, electrolytes stable. 2G IV magnesium ordered Trend magnesium and BMP #Hip painpelvis XR reveals worsening osteoarthritis. Patient with hip pain worsening for several months. Patient denies any falls. Tylenol as needed, oxycodone prn for breakthrough pain #HFpEFmost recent EF 45 to 50%. no acute exacerbation at time of admission not on any diuretics at home. Strict I's and O's Monitor for fluid overload with fluids above however patient appears very dry - daily weights #valvular heart dx - aortic and mitral valve replacements, tricuspid repair INR goal 2.5-3.5 - INR 3.9 on admission - hold Warfarin 07/27 and trend INR to resume #A-fib with pacer - In A-fib RVR at time of patient. Repleting electrolytes as above. #CKDstable. Avoid nephrotoxic agents. #gerd - continue PPI #Anemia - of note Hgb drop from 14.2 to 10.9 over 1 month. Patient denies any bleeding. - trend cbc VTE ppx: SCDs, holding warfarin Dispo: PCU Admission and Anticipated Discharge Date Admission Date: 07/26/24 History of Present Illness Chief Complaint: fever Primary Care Provider: Shellie Bush DO Patient is a 69-year-old female with history of aortic and mitral mechanical replacements, A-fib with a pacer, CHF (most recent EF 45 to 50%), rheumatic heart disease, stage III CKD, CAD, PVD, COPD. Patient presented via EMS due to 1 day of chills, fatigue, lower abdominal pain/pressure. patient is being admitted for sepsis secondary to UTI. Patient seen at bedside with her son present. She stated that she called EMS because she just felt cold and tired all morning. She took Azo yesterday because she feels like she has a UTI. She stated she has pressure when she tries to urinate and lower abdominal pain and bloating. She denies any burning with urination or hematuria, however urine is orange after taking Azo. She also endorses some dizziness today. She has had a poor appetite for the past 2 days and has not been able to eat or drink much. She stated she has had rhinorrhea however does have allergies and has been taking allergy medication for this. She denies any chest pain, shortness of breath, cough, congestion, nausea, vomiting, diarrhea, constipation, edema. Patient stated she does have a kitten at home who has been scratching her frequently, skin evaluated and no significant erythema or signs of infection. She denies any sick contacts. Patient was concerned because she took medications with a sip of tap water yesterday which had a yellowish color. She gave this water to her cats and they have been vomiting since. Patient denies any nicotine or alcohol use. She does not use any oxygen at baseline, currently on 2L nasal cannula at time of admission. She did not take any home medications today because she takes them at approximately 4 PM. She is on warfarin ordered. She wishes to be DNR/DNI. Patient reevaluated after sepsis fluid bolus - perfusing well, tachycardia and tachycardia resolved. Bp 96/59 - continue IVF. Allergies Allergy/AdvReac Type Severity Reaction Status Date / Time adhesive Allergy Mild Skin Verified 07/26/24 22:20 irritation gabapentin Allergy Unknown Unsure of Verified 07/26/24 22:20 reaction latex Allergy Unknown Reaction Verified 07/26/24 22:20 sure of reaction sertraline Allergy Unknown Unknown Verified 07/26/24 22:20 Sulfa (Sulfonamide Allergy Unknown Unknown Verified 07/26/24 22:20 Antibiotics) tramadol Allergy Unknown Unknown Verified 07/26/24 22:20 Home Medications Medication Instructions Recorded Confirmed Type fexofenadine [Gisel Allergy] 1 cap PO DAILY PRN indegestion 06/09/23 07/26/24 History acetaminophen 500 mg tablet 500 mg PO Q6H PRN Pain 02/11/24 07/26/24 History (Tylenol Extra Strength) rosuvastatin 10 mg tablet 10 mg PO DAILY #90 tabs 03/14/24 07/26/24 Rx warfarin 2 mg tablet (Jantoven) See Rx Instructions .Route 04/01/24 07/26/24 Rx .COMPLEX #180 tabs simethicone [Gas-X] 1 chewable tab PO DAILY PRN 06/16/24 07/26/24 History Gastric Reflux cholecalciferol (vitamin D3) 50 50 mcg PO DAILY #90 caps 06/20/24 07/26/24 Rx mcg (2,000 unit) capsule pantoprazole 40 mg tablet,delayed 40 mg PO DAILY #90 tabs 07/13/24 07/26/24 Rx release Past Med/Surg History Problem List (Updated 07/27/24 @ 17:08 by Soham Casas MD, PhD) Paroxysmal A-fib Thrombocytopenia ILBERTAD (acute kidney injury) Septic shock Hypomagnesemia Hypoxia Sepsis Acute UTI (Acute) Pneumonia (Acute) Idiopathic polyneuropathy Symptomatic bradycardia Pacemaker placed 2014 - A.fib/bradycardia - [facility] - last check 10/2019 History of abdominal aortic aneurysm (AAA) S/P cardiac pacemaker procedure (05/2014) secondary to bradycardia post MVR S/P tricuspid valve repair Status post mechanical aortic valve replacement (04/1992) Cervical disc disease History of mitral valve replacement with mechanical valve (05/2014) Diastolic heart failure due to valvular disease Anticoagulated on Coumadin (Chronic) Osteoarthritis Pulmonary emphysema Right bundle branch block (RBBB) Vitamin D deficiency Arthritis of right acromioclavicular joint Pulmonary hypertension No oxygen needed Peripheral vascular disease Lung nodule, solitary CT scan 12/2017: 4 mm right middle lobe nodule (no change in size since CT scan 10/17/16) Coronary artery disease No hx of CABG or stents Chronic kidney disease, stage III (moderate) Aortic aneurysm, abdominal Status post placement of bifurcated aorta iliac stent graft since 2006. Most recent abdomen/pelvis CT 02/03/19= "abdominal aortic aneurysm status post aortobiiliac stent grafting. The aneurysmal diameter is 33 mm, unchanged from the preceding study. The aorta iliac stent grafts appear patent." Allergic rhinitis Chronic rhinitis - improved with allergy medication Acid reflux Well controlled and stable Rheumatic heart disease (Chronic) S/p mechanical AVR (03/1992), mechanical MVR (05/2014) Atrial fibrillation (Chronic) on warfarin; follows Dr. Hardy COPD (chronic obstructive pulmonary disease) (Chronic) Chronic BYRNE- stable. Systolic CHF (Chronic) Medical History Leg pain Numbness and tingling of both legs Right rotator cuff tear Sacroiliitis DVT prophylaxis Osteopenia Surgical History S/P right rotator cuff repair (11/2019) History of carpal tunnel release bilateral History of cardiac cath "years ago" - no stents - [facility] History of endometrial ablation History of esophagogastroduodenoscopy (EGD) History of cholecystectomy (2016) Mechanical heart valve present S/P tonsillectomy and adenoidectomy S/P AAA repair (10/2006) 2006 Family History Father Myocardial infarction Mother Cancer Denies family history of Ovarian cancer Prostate cancer Breast cancer Colorectal cancer Social History Smoking Status: Never smoker Tobacco Type: Cigarettes Age Started Using Tobacco: 15; Age Quit Using Tobacco: 29; packs per day: 1; Cigarettes Per Day: 1PPD x14 YEARS; Second Hand Exposure: No; Do You Dip or Chew Tobacco: No; Tobacco Cessation Education Requested by Patient: No Hx Alcohol Use: No Hx Substance Use: No Preferred Language: [place] Communication Ability: Effective Visual Impairment: Limited Hearing Ability: Normal Apparel Rental Clerk Required: No Beliefs That Will Affect Care: None marital status: / marital status details: Lives with 19 year old grandson. Current Living Situation: Family Current Living Situation Comment: Grandson's friend living with her current occupational status: unemployed Other Information That Helps Us Care for You: No Feels Safe at Home: Yes Safety Concerns: Feels Safe At This Time Safety Concerns Comment: due to adult male living with her Childhood Exposure to Second-Hand Smoke: No Diet: regular Diet Comment: regular caffeine: Yes (Soda x 4 cups per day.) during the past year weight has: remained stable Dental Care, Regularly: No Physical Activity Frequency: Daily Seatbelt Use: always Sunscreen Use: Yes Assistive Devices: None Review of Systems Review of Systems: see HPI Physical Exam Physical Exam: The patient is awake, alert and oriented 3, well developed and well nourished, normocephalic and atraumatic, in no acute distress. Non-toxic appearing. HEENT- EOMI, mucous membranes dry. Hearing grossly intact. Heart-normal S1 and S2. No murmurs, rubs or gallops. Lungs-clear bilaterally, no respiratory distress, no accessory muscle use. Abdomen-normal bowel sounds and soft. No ascites noted. Tender to lower abdomen with deep palpation. Extremities- no clubbing, cyanosis, or edema. Rheumatologic-normal range of motion. Psychiatric-normal affect. Results & Data Results & Data Vital Signs (Past 12 Hours) Vital Signs Temp Pulse Resp BP Pulse Ox O2 Del Method O2 Flow Rate 07/26/24 20:48 96 H 25 H 96/46 L 95 07/26/24 20:30 102 H 30 H 87/55 L 94 07/26/24 20:15 109 H 29 H 86/57 L 94 07/26/24 20:00 100 H 28 H 75/51 L 07/26/24 19:45 108 H 25 H 85/60 L 93 07/26/24 19:31 96/71 L 07/26/24 19:30 119 H 31 H 89 L 07/26/24 19:24 101/73 07/26/24 19:24 101/73 07/26/24 19:24 131 H 29 H 101/73 86 L 07/26/24 19:14 128 H 07/26/24 19:10 87 L Room Air 0 07/26/24 18:48 38.4 C H 128 H 22 108/58 L 92 Room Air Laboratory Results Reviewed CBC, CMP, PT/INR, VBG, lactate, magnesium, troponin, procalcitonin, UA, bio fire Diagnostic Findings reviewed CXR and pelvis XR Medications Administered ED1.5 mL NSS, Tylenol 1G IV, Rocephin 2G IV, azithromycin 500 Mg p.o. ECG Additional Comments: A-fib with RVR, right bundle branch block (known history of) Rate 107 QTc 509 Code Status & VTE Plan Code Status DNR/DNI VTE Prophylaxis Plan VTE Prophylaxis will be ordered: Yes Supervising Physician Co-Signing Physician Notes I personally saw and examined the patient. I independently reviewed the labs, EKG, imaging, problem list, medication list, past medical history and family history. I verified all browne points and agree with Laina Honeycutt PA-C with the f chandrika exceptions and/or additions: 69 year old female presents to the ER with pressure trying to urinate starting yesterday and increasing fatigue, poor appetite, generalized weakness today. O/E HS irregular rhythm, click present, regular rate, no murmurs, Chest CTAB, Abdo - Suprapubic pain without guarding or rebound, no CVA tenderness A/P Sepsis / UTI - ceftriaxone, complete sepsis bolus IV fluids, follow up blood and urine cultures A. fib - not on rat controlling medications, rate currently appropriate for illness, continue warfarin for anticoagulation INR goal 2.5-3.5 due to mechanical mitral valve PG Care Time/CCT Total # of Minutes Spent Total Time Spent with Patient: Total time spent is greater than 50% in coordination of care (as documented) at patient's floor/unit and/or counseling patient: Coding Level of Care Code 47220 INT INP/OBS CARE 3/75MIN Diagnoses Sepsis A41.9 Acute UTI N39.0 Hypoxia R09.02 Hypomagnesemia E83.42
[2024-07-26] MEDS: LACTATED RINGER'S 1,000 ML IV ONE (21:48)
[2024-07-26] MEDS: MAGNESIUM SULFATE / D5W 1 GM/100 ML BAG IV SCH (21:48)
[2024-07-26 21:54] LABS: Appearance Urine Turbid (Clear); Bacteria Urine Automated 4+ (None Seen); Bilirubin Urine 1+ (Negative); Blood Urine 3+ (Negative); Cast Urine Automated 0-2 /lpf (0-2); Color Urine Dark Yellow; Glucose Urine UA Negative (Negative); Ketones Urine Negative (Negative); Leukocyte Esterase Urine 3+ (Negative); Nitrite Urine Positive (Negative); Protein Urine 2+ (Negative); Specific Gravity Urine 1.014 (1.000-1.030); Urobilinogen Urine Negative (Negative); WBC Urine Automated >50 /hpf (0-5); pH Urine 5.5 (4.5-7.5)
--- NOTE | 2024-07-26 22:22 | Emergency Department Note ---
History of Present Illness General Chief complaint: Fever Stated complaint: COLD, TROUBLE USING THE BATHROOM Time Seen by Provider: 07/26/24 19:10 History of Present Illness Provider complaint: Fever 69-year-old female presents the emergency department for fever and chills. Patient reports symptoms have been present for 1 day. Patient reports cough and shortness of breath. She reports suprapubic abdominal pain. Patient reports she recently was diagnosed with UTI. No chest pain. No headache. Home Medications Medication Instructions Recorded Confirmed Type fexofenadine [Gisel Allergy] 1 cap PO DAILY PRN indegestion 06/09/23 07/26/24 History acetaminophen 500 mg tablet 500 mg PO Q6H PRN Pain 02/11/24 07/26/24 History (Tylenol Extra Strength) rosuvastatin 10 mg tablet 10 mg PO DAILY #90 tabs 03/14/24 07/26/24 Rx warfarin 2 mg tablet (Jantoven) See Rx Instructions .Route 04/01/24 07/26/24 Rx .COMPLEX #180 tabs simethicone [Gas-X] 1 chewable tab PO DAILY PRN 06/16/24 07/26/24 History Gastric Reflux cholecalciferol (vitamin D3) 50 50 mcg PO DAILY #90 caps 06/20/24 07/26/24 Rx mcg (2,000 unit) capsule pantoprazole 40 mg tablet,delayed 40 mg PO DAILY #90 tabs 07/13/24 07/26/24 Rx release Allergies Allergy/AdvReac Type Severity Reaction Status Date / Time adhesive Allergy Mild Skin Verified 07/26/24 22:20 irritation gabapentin Allergy Unknown Unsure of Verified 07/26/24 22:20 reaction latex Allergy Unknown Reaction Verified 07/26/24 22:20 sure of reaction sertraline Allergy Unknown Unknown Verified 07/26/24 22:20 Sulfa (Sulfonamide Allergy Unknown Unknown Verified 07/26/24 22:20 Antibiotics) tramadol Allergy Unknown Unknown Verified 07/26/24 22:20 Past Med/Surg History Problem List (Updated 07/26/24 @ 22:22 by Aashish Moreno MD) Acute UTI (Acute) Pneumonia (Acute) Idiopathic polyneuropathy Symptomatic bradycardia Pacemaker placed 2014 - A.fib/bradycardia - [facility] - last check 10/2019 History of abdominal aortic aneurysm (AAA) S/P cardiac pacemaker procedure (05/2014) secondary to bradycardia post MVR S/P tricuspid valve repair Status post mechanical aortic valve replacement (04/1992) Cervical disc disease History of mitral valve replacement with mechanical valve (05/2014) Diastolic heart failure due to valvular disease Anticoagulated on Coumadin (Chronic) Osteoarthritis Pulmonary emphysema Right bundle branch block (RBBB) Vitamin D deficiency Arthritis of right acromioclavicular joint Pulmonary hypertension No oxygen needed Peripheral vascular disease Lung nodule, solitary CT scan 12/2017: 4 mm right middle lobe nodule (no change in size since CT scan 10/17/16) Coronary artery disease No hx of CABG or stents Chronic kidney disease, stage III (moderate) Aortic aneurysm, abdominal Status post placement of bifurcated aorta iliac stent graft since 2006. Most recent abdomen/pelvis CT 02/03/19= "abdominal aortic aneurysm status post aortobiiliac stent grafting. The aneurysmal diameter is 33 mm, unchanged from the preceding study. The aorta iliac stent grafts appear patent." Allergic rhinitis Chronic rhinitis - improved with allergy medication Acid reflux Well controlled and stable Rheumatic heart disease (Chronic) S/p mechanical AVR (03/1992), mechanical MVR (05/2014) Atrial fibrillation (Chronic) on warfarin; follows Dr. Hardy COPD (chronic obstructive pulmonary disease) (Chronic) Chronic BYRNE- stable. Systolic CHF (Chronic) Medical History Leg pain Numbness and tingling of both legs Right rotator cuff tear Sacroiliitis DVT prophylaxis Osteopenia Surgical History S/P right rotator cuff repair (11/2019) History of carpal tunnel release bilateral History of cardiac cath "years ago" - no stents - [facility] History of endometrial ablation History of esophagogastroduodenoscopy (EGD) History of cholecystectomy (2016) Mechanical heart valve present S/P tonsillectomy and adenoidectomy S/P AAA repair (10/2006) 2006 Family History Father Myocardial infarction Mother Cancer Denies family history of Ovarian cancer Prostate cancer Breast cancer Colorectal cancer Social History Smoking Status: Never smoker Tobacco Type: Cigarettes Age Started Using Tobacco: 15; Age Quit Using Tobacco: 29; packs per day: 1; Cigarettes Per Day: 1PPD x14 YEARS; Second Hand Exposure: No; Do You Dip or Chew Tobacco: No; Hx Alcohol Use: No Hx Substance Use: No Preferred Language: Irish Communication Ability: Effective Visual Impairment: Limited Hearing Ability: Normal Manugrapher Required: No Beliefs That Will Affect Care: None marital status: / marital status details: Lives with 19 year old grandson. Current Living Situation: Other Current Living Situation Comment: Grandson's friend living with her current occupational status: unemployed Feels Safe at Home: Yes Safety Concerns Comment: due to adult male living with her Childhood Exposure to Second-Hand Smoke: No Diet: regular Diet Comment: regular caffeine: Yes (Soda x 4 cups per day.) during the past year weight has: remained stable Dental Care, Regularly: No Physical Activity Frequency: Daily Seatbelt Use: always Sunscreen Use: Yes Assistive Devices: Denture - Upper and Glasses Physical Exam Vital Signs Vital Signs - 24 hr 07/26/24 18:48 07/26/24 19:10 07/26/24 19:14 Temperature 38.4 C H Temperature Source Oral Pulse Rate 128 H 128 H Pulse Rate from SpO2 Sensor Pulse Rhythm Regular Pulse Strength Normal Respiratory Rate 22 Respiratory Effort / Characteristics Non-Labored Spontaneous Respiratory Depth Normal Respiratory Pattern Regular Blood Pressure 108/58 L Blood Pressure Mean 74 Blood Pressure Position Sitting Pulse Oximetry 92 87 L Oxygen Delivery Method Room Air Room Air Oxygen Flow Rate 0 Sepsis Recent Fever Within 48 Hours No Sepsis New/Unexplained Change in Mental Status N/A Sepsis Action Taken by Nursing No Action Required 07/26/24 19:24 07/26/24 19:24 07/26/24 19:24 Temperature Temperature Source Pulse Rate 131 H Pulse Rate from SpO2 Sensor 128 H Pulse Rhythm Pulse Strength Respiratory Rate 29 H Respiratory Effort / Characteristics Respiratory Depth Respiratory Pattern Blood Pressure 101/73 101/73 101/73 Blood Pressure Mean 82 83 83 Blood Pressure Position Pulse Oximetry 86 L Oxygen Delivery Method Oxygen Flow Rate Sepsis Recent Fever Within 48 Hours Sepsis New/Unexplained Change in Mental Status Sepsis Action Taken by Nursing 07/26/24 19:30 07/26/24 19:31 07/26/24 19:45 Temperature Temperature Source Pulse Rate 119 H 108 H Pulse Rate from SpO2 Sensor 135 H 108 H Pulse Rhythm Pulse Strength Respiratory Rate 31 H 25 H Respiratory Effort / Characteristics Respiratory Depth Respiratory Pattern Blood Pressure 96/71 L 85/60 L Blood Pressure Mean 80 68 Blood Pressure Position Pulse Oximetry 89 L 93 Oxygen Delivery Method Oxygen Flow Rate Sepsis Recent Fever Within 48 Hours Sepsis New/Unexplained Change in Mental Status Sepsis Action Taken by Nursing 07/26/24 20:00 07/26/24 20:15 07/26/24 20:30 Temperature Temperature Source Pulse Rate 100 H 109 H 102 H Pulse Rate from SpO2 Sensor 104 H 102 H Pulse Rhythm Pulse Strength Respiratory Rate 28 H 29 H 30 H Respiratory Effort / Characteristics Respiratory Depth Respiratory Pattern Blood Pressure 75/51 L 86/57 L 87/55 L Blood Pressure Mean 62 66 65 Blood Pressure Position Pulse Oximetry 94 94 Oxygen Delivery Method Oxygen Flow Rate Sepsis Recent Fever Within 48 Hours Sepsis New/Unexplained Change in Mental Status Sepsis Action Taken by Nursing 07/26/24 20:48 Temperature Temperature Source Pulse Rate 96 H Pulse Rate from SpO2 Sensor 98 H Pulse Rhythm Pulse Strength Respiratory Rate 25 H Respiratory Effort / Characteristics Respiratory Depth Respiratory Pattern Blood Pressure 96/46 L Blood Pressure Mean 62 Blood Pressure Position Pulse Oximetry 95 Oxygen Delivery Method Oxygen Flow Rate Sepsis Recent Fever Within 48 Hours Sepsis New/Unexplained Change in Mental Status Sepsis Action Taken by Nursing Physical Exam HENT: Exam performed. - Head: Normocephalic and atraumatic. EYES: Conjunctivae and EOM are normal. Right eye exhibits no discharge. Left eye exhibits no discharge. No scleral icterus. NECK: Normal range of motion. Neck supple. No JVD present. CV: Normal rate, irregular rhythm, normal heart sounds and intact distal pulses. There is no peripheral edema. Palpable radial pulses bue. PULM/CHEST: Effort normal and breath sounds normal. No respiratory distress. No stridor. no wheezes. no rales. ABD: The abdomen is soft. There is tenderness to the suprapubic area. NEURO: Motor and sensation grossly intact. Course Course 1909: The patient was evaluated in room C11. A complete history and physical exam was performed Cardiac monitoring: An order was placed for continuous cardiac monitoring. The monitor shows a rate of 90-110 with atrial fibrilation rhythm interpreted by me Patient febrile and tachycardic. Patient was hypoxic on room air. Supplemental oxygen was applied via nasal cannula. The patient with oxygen saturation. Patient has no history of atrial fibrillation. Sepsis protocols were initiated. Patient has history of CHF and mechanical valves, will give gentle IV hydration. 2015: Chest x-ray reviewed by me shows a left-sided lower lobe infiltrate. Patient be treated with Rocephin and azithromycin. [facility]: Vital signs stable on supplemental oxygen. Labs show white blood cell count of 7.22 hemoglobin 10.9 INR 3.9 VBG shows a venous pH of 7.47 with a venous pCO2 of 32 magnesium 1.5. High-sensitivity troponin 15.1 procalcitonin 2.5 lactate 1.6. Formal chest x-ray read did did not say that the patient had pneumonia in the left lower lobe. Patient's urinalysis is concerning for UTI with 4+ bacteria greater than 50 white blood cells nitrate positive and leukocyte Estrace positive. Rocephin will cover the UTI also. [facility]. Administered Medications Sodium Chloride (Nss) 500 mls @ 80 mls/hr IV .Q6H15M SEDA Stop: 07/27/24 01:29 Last Infusion: 07/26/24 21:51 Dose: Infused Documented By: Admin: 07/26/24 20:00 Dose: 80 mls/hr Documented By: AUBREY Lactated Ringer's (Lr) 1,000 mls @ 999 mls/hr IV .Q1H1M ONE Stop: 07/26/24 22:24 Last Admin: 07/26/24 21:48 Dose: 999 mls/hr Documented By: AUBREY Magnesium Sulfate/Dextrose (Magnesium Sulfate / D5w) 1 gm in 100 mls @ 50 mls/hr IV Q2H SEDA Stop: 07/27/24 01:29 Last Admin: 07/26/24 21:48 Dose: 50 mls/hr Documented By: AUBREY Discontinued Medications Azithromycin (Azithromycin 250 Mg Tab) 500 mg PO NOW ONE Stop: 07/26/24 19:48 Last Admin: 07/26/24 19:55 Dose: 500 mg Documented By: AUBREY Sodium Chloride (Nss) 500 mls @ 999 mls/hr IV .Q31M ONE Stop: 07/26/24 19:40 Last Infusion: 07/26/24 20:07 Dose: Infused Documented By: Admin: 07/26/24 19:20 Dose: 999 mls/hr Documented By: JOSE FRANCISCO Acetaminophen (Ofirmev) 1,000 mg in 100 mls @ 400 mls/hr IV NOW STA Stop: 07/26/24 19:25 Last Infusion: 07/26/24 19:37 Dose: Infused Documented By: JOSE FRANCISCO Admin: 07/26/24 19:19 Dose: 400 mls/hr Documented By: JOSE FRANCISCO Ceftriaxone Sodium (Rocephin) 2,000 mg in 50 mls @ 100 mls/hr IV NOW STA Stop: 07/26/24 20:16 Last Infusion: 07/26/24 21:22 Dose: Infused Documented By: Admin: 07/26/24 19:55 Dose: 100 mls/hr Documented By: AUBREY Sodium Chloride (Nss) 500 mls @ 999 mls/hr IV .Q31M ONE Stop: 07/26/24 20:52 Last Infusion: 07/26/24 21:51 Dose: Infused Documented By: Admin: 07/26/24 21:22 Dose: 999 mls/hr Documented By: AUBREY Medical Decision Making Laboratory Data Attestation: I reviewed the patient's lab results. 07/26/24 19:06 07/26/24 19:06 Lab Results 07/26/24 07/26/24 07/26/24 Range/Units 19:06 19:15 20:41 WBC 7.22 (4.8-10.8) K/ul RBC 3.56 L (4.20-5.40) M/uL Hgb 10.9 L (12.0-16.0) g/dl Hct 33.5 L (37.0-47.0) % MCV 94.1 (80.0-100.0) fL MCH 30.6 (25.0-34.0) pg MCHC 32.5 (32.0-36.0) g/dL RDW Std Deviation 53.6 H (36.4-46.3) fL RDW Coeff of Zoë 15.6 H (11.5-14.5) % Plt Count 151 (130-400) K/uL MPV 9.8 (9.4-12.4) fL Immature Gran % (Auto) 0.6 % Neut % (Auto) 81.0 % Lymph % (Auto) 14.1 % [place] % (Auto) 3.5 % Eos % (Auto) 0.7 % Baso % (Auto) 0.1 % Neut # (Auto) 5.85 (1.40-6.50) K/uL Lymph # (Auto) 1.02 L (1.20-3.40) K/uL [place] # (Auto) 0.25 (0.11-0.59) K/uL Eos # (Auto) 0.05 (0.00-0.50) K/uL Baso # (Auto) 0.01 (0.00-0.20) K/uL Immature Gran # (Auto) 0.04 (0.01-0.20) K/uL PT 37.1 H (9.0-12.0) Seconds INR 3.9 H (0.9-1.1) APTT 46 H (21-31) Seconds PTT Ratio 1.7 VBG pH 7.47 H (7.36-7.41) VBG pCO2 32 L (38-50) mmHg VBG pO2 30 mmHg VBG HCO3 23 mmol/L VBG O2 Saturation < 60.0 % VBG Base Excess 0.3 mEq/L Sodium 140 (136-145) mmol/L Potassium 3.8 (3.5-5.1) mmol/L Chloride 109 H (98-107) mmol/L Carbon Dioxide 23 (21-32) mmol/L Anion Gap 8 (3-11) BUN 14 (6-23) mg/dl Creatinine 1.16 (0.6-1.2) mg/dl Est Cr Clr Drug Dosing 40.6 ml/min eGFR 50.72 BUN/Creatinine Ratio 12.1 (10-20) Glucose 131 H (70-99(Fasting)) mg/dl Lactate 1.6 (0.4-2.0) mmol/L Calcium 8.0 L (8.6-10.3) mg/dl Magnesium 1.5 L (1.7-2.4) mg/dl Total Bilirubin 1.9 H (0.2-1.0) mg/dl Direct Bilirubin 0.4 H (0-0.2) mg/dl AST 29 (13-39) U/L ALT 12 (7-52) U/L Alkaline Phosphatase 77 (34-104) U/L Troponin I High Sens 15.1 H (0-14) pg/ml Total Protein 5.8 L (6.0-8.3) gm/dl Albumin 3.1 L (3.4-5.0) gm/dl Procalcitonin 2.50 H (0-0.5) ng/ml Urine Color Dark Yellow Urine Appearance Turbid A (Clear) Urine pH 5.5 (4.5-7.5) Ur Specific [place] 1.014 (1.000-1.030) Urine Protein 2+ H (Negative) Urine Glucose (UA) Negative (Negative) Urine Ketones Negative (Negative) Urine Blood 3+ H (Negative) Urine Nitrite Positive A (Negative) Urine Bilirubin 1+ H (Negative) Urine Urobilinogen Negative (Negative) Ur Leukocyte Esterase 3+ H (Negative) Urine WBC (Auto) >50 H (0-5) /hpf Urine RBC (Auto) 11-20 H (0-2) /hpf U Hyaline Cast (Auto) 0-2 (0-2) /lpf U Epithel Cells (Auto) 3-5 H (0-2) /hpf Urine Bacteria (Auto) 4+ H (None Seen) Urine Comment Adenovirus (PCR) Not Detected (NotDetected) B. pertussis DNA (PCR) Not Detected (NotDetected) B.parapertussis DNA PCR Not Detected (NotDetected) C. pneumoniae DNA (PCR) Not Detected (NotDetected) Coronavirus OC43 (PCR) Not Detected (NotDetected) Coronavirus HKU1 (PCR) Not Detected (NotDetected) Coronavirus 229E (PCR) Not Detected (NotDetected) SARS-CoV-2 (PCR) Not Detected (NotDetected) Coronavirus NL63 (PCR) Not Detected (NotDetected) Human Metapneumovir PCR Not Detected (NotDetected) Influenza Type A (PCR) Not Detected (NotDetected) Influenza Type B (PCR) Not Detected (NotDetected) M. pneumoniae (PCR) Not Detected (NotDetected) Parainfluenza 1 (PCR) Not Detected (NotDetected) Parainfluenza 2 (PCR) Not Detected (NotDetected) Parainfluenza 3 (PCR) Not Detected (NotDetected) Parainfluenza 4 (PCR) Not Detected (NotDetected) RSV (PCR) Not Detected (NotDetected) Entero/Rhino (PCR) Not Detected (NotDetected) Imaging Data Attestation: I personally reviewed and interpreted this imaging study as follows: My Impression: Chest x-ray reviewed by me shows a left-sided lower lobe infiltrate. Pelvis x-ray: No acute fracture or dislocation Radiologist's Impression: Chest X-Ray 07/26/24 19:10 EXAM: XR chest 1V portable CLINICAL HISTORY: Sepsis. TECHNIQUE: An X-ray image of the chest is obtained in AP projection. COMPARISON: prior chest X-ray dated 07/26/2024. FINDINGS: Pulmonary Parenchyma: No evidence of consolidation, collapse, or focal opacities. No pulmonary nodules are identified. Increased lung markings with bilateral basal reticular infiltrates, likely denoting vascular/interstitial congestion (slightly increased since prior). No evidence of pleural effusion or pleural thickening. Heart and Mediastinum: Stable cardiomegaly. No mediastinal widening or masses. No hilar or mediastinal lymphadenopathy. Applied external cardiac pacemaker and sternotomy wire sutures are again noted. Bony Thorax: Bony thorax appears intact without fractures or deformities. Soft Tissues: Soft tissues overlying the chest wall are unremarkable. IMPRESSION: 1. Increased lung markings with bilateral basal reticular infiltrates, likely denoting vascular/interstitial congestion (slightly increased since prior). 2. Stable cardiomegaly. Electronically signed by Nelson Mckeon 07-26-2024 9:07 PM Pelvis X-Ray 07/26/24 19:19 EXAM: XR pelvis 1-2V routine CLINICAL HISTORY: Fall. TECHNIQUE: X-ray images of the pelvis were obtained in anteroposterior (AP) projection. COMPARISON: Previous x-ray dated 01/29/2019 of right hip. FINDINGS: Bone Structure: Pelvic bones, including the iliac wings, ischium, pubis, and sacrum, are normal and intact. No evidence of fractures or dislocations. Radiolucent mach band along right femoral neck. Hip Joints: Osteophytes seen around right hip joint with joint space reduction. Cortical buttressing seen along femoral neck. Large lucent area (10 mm) seen along sub-articular surface of right femoral head. Left hip joint is unremarkable. No hip dislocation. Acetabulum: No signs of acetabular fracture or dysplasia. Symphysis Pubis: Symphysis pubis is normal and intact. No evidence of separation or widening. Sacroiliac Joints: Sacroiliac joints appear normal and unremarkable. No evidence of sacroiliitis or significant degenerative changes. Soft Tissues: Surgical clips over right inguinal region. Aorto-iliac stent redemonstrated. IMPRESSION: 1. Progression of right hip joint osteoarthritis, which is now moderate in severity (chronic changes). 2. Lucent area seen along sub-articular surface of right femoral head, likely geode. 3. The remaining x-ray of pelvis is unremarkable. No acute fracture or hip dislocation. Disclaimer: A subtle bone abnormality or fracture may not be readily apparent on X-rays, thus clinical correlation and further imaging including follow-up CT, MRI, or follow-up X-rays are advised as needed. Electronically signed by Nelson Mckeon 07-26-2024 9:09 PM ECG Data Attestation: I personally reviewed and interpreted this ECG as follows: Additional Comments: EKG #1 at 190: Atrial fibrillation with rate of 134. QRS [address] elevation or ST depression. EKG #2 at 1952: Atrial fibrillation with rate of 107. QRS 122 QTc 509. Right bundle branch block present. PVCs present. No ST elevation or ST depression. [facility] Narrative 191: The patient was evaluated in room C11. A complete history and physical exam was performed Cardiac monitoring: An order was placed for continuous cardiac monitoring. The monitor shows a rate of 90-110 with atrial fibrilation rhythm interpreted by me Patient febrile and tachycardic. Patient was hypoxic on room air. Supplemental oxygen was applied via nasal cannula. The patient with oxygen saturation. Patient has no history of atrial fibrillation. Sepsis protocols were initiated. Patient has history of CHF and mechanical valves, will give gentle IV hydration. 2014: Chest x-ray reviewed by me shows a left-sided lower lobe infiltrate. Patient be treated with Rocephin and azithromycin. [facility]14: Vital signs stable on supplemental oxygen. Labs show white blood cell count of 7.22 hemoglobin 10.9 INR 3.9 VBG shows a venous pH of 7.47 with a venous pCO2 of 32 magnesium 1.5. High-sensitivity troponin 15.1 procalcitonin 2.5 lactate 1.6. Formal chest x-ray read did did not say that the patient had pneumonia in the left lower lobe. Patient's urinalysis is concerning for UTI with 4+ bacteria greater than 50 white blood cells nitrate positive and leukocyte Estrace positive. Rocephin will cover the UTI also. Patient mated to the [facility] hospitalist team. Impression & Plan Pneumonia, Acute UTI Discharge Plan Visit Data Chief Complaint: Fever Stated Complaint: COLD, TROUBLE USING THE BATHROOM ED Provider: Aashish Moreno Discharge Problem: Pneumonia, Acute UTI Patient Disposition: Admitted As Inpatient Condition: Fair Forms Stand Alone Forms: My [facility] Prescriptions Prescriptions: No Action warfarin [Jantoven] 2 mg tablet See Rx Instructions .ROUTE .COMPLEX Qty: 180 3RF Protocol: Dose Management Condition: Thursday Dose/Route: 2 mg Instruction: 1 x 2 mg tablet Condition: Thursday Dose/Route: 2 mg Instruction: 1 x 2 mg tablet Condition: Thursday Dose/Route: 2 mg Instruction: 1 x 2 mg tablet Condition: Thursday Dose/Route: 2 mg Instruction: 1 x 2 mg tablet Condition: Dose/Route: 2 mg Instruction: 1 x 2 mg tablet Condition: Thursday Dose/Route: 2 mg Instruction: 1 x 2 mg tablet Condition: Thursday Dose/Route: 2 mg Instruction: 1 x 2 mg tablet Protocol Text: Adjustment Start Date: Thursday07/25/24 INR Value: 3.3 INR Date: 07/25/24 Recheck Date: 08/01/24 Rx Instructions: Take 1-2 tabs PO daily as directed by provider. cholecalciferol (vitamin D3) 50 mcg (2,000 unit) capsule 50 mcg PO DAILY Qty: 90 3RF pantoprazole 40 mg tablet,delayed release (DR/EC) 40 mg PO DAILY Qty: 90 2RF fexofenadine [Gisel Allergy] PO DAILY PRN rosuvastatin 10 mg tablet 10 mg PO DAILY Qty: 90 3RF simethicone [Gas-X] PO PRN acetaminophen [Tylenol Extra Strength] 500 mg tablet 500 mg PO Q6H PRN Referrals Referrals: Shellie Bush DO [Primary Care Provider] - Discharge Problem: Pneumonia Qualifiers: Pneumonia type: due to unspecified organism Laterality: unspecified laterality Lung location: unspecified part of lung Qualified Code(s): J18.9 - Pneumonia, unspecified organism
[2024-07-26] MEDS: oxyCODONE HCL IR 5 MG TAB (IMMEDIATE RELEASE) PO STA (23:24)
[2024-07-26] MEDS: ONDANSETRON INJ 2 MG/ML 2 ML VIAL IV STA (23:24)
[2024-07-26] MEDS ORDERED: oxyCODONE HCL IR 5 MG TAB (IMMEDIATE RELEASE) PO PRN ×2 (23:51)
[2024-07-26] MEDS ORDERED: MELATONIN 3 MG TAB PO PRN (23:51)
[2024-07-26] MEDS ORDERED: DOCUSATE SODIUM 100 MG CAP PO PRN (23:51)
[2024-07-26] MEDS ORDERED: ONDANSETRON INJ 2 MG/ML 2 ML VIAL IV PRN (23:51)
[2024-07-27] MEDS: LACTATED RINGER'S 1,000 ML IV SCH (00:02)
[2024-07-27] MEDS: LACTATED RINGER'S 1,000 ML IV ONE (03:56)
[2024-07-27 05:01] LABS: Hematocrit (blood only) 29.7 % (37.0-47.0); Hemoglobin 9.6 g/dl (12.0-16.0); Mean Corpuscular Hemoglobin 31.1 pg (25.0-34.0); Mean Corpuscular Hgb Conc 32.3 g/dL (32.0-36.0); Mean Corpuscular Volume 96.1 fL (80.0-100.0); Mean Platelet Volume 9.9 fL (9.4-12.4); Platelet Count 116 K/uL (130-400); RDW Coefficient of Variation 15.9 % (11.5-14.5); Red Blood Count 3.09 M/uL (4.20-5.40); White Blood Count 7.43 K/ul (4.8-10.8)
[2024-07-27 05:18] LABS: Albumin Globulin Ratio 1.2 (0.9-2); Albumin Level 2.7 gm/dl (3.4-5.0); BUN Creatinine Ratio 11.8 (10-20); Bilirubin,Total 1.6 mg/dl (0.2-1.0); Calcium 7.7 mg/dl (8.6-10.3); Creatinine Clr Calc Pharmacy 41.6 ml/min; Globulin 2.3 gm/dl (2.5-4.0); Magnesium 2.2 mg/dl (1.7-2.4); Potassium 3.8 mmol/L (3.5-5.1)
[2024-07-27 05:20] LABS: Basophils # (auto) 0.01 K/uL (0.00-0.20); Basophils % (auto) 0.1 %; Dohle Bodies 1+; Eosinophils # (auto) 0.02 K/uL (0.00-0.50); Eosinophils % (auto) 0.3 %; Immature Granulocytes # (auto) 0.05 K/uL (0.01-0.20); Immature Granulocytes % (auto) 0.7 %; Monocytes # (auto) 0.65 K/uL (0.11-0.59); Monocytes % (auto) 8.7 %; Neutrophils % (auto) 86.2 %; Ovalocytes 1+; Polychromasia 1+
[2024-07-27 05:25] LABS: INR 3.6 (0.9-1.1); Prothrombin Time 34.7 Seconds (9.0-12.0)
[2024-07-27] MEDS ORDERED: oxyCODONE HCL IR 5 MG TAB (IMMEDIATE RELEASE) PO PRN ×2 (05:30)
--- NOTE | 2024-07-27 05:35 | Critical Care Consultation ---
Date of Consultation July 27, 2024 Assessment & Plan (1) Acute UTI: (2) Sepsis: (3) Hypoxia: Plan Reason Critically Ill: 1. Severe sepsis 2. LIBERTAD on CKD, prerenal, improved with resuscitation 3. Clinical dehydration, improved 4. 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%, IVC 1.7cm MAP goal > 65mmHg, start vasopressor if needed Currently well-perfused without signs of continued end organ injury despite mild hypotension Continue statin, warfarin Respiratory - Repeat CXR Wean O2 for SpO2 goal 92% Mild obstructive disease on last PFT Albuterol PRN IS/Flutter GI - Diet: Heart healthy SUP: PPI Bowel regimen: PRN, chronic diarrhea following cholecystectomy RENAL/LYTES - If abdominal pain/nausea persist and clinical condition not improved have low threshold to obtain imaging to rule out occult stone Replete electrolytes as indicated Purewick for accurate I/Os Maintain net even to net negative mIVF, encourage PO intake ENDO - No acute concerns BG 140-180 per SCCM guidelines ISS if needed while inpatient HEME - No acute concerns ID - Continue Rocephin, could consider broadening if progresses to shock BC x2 pending, UCx pending, procalcitonin 2.5, MRSA nares pending LINES/TUBES/DRAINS - PIV x2 DVT PROPHYLAXIS - Warfarin CODE STATUS - DNR/DNI DISPOSITION - ICU I have personally spent 35 minutes of critical care time in the direct management of this patient. This is a life/limb threatening event. This includes time spent evaluating patient, direct bedside care, chart review, placing orders, interpretation of diagnostic studies, discussion with consultants, patient, and family members, as well as other required patient management activities. This time is exclusive of all separately billable procedures, and teaching time and separate from and in addition to any other critical care service time. Thank you for allowing us to participate in the care of this patient. Please refer to my attending physician's documentation for any further recommendations. History of Present Illness Reason for Consultation: Hypotension Requesting Physician: Franki Attending Physician: Soham Casas MD, PhD History of Present Illness Ms. Jovanna Garg is a pleasant 69YOF with a history of malnutrition, former smoker, bradycardia s/p PPM, AAA s/p repair, rheumatic heart disease s/p AVR/MVR on coumadin, tricuspid valve repair, HFmrEF, atrial fibrillation, emphysema who presented to [facility] ED from home on the evening of 07/26/2024 due to chills, weakness, poor appetite. Hypotensive, tachycardic, febrile in ED. Improved with APAP and IVF resuscitation. She was admitted to medicine with UTI and mild LIBERTAD. Received total 2L IVF. Patient had recurrence of hypotension early this AM, additional IVF not given due to history of heart failure and new oxygen requirement. Our team was asked to evaluate for transfer to ICU. Patient seen in 206. She is AAOx3. No acute distress. Pleasant and conversant. Resting comfortably on 2L NC with SpO2 100%. Her most recent MAP is 62. Lactic acid 1.4 from 1.6. She feels warm and well-perfused. POCUS shows LVH with mildly reduced LVEF consistent with prior data, RV small, IVC plump. With given history of pHTN this is equivocal. No peripheral edema. ROS + mild nausea, otherwise 10- point ROS negative. Transferred to ICU for continued monitoring and possible vasopressors. BP on arrival to ICU 92/61 (63). Allergies Allergy/AdvReac Type Severity Reaction Status Date / Time adhesive Allergy Mild Skin Verified 07/26/24 22:20 irritation gabapentin Allergy Unknown Unsure of Verified 07/26/24 22:20 reaction latex Allergy Unknown Reaction Verified 07/26/24 22:20 sure of reaction sertraline Allergy Unknown Unknown Verified 07/26/24 22:20 Sulfa (Sulfonamide Allergy Unknown Unknown Verified 07/26/24 22:20 Antibiotics) tramadol Allergy Unknown Unknown Verified 07/26/24 22:20 Home Medications Medication Instructions Recorded Confirmed Type fexofenadine [Gisel Allergy] 1 cap PO DAILY PRN indegestion 06/09/23 07/26/24 History acetaminophen 500 mg tablet 500 mg PO Q6H PRN Pain 02/11/24 07/26/24 History (Tylenol Extra Strength) rosuvastatin 10 mg tablet 10 mg PO DAILY #90 tabs 03/14/24 07/26/24 Rx warfarin 2 mg tablet (Jantoven) See Rx Instructions .Route 04/01/24 07/26/24 Rx .COMPLEX #180 tabs simethicone [Gas-X] 1 chewable tab PO DAILY PRN 06/16/24 07/26/24 History Gastric Reflux cholecalciferol (vitamin D3) 50 50 mcg PO DAILY #90 caps 06/20/24 07/26/24 Rx mcg (2,000 unit) capsule pantoprazole 40 mg tablet,delayed 40 mg PO DAILY #90 tabs 07/13/24 07/26/24 Rx release Patient History Medical History Leg pain Numbness and tingling of both legs Right rotator cuff tear Sacroiliitis DVT prophylaxis Osteopenia Surgical History S/P right rotator cuff repair (11/2019) History of carpal tunnel release bilateral History of cardiac cath "years ago" - no stents [facility] History of endometrial ablation History of esophagogastroduodenoscopy (EGD) History of cholecystectomy (2016) Mechanical heart valve present S/P tonsillectomy and adenoidectomy S/P AAA repair (10/2006) 2006 Family History Father Myocardial infarction Mother Cancer Denies family history of Ovarian cancer Prostate cancer Breast cancer Colorectal cancer Social History Smoking Status: Never smoker Tobacco Type: Cigarettes Age Started Using Tobacco: 15; Age Quit Using Tobacco: 29; packs per day: 1; Cigarettes Per Day: 1PPD x14 YEARS; Second Hand Exposure: No; Do You Dip or Chew Tobacco: No; Tobacco Cessation Education Requested by Patient: No Hx Alcohol Use: No Hx Substance Use: No Preferred Language: Israeli Communication Ability: Effective Visual Impairment: Limited Hearing Ability: Normal Button Tufter Required: No Beliefs That Will Affect Care: None marital status: / marital status details: Lives with 19 year old grandson. Current Living Situation: Family Current Living Situation Comment: Grandson's friend living with her current occupational status: unemployed Other Information That Helps Us Care for You: No Feels Safe at Home: Yes Safety Concerns: Feels Safe At This Time Safety Concerns Comment: due to adult male living with her Childhood Exposure to Second-Hand Smoke: No Diet: regular Diet Comment: regular caffeine: Yes (Soda x 4 cups per day.) during the past year weight has: remained stable Dental Care, Regularly: No Physical Activity Frequency: Daily Seatbelt Use: always Sunscreen Use: Yes Assistive Devices: Denture - Upper and Denture - Lower Review of Systems Review of Systems: All systems reviewed & are unremarkable except as noted in Subjective Physical Exam Constitutional: + thin, + frail appearing and + underwei ght; no acute distress Eyes: PERRL, conjunctivae normal, anicteric sclerae ENMT: external ear and nose normal, oropharynx normal (Edentulous) Neck: trachea midline, no thyromegaly Respiratory: normal respiratory effort; no respiratory distress faint crackles Cardiovascular: Rate/Rhythm: regular rate and regular rhythm Heart Sounds: + murmur Vessels: no JVD Extremities: normal capillary refill; no edema Gastrointestinal (Abdomen): normal bowel sounds, soft, nontender, no hepatosplenomegaly Skin: no rashes, warm and dry Neurologic: PERRL, EOMI, accommodation nl, no face palsy, no dysarthria Genitourinary: Purewick in place Results & Data Results & Data Vital Signs (Past 12 Hours) Vital Signs Temp Pulse Pulse Resp BP BP Pulse Ox 07/27/24 05:15 82/52 L 07/27/24 05:15 87 28 H 93 07/27/24 05:11 81/56 L 07/27/24 04:45 89/44 L 07/27/24 04:40 82/49 L 07/27/24 04:30 87/51 L 07/27/24 04:00 93/55 L 07/27/24 03:43 84/56 L 07/27/24 03:41 84/53 L 07/27/24 03:33 78/55 L 07/27/24 03:14 36.7 C 87 22 91/59 L 93 07/27/24 01:03 07/27/24 00:26 36.8 C 24 120/66 92 07/26/24 23:55 07/26/24 22:48 84 24 96/59 L 95 07/26/24 22:33 83 19 100/61 95 07/26/24 22:21 80 19 97/57 L 95 07/26/24 21:48 98 H 25 H 87/51 L 96 07/26/24 21:30 98 H 25 H 84/59 L 07/26/24 21:15 99 H 25 H 91/59 L 96 07/26/24 20:48 96 H 25 H 96/46 L 95 07/26/24 20:30 102 H 30 H 87/55 L 94 07/26/24 20:15 109 H 29 H 86/57 L 94 07/26/24 20:00 100 H 28 H 75/51 L 07/26/24 19:45 108 H 25 H 85/60 L 93 07/26/24 19:31 96/71 L 07/26/24 19:30 119 H 31 H 89 L 07/26/24 19:24 101/73 07/26/24 19:24 101/73 07/26/24 19:24 131 H 29 H 101/73 86 L 07/26/24 19:14 128 H 07/26/24 19:10 87 L 07/26/24 18:48 38.4 C H 128 H 22 108/58 L 92 O2 Del Method O2 Flow Rate 07/27/24 05:15 07/27/24 05:15 07/27/24 05:11 07/27/24 04:45 07/27/24 04:40 07/27/24 04:30 07/27/24 04:00 07/27/24 03:43 07/27/24 03:41 07/27/24 03:33 07/27/24 03:14 Nasal Cannula 3.0 07/27/24 01:03 Nasal Cannula 3 07/27/24 00:26 Nasal Cannula 3 07/26/24 23:55 Nasal Cannula 2 07/26/24 22:48 07/26/24 22:33 07/26/24 22:21 07/26/24 21:48 07/26/24 21:30 07/26/24 21:15 Nasal Cannula 2 07/26/24 20:48 07/26/24 20:30 07/26/24 20:15 07/26/24 20:00 07/26/24 19:45 07/26/24 19:31 07/26/24 19:30 07/26/24 19:24 07/26/24 19:24 07/26/24 19:24 07/26/24 19:14 07/26/24 19:10 Room Air 0 07/26/24 18:48 Room Air Laboratory Results Reviewed Diagnostic Findings Reviewed Medications Administered See [facility] Coding Level of Care Code 38773 CRITICAL CARE 1ST 30-74M Diagnoses Acute UTI N39.0 Sepsis A41.9 Hypoxia R09.02 Time Spent (min) 35
[2024-07-27 07:10] LABS: A calco-baum cmplx NotReported Not Detected (NotDetected); Bact fragilis Not Reported Not Detected (NotDetected); Blood Culture Id Panel See PCR Comment (NotDetected); C auris Not Reported Not Detected (NotDetected); CTX-M Resistant Gene Not Detected (NotDetected); Calbicans Not Reported Not Detected (NotDetected); Candida glabrata Not Reported Not Detected (NotDetected); Candida krusei Not Reported Not Detected (NotDetected); Cneoformans/gatti Not Reported Not Detected (NotDetected); Cparapsilosis Not Reported Not Detected (NotDetected); Ctropicalis Not Reported Not Detected (NotDetected); E cloacae compx Not Reported Not Detected (NotDetected); Efaecalis Not Reported Not Detected (NotDetected); Efaecium Not Reported Not Detected (NotDetected); Enterobacterales DETECTED (NotDetected); Enterobacterales Not Reported DETECTED (NotDetected); Escherichia coli Not Reported DETECTED (NotDetected); H influenzae Not Reported Not Detected (NotDetected); IMP Resistant Gene Not Detected (NotDetected); K aerogenes Not Reported Not Detected (NotDetected); KPC Resistant Gene Not Detected (NotDetected); Koxytoca Not Reported Not Detected (NotDetected); Kpneumoniae grp Not Reported Not Detected (NotDetected); Lmonocyt Not Reported Not Detected (NotDetected); N meningitidis Not Reported Not Detected (NotDetected); NDM Resistant Gene Not Detected (NotDetected); OXA 48 Like Resistant Gene Not Detected (NotDetected); P aeruginosa Not Reported Not Detected (NotDetected); Proteus spp Not Reported Not Detected (NotDetected); Salmonella spp Not Reported Not Detected (NotDetected); Staph lugdunensis Not Reported Not Detected (NotDetected); Staph spp. Not Reported Not Detected (NotDetected); Staphaureus Not Reported Not Detected (NotDetected); Staphepi Not Reported Not Detected (NotDetected); Stenmaltophilia Not Reported Not Detected (NotDetected); Strep agal(GrpB) Not Reported Not Detected (NotDetected); Strep pneum Not Reported Not Detected (NotDetected); Strep pyog (GrpA) Not Reported Not Detected (NotDetected); Strep spp Not Reported Not Detected (NotDetected); VIM Resistant Gene Not Detected (NotDetected); mcr-1 Colistin Resistant Gene Not Detected (NotDetected)
--- NOTE | 2024-07-27 08:20 | Critical Care Progress Note ---
Date of Service July 27, 2024 Assessment & Plan (1) Acute UTI: (2) Sepsis: (3) Hypoxia: (4) Septic shock: (5) LIBERTAD (acute kidney injury): (6) Chronic kidney disease, stage III (moderate): (7) Rheumatic heart disease: (8) Atrial fibrillation: (9) Thrombocytopenia: Plan Reason Critically Ill: 1. Severe sepsis 2. LIBERTAD on CKD, prerenal, improved with resuscitation 3. Clinical dehydration, improved 4. Acute hypoxic respiratory failure with history of COPD Neuro - [facility] ICU: Negative Acetaminophen PRN pain/fever, low dose oxycodone PRN Cardiac - TTE (2024): EF 45%, IVC 1.7cm -- Shock Likely septic with a component of hypovolemia Did get 4 L of fluids so far in the ER and ICU combined Random cortisol 10 Try to keep MAP greater than 65 Respiratory - -- O2 supplementation to keep oxygen saturation between 90-92% GI - RENAL/LYTES - -- LIBERTAD on CKD Likely secondary to hypotension Monitor BUN/creatinine Avoid nephrotoxic medications Strict ins and outs ENDO - -- ICU hyperglycemia protocol HEME - -- New onset thrombocytopenia Likely secondary to sepsis Continue to monitor --Normocytic anemia Monitor H&H ID - -- Gram-negative bacteremia History of pansensitive E. coli back in January 2023 Continue Rocephin, could consider broadening if progresses to shock Procalcitonin 2.5 Chest x-ray does not show any clear signs of infiltrate CODE STATUS - DNR/DNI --Prophylaxis VTE: Warfarin GI: Pantoprazole Lines: Peripheral Diet: Cardiac Plan: In/out: +4 L, urine output 400 mL Random cortisol is only 10, patient is growing gram-negative in the blood. It was pansensitive E. coli back in 2022. Continue with Rocephin Will hold back on hydrocortisone right now. If the patient has persistent hypotension in the next 24 hours then hydrocortisone will be added. Given the persistent low blood pressure, will start the patient on norepinephrine If the patient is agreeable to Guadalupe catheter then we will put it in given the urine output is not adequate. DC IV fluids after final mL of fluid is completed. Potassium being replaced Will give 1 mg of warfarin today given the INR is 3.6 and it is actually trending down. I have personally spent 40 minutes of critical care time in the direct management of this patient. This is a life/limb threatening event. This includes time spent evaluating patient, direct bedside care, chart review, placing orders, interpretation of diagnostic studies, discussion with consultants, patient, and family members, as well as other required patient management activities. This time is exclusive of all separately billable procedures, and teaching time and separate from and in addition to any other critical care service time. Please note the above document was generated using voice recognition software. It may contain grammatical, syntax or spelling errors. Admission and Anticipated Discharge Date Admission Date: July 26, 2024 Subjective Patient seen and examined at bedside. No acute distress Patient systolic blood pressure was in the 80s with MAP in the high 50s at the time of examination She was not complaining of any nausea vomiting No abdominal discomfort Denied any headache or blurry vision Did complain of dysuria. Has been afebrile Review of Systems 2 Review of Systems: All systems reviewed & are unremarkable except as noted in Subjective Physical Exam 2 Physical Exam: Constitutional: No acute distress HEENT: EOMI, PERRLA Respiratory system: Good air entry bilaterally, no wheeze, no rhonchi, mild crackles bilaterally CVS: S1-S2 positive, mechanical heart sound appreciated, no murmur Abdomen: Soft, nontender, nondistended, positive bowel sounds x4 Extremities: +2 pulses bilaterally radialis/ dorsalis pedis, no cyanosis, no edema Neuro: Awake alert oriented x3 Psych: Normal mood and affect G/U: No Guadalupe Skin: no rashes, warm and dry Lymphatic: no cervical or axillary lymphadenopathy Results & Data Results & Data Vital Signs (Past 12 Hours) Vital Signs Temp Pulse Pulse Resp BP BP Pulse Ox 07/27/24 07:23 07/27/24 07:09 79 07/27/24 07:03 80 17 93 07/27/24 07:00 91/56 L 07/27/24 06:54 81 20 93 07/27/24 06:50 85 07/27/24 06:48 76 20 94 07/27/24 06:45 94/60 L 07/27/24 06:30 95/61 L 07/27/24 06:30 95/61 L 07/27/24 06:30 95/61 L 07/27/24 06:30 95/61 L 07/27/24 05:50 87/55 L 07/27/24 05:45 86/55 L 07/27/24 05:40 92/62 L 07/27/24 05:39 97/62 L 07/27/24 05:36 81 25 H 96 07/27/24 05:35 81/53 L 07/27/24 05:32 94/58 L 07/27/24 05:27 81 21 88 L 07/27/24 05:26 75/42 L 07/27/24 05:20 92/61 L 07/27/24 05:15 82/52 L 07/27/24 05:15 82/52 L 07/27/24 05:15 87 28 H 93 07/27/24 05:11 81/56 L 07/27/24 04:45 89/44 L 07/27/24 04:40 82/49 L 07/27/24 04:30 87/51 L 07/27/24 04:00 93/55 L 07/27/24 03:43 84/56 L 07/27/24 03:41 84/53 L 07/27/24 03:33 78/55 L 07/27/24 03:14 36.7 C 87 22 91/59 L 93 07/27/24 01:03 07/27/24 00:26 36.8 C 24 120/66 92 07/26/24 23:55 07/26/24 22:48 84 24 96/59 L 95 07/26/24 22:33 83 19 100/61 95 07/26/24 22:21 80 19 97/57 L 95 07/26/24 21:48 98 H 25 H 87/51 L 96 07/26/24 21:30 98 H 25 H 84/59 L 07/26/24 21:15 99 H 25 H 91/59 L 96 07/26/24 20:48 96 H 25 H 96/46 L 95 07/26/24 20:30 102 H 30 H 87/55 L 94 07/26/24 20:15 109 H 29 H 86/57 L 94 O2 Del Method O2 Flow Rate 07/27/24 07:23 Nasal Cannula 3 07/27/24 07:09 07/27/24 07:03 Nasal Cannula 3 07/27/24 07:00 07/27/24 06:54 Nasal Cannula 3 07/27/24 06:50 07/27/24 06:48 Nasal Cannula 3 07/27/24 06:45 07/27/24 06:30 07/27/24 06:30 07/27/24 06:30 07/27/24 06:30 07/27/24 05:50 07/27/24 05:45 07/27/24 05:40 07/27/24 05:39 07/27/24 05:36 07/27/24 05:35 07/27/24 05:32 07/27/24 05:27 07/27/24 05:26 07/27/24 05:20 07/27/24 05:15 07/27/24 05:15 07/27/24 05:15 07/27/24 05:11 07/27/24 04:45 07/27/24 04:40 07/27/24 04:30 07/27/24 04:00 07/27/24 03:43 07/27/24 03:41 07/27/24 03:33 07/27/24 03:14 Nasal Cannula 3.0 07/27/24 01:03 Nasal Cannula 3 07/27/24 00:26 Nasal Cannula 3 07/26/24 23:55 Nasal Cannula 2 07/26/24 22:48 07/26/24 22:33 07/26/24 22:21 07/26/24 21:48 07/26/24 21:30 07/26/24 21:15 Nasal Cannula 2 07/26/24 20:48 07/26/24 20:30 07/26/24 20:15 Laboratory Results 07/27/24 04:41 07/27/24 04:41 Coding Level of Care Code 18715 CRITICAL CARE 1ST 30-74M Diagnoses Acute UTI N39.0 Sepsis A41.9 Hypoxia R09.02 Septic shock A41.9; R65.21 LIBERTAD (acute kidney injury) N17.9 Chronic kidney disease, stage III (moderate) N18.3 Rheumatic heart disease I09.9 Atrial fibrillation, unspecified type I48.91 Atrial fibrillation type: unspecified Thrombocytopenia D69.6 (8) Atrial fibrillation Atrial fibrillation type: unspecified Qualified Code(s): I48.91 - Unspecified atrial fibrillation
[2024-07-27] MEDS ORDERED: STAT IV Infusion **Titration per Protocol STA (08:57)
[2024-07-27] MEDS ORDERED: PANTOprazole 40 MG TAB PO SCH (09:00)
[2024-07-27] MEDS: POTASSIUM CHLORIDE CRTAB 20 MEQ TABCR PO STA (09:09)
[2024-07-27] MEDS: CALCIUM GLUCONATE 1,000 MG/60 ML BAG IV STA (09:09)
[2024-07-27] MEDS: ROSUVASTATIN CALCIUM 10 MG TAB PO SCH (09:10)
[2024-07-27] MEDS: NOREPINEPHRINE/D5W 4 MG/250 ML PLCT IV SCH (09:10)
[2024-07-27] MEDS: POTASSIUM CHLORIDE / WTR 10 MEQ/100 ML PLCT IV SCH (09:10)
[2024-07-27] MEDS: WARFARIN SOD 1 MG TAB PO ONE (11:10)
[2024-07-27] MEDS: PANTOprazole 40 MG in SYRINGE DAILY IV SCH (11:10)
--- NOTE | 2024-07-27 16:13 | Hospitalist Progress Note ---
Date of Service July 27, 2024 Assessment & Plan (1) Sepsis: Plan: Due to Enterobacterales / E. coli UTI with gram negative shelbi bacteremia (07/26/2024, 7:15pm blood cultures #1 and #2). Procalcitonin #1 2.5 ng/mL (07/26/2024, 7:06pm). Patient subsequently started to receive ceftriaxone 2g IV daily (day #1 on 07/26/2024, 7:55pm; day #2 on 07/27/2024, 7:00pm). Procalcitonin #2 27.3 ng/mL (07/27/2024, 7:52am). Check vitals, genito-urinary exam, procalcitonin level, lactic acid, 07/26/2024, 7:15pm blood cultures #1 and #2, and 07/26/2024, 8:41pm urine culture to guide future antibiotic therapy. (2) Septic shock: Plan: RESOLVED off norepinephrine infusion (which was started to attain/maintain MAP > 65 mm Hg). cf., norepinephrine infusion @ 0.05 ug/kg/min (07/27/2024, 9:10am). cf., norepinephrine infusion @ 0.03 ug/kg/min (07/27/2024, 12:47pm). cf., norepinephrine infusion @ 0.01 ug/kg/min (07/27/2024, 1:00pm). cf., norepinephrine infusion @ 0.03 ug/kg/min (07/27/2024, 1:50pm). cf., norepinephrine infusion @ 0.01 ug/kg/min (07/27/2024, 3:57pm). cf., norepinephrine infusion @ 0.00 ug/kg/min (07/27/2024, 4:56pm). (3) Acute UTI: Plan: See bullet #1 above. (4) Hypoxia: Plan: Acute hypoxic respiratory failure with O2 sat 89% on room air (07/26/2024, 7:30pm). Acute hypoxic respiratory failure with O2 sat 88% on room air (07/27/2024, 5:27am). O2 sat 93% on 3 liters/minute via nasal cannula (07/27/2024, 3:45pm). cf., portable CXR (07/26/2024, 7:10pm): No infiltrate, effusion, pneumothorax. Cardiomegaly with slight pulmonary vascular congestion. Etiology of acute hypoxic respiratory failure remains unclear, but is probably due to gram negative shelbi-associated community acquired pneumonia. As stated in bullet #1 above, patient subsequently started to receive ceftriaxone 2g IV daily (day #1 on 07/26/2024, 7:55pm; day #2 on 07/27/2024, 7:00pm). I will check vitals, chest exam, procalcitonin, lactic acid, and 07/26/2024, 7:15pm blood cultures #1 and #2 in the 07/28/2024 am. (5) Hypomagnesemia: Plan: cf., Mg 1.5 mg/dL (07/26/2024, 7:06pm). cf., Mg 2.2 mg/dL (07/27/2024, 4:41am). RESOLVED s/p administration of magnesium sulfate 1g IV x 2 doses (07/26/2024, 9:48pm; 07/27/2024, 12:16am). Plan Patient is a 69-year-old female with history of aortic and mitral mechanical replacements, A-fib with a pacer, CHF (most recent EF 45 to 50%), rheumatic heart disease, stage III CKD, CAD, PVD, COPD. Patient presented via EMS due to 1 day of chills, fatigue, lower abdominal pain/pressure. Patient is being admitted for sepsis secondary to UTI. #Sepsis/UTI - UA 2+ protein, positive for nitrates, 3+ LE, greater than 50 WBC, 4+ bacteria. Symptomatic. History of pansensitive E. coli. Renal function sta ble. + SIRS: tachypneic (RR 31), tachycardic (HR 131), febrile 38.4C - lactate 1.6, procal 2.50 - no leukocytosis - trend CBC - Sepsis fluid bolus for ideal body weight = 1704.30mL; given 1.5L NSS in ED - Complete sepsis fluid bolus with additional 1L LR bolus given tachycardic and hypotensive on admission; continue IVF resuscitation with LR @ 150 ml/hr x2l - ABX coverage with Rocephin - discontinue azithromycin - originally thought to be PNA however CXR negative and patient without respiratory symptoms - follow blood and urine cultures - Tylenol prn for fever - trop 15.1 - likely 2/2 demand with sepsis, pt denies CP. Repeat with AM labs. #Uiobepo07% on room air in ED. CXR showed interstitial congestion. Bio fire negative. Repleted magnesium as below Incentive spirometry Wean oxygen as tolerated #hypomagnesemia2/2. P.o. intake. Magnesium 1.5, electrolytes stable. 2G IV magnesium ordered Trend magnesium and BMP #Hip painpelvis XR reveals worsening osteoarthritis. Patient with hip pain worsening for several months. Patient denies any falls. Tylenol as needed, oxycodone prn for breakthrough pain #HFpEFmost recent EF 45 to 50%. no acute exacerbation at time of admission not on any diuretics at home. Strict I's and O's Monitor for fluid overload with fluids above however patient appears very dry - daily weights #valvular heart dx - aortic and mitral valve replacements, tricuspid repair INR goal 2.5-3.5 - INR 3.9 on admission 07/26/2024 - INR 3.6 on 07/27/2024; hold Warfarin on 07/27/2024, and trend INR on 07/28/2024 to resume or continue holding off coumadin #A-fib with pacer - In A-fib RVR at time of patient. Repleting electrolytes as above. #CKDstable. Avoid nephrotoxic agents. #gerd - continue PPI #Anemia - of note Hgb drop from 14.2 to 10.9 over 1 month. Patient denies any bleeding. - trend cbc VTE ppx: SCDs, holding warfarin Dispo: PCU Admission and Anticipated Discharge Date Admission Date: July 26, 2024 Subjective "I feel better. The antibiotics are working. The ER doc said I have a urinary tract infection causing sepsis." Review of Systems Constitutional: Negative for antecedent/coincident fevers, chills, diaphoresis, cough, wheeze, sore throat, hemoptysis, chest pains, palpitations, pleurisy, nausea, vomiting, diarrhea, abdominal pain, pelvic pain, hematemesis, hematochezia, melena, hematuria, dysuria, frequency, urgency, headaches, dizziness, lightheadedness, visual changes, hearing changes, weakness, falls, syncope, trauma, travel history, sick contacts, or food/drug ingestions novel or new. All other review of systems are reported as negative by the patient on 07/27/2024. Physical Exam Constitutional: General: Comfortable, coherent, cooperative. Wide awake and alert. Not confused, lethargic, or obtunded. Patient speaks in complete, fluent, and articulate sentences without pause, cough, or wheeze, with O2 sat 93% on 3 liters/minute O2 via NC (07/27/2024, 3:45pm). HEENT: Normocephalic, atraumatic. Extra-ocular muscles intact. Pupils equally round and reactive to light. No nystagmus, gaze paresis, anisocoria, miosis, mydriasis, hyphema, scleral injection, conjunctivitis, or pterygium. No otorrhea. No pharyngeal erythema, edema, or discharge. Neck: Supple, no stridor, bruit, goiter, or hepato-jugular reflux. Jugular venous pressure is estimated to be 3 cm above the sternal angle of Ayad, which in turn, is 5 cm above the level of the right atrium; with jugular venous pressure estimated to be 8 cm, then, there is no jugular venous distention on 07/27/2024. Lymphatics: No cervical (anterior/posterior), supraclavicular, infraclavicular, axillary, epitrochlear, or inguinal adenopathy. Chest: Symmetric rise and fall with respirations. Non-tender to palpation. Lungs: Clear to auscultation and percussion. No audible expiratory wheeze, egophony, pectoriloquy, increase in tactile fremitus, or flatness/dullness to percussion at the bases. Heart: Regular rate and rhythm. S1 and S2 noted. No S3 or S4 summation gallop. No tripartite friction rub. Grade II/ early systolic murmur @ LLSB without radiation to the carotids, axilla, or back, and which remains invariant in regards to the respiratory cycle. Abdomen: Soft, non-tender, non-distended. No rebound, guarding, Fuentes's sign, or organomegaly. Bowel sounds auscultated in all 4 quadrants. Extremities: No clubbing, cyanosis, or edema in upper extremities or lower extremities bilaterally. 2+ pedal pulses bilaterally. Skin: No decubitus ulcer, exanthem, or enanthem. Genito-urinary: No urethral discharge. No huang catheter. Patient walks from bed to bedside commode and back to bed without difficulty. Neurology: Alert and oriented in regards to person, place, time, and situation. DTR+ and symmetric. 5/5 motor strength in all 4 extremities, both proximally and distally. No pronator drift. No facial droop. No dysarthria. Psychiatry: No homicidal ideation. No suicidal ideation. No flat affect; smiles appropriately. Results & Data Results & Data Vital Signs (Past 12 Hours) Vital Signs Temp Pulse Resp BP Pulse Ox O2 Del Method O2 Flow Rate 07/27/24 15:45 114/69 07/27/24 15:42 81 23 93 Nasal Cannula 3 07/27/24 15:30 114/67 07/27/24 15:21 78 19 95 Nasal Cannula 3 07/27/24 15:18 76 22 93 Nasal Cannula 3 07/27/24 15:15 124/62 07/27/24 15:12 78 23 94 Nasal Cannula 3 07/27/24 15:06 85 20 94 Nasal Cannula 3 07/27/24 15:00 101/60 07/27/24 14:51 79 20 93 Nasal Cannula 3 07/27/24 14:45 109/75 07/27/24 14:42 78 33 H 95 Nasal Cannula 3 07/27/24 14:36 82 19 07/27/24 14:30 112/67 07/27/24 14:27 81 29 H 94 Nasal Cannula 3 07/27/24 14:24 78 27 H 99 Nasal Cannula 3 07/27/24 14:15 116/63 07/27/24 14:15 85 07/27/24 14:09 76 20 95 Nasal Cannula 3 07/27/24 14:00 119/70 07/27/24 13:52 100/58 L 07/27/24 13:51 83 20 94 Nasal Cannula 3 07/27/24 13:45 88/46 L 07/27/24 13:38 91/64 L 07/27/24 13:33 77 24 95 Nasal Cannula 3 07/27/24 13:30 98/59 L 07/27/24 13:15 94/59 L 07/27/24 13:12 76 20 97 Nasal Cannula 3 07/27/24 13:00 81 91 Nasal Cannula 3 07/27/24 12:51 96 H 31 H 117/69 90 Nasal Cannula 3 07/27/24 12:30 76 21 95 Nasal Cannula 3 07/27/24 12:15 144/70 H 07/27/24 12:09 78 28 H 94 Nasal Cannula 3 07/27/24 12:00 77 21 116/61 93 Nasal Cannula 3 07/27/24 11:42 75 21 93 Nasal Cannula 3 07/27/24 11:30 115/74 07/27/24 11:27 71 23 99 Nasal Cannula 3 07/27/24 11:24 79 94 Nasal Cannula 3 07/27/24 11:18 82 23 91 Nasal Cannula 3 07/27/24 11:15 99/49 L 07/27/24 11:09 89 22 93 Nasal Cannula 3 07/27/24 11:01 127/49 L 07/27/24 11:00 82 22 94 Nasal Cannula 3 07/27/24 10:54 82 20 94 Nasal Cannula 3 07/27/24 10:45 81 21 93 Nasal Cannula 3 07/27/24 10:45 121/75 07/27/24 10:30 78 17 94/68 L 92 Nasal Cannula 3 07/27/24 10:27 83 90 Nasal Cannula 3 07/27/24 10:24 89 93 Nasal Cannula 3 07/27/24 10:12 86 20 90 Nasal Cannula 3 07/27/24 10:11 125/61 07/27/24 10:11 125/61 07/27/24 10:07 117/73 07/27/24 09:57 98 H 20 Nasal Cannula 3 07/27/24 09:55 119/72 07/27/24 09:50 127/62 07/27/24 09:45 115/63 07/27/24 09:40 122/72 07/27/24 09:39 76 19 07/27/24 09:35 130/73 07/27/24 09:33 70 23 94 Nasal Cannula 3 07/27/24 09:30 108/45 L 07/27/24 09:24 68 19 92 Nasal Cannula 3 07/27/24 09:24 103/52 L 07/27/24 08:57 77 24 93 Nasal Cannula 3 07/27/24 08:54 103/53 L 07/27/24 08:54 103/53 L 07/27/24 08:54 85 97 Nasal Cannula 3 07/27/24 08:51 83/48 L 07/27/24 08:48 75 16 96 Nasal Cannula 3 07/27/24 08:45 84/45 L 07/27/24 08:45 81 18 93 Nasal Cannula 3 07/27/24 08:42 80 16 96 Nasal Cannula 3 07/27/24 08:40 36.9 C 07/27/24 08:33 78 18 97 Nasal Cannula 3 07/27/24 08:30 85/55 L 07/27/24 08:18 74 94 Nasal Cannula 3 07/27/24 08:00 104/63 07/27/24 08:00 74 24 94 Nasal Cannula 3 07/27/24 07:36 74 19 92 Nasal Cannula 3 07/27/24 07:31 104/61 07/27/24 07:23 Nasal Cannula 3 07/27/24 07:12 77 17 92 Nasal Cannula 3 07/27/24 07:09 79 07/27/24 07:03 80 17 93 Nasal Cannula 3 07/27/24 07:00 91/56 L 07/27/24 06:54 81 20 93 Nasal Cannula 3 07/27/24 06:50 85 07/27/24 06:48 76 20 94 Nasal Cannula 3 07/27/24 06:45 94/60 L 07/27/24 06:30 95/61 L 07/27/24 06:30 95/61 L 07/27/24 06:30 95/61 L 07/27/24 06:30 95/61 L 07/27/24 05:50 87/55 L 07/27/24 05:45 86/55 L 07/27/24 05:40 92/62 L 07/27/24 05:39 97/62 L 07/27/24 05:36 81 25 H 96 07/27/24 05:35 81/53 L 07/27/24 05:32 94/58 L 07/27/24 05:27 81 21 88 L 07/27/24 05:26 75/42 L 07/27/24 05:20 92/61 L 07/27/24 05:15 82/52 L 07/27/24 05:15 82/52 L 07/27/24 05:15 87 28 H 93 07/27/24 05:11 81/56 L 07/27/24 04:45 89/44 L 07/27/24 04:40 82/49 L 07/27/24 04:30 87/51 L Laboratory Results U/A (07/26/2024, 8:41pm): turbid yellow, nitrite+, LE 3+, WBC > 50, RBC 11-20, epi 3-5, bacteria 4+ Urine culture (07/26/2024, 8:41pm): Blood culture #1 (07/26/2024, 7:15pm): gram negative bacilli Blood culture #2 (07/26/2024, 7:15pm): gram negative bacilli Procalcitonin #1 2.5 ng/mL (07/26/2024, 7:06pm). Procalcitonin #2 27.3 ng/mL (07/27/2024, 7:52am). Lactic acid #1 1.6 mmol/L (07/26/2024, 7:15pm). Lactic acid #2 1.4 mmol/L (07/27/2024, 4:41am). WBC 7.22, N87 L14 M4 E1 (07/26/2024, 7:06pm). WBC 7.43, N86 L 4 M7 (07/27/2024, 4:41am). Mg 1.5 mg/dL (07/26/2024, 7:06pm). Mg 2.2 mg/dL (07/27/2024, 4:41am). BIOFIRE (07/26/2024): Enterobacterales / E. coli PG Care Time/CCT Total # of Minutes Spent Total Time Spent with Patient: Total time spent is greater than 50% in coordination of care (as documented) at patient's floor/unit and/or counseling patient: Coding Level of Care Code 90743 SUB INP/OBS CARE 2/35MIN Diagnoses Sepsis A41.9 Septic shock A41.9; R65.21 Acute UTI N39.0 Hypoxia R09.02 Hypomagnesemia E83.42
[2024-07-27] MEDS ORDERED: Nursing to Pharmacy Communication SCH (17:00)
[2024-07-27] MEDS: ACETAMINOPHEN 325 MG TAB PO PRN (17:05)
[2024-07-27] MEDS: cefTRIAXone SODIUM 2,000 MG/50 ML BAG IV SCH (19:46)
[2024-07-28 02:25] LABS: Basophils # (auto) 0.01 K/uL (0.00-0.20); Basophils % (auto) 0.1 %; Eosinophils # (auto) 0.19 K/uL (0.00-0.50); Eosinophils % (auto) 2.8 %; Hematocrit (blood only) 29.6 % (37.0-47.0); Hemoglobin 9.5 g/dl (12.0-16.0); Immature Granulocytes # (auto) 0.03 K/uL (0.01-0.20); Immature Granulocytes % (auto) 0.4 %; Lymphocytes # (auto) 0.58 K/uL (1.20-3.40); Lymphocytes % (auto) 8.7 %; Mean Corpuscular Hemoglobin 30.6 pg (25.0-34.0); Mean Corpuscular Hgb Conc 32.1 g/dL (32.0-36.0); Mean Corpuscular Volume 95.5 fL (80.0-100.0); Mean Platelet Volume 10.3 fL (9.4-12.4); Monocytes # (auto) 0.66 K/uL (0.11-0.59); Monocytes % (auto) 9.9 %; Neutrophils % (auto) 78.1 %; Platelet Count 127 K/uL (130-400); RDW Coefficient of Variation 15.9 % (11.5-14.5); RDW Standard Deviation 55.1 fL (36.4-46.3); White Blood Count 6.67 K/ul (4.8-10.8)
[2024-07-28 02:44] LABS: BUN Creatinine Ratio 11.2 (10-20); Calcium 8.2 mg/dl (8.6-10.3); Magnesium 2.1 mg/dl (1.7-2.4); Phosphorus 2.5 mg/dl (2.5-4.9); Potassium 4.6 mmol/L (3.5-5.1)
[2024-07-28 02:55] LABS: INR 3.6 (0.9-1.1); Prothrombin Time 34.6 Seconds (9.0-12.0)
--- NOTE | 2024-07-28 04:57 | Electrocardiogram Report ---
Test Reason : Blood Pressure : */* mmHG Vent. Rate : 134 BPM Atrial Rate : * BPM P-R Int : 166 ms QRS Dur : 116 ms QT Int : 302 ms P-R-T Axes : 101 -66 87 degrees QTcB Int : 450 ms Atrial fibrillation with rapid ventricular response Right bundle branch block Left anterior fascicular block Bifascicular block Left ventricular hypertrophy with repolarization abnormality ( R in aVL ) Abnormal ECG When compared with ECG of 30-Nov-2019 19:45, Ventricular pacing is no longer present Vent. rate has increased by 54 bpm Confirmed by Miguel Krueger ([id number]) on 07/28/2024 4:57:18 AM Referred By: REFERRED SELF Confirmed By: Miguel Krueger
--- NOTE | 2024-07-28 07:35 | Critical Care Progress Note ---
Date of Service July 28, 2024 Assessment & Plan (1) Acute UTI: (2) Sepsis: (3) Hypoxia: (4) Septic shock: (5) LIBERTAD (acute kidney injury): (6) Chronic kidney disease, stage III (moderate): (7) Rheumatic heart disease: (8) Atrial fibrillation: (9) Thrombocytopenia: Plan Reason Critically Ill: 1. Severe sepsis 2. LIBERTAD on CKD, prerenal, improved with resuscitation 3. Clinical dehydration, improved 4. Acute hypoxic respiratory failure with history of COPD Neuro - CAM ICU: Negative Acetaminophen PRN pain/fever, low dose oxycodone PRN Cardiac - TTE (2024): EF 45%, IVC 1.7cm -- S/p shock Likely septic with a component of hypovolemia Did get 4 L of fluids so far in the ER and ICU combined Random cortisol 10 Try to keep MAP greater than 65 Respiratory - -- O2 supplementation to keep oxygen saturation between 90-92% GI - RENAL/LYTES - -- LIBERTAD on CKD --> improving Likely secondary to hypotension Monitor BUN/creatinine Avoid nephrotoxic medications Strict ins and outs ENDO - -- ICU hyperglycemia protocol HEME - -- New onset thrombocytopenia Likely secondary to sepsis Continue to monitor --Normocytic anemia Monitor H&H ID - -- Gram-negative bacteremia History of pansensitive E. coli back in January 2023 Continue Rocephin, could consider broadening if progresses to shock Procalcitonin 2.5 Chest x-ray does not show any clear signs of infiltrate CODE STATUS - DNR/DNI --Prophylaxis VTE: Warfarin GI: Pantoprazole Lines: Peripheral Diet: Cardiac Plan: In/out: Negative to 64, urine output 1545 Continue with Rocephin till we have the sensitivities from the blood cultures back and then decide the total course of antibiotics Repeat blood cultures later today INR is within normal limit, continue with warfarin DC Levophed as she has not required it for more than 12 hours Hemodynamically stable to be downgrade to medical floor Case discussed with primary team Please note the above document was generated using voice recognition software. It may contain grammatical, syntax or spelling errors.Any formal questions or concerns about the content, text or information contained within the body of this dictation should be directly addressed to the provider for clarification. Admission and Anticipated Discharge Date Admission Date: July 26, 2024 Subjective Patient seen and examined at bedside. No acute distress, no adverse events overnight She was saturating 95 to 96% on 2 L nasal cannula. MAP of 77. She has been off vasopressors as of 5 PM yesterday No abdominal pain Appetite has come back. Denies any nausea or vomiting Review of Systems 2 Review of Systems: All systems reviewed & are unremarkable except as noted in Subjective Physical Exam 2 Physical Exam: Constitutional: No acute distress HEENT: EOMI, PERRLA Respiratory system: Good air entry bilaterally, no wheeze, no rhonchi, minimal crackles bilateral lower lobes CVS: S1-S2 positive, mechanical heart sound appreciated, no murmur Abdomen: Soft, nontender, nondistended, positive bowel sounds x4 Extremities: +2 pulses bilaterally radialis/ dorsalis pedis, no cyanosis, no edema Neuro: Awake alert oriented x3 Psych: Normal mood and affect G/U: No [place] Skin: no rashes, warm and dry Lymphatic: no cervical or axillary lymphadenopathy Results & Data Results & Data Vital Signs (Past 12 Hours) Vital Signs Temp Pulse Resp BP Pulse Ox 07/28/24 07:22 36.9 C 07/28/24 07:15 78 23 94 07/28/24 07:00 84 16 93 07/28/24 07:00 101/63 07/28/24 06:00 84 21 07/28/24 05:03 77 24 93 07/28/24 05:01 115/76 07/28/24 05:01 115/76 07/28/24 05:01 115/76 07/28/24 05:01 115/76 07/28/24 04:57 84 27 H 95 07/28/24 04:00 82 19 94 07/28/24 04:00 116/73 07/28/24 03:03 76 19 95 07/28/24 03:00 101/69 07/28/24 03:00 101/69 07/28/24 02:57 76 18 94 07/28/24 02:15 80 20 93 07/28/24 01:18 76 18 97 07/28/24 01:00 98/58 L 07/28/24 01:00 98/58 L 07/28/24 00:42 73 17 96 07/28/24 00:33 77 17 96 07/28/24 00:00 118/67 07/27/24 23:57 87 15 98 07/27/24 23:18 79 18 99 07/27/24 22:21 96 H 20 93 07/27/24 22:20 110/70 07/27/24 22:20 110/70 07/27/24 22:20 110/70 07/27/24 22:15 110 H 20 07/27/24 21:36 78 14 94 07/27/24 21:30 114/60 07/27/24 21:21 78 21 90 07/27/24 21:12 78 23 91 07/27/24 21:00 116/68 07/27/24 21:00 116/68 07/27/24 20:57 77 20 93 07/27/24 20:33 85 27 H 93 07/27/24 20:30 110/64 07/27/24 20:27 83 25 H 93 07/27/24 20:00 79 15 94 Laboratory Results 07/28/24 01:58 07/28/24 01:58 Coding Level of Care Code 74936 SUB INP/OBS CARE MIN Diagnoses Acute UTI N39.0 Sepsis A41.9 Hypoxia R09.02 Septic shock A41.9; R65.21 LIBERTAD (acute kidney injury) N17.9 Chronic kidney disease, stage III (moderate) N18.3 Rheumatic heart disease I09.9 Atrial fibrillation, unspecified type I48.91 Atrial fibrillation type: unspecified Thrombocytopenia D69.6 (8) Atrial fibrillation Atrial fibrillation type: unspecified Qualified Code(s): I48.91 - Unspecified atrial fibrillation
[2024-07-28] MEDS: WARFARIN SOD 1 MG TAB PO ONE (15:56)
--- NOTE | 2024-07-28 19:47 | Hospitalist Progress Note ---
Date of Service July 28, 2024 Assessment & Plan (1) Sepsis: Plan: Due to Enterobacterales / E. coli UTI with gram negative shelbi bacteremia (07/26/2024, 7:15pm blood cultures #1 and #2). Procalcitonin #1 2.5 ng/mL (07/26/2024, 7:06pm). Patient subsequently started to receive ceftriaxone 2g IV daily (day #1 on 07/26/2024, 7:55pm; day #2 on 07/27/2024, 7:00pm). Procalcitonin #2 27.3 ng/mL (07/27/2024, 7:52am). Check vitals, genito-urinary exam, procalcitonin level, lactic acid, 07/26/2024, 7:15pm blood cultures #1 and #2, and 07/26/2024, 8:41pm urine culture to guide future antibiotic therapy. (2) Septic shock: Plan: RESOLVED off norepinephrine infusion (which was started to attain/maintain MAP > 65 mm Hg). cf., norepinephrine infusion @ 0.05 ug/kg/min (07/27/2024, 9:10am). cf., norepinephrine infusion @ 0.03 ug/kg/min (07/27/2024, 12:47pm). cf., norepinephrine infusion @ 0.01 ug/kg/min (07/27/2024, 1:00pm). cf., norepinephrine infusion @ 0.03 ug/kg/min (07/27/2024, 1:50pm). cf., norepinephrine infusion @ 0.01 ug/kg/min (07/27/2024, 3:57pm). cf., norepinephrine infusion @ 0.00 ug/kg/min (07/27/2024, 4:56pm). (3) Acute UTI: Plan: See bullet #1 above. (4) Hypoxia: Plan: Acute hypoxic respiratory failure with O2 sat 89% on room air (07/26/2024, 7:30pm). Acute hypoxic respiratory failure with O2 sat 88% on room air (07/27/2024, 5:27am). O2 sat 93% on 3 liters/minute via nasal cannula (07/27/2024, 3:45pm). RESOLVED with O2 sat 98% on room air (07/28/2024, 3:35pm). cf., portable CXR (07/26/2024, 7:10pm): No infiltrate, effusion, pneumothorax. Cardiomegaly with slight pulmonary vascular congestion. Etiology of acute hypoxic respiratory failure remains unclear, but was probably due to gram negative shelbi-associated community acquired pneumonia. As stated in bullet #1 above, patient subsequently started to receive ceftriaxone 2g IV daily (day #1 on 07/26/2024, 7:55pm; day #2 on 07/27/2024, 7:00pm; day #3 on 07/28/2024, 6:08pm). I will check vitals, chest exam, procalcitonin, lactic acid, and 07/26/2024, 7:15pm blood cultures #1 and #2 in the 07/29/2024 am. (5) Hypomagnesemia: Plan: cf., Mg 1.5 mg/dL (07/26/2024, 7:06pm). cf., Mg 2.2 mg/dL (07/27/2024, 4:41am). RESOLVED s/p administration of magnesium sulfate 1g IV x 2 doses (07/26/2024, 9:48pm; 07/27/2024, 12:16am). Plan [id number] female with PMH of DNR/DNI @ home alone, rheumatic heart disease leading to mechanical AVR and MVR ([facility]) on coumadin, paroxysmal AFIB s/p PPM, chronic systolic CHF with reduced LVEF 45-50% (as noted on 04/25/2024, 12:44pm TTE, CARDS Dr. Kris Oakley), CAD, PAD/PVD, former tobacco abuse with subsequent diagnosis of COPD, not on home O2 or home steroids, and trevino-sensitive E. coli UTI (as noted on 01/19/2023 and 09/19/2021 urine cultures), who came to [facility] ER on 07/26/2024 with complaints of 1 day of chills, fatigue, and lower abdominal pain/pressure. Patient was subsequently admitted to the inpatient hospitalist service @ [facility] on 07/26/2024 with the following diagnoses: 1. Sepsis due to recurrent E. coli UTI, now with E. coli bacteremia. 2. Acute hypomagnesemia with Mg 1.5 mg/dL (07/26/2024, 7:06pm). (as noted on 04/25/2024, 12:44pm TTE, CARDS Dr. Kris Oakley). 3. Acute type II NSTEMI with nominal troponin-I elevations due to demand ischemia, which in turn, was due to (a) paroxysmal AFIB with RVR; (b) chronic systolic CHF with reduced LVEF 45-50% (as noted on 04/25/2024, 12:44pm TTE, CARDS Dr. Kris Oakley). Troponin-I #1 15.1 pg/mL (07/26/2024, 7:06pm). Troponin-I #2 24.0 pg/mL (07/27/2024, 4:41am). Troponin-I #3 24.1 pg/mL (07/27/2024, 9:07pm). Troponin-I #4 20.5 pg/mL (07/28/2024, 1:58am). #Sepsis/UTI - UA 2+ protein, positive for nitrates, 3+ LE, greater than 50 WBC, 4+ bacteria. Symptomatic. History of pansensitive E. coli. Renal function stable. + SIRS: tachypneic (RR 31), tachycardic (HR 131), febrile 38.4C - lactate 1.6, procal 2.50 - no leukocytosis - trend CBC - Sepsis fluid bolus for ideal body weight = 1704.30mL; given 1.5L NSS in ED - Complete sepsis fluid bolus with additional 1L LR bolus given tachycardic and hypotensive on admission; continue IVF resuscitation with LR @ 150 ml/hr x2l - ABX coverage with Rocephin - discontinue azithromycin - originally thought to be PNA however CXR negative and patient without respiratory symptoms - follow blood and urine cultures - Tylenol prn for fever - trop 15.1 - likely 2/2 demand with sepsis, pt denies CP. Repeat with AM labs. #[id number]% on room air in ED. CXR showed interstitial congestion. Bio fire negative. Repleted magnesium as below Incentive spirometry Wean oxygen as tolerated #hypomagnesemia2/2. P.o. intake. Magnesium 1.5, electrolytes stable. 2G IV magnesium ordered Trend magnesium and BMP #Hip painpelvis XR reveals worsening osteoarthritis. Patient with hip pain worsening for several months. Patient denies any falls. Tylenol as needed, oxycodone prn for breakthrough pain #HFpEFmost recent EF 45 to 50%. no acute exacerbation at time of admission not on any diuretics at home. Strict I's and O's Monitor for fluid overload with fluids above however patient appears very dry - daily weights #valvular heart dx - aortic and mitral valve replacements, tricuspid repair INR goal 2.5-3.5 - INR 3.9 on admission 07/26/2024 - INR 3.6 on 07/27/2024; held warfarin on 07/27/2024, resume warfarin 1mg PO x 1 dose (07/28/2024, 4:00pm) given INR 3.6 (07/28/2024, 1:58am), and check INR on 07/29/2024 #A-fib with pacer - In A-fib RVR at time of patient. Repleting electrolytes as above. #CKDstable. Avoid nephrotoxic agents. #gerd - continue PPI #Anemia - of note Hgb drop from 14.2 to 10.9 over 1 month. Patient denies any bleeding. - trend cbc VTE ppx: SCDs, holding warfarin Dispo: PCU Admission and Anticipated Discharge Date Admission Date: July 26, 2024 Subjective "I feel 90% better than yesterday (07/27/2024). I really really feel good. Maybe I can go home tomorrow and give myself the antibiotics at home." Review of Systems Constitutional: Negative for antecedent/coincident fevers, chills, diaphoresis, cough, wheeze, sore throat, hemoptysis, chest pains, palpitations, pleurisy, nausea, vomiting, diarrhea, abdominal pain, pelvic pain, hematemesis, hematochezia, melena, hematuria, dysuria, frequency, urgency, headaches, dizziness, lightheadedness, visual changes, hearing changes, weakness, falls, syncope, trauma, travel history, sick contacts, or food/drug ingestions novel or new. All other review of systems are reported as negative by the patient on 07/28/2024. Physical Exam Constitutional: General: Comfortable, coherent, cooperative. Wide awake and alert. Not confused, lethargic, or obtunded. Patient speaks in complete, fluent, and articulate sentences without pause, cough, or wheeze, with O2 sat 98% on room air (07/28/2024, 3:35pm). HEENT: Normocephalic, atraumatic. Extra-ocular muscles intact. Pupils equally round and reactive to light. No nystagmus, gaze paresis, anisocoria, miosis, mydriasis, hyphema, scleral injection, conjunctivitis, or pterygium. No otorrhea. No pharyngeal erythema, edema, or discharge. Neck: Supple, no stridor, bruit, goiter, or hepato-jugular reflux. Jugular venous pressure is estimated to be 3 cm above the sternal angle of Ayad, which in turn, is 5 cm above the level of the right atrium; with jugular venous pressure estimated to be 8 cm, then, there is no jugular venous distention on 07/28/2024. Lymphatics: No cervical (anterior/posterior), supraclavicular, infraclavicular, axillary, epitrochlear, or inguinal adenopathy. Chest: Symmetric rise and fall with respirations. Non-tender to palpation. Lungs: Clear to auscultation and percussion. No audible expiratory wheeze, egophony, pectoriloquy, increase in tactile fremitus, or flatness/dullness to percussion at the bases. Heart: Regular rate and rhythm. S1 and S2 noted. No S3 or S4 summation gallop. No tripartite friction rub. Grade II/ early systolic murmur @ LLSB without radiation to the carotids, axilla, or back, and which remains invariant in regards to the respiratory cycle. Abdomen: Soft, non-tender, non-distended. No rebound, guarding, Fuentes's sign, or organomegaly. Bowel sounds auscultated in all 4 quadrants. Extremities: No clubbing, cyanosis, or edema in upper extremities or lower extremities bilaterally. 2+ pedal pulses bilaterally. Skin: No decubitus ulcer, exanthem, or enanthem. Genito-urinary: No urethral discharge. No huang catheter. Patient walks from bed to bedside commode and back to bed without difficulty. Neurology: Alert and oriented in regards to person, place, time, and situation. DTR+ and symmetric. 5/5 motor strength in all 4 extremities, both proximally and distally. No pronator drift. No facial droop. No dysarthria. Psychiatry: No homicidal ideation. No suicidal ideation. No flat affect; smiles appropriately. Results & Data Results & Data Vital Signs (Past 12 Hours) Vital Signs Temp Pulse Pulse Resp BP BP Pulse Ox 07/28/24 15:35 36.6 C 82 18 116/71 98 07/28/24 14:00 124/74 07/28/24 14:00 124/74 07/28/24 14:00 85 22 94 07/28/24 13:00 108/70 07/28/24 13:00 109 H 19 94 07/28/24 12:18 87 26 H 96 07/28/24 12:01 125/94 07/28/24 12:01 125/94 07/28/24 11:33 86 28 H 94 07/28/24 11:00 97/62 L 07/28/24 11:00 97/62 L 07/28/24 10:36 120 H 29 H 80 L 07/28/24 10:21 93 H 13 95 07/28/24 09:00 106/70 07/28/24 08:57 118 H 18 86 L 07/28/24 08:33 106/70 07/28/24 08:18 87 19 95 07/28/24 08:06 93 H 24 94 07/28/24 08:00 108/86 07/28/24 07:57 96 H 23 94 O2 Del Method 07/28/24 15:35 Room Air 07/28/24 14:00 07/28/24 14:00 07/28/24 14:00 Room Air 07/28/24 13:00 07/28/24 13:00 07/28/24 12:18 07/28/24 12:01 07/28/24 12:01 07/28/24 11:33 07/28/24 11:00 07/28/24 11:00 07/28/24 10:36 07/28/24 10:21 07/28/24 09:00 07/28/24 08:57 07/28/24 08:33 07/28/24 08:18 07/28/24 08:06 07/28/24 08:00 07/28/24 07:57 Laboratory Results U/A (07/26/2024, 8:41pm): turbid yellow, nitrite+, LE 3+, WBC > 50, RBC 11-20, epi 3-5, bacteria 4+ Urine culture (07/26/2024, 8:41pm): E. coli Blood culture #1 (07/26/2024, 7:15pm): E. coli Blood culture #2 (07/26/2024, 7:15pm): E. coli BIOFIRE (07/26/2024): Enterobacterales / E. coli Procalcitonin #1 2.5 ng/mL (07/26/2024, 7:06pm). Procalcitonin #2 27.3 ng/mL (07/27/2024, 7:52am). Procalcitonin #3 21.30 ng/mL (07/28/2024, 1:58am). Lactic acid #1 1.6 mmol/L (07/26/2024, 7:15pm). Lactic acid #2 1.4 mmol/L (07/27/2024, 4:41am). Lactic acid #3 0.7 mmol/L (07/28/2024, 1:58am). WBC 7.22, N87 L14 M 4 E1 (07/26/2024, 7:06pm). WBC 7.43, N86 L 4 M 9 (07/27/2024, 4:41am). WBC 6.67, N78 L 9 M10 E3 (07/28/2024, 1:58am). Hb 10.9 g/dL, MCV 94.1, MCHC 32.5 (07/26/2024, 7:06pm). Hb 9.6 g/dL, MCV 96.1, MCHC 32.3 (07/27/2024, 4:41am). Hb 9.5 g/dL, MCV 95.5, MCHC 32.1 (07/28/2024, 1:58am). cf., baseline Hb range, 12.8 - 14.4 g/dL (06/14/2021 - 06/16/2024). Mg 1.5 mg/dL (07/26/2024, 7:06pm). Mg 2.2 mg/dL (07/27/2024, 4:41am). INR 3.9 (07/26/2024, 7:06pm). INR 3.6 (07/27/2024, 4:41am). INR 3.6 (07/28/2024, 1:58am). Troponin-I #1 15.1 pg/mL (07/26/2024, 7:06pm). Troponin-I #2 24.0 pg/mL (07/27/2024, 4:41am). Troponin-I #3 24.1 pg/mL (07/27/2024, 9:07pm). Troponin-I #4 20.5 pg/mL (07/28/2024, 1:58am). Diagnostic Findings EKG #1 (07/26/2024, 7:07pm): AFIB @ 134, QTC 450, RBBB, LAFB, no acute ST depressions/elevations (by my review). EKG #2 (07/26/2024, 7:53pm): AFIB @ 107, QTC 509, RBBB, LAFB, no acute ST depressions/elevations (by my review). TTE (04/25/2024, 12:44pm): 1. LVEF 45-50%. Borderline global hypokinesis of LV. 2. Mild concentric LVH. 3. Mechanical AV well seated and functions normally. 4. Mechanical MV well-seated (bileaflet, [facility]). 5. Mildly dilated ascending aorta (4 cm). 6. Compared with 11/13/2022 TTE, no significant change. (as per CARDS Dr. Kris Oakley). EKG (11/22/2019, 10:59am): V-pacing @ 80, QTC 532 (by my review). PG Care Time/CCT Total # of Minutes Spent Total Time Spent with Patient: Total time spent is greater than 50% in coordination of care (as documented) at patient's floor/unit and/or counseling patient: Coding Level of Care Code 51693 SUB INP/OBS CARE 3/50MIN Diagnoses Sepsis A41.9 Septic shock A41.9; R65.21 Acute UTI N39.0 Hypoxia R09.02 Hypomagnesemia E83.42
--- NOTE | 2024-07-29 06:13 | Electrocardiogram Report ---
Test Reason : Blood Pressure : */* mmHG Vent. Rate : 107 BPM Atrial Rate : * BPM P-R Int : * ms QRS Dur : 122 ms QT Int : 382 ms P-R-T Axes : * -66 67 degrees QTcB Int : 509 ms Atrial fibrillation with rapid ventricular response Right bundle branch block Left anterior fascicular block Bifascicular block Minimal voltage criteria for LVH, may be normal variant ( R in aVL ) Abnormal ECG When compared with ECG of 26-Jul-2024 19:07, No significant change Confirmed by Miguel Krueger ([id number]) on 07/29/2024 6:13:34 AM Referred By: REFERRED SELF Confirmed By: Miguel Krueger
[2024-07-29 07:54] VITALS: PULSE 87; O2SAT 91
[2024-07-29 08:34] LABS: Basophils # (auto) 0.02 K/uL (0.00-0.20); Basophils % (auto) 0.4 %; Eosinophils # (auto) 0.22 K/uL (0.00-0.50); Eosinophils % (auto) 4.1 %; Hematocrit (blood only) 32.2 % (37.0-47.0); Hemoglobin 10.7 g/dl (12.0-16.0); Immature Granulocytes # (auto) 0.03 K/uL (0.01-0.20); Immature Granulocytes % (auto) 0.6 %; Lymphocytes # (auto) 0.74 K/uL (1.20-3.40); Lymphocytes % (auto) 13.7 %; Mean Corpuscular Hemoglobin 31.5 pg (25.0-34.0); Mean Corpuscular Hgb Conc 33.2 g/dL (32.0-36.0); Mean Corpuscular Volume 94.7 fL (80.0-100.0); Mean Platelet Volume 10.3 fL (9.4-12.4); Monocytes # (auto) 0.55 K/uL (0.11-0.59); Monocytes % (auto) 10.2 %; Neutrophils # (auto) 3.84 K/uL (1.40-6.50); Platelet Count 168 K/uL (130-400); RDW Coefficient of Variation 15.4 % (11.5-14.5); RDW Standard Deviation 53.6 fL (36.4-46.3)
[2024-07-29 08:55] VITALS: BP 122/80; RESP 18; TEMP 98.4
[2024-07-29 09:01] LABS: INR 2.9 (0.9-1.1); Prothrombin Time 28.2 Seconds (9.0-12.0)
[2024-07-29] MEDS: cefUROXime axetil 500 MG TAB PO SCH (13:07)
--- NOTE | 2024-07-29 13:35 | Electrocardiogram Report ---
Test Reason : Blood Pressure : */* mmHG Vent. Rate : 82 BPM Atrial Rate : * BPM P-R Int : * ms QRS Dur : 120 ms QT Int : 412 ms P-R-T Axes : * -58 29 degrees QTcB Int : 481 ms Atrial fibrillation Right bundle branch block Left anterior fascicular block Bifascicular block Abnormal ECG When compared with ECG of 26-Jul-2024 19:53, No significant change was found Confirmed by Kris Oakley ([id number]) on 07/29/2024 1:34:53 PM Referred By: REFERRED SELF Confirmed By: Kris Oakley
--- NOTE | 2024-07-29 16:19 | Discharge Summary ---
Discharge Summary Date of Service July 29, 2024 Principal Dx & Hospital Course #1 = Principal Diagnosis (1) Sepsis: Sepsis was due to trevino-sensitive E. coli UTI with trevino-sensitive E. coli bacteremia (07/26/2024, 7:15pm blood cultures #1 and #2). Procalcitonin #1 2.5 ng/mL (07/26/2024, 7:06pm). Patient subsequently received ceftriaxone 2g IV daily (day #1 on 07/26/2024, 7:55pm; day #2 on 07/27/2024, 7:00pm; day #3 on 07/28/2024, 6:44pm). Procalcitonin #2 27.30 ng/mL (07/27/2024, 7:52am). Procalcitonin #3 21.30 ng/mL (07/28/2024, 1:58am). Procalcitonin #4 11.70 ng/mL (07/29/2024, 8:00am). Given the progressive decline in procalcitonin levels above, patient was transitioned to cefuroxime 500mg PO bid (day #1/13 on 07/29/2024, 1:07pm) and tolerated the first dose of cefuroxime 500mg PO bid (day #1/13 on 07/29/2024, 1:07pm)(day #13/13 on 08/10/2024 pm) very well and without any side effects. Patient was subsequently discharged back to her home on 07/29/2024 and was advised to follow up with her PCP Dr. Toy Hancock on Thursday (08/01/2024) to review final reports/results for repeat blood cultures #3 and #4 (07/28/2024, 7:00pm) to ensure that trevino-sensitive E. coli bacteremia has resolved. Patient reports that she will comply with this recommendation. In the interim, patient was advised to hold OFF taking her home-scheduled pantoprazole 40mg PO daily from 07/29/2024 through 08/10/2024, as pantoprazole can interact with cefuroxime. Patient was subsequently advised that she can resume taking her home-scheduled pantoprazole 40mg PO daily on 08/11/2024, on which date, patient will no longer be taking cefuroxime. (2) Septic shock: Due to trevino-sensitive E. coli UTI with trevino-sensitive E. coli bacteremia (07/26/2024, 7:15pm blood cultures #1 and #2). Septic shock has RESOLVED off norepinephrine infusion (which was started to attain/maintain MAP > 65 mm Hg). cf., norepinephrine infusion @ 0.05 ug/kg/min (07/27/2024, 9:10am). cf., norepinephrine infusion @ 0.03 ug/kg/min (07/27/2024, 12:47pm). cf., norepinephrine infusion @ 0.01 ug/kg/min (07/27/2024, 1:00pm). cf., norepinephrine infusion @ 0.03 ug/kg/min (07/27/2024, 1:50pm). cf., norepinephrine infusion @ 0.01 ug/kg/min (07/27/2024, 3:57pm). cf., norepinephrine infusion @ 0.00 ug/kg/min (07/27/2024, 4:56pm). (3) Acute hypoxic respiratory failure: Acute hypoxic respiratory failure with O2 sat 89% on room air (07/26/2024, 7:30pm). Acute hypoxic respiratory failure with O2 sat 88% on room air (07/27/2024, 5:27am). O2 sat 93% on 3 liters/minute via nasal cannula (07/27/2024, 3:45pm). RESOLVED with O2 sat 98% on room air (07/28/2024, 3:35pm). cf., portable CXR (07/26/2024, 7:10pm): No infiltrate, effusion, pneumothorax. Cardiomegaly with slight pulmonary vascular congestion. Etiology of acute hypoxic respiratory failure remains unclear, but was probably due to gram negative shelbi-associated community acquired pneumonia. As stated in bullet #1 above, patient subsequently started to receive ceftriaxone 2g IV daily (day #1 on 07/26/2024, 7:55pm; day #2 on 07/27/2024, 7:00pm; day #3 on 07/28/2024, 6:08pm). (4) Hypomagnesemia: cf., Mg 1.5 mg/dL (07/26/2024, 7:06pm). cf., Mg 2.2 mg/dL (07/27/2024, 4:41am). RESOLVED s/p administration of magnesium sulfate 1g IV x 2 doses (07/26/2024, 9:48pm; 07/27/2024, 12:16am). Plan 19-yekbs-efa female with PMH of DNR/DNI @ home alone, rheumatic heart disease leading to mechanical AVR and MVR ([facility]) on coumadin, paroxysmal AFIB s/p PPM, chronic systolic CHF with reduced LVEF 45-50% (as noted on 04/25/2024, 12:44pm TTE, CARDS Dr. Kris Oakley), CAD, PAD/PVD, former tobacco abuse with subsequent diagnosis of COPD, not on home O2 or home steroids, and trevino-sensitive E. coli UTI (as noted on 01/19/2023 and 09/19/2021 urine cultures), who came to [facility] ER on 07/26/2024 with complaints of 1 day of chills, fatigue, and lower abdominal pain/pressure. Patient was subsequently admitted to the inpatient hospitalist service @ [facility] on 07/26/2024 with the following diagnoses: 1. Sepsis due to recurrent trevino-sensitive E. coli UTI, now with trevino-sensitive E. coli bacteremia. 2. Acute hypomagnesemia with Mg 1.5 mg/dL (07/26/2024, 7:06pm). (as noted on 04/25/2024, 12:44pm TTE, CARDS Dr. Kris Oakley). 3. Acute type II NSTEMI with nominal troponin-I elevations due to demand ischemia, which in turn, was due to (a) paroxysmal AFIB with RVR; (b) chronic systolic CHF with reduced LVEF 45-50% (as noted on 04/25/2024, 12:44pm TTE, CARDS Dr. Kris Oakley). Troponin-I #1 15.1 pg/mL (07/26/2024, 7:06pm). Troponin-I #2 24.0 pg/mL (07/27/2024, 4:41am). Troponin-I #3 24.1 pg/mL (07/27/2024, 9:07pm). Troponin-I #4 20.5 pg/mL (07/28/2024, 1:58am). #Sepsis/UTI - UA 2+ protein, positive for nitrates, 3+ LE, greater than 50 WBC, 4+ bacteria. Symptomatic. History of pansensitive E. coli. Renal function stable. + SIRS: tachypneic (RR 31), tachycardic (HR 131), febrile 38.4C - lactate 1.6, procal 2.50 - no leukocytosis - trend CBC - Sepsis fluid bolus for ideal body weight = 1704.30mL; given 1.5L NSS in ED - Complete sepsis fluid bolus with additional 1L LR bolus given tachycardic and hypotensive on admission; continue IVF resuscitation with LR @ 150 ml/hr x2l - ABX coverage with Rocephin - discontinue azithromycin - originally thought to be PNA however CXR negative and patient without respiratory symptoms - follow blood and urine cultures - Tylenol prn for fever - trop 15.1 - likely 2/2 demand with sepsis, pt denies CP. Repeat with AM labs. #Qdnoyaz23% on room air in ED. CXR showed interstitial congestion. Bio fire negative. Repleted magnesium as below Incentive spirometry Wean oxygen as tolerated #hypomagnesemia2/2. P.o. intake. Magnesium 1.5, electrolytes stable. 2G IV magnesium ordered Trend magnesium and BMP #Hip painpelvis XR reveals worsening osteoarthritis. Patient with hip pain worsening for several months. Patient denies any falls. Tylenol as needed, oxycodone prn for breakthrough pain #HFpEFmost recent EF 45 to 50%. no acute exacerbation at time of admission not on any diuretics at home. Strict I's and O's Monitor for fluid overload with fluids above however patient appears very dry - daily weights #Rheumatic heart disease leading to mechanical AVR and MVR ([facility], date ?) on coumadin, s/p tricuspid valve repair ([facility], date ?) INR goal 2.5-3.5 - INR 3.9 on admission 07/26/2024 - INR 3.6 on 07/27/2024; held warfarin on 07/27/2024, resumed warfarin 1mg PO x 1 dose (07/28/2024, 4:00pm) given INR 3.6 (07/28/2024, 1:58am). Patient has a discharge INR 2.9 (07/29/2024, 8:00am), which is slightly sub-therapeutic; patient subsequently received warfarin 1mg PO x 1 dose (07/29/2024, 4:29pm), and was advised to resume her home-scheduled warfarin 2mg PO daily on 07/30/2024 and on 07/31/2024, and to see her PCP Dr. Toy Hancock on Thursday (08/01/2024) to undergo repeat INR testing on Thursday (08/01/2024). Patient reports that she will comply with this recomendation. #Paroxysmal AFIB with pacer - cf., admission EKG (07/26/2024, 7:07pm): AFIB @ 134, QTC 50, RBBB, LAFB, LVH, no acute ST depressions/elevations (by my review). Repleted electrolytes as noted above in regards to acute hypomagnesemia with admission Mg 1.5 mg/dL (07/26/2024, 7:06pm). #Gerd - hold off PPI as PPI can interact with cefuroxime. #Anemia - of note, Hgb has declined from pre-admission Hb 14.2 g/dL (06/16/2024, 2:10pm) to admission Hb 10.9 g/dL (07/26/2024, 7:06pm) to discharge Hb 10.7 g/dL (07/29/2024, 8:00am). Patient denies any bleeding. VTE ppx: SCDs Dispo: Code status, DNR/DNI @ home. There were no adverse events noted with this hospitalization. Condition of patient remains fair. Patient was subsequently discharged back to her home today, 07/29/2024, and will follow up with her PCP Dr. Toy Hancock on Thursday (08/01/2024) to undergo repeat INR testing on Thursday (08/01/2024), as well as to review final reports/results for repeat blood cultures (07/28/2024, 7:00pm). Patient may also discuss with her PCP Dr. Toy Hancock regarding outpatient screening colonoscopy to evaluate decline in Hb levels from pre-admission Hb 14.2 g/dL (06/16/2024, 2:10pm) to admission Hb 10.9 g/dL (07/26/2024, 7:06pm) to discharge Hb 10.7 g/dL (07/29/2024, 8:00am) in the absence of any mucosal bleeding reported by patient while in [facility]. Admission HPI Per Admitting Provider Patient is a 69-year-old female with history of aortic and mitral mechanical replacements, A-fib with a pacer, CHF (most recent EF 45 to 50%), rheumatic heart disease, stage III CKD, CAD, PVD, COPD. Patient presented via EMS due to 1 day of chills, fatigue, lower abdominal pain/pressure. patient is being admitted for sepsis secondary to UTI. Patient seen at bedside with her son present. She stated that she called EMS because she just felt cold and tired all morning. She took Azo yesterday because she feels like she has a UTI. She stated she has pressure when she tries to urinate and lower abdominal pain and bloating. She denies any burning with urination or hematuria, however urine is orange after taking Azo. She also endorses some dizziness today. She has had a poor appetite for the past 2 days and has not been able to eat or drink much. She stated she has had rhinorrhea however does have allergies and has been taking allergy medication for this. She denies any chest pain, shortness of breath, cough, congestion, nausea, vomiting, diarrhea, constipation, edema. Patient stated she does have a kitten at home who has been scratching her frequently, skin evaluated and no significant erythema or signs of infection. She denies any sick contacts. Patient was concerned because she took medications with a sip of tap water yesterday which had a yellowish color. She gave this water to her cats and they have been vomiting since. Patient denies any nicotine or alcohol use. She does not use any oxygen at baseline, currently on 2L nasal cannula at time of admi ssion. She did not take any home medications today because she takes them at approximately 4 PM. She is on warfarin ordered. She wishes to be DNR/DNI. Patient reevaluated after sepsis fluid bolus - perfusing well, tachycardia and tachycardia resolved. Bp 96/59 - continue IVF. Discharge Exam Constitutional General: Comfortable, coherent, cooperative. Wide awake and alert. Not confused, lethargic, or obtunded. Patient speaks in complete, fluent, and articulate sentences without pause, cough, or wheeze, with O2 sat 91% on room air (07/29/2024, 8:54am). HEENT: Normocephalic, atraumatic. Extra-ocular muscles intact. Pupils equally round and reactive to light. No nystagmus, gaze paresis, anisocoria, miosis, mydriasis, hyphema, scleral injection, conjunctivitis, or pterygium. No otorrhea. No pharyngeal erythema, edema, or discharge. Neck: Supple, no stridor, bruit, goiter, or hepato-jugular reflux. Jugular venous pressure is estimated to be 3 cm above the sternal angle of Ayad, which in turn, is 5 cm above the level of the right atrium; with jugular venous pressure estimated to be 8 cm, then, there is no jugular venous distention on 07/29/2024. Lymphatics: No cervical (anterior/posterior), supraclavicular, infraclavicular, axillary, epitrochlear, or inguinal adenopathy. Chest: Symmetric rise and fall with respirations. Non-tender to palpation. Lungs: Clear to auscultation and percussion. No audible expiratory wheeze, egophony, pectoriloquy, increase in tactile fremitus, or flatness/dullness to percussion at the bases. Heart: Regular rate and rhythm. S1 and S2 noted. No S3 or S4 summation gallop. No tripartite friction rub. Grade II/ early systolic murmur @ LLSB without radiation to the carotids, axilla, or back, and which remains invariant in regards to the respiratory cycle. Abdomen: Soft, non-tender, non-distended. No rebound, guarding, Fuentes's sign, or organomegaly. Bowel sounds auscultated in all 4 quadrants. Extremities: No clubbing, cyanosis, or edema in upper extremities or lower extremities bilaterally. 2+ pedal pulses bilaterally. Skin: No decubitus ulcer, exanthem, or enanthem. Genito-urinary: No urethral discharge. No huang catheter. Patient walks from bed to bedside commode and back to bed without difficulty. Neurology: Alert and oriented in regards to person, place, time, and situation. DTR+ and symmetric. 5/5 motor strength in all 4 extremities, both proximally and distally. No pronator drift. No facial droop. No dysarthria. Psychiatry: No homicidal ideation. No suicidal ideation. No flat affect; smiles appropriately. Discharge Plan Discharge Items Patient Disposition: Home - Self-Care Reason For Visit: SEPSIS, UTI? Discharge Diagnosis: Sepsis due to acute trevino-sensitive E. coli UTI with E. coli bacteremia (07/26/2024, 7:15pm blood cultures #1 and #2) Condition on Discharge: Fair Activity: Resume your previous activity Lifting: No more than 10 pounds Bathing: No limitations Driving/Machine Use: No limitations Weightbearing: Full weightbearing Non-emergency contact: Primary Care Provider Call non-emergency contact if: you have any medication questions Follow-up/Referrals: Toy Hancock DO [Physician] - 08/05/24 1:30 pm (Dr. Yeager is partners with Dr. Bush. He will see you for your hospital follow up. Please arrive 15 min. before your scheduled visit. Thank you!) Diet: Heart Healthy Addtl Attending Provider Instructions: See your PCP Dr. Toy Hancock on Thursday (08/01/2024) to undergo repeat INR testing on Thursday (08/01/2024), as well as to review final reports/results for repeat blood cultures (07/28/2024, 7:00pm). Patient may also discuss with her PCP Dr. Toy Hancock regarding outpatient screening colonoscopy to evaluate decline in Hb levels from pre-admission Hb 14.2 g/dL (06/16/2024, 2:10pm) to admission Hb 10.9 g/dL (07/26/2024, 7:06pm) to discharge Hb 10.7 g/dL (07/29/2024, 8:00am) in the absence of any mucosal bleeding reported by patient while in [facility]. Pending Studies at Discharge: Yes Studies:: See your PCP Dr. Toy Hancock on Thursday (08/01/2024) to undergo repeat INR testing on Thursday (08/01/2024), as well as to review final reports/results for repeat blood cultures (07/28/2024, 7:00pm). Patient may also discuss with her PCP Dr. Toy Hancock regarding outpatient screening colonoscopy to evaluate decline in Hb levels from pre-admission Hb 14.2 g/dL (06/16/2024, 2:10pm) to admission Hb 10.9 g/dL (07/26/2024, 7:06pm) to discharge Hb 10.7 g/dL (2024, 8:00am) in the absence of any mucosal bleeding reported by patient while in [facility]. Stand-Alone Forms: My [facility] [employer], Smoking Cessation Medications and DC Order Prescriptions: New cefuroxime axetil 500 mg Tablet 500 mg PO BID Qty: 25 0RF Continued warfarin [Jantoven] 2 mg tablet See Rx Instructions .ROUTE .COMPLEX Qty: 180 3RF Protocol: Dose Management Condition: Thursday Dose/Route: 2 mg Instruction: 1 x 2 mg tablet Condition: Thursday Dose/Route: 2 mg Instruction: 1 x 2 mg tablet Condition: Thursday Dose/Route: 2 mg Instruction: 1 x 2 mg tablet Condition: Thursday Dose/Route: 2 mg Instruction: 1 x 2 mg tablet Condition: Dose/Route: 2 mg Instruction: 1 x 2 mg tablet Condition: Thursday Dose/Route: 2 mg Instruction: 1 x 2 mg tablet Condition: Thursday Dose/Route: 2 mg Instruction: 1 x 2 mg tablet Protocol Text: Adjustment Start Date: Thursday07/25/24 INR Value: 3.3 INR Date: 07/25/24 Recheck Date: 08/01/24 Rx Instructions: Take 1-2 tabs PO daily as directed by provider. cholecalciferol (vitamin D3) 50 mcg (2,000 unit) capsule 50 mcg PO DAILY Qty: 90 3RF fexofenadine [Gisel Allergy] 1 cap PO DAILY PRN (Reason: indegestion) rosuvastatin 10 mg tablet 10 mg PO DAILY Qty: 90 3RF simethicone [Gas-X] 1 chewable tab PO DAILY PRN (Reason: Gastric Reflux) acetaminophen [Tylenol Extra Strength] 500 mg tablet 500 mg PO Q6H PRN (Reason: Pain) Held pantoprazole 40 mg tablet,delayed release (DR/EC) 40 mg PO DAILY Qty: 90 2RF Hold Instructions: Resume on 08/11/24. Hold OFF pantoprazole 40mg PO daily from 07/29/2024 through 08/10/2024, as pantoprazole can interact with cefuroxime. You can restart pantoprazole 40mg PO daily on 08/11/2024, as you will no longer be taking cefuroxime on 08/11/2024. Discharge Orders: Discharge Order (Routine); Ordered 07/29/24 Ordered By: Soham Casas Discharge Order- CHF (Routine); Ordered 07/29/24 Ordered By: Sohma Peña/Other Patient Handouts: Cefuroxime Oral Tablet, Urinary Tract Infections in Women Admission Data Admit Date/Time: 07/26/24 21:32 Attending Provider: Soham Casas Admit Provider: Jesus Fontaine Primary Care Provider: Shellie Bush Other Providers: Jesus Fontaine Hospital Stay Data Consultations 07/26/24 20:16 ED Decision to Admit Stat Pending Results Patient Have Any Pending Studies at Discharge: Yes Discharge Instructions Given to Patient (Per Discharging Provider) See your PCP Dr. Toy Hancock on Thursday (08/01/2024) to undergo repeat INR testing on Thursday (08/01/2024), as well as to review final reports/results for repeat blood cultures (07/28/2024, 7:00pm). Patient may also discuss with her PCP Dr. Toy Hancock regarding outpatient screening colonoscopy to evaluate decline in Hb levels from pre-admission Hb 14.2 g/dL (06/16/2024, 2:10pm) to admission Hb 10.9 g/dL (07/26/2024, 7:06pm) to discharge Hb 10.7 g/dL (07/29/2024, 8:00am) in the absence of any mucosal bleeding reported by patient while in [facility]. Total Time Total Time Spent Total Time Spent (In Minutes): 35 minutes. Of this time period, 19 minutes were spent in coordinating patient's discharge. Coding Level of Care Code 66150 INP/OBS DISCH >30 MIN Diagnoses Sepsis A41.9 Septic shock A41.9; R65.21 Acute hypoxic respiratory failure J96.01 Hypomagnesemia E83.42
[2024-07-29] MEDS: WARFARIN SOD 1 MG TAB PO STA (16:29)
== END 2024-07-29 17:27 | disposition home or self-care (01) | DRG 871 ==
LOC: ED 18:58 → SUATTDRO 21:32 → 2E 21:32 → 1E 07-27 06:13 → 3W 07-28 15:33